=== PATIENT | female | born 1985 | race Caucasian/White ===

== ENCOUNTER 2019-07-18 13:48 | Inpatient (IN) ==
[2019-07-18] MEDS ORDERED: SODIUM CHLORIDE 0.9% 1000ML 1,000 ML IV ONE (14:17)
[2019-07-18] MEDS ORDERED: KETOROLAC TROMETHAMINE 15 MG/ML VIAL IV STA (14:17)
[2019-07-18] MEDS ORDERED: ONDANSETRON INJ 2 MG/ML 2 ML VIAL IV STA (14:17)
[2019-07-18 14:27] LABS: Basophils # (auto) 0.03 K/uL (0-0.2); Basophils % (auto) 0.2 %; Eosinophils # (auto) 0.21 K/uL (0-0.5); Eosinophils % (auto) 1.5 %; Hematocrit (blood only) 40.1 % (37-47); Hemoglobin 14.2 g/dL (12.0-16.0); Immature Granulocytes # (auto) 0.16 K/uL (0.00-0.02); Immature Granulocytes % (auto) 1.2 %; Lymphocytes # (auto) 1.22 K/uL (1.2-3.4); Lymphocytes % (auto) 8.9 %; Mean Corpuscular Hemoglobin 34.9 pg (25-34); Mean Corpuscular Hgb Conc 35.4 g/dL (32-36); Mean Corpuscular Volume 98.5 fL (80-100); Mean Platelet Volume 9.6 fL (7.4-10.4); Monocytes # (auto) 1.19 K/uL (0.11-0.59); Monocytes % (auto) 8.6 %; Neutrophils # (auto) 10.95 K/uL (1.4-6.5); Neutrophils % (auto) 79.6 %; Platelet Count 324 K/uL (130-400); RDW Coefficient of Variation 13.8 % (11.5-14.5); RDW Standard Deviation 49.1 fL (36.4-46.3); Red Blood Count 4.07 M/uL (4.2-5.4); White Blood Count 13.76 K/uL (4.8-10.8)
[2019-07-18 14:43] LABS: Albumin Level 3.4 gm/dl (3.4-5.0); BUN Creatinine Ratio 9.9 (10-20); Bilirubin Direct 0.1 mg/dl (0-0.2); Bilirubin,Total 0.6 mg/dl (0.2-1); Calcium 9.1 mg/dl (8.5-10.1); Creatinine Clr Calc Pharmacy 99.6 ml/min; Est GFR (African American) 121.4; Est GFR (Non-African American) 104.7; Potassium 2.5 mmol/L (3.5-5.1); Total Protein 8.5 gm/dl (6.4-8.2)
[2019-07-18 14:45] LABS: Appearance Urine Cloudy (Clear); Bacteria Urine Automated Negative (Negative); Blood Urine Trace (Negative); Color Urine Dark Yellow; Epithelial Cell Urine Auto >30 /lpf (0-5); Glucose Urine UA Negative (Negative); Leukocyte Esterase Urine 1+ (Negative); Nitrite Urine Positive (Negative); Protein Urine 1+ (Negative); Specific Gravity Urine 1.027 (1.000-1.030); Urobilinogen Urine Positive (Negative)
[2019-07-18 14:51] LABS: Ketones Urine 4+ (Negative)
[2019-07-18 14:58] LABS: Bilirubin Urine Negative (Negative); Ictotest Urine Negative (Negative)
[2019-07-18] MEDS ORDERED: POTASSIUM CHLORIDE / WTR 20 MEQ/100 ML PLCT IV ONE (15:03)
[2019-07-18] MEDS ORDERED: IOVERSOL 100ml IV PRN (15:12)
[2019-07-18 15:22] LABS: Magnesium 2.1 mg/dl (1.8-2.4)
[2019-07-18] MEDS: POTASSIUM CHLORIDE / WTR 10 MEQ/100 ML PLCT IV SCH ×2 (15:31→17:08)
--- NOTE | 2019-07-18 15:31 | CT Scan Report ---
CT OF THE ABDOMEN AND PELVIS WITH CONTRAST CLINICAL HISTORY: Abdominal pain. COMPARISON STUDY: CT of the abdomen and pelvis March 02, 2013. TECHNIQUE: Following IV administration of 95 mL of Optiray-320, axial images of the abdomen and pelvi s were obtained from the lung bases to the proximal femurs. Images were reviewed in the axial, sagitt al, and coronal planes. IV contrast was administered without complication. Automated exposure contro l was utilized for the study. A dose lowering technique was utilized adhering to the principles of A ITZEL. CT DOSE: 445.21 mGycm FINDINGS: Lung bases are unremarkable. No pneumatosis, free air or portal venous gas is present. The liver, spleen, adrenal glands, kidneys and pancreas are unremarkable. There is no biliary or pancreat ic ductal dilatation is no hydronephrosis or hydroureter. The appendix is normal. There is no evidenc e for a bowel obstruction. Colon is mildly fluid-filled. Intrauterine device is noted. This appears t o be slightly low-lying with unusual orientation. Asymmetric left ovarian enlargement is noted. A tub ular structure within the left adnexa favors a dilated fallopian tube with adjacent infiltration. A 2 .4 x 1.6 cm hypodensity within the left adnexa is noted. There may be possible dilatation of the righ t fallopian tube is well. There is no right adnexal infiltration. No suspicious osseous lesions are p resent. Major vasculature is patent. There is mild bladder wall thickening, accentuated by underdiste ntion. IMPRESSION: 1. Dilatation of the left fallopian tube with adjacent infiltration. The findings favor an infectious process such as pelvic inflammatory disease with pyosalpinx and possible small tubo-ovarian abscesse s. Possible mild dilatation of the right fallopian tube without adjacent infiltration. 2. Slightly low-lying intrauterine device with unusual orientation. This may reflect a malpositioned IUD. ACT 112: Negative or not required by law. Electronically signed by: Troy Murphy M.D. 07/18/2019 3:30 PM
[2019-07-18] MEDS ORDERED: cefOXitin 2,000 MG/60 ML BAG IV STA (15:40)
[2019-07-18] MEDS ORDERED: DOXYCYCLINE HYCLATE 100 MG in DEXTROSE 5% 100 ML IV STA (15:40)
[2019-07-18] MEDS ORDERED: SODIUM CHLORIDE 0.9% 1000ML 1,000 ML IV SCH (16:00)
--- NOTE | 2019-07-18 16:12 | Electrocardiogram Report ---
Test Reason : Blood Pressure : / mmHG Vent. Rate : 094 BPM Atrial Rate : 094 BPM P-R Int : 128 ms QRS Dur : 074 ms QT Int : 370 ms P-R-T Axes : 059 061 004 degrees QTc Int : 462 ms Poor data quality, interpretation may be adversely affected Normal sinus rhythm Possible Left atrial enlargement Poor R wave progression, consider anterior OK vs. lead placement vs. LVH Abnormal ECG No previous ECGs available Confirmed by Ahsan Paris ([id number]) on 07/18/2019 4:12:11 PM Referred By: REFERRED SELF Confirmed By:Ahsan Paris
[2019-07-18] MEDS ORDERED: ACETAMINOPHEN 325 MG TAB PO PRN (18:31)
[2019-07-18] MEDS ORDERED: ONDANSETRON INJ 2 MG/ML 2 ML VIAL IV PRN (18:31)
--- NOTE | 2019-07-18 18:46 | Emergency Department Note ---
Entered by Brigette Hopkins acting as a scribe for Storm Goncalves History of Present Illness General Chief complaint: Abdominal Pain Stated complaint: SEVERE ABDOMINAL PAIN Time Seen by Provider: 07/18/19 14:03 Source: patient History of Present Illness Onset (ago): day(s) 4 Location: abdomen (lower, left greater than right) Severity: severe Maximum Pain Intensity: 7 Quality: + other (abdominal pain) Associated symptoms: + other (Positive nausea. 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 She states she went to walk in clinic in [place] and was told she had a UTI. She states she was called today and was told she does not have a UTI and was recommended to go to the ED. She reports her abdominal pain is greater on the left side and radiates to the right side. Pt has nausea and pain with urination but denies any vomiting, blood in her urine, abnormal vaginal discharge, chance of , concern for STD exposure, prior abdominal surgeries. She is a current smoker and smokes half a pack a day. Home Medications Home Medications Medication Instructions Recorded Confirmed Type acetaminophen [Tylenol Extra 1,000 mg PO Q6H PRN 07/18/19 07/18/19 History Strength] buprenorphine HCl 8 mg SUBLINGUAL TID 07/18/19 07/18/19 History cephalexin [Keflex] 500 mg PO Q12 07/18/19 07/18/19 History furosemide [Lasix] 40 mg PO BID 07/18/19 07/18/19 History ibuprofen 400 - 600 mg PO Q6H PRN 07/18/19 07/18/19 History levothyroxine [Synthroid] 200 mcg PO DAILY 07/18/19 07/18/19 History ondansetron 4 - 8 mg TRANSLINGUAL Q8 PRN 07/18/19 07/18/19 History potassium chloride [Klor-Con M10] 10 meq PO BID 07/18/19 07/18/19 History Allergies Allergy/AdvReac Type Severity Reaction Status Date / Time valacyclovir Allergy Severe SHORTNESS Verified 07/18/19 15:13 OF BREATH Past Med/Surg History Medical History Post-dates Surgical History No pertinent past surgical history Family History Other No pertinent family history in first degree relatives Social History Feels Safe at Home: Yes Smoking Status: Current every day smoker Review of Systems See HPI for pertinent positives & negatives. and A total of 10 systems reviewed and were otherwise negative Physical Exam Vital Signs Vital Signs - 24 hr 07/18/19 13:50 07/18/19 14:14 07/18/19 14:20 Temperature 36.8 C Temperature Source Oral Pulse Rate 107 H 105 H 91 H Pulse Rate from SpO2 Sensor Respiratory Rate 20 18 18 Respiratory Effort / Characteristics Non-Labored Respiratory Depth Normal Respiratory Pattern Regular Blood Pressure 135/66 Blood Pressure Mean 89 Pulse Oximetry 100 Oxygen Delivery Method Room Air Room Air Room Air Sepsis Action Taken by Nursing No Action Required 07/18/19 14:30 07/18/19 14:40 07/18/19 14:50 Temperature Temperature Source Pulse Rate 87 88 86 Pulse Rate from SpO2 Sensor Respiratory Rate 21 18 19 Respiratory Effort / Characteristics Respiratory Depth Respiratory Pattern Blood Pressure Blood Pressure Mean Pulse Oximetry Oxygen Delivery Method Room Air Room Air Room Air Sepsis Action Taken by Nursing 07/18/19 15:00 07/18/19 15:18 07/18/19 15:20 Temperature Temperature Source Pulse Rate 89 101 H 87 Pulse Rate from SpO2 Sensor Respiratory Rate 16 17 Respiratory Effort / Characteristics Respiratory Depth Respiratory Pattern Blood Pressure Blood Pressure Mean Pulse Oximetry Oxygen Delivery Method Room Air Room Air Room Air Sepsis Action Taken by Nursing 07/18/19 15:24 07/18/19 15:30 07/18/19 15:31 Temperature Temperature Source Pulse Rate 88 87 85 Pulse Rate from SpO2 Sensor 87 88 85 Respiratory Rate 23 19 20 Respiratory Effort / Characteristics Respiratory Depth Respiratory Pattern Blood Pressure 106/91 127/76 Blood Pressure Mean 98 86 Pulse Oximetry 99 97 97 Oxygen Delivery Method Room Air Room Air Room Air Sepsis Action Taken by Nursing 07/18/19 15:40 07/18/19 15:55 07/18/19 16:00 Temperature Temperature Source Pulse Rate 89 87 Pulse Rate from SpO2 Sensor 89 96 H 88 Respiratory Rate 20 16 Respiratory Effort / Characteristics Respiratory Depth Respiratory Pattern Blood Pressure 123/73 Blood Pressure Mean 83 Pulse Oximetry 98 98 99 Oxygen Delivery Method Room Air Room Air Room Air Sepsis Action Taken by Nursing 07/18/19 16:01 07/18/19 16:10 07/18/19 16:20 Temperature Temperature Source Pulse Rate 83 88 85 Pulse Rate from SpO2 Sensor 86 88 86 Respiratory Rate 18 22 14 Respiratory Effort / Characteristics Respiratory Depth Respiratory Pattern Blood Pressure Blood Pressure Mean Pulse Oximetry 99 99 100 Oxygen Delivery Method Room Air Room Air Room Air Sepsis Action Taken by Nursing 07/18/19 16:30 07/18/19 16:31 07/18/19 16:43 Temperature Temperature Source Pulse Rate 83 88 86 Pulse Rate from SpO2 Sensor 83 87 87 Respiratory Rate 19 18 30 H Respiratory Effort / Characteristics Respiratory Depth Respiratory Pattern Blood Pressure 115/72 Blood Pressure Mean 85 Pulse Oximetry 99 99 98 Oxygen Delivery Method Room Air Room Air Room Air Sepsis Action Taken by Nursing 07/18/19 16:50 07/18/19 17:00 07/18/19 17:01 Temperature Temperature Source Pulse Rate 83 84 87 Pulse Rate from SpO2 Sensor 83 85 88 Respiratory Rate 23 20 19 Respiratory Effort / Characteristics Respiratory Depth Respiratory Pattern Blood Pressure 129/56 L Blood Pressure Mean 98 Pulse Oximetry 99 99 99 Oxygen Delivery Method Room Air Room Air Room Air Sepsis Action Taken by Nursing 07/18/19 17:10 07/18/19 17:20 07/18/19 17:30 Temperature Temperature Source Pulse Rate 80 81 82 Pulse Rate from SpO2 Sensor 81 80 84 Respiratory Rate 18 18 14 Respiratory Effort / Characteristics Respiratory Depth Respiratory Pattern Blood Pressure 115/78 Blood Pressure Mean 87 Pulse Oximetry 99 98 100 Oxygen Delivery Method Room Air Room Air Room Air Sepsis Action Taken by Nursing 07/18/19 17:31 07/18/19 17:40 07/18/19 17:50 Temperature Temperature Source Pulse Rate 86 83 80 Pulse Rate from SpO2 Sensor 87 84 79 Respiratory Rate 14 17 15 Respiratory Effort / Characteristics Respiratory Depth Respiratory Pattern Blood Pressure Blood Pressure Mean Pulse Oximetry 100 99 100 Oxygen Delivery Method Room Air Room Air Room Air Sepsis Action Taken by Nursing 07/18/19 18:00 07/18/19 18:01 07/18/19 18:10 Temperature Temperature Source Pulse Rate 78 77 79 Pulse Rate from SpO2 Sensor 79 77 79 Respiratory Rate 20 16 21 Respiratory Effort / Characteristics Respiratory Depth Respiratory Pattern Blood Pressure 106/68 Blood Pressure Mean 73 Pulse Oximetry 98 99 99 Oxygen Delivery Method Room Air Room Air Room Air Sepsis Action Taken by Nursing GENERAL: She is oriented to person, place, and time. She appears well-developed and well-nourished. She does not appear distressed. HENT: Exam performed. Head: Normocephalic and atraumatic. Right Ear: External ear normal. No mastoid tenderness. Left Ear: External ear normal. No mastoid tenderness. Mouth/Throat: The oropharynx is clear and moist. No trismus in the jaw. No dental abscesses or uvula swelling. No oropharyngeal exudate or tonsillar abscesses. EYES: Conjunctivae and EOM are normal. Pupils are equal, round, and reactive to light. Right eye exhibits no discharge. Left eye exhibits no discharge. No scleral icterus. NECK: Normal range of motion. Neck supple. No JVD present. No spinous process tenderness present. No carotid bruit present. No rigidity. No tracheal deviation and normal range of motion present. No Brudzinski's sign and no Kernig's sign noted. CV: Normal rate, regular rhythm, normal heart sounds and intact distal pulses. There is no peripheral edema. Palpable radial pulses bue. PULM/CHEST: Effort normal and breath sounds normal. No respiratory distress. No stridor. She has no wheezes. She has no rales. Chest Wall: She exhibits no tenderness. ABD: The abdomen is soft. Bowel sounds are normal. She has no distension. No mass is present. Pain on palpation of RLQ, LLQ, and suprapubic area. There is no rebound, no guarding, no Noland's sign and no tenderness at McBurney's point. Rovsig negative MUSC/SKEL: Normal range of motion. There is no peripheral edema, tenderness or deformity. LYMPH: No cervical adenopathy. PELVIC: Performed with nursing hand carver at bedside. Greenish yellow vaginal discharge and left sided adnexal tenderness. No cervical motion tenderness. NEURO: She is alert and oriented to person, place, and time. She has normal strength. No cranial nerve deficit or sensory deficit. Coordination and gait normal. GCS eye subscore is 4. GCS verbal subscore is 5. GCS motor subscore is 6. cerbellar tests wnl. SKIN: Skin is warm and dry. She is not diaphoretic. PSYCH: She has a normal mood and affect. Her behavior is normal. Judgment and thought content normal. Course Course 1414: Past medical records reviewed. The patient was evaluated in room A9. A complete history and physical exam was performed. 1509: I reassessed the patient at this time. She still has pain on palpation. She will have a CT. Her labs will be rechecked as she has a potassium level of 2.5. She has a leukocytosis of 13. Potassium will be replaced in the emergency department. 1554: CT showed possible tubo-ovarian abscess on the left with pyosalpinx and dilatation and inflammation of the left fallopian tube. There is also dilatation and infiltration of the right fallopian tube. Patient is again stating she has not been exposed any STD eyes and is not concerned. I performed a pelvic exam with nursing hand carver at bedside. She had greenish yellow vaginal discharge and left sided adnexal tenderness. No cervical motion tenderness. Cultures for gonorrhea and chlamydia were sent. Patient will be treated with IV doxycycline and cefoxitin. Discussed the patient's case with Dr. Crum, [employer]. He will come evaluate the patient. Administered Medications Sodium Chloride (Nss 1000ml) 1,000 mls @ 125 mls/hr IV .Q8H MIKHAIL Stop: 08/17/19 15:59 Last Admin: 07/18/19 16:05 Dose: 125 mls/hr Documented by: [id number] Ioversol (Optiray 320 100ml) 95 ml IV ONCE PRN PRN Reason: Interaction Checking Stop: 07/22/19 15:11 Last Admin: 07/18/19 15:13 Dose: 95 ml Documented by: [id number] Discontinued Medications Sodium Chloride (Nss 1000ml) 1,000 mls @ 999 mls/hr IV .Q1H1M ONE Stop: 07/18/19 15:17 Last Infusion: 07/18/19 15:25 Dose: 0 mls/hr Documented by: [id number] Admin: 07/18/19 14:24 Dose: 999 mls/hr Documented by: [id number] Potassium Chloride (K Les / Wtr) 20 meq in 100 mls @ 50 mls/hr IV ONE ONE Stop: 07/18/19 17:02 Last Admin: 07/18/19 15:31 Dose: Not Given Documented by: [id number] Potassium Chloride (K Les / Wtr) 10 meq in 100 mls @ 100 mls/hr IV Q1H MIKHAIL Stop: 07/18/19 17:29 Last Infusion: 07/18/19 18:26 Dose: 0 mls/hr Documented by: [id number] Admin: 07/18/19 17:08 Dose: 100 mls/hr Documented by: [id number] Infusion: 07/18/19 16:48 Dose: 0 mls/hr Documented by: [id number] Admin: 07/18/19 15:31 Dose: 100 mls/hr Documented by: [id number] Cefoxitin Sodium (Mefoxin) 2,000 mg in 60 mls @ 100 mls/hr IV NOW STA Stop: 07/18/19 16:15 Last Infusion: 07/18/19 17:37 Dose: 0 mls/hr Documented by: [id number] Admin: 07/18/19 16:17 Dose: 100 mls/hr Documented by: [id number] Doxycycline Hyclate 100 mg/ (Dextrose) 110 mls @ 50 mls/hr IV NOW STA Stop: 07/18/19 17:51 Last Admin: 07/18/19 17:08 Dose: 50 mls/hr Documented by: [id number] Ketorolac Tromethamine (Toradol) 15 mg IV NOW STA Stop: 07/18/19 14:18 Last Admin: 07/18/19 14:24 Dose: 15 mg Documented by: [id number] Ondansetron HCl (Zofran) 4 mg IV NOW STA Stop: 07/18/19 14:18 Last Admin: 07/18/19 14:24 Dose: 4 mg Documented by: [id number] Medical Decision Making Medical Records Attestation: I reviewed the patient's medical records. Home Medications Current Medication List: was personally reviewed by me Laboratory Data Attestation: I reviewed the patient's lab results. Result diagrams: 07/18/19 14:05 07/18/19 14:05 Lab Results 07/18/19 07/18/19 07/18/19 Range/Units 14:05 14:05 14:10 WBC 13.76 H (4.8-10.8) K/uL RBC 4.07 L (4.2-5.4) M/uL Hgb 14.2 (12.0-16.0) g/dL Hct 40.1 (37-47) % MCV 98.5 (80-100) fL MCH 34.9 H (25-34) pg MCHC 35.4 (32-36) g/dL RDW Std Deviation 49.1 H (36.4-46.3) fL RDW Coeff of Praful 13.8 (11.5-14.5) % Plt Count 324 (130-400) K/uL MPV 9.6 (7.4-10.4) fL Immature Gran % (Auto) 1.2 % Neut % (Auto) 79.6 % Lymph % (Auto) 8.9 % Ralls % (Auto) 8.6 % Eos % (Auto) 1.5 % Baso % (Auto) 0.2 % Immature Gran # (Auto) 0.16 H (0.00-0.02) K/uL Neut # (Auto) 10.95 H (1.4-6.5) K/uL Lymph # (Auto) 1.22 (1.2-3.4) K/uL Ralls # (Auto) 1.19 H (0.11-0.59) K/uL Eos # (Auto) 0.21 (0-0.5) K/uL Baso # (Auto) 0.03 (0-0.2) K/uL Sodium 133 L (136-145) mmol/L Potassium 2.5 L* (3.5-5.1) mmol/L Chloride 98 (98-107) mmol/L Carbon Dioxide 28 (21-32) mmol/L Anion Gap 8.0 (3-11) BUN 8 (7-18) mg/dl Creatinine 0.75 (0.6-1.2) mg/dl Est Cr Clr Drug Dosing 99.6 ml/min Est GFR ( Amer) 121.4 Est GFR (Non-Af Amer) 104.7 BUN/Creatinine Ratio 9.9 L (10-20) Glucose 88 (70-99) mg/dl Calcium 9.1 (8.5-10.1) mg/dl Magnesium 2.1 (1.8-2.4) mg/dl Total Bilirubin 0.6 (0.2-1) mg/dl Direct Bilirubin 0.1 (0-0.2) mg/dl AST 19 (15-37) U/L ALT 23 (12-78) U/L Alkaline Phosphatase 131 H (45-117) U/L Total Protein 8.5 H (6.4-8.2) gm/dl Albumin 3.4 (3.4-5.0) gm/dl Lipase 68 L (73-393) U/L Urine Color Urine Appearance (Clear) Urine pH (4.5-7.5) Ur Specific Ren[place]rew (1.000-1.030) Urine Protein (Negative) Urine Glucose (UA) (Negative) Urine Ketones (Negative) Urine Blood (Negative) Urine Nitrite (Negative) Urine Bilirubin (Negative) Urine Urobilinogen (Negative) Ur Leukocyte Esterase (Negative) Urine WBC (Auto) (0-5) /hpf Urine RBC (Auto) (0-4) /hpf U Hyaline Cast (Auto) (0-5) /lpf U Epithel Cells (Auto) (0-5) /lpf Urine Bacteria (Auto) (Negative) POC Ur Test NEG (NEG) 07/18/19 Range/Units 14:10 WBC (4.8-10.8) K/uL RBC (4.2-5.4) M/uL Hgb (12.0-16.0) g/dL Hct (37-47) % MCV (80-100) fL MCH (25-34) pg MCHC (32-36) g/dL RDW Std Deviation (36.4-46.3) fL RDW Coeff of Praful (11.5-14.5) % Plt Count (130-400) K/uL MPV (7.4-10.4) fL Immature Gran % (Auto) % Neut % (Auto) % Lymph % (Auto) % Ralls % (Auto) % Eos % (Auto) % Baso % (Auto) % Immature Gran # (Auto) (0.00-0.02) K/uL Neut # (Auto) (1.4-6.5) K/uL Lymph # (Auto) (1.2-3.4) K/uL Ralls # (Auto) (0.11-0.59) K/uL Eos # (Auto) (0-0.5) K/uL Baso # (Auto) (0-0.2) K/uL Sodium (136-145) mmol/L Potassium (3.5-5.1) mmol/L Chloride (98-107) mmol/L Carbon Dioxide (21-32) mmol/L Anion Gap (3-11) BUN (7-18) mg/dl Creatinine (0.6-1.2) mg/dl Est Cr Clr Drug Dosing ml/min Est GFR ( Amer) Est GFR (Non-Af Amer) BUN/Creatinine Ratio (10-20) Glucose (70-99) mg/dl Calcium (8.5-10.1) mg/dl Magnesium (1.8-2.4) mg/dl Total Bilirubin (0.2-1) mg/dl Direct Bilirubin (0-0.2) mg/dl AST (15-37) U/L ALT (12-78) U/L Alkaline Phosphatase (45-117) U/L Total Protein (6.4-8.2) gm/dl Albumin (3.4-5.0) gm/dl Lipase (73-393) U/L Urine Color Dark Yellow Urine Appearance Cloudy A (Clear) Urine pH 6.0 (4.5-7.5) Ur Specific Ren[place]rew 1.027 (1.000-1.030) Urine Protein 1+ H (Negative) Urine Glucose (UA) Negative (Negative) Urine Ketones 4+ H (Negative) Urine Blood Trace H (Negative) Urine Nitrite Positive A (Negative) Urine Bilirubin Negative (Negative) Urine Urobilinogen Positive H (Negative) Ur Leukocyte Esterase 1+ H (Negative) Urine WBC (Auto) 10-30 H (0-5) /hpf Urine RBC (Auto) 5-10 H (0-4) /hpf U Hyaline Cast (Auto) 10-30 H (0-5) /lpf U Epithel Cells (Auto) >30 H (0-5) /lpf Urine Bacteria (Auto) Negative (Negative) POC Ur Test (NEG) Imaging Data Radiologist's Impression: Radiology results as stated below per my review and the radiologist's interpretation: CT OF THE ABDOMEN AND PELVIS WITH CONTRAST CLINICAL HISTORY: Abdominal pain. COMPARISON STUDY: CT of the abdomen and pelvis March 02, 2013. TECHNIQUE: Following IV administration of 95 mL of Optiray-320, axial images of the abdomen and pelvis were obtained from the lung bases to the proximal femurs. Images were reviewed in the axial, sagittal, and coronal planes. IV contrast was administered without complication. Automated exposure control was utilized for the study. A dose lowering technique was utilized adhering to the principles of ALARA. CT DOSE: 445.21 mGycm FINDINGS: Lung bases are unremarkable. No pneumatosis, free air or portal venous gas is present. The liver, spleen, adrenal glands, kidneys and pancreas are unremarkable. There is no biliary or pancreatic ductal dilatation is no hydronephrosis or hydroureter. The appendix is normal. There is no evidence for a bowel obstruction. Colon is mildly fluid-filled. Intrauterine device is noted. This appears to be slightly low-lying with unusual orientation. Asymmetric left ovarian enlargement is noted. A tubular structure within the left adnexa favors a dilated fallopian tube with adjacent infiltration. A 2.4 x 1.6 cm hypodensity within the left adnexa is noted. There may be possible dilatation of the right fallopian tube is well. There is no right adnexal infiltration. No suspicious osseous lesions are present. Major vasculature is patent. There is mild bladder wall thickening, accentuated by underdistention. IMPRESSION: 1. Dilatation of the left fallopian tube with adjacent infiltration. The findings favor an infectious process such as pelvic inflammatory disease with pyosalpinx and possible small tubo-ovarian abscesses. Possible mild dilatation of the right fallopian tube without adjacent infiltration. 2. Slightly low-lying intrauterine device with unusual orientation. This may reflect a malpositioned IUD. ACT 112: Negative or not required by law. Electronically signed by: Troy Murphy M.D. 07/18/2019 3:30 PM ECG Data Attestation: I personally reviewed and interpreted this ECG as follows: Indication: + abdominal pain Rate (beats per minute): 79 Rhythm: + sinus rhythm ECG ST segments: no ST depression and no ST elevation ECG Findings: + Other (WA, QRS, QTC wnl) Blood Pressure Blood Pressure Findings: Elevated blood pressure Blood Pressure Disposition: further management by hospitalist [facility] Narrative 1414: Past medical records reviewed. The patient was evaluated in room A9. A complete history and physical exam was performed. 1509: I reassessed the patient at this time. She still has pain on palpation. Sh e will have a CT. Her labs will be rechecked as she has a potassium level of 2.5. She has a leukocytosis of 13. Potassium will be replaced in the emergency department. 1554: CT showed possible tubo-ovarian abscess on the left with pyosalpinx and dilatation and inflammation of the left fallopian tube. There is also dilatation and infiltration of the right fallopian tube. Patient is again stating she has not been exposed any STD eyes and is not concerned. I performed a pelvic exam with nursing hand carver at bedside. She had greenish yellow vaginal discharge and left sided adnexal tenderness. No cervical motion tenderness. Cultures for gonorrhea and chlamydia were sent. Patient will be treated with IV doxycycline and cefoxitin. Discussed the patient's case with Dr. Crum, [employer]. He will come evaluate the patient. Impression & Plan Tubal ovarian abscess, Hypokalemia Discharge Plan Visit Data Chief Complaint: Abdominal Pain Stated Complaint: SEVERE ABDOMINAL PAIN ED Provider: Storm Goncalves Discharge Problem: Tubal ovarian abscess, Hypokalemia Patient Disposition: Being Evaluated by Hospitalist Forms Stand Alone Forms: Call Back Authorization, [facility] Prescriptions Prescriptions: No Action furosemide [Lasix] 40 mg tablet 40 mg PO BID RF: 0 acetaminophen [Tylenol Extra Strength] 500 mg Tablet 1,000 mg PO Q6H PRN (Reason: Pain) RF: 0 cephalexin [Keflex] 500 mg capsule 500 mg PO Q12 RF: 0 ibuprofen 200 mg Tablet 400 - 600 mg PO Q6H PRN (Reason: Pain) RF: 0 levothyroxine [Synthroid] 200 mcg tablet 200 mcg PO DAILY RF: 0 ondansetron 4 mg tablet,disintegrating 4 - 8 mg translingual Q8 PRN (Reason: Nausea) RF: 0 buprenorphine HCl 8 mg tablet, sublingual 8 mg SUBLINGUAL TID RF: 0 potassium chloride [Klor-Con M10] 10 mEq tablet,ER particles/crystals 10 meq PO BID RF: 0 Referrals Referrals: Gypsy Lubin PA-C [Primary Care Provider] - The scribe's documentation has been prepared under my direction and personally reviewed by me in its entirety. I confirm that the note above accurately reflects all work, treatment, procedures, and medical decision making performed by me.
[2019-07-18] MEDS ORDERED: POTASSIUM CHLORIDE 10 MEQ TABCR PO STA (18:47)
--- NOTE | 2019-07-18 19:32 | History and Physical Report ---
DATE OF ADMISSION: 07/18/2019 This is an H and P/consult. HISTORY OF PRESENT ILLNESS: The patient is a 34-year-old G4, P4 who presented to the ER with lower abdominal pain x4 days. The pain has increasingly been getting worse. She denied any shortness of breath, no chills, no fever. The patient has had IUD placed for the last 3 years and is in a monogamous relationship. Workup in the ER included a CBC, complete chemistry and abdominal CT; CT showed a dilation of left fallopian tube with adjacent infiltration. The findings are suggestive of pelvic inflammatory disease with a possible tubo-ovarian abscess. There was dilation of the right fallopian tube as well. Pelvic exam by ER physician showed some vaginal discharge. ER physician described discharge as greenish yellow. CONSTRUCTION PRODUCER was consulted. When I arrived at the ER, patient is sitting comfortably in bed. She had no shortness of breath, no chills, no fever. Past medical history, surgical history, and social history have been reviewed. Pelvic exam confirms that the patient has increased vaginal discharge. IUD string is seen at the cervical os. She has moderate cervical tenderness. The patient does not appear septic. Review of labs shows white count of 13.7, platelets of 324, neutrophils of 10. Chemistry significant for potassium of 2.5. She is receiving potassium supplements in the ER. Urine is positive for nitrites and urobilinogen. PAST MEDICAL HISTORY: The patient denies diabetes, hypertension or asthma. PAST SURGICAL HISTORY: None. SOCIAL HISTORY: The patient is in a monogamous relationship. ALLERGIES: No known drug allergies. PHYSICAL EXAMINATION: GENERAL: Well-developed, well-nourished white female in mild discomfort. HEART: S1, S2, regular rhythm and rate. LUNGS: Clear to auscultation bilaterally. ABDOMEN: Slightly tender, but no guarding, no rebound. PELVIC: There is mild yellowish thick discharge coming from the cervix. The cervix does not appear erythematous. There is mild cervical motion tenderness. Both adnexa appeared tender to touch, but there are no palpable masses at least from the exam. Uterus is about 10-12 week size. EXTREMITIES: No cyanosis, clubbing or edema. ASSESSMENT AND PLAN: 1. A 34-year-old with pelvic inflammatory disease, possibly a tubo-ovarian abscess. The patient is afebrile. 2. Hypokalemia. The patient is being admitted and will be started on antibiotic therapy. I have discussed with the patient on IUD. She is very happy with her IUD and is on an IUD for both bleeding and contraception. Decision therefore was made at this moment not to remove the IUD. She will be started on antibiotic therapy.
[2019-07-18] MEDS: ACETAMINOPHEN 500 MG TAB PO PRN (20:55)
[2019-07-18] MEDS: POTASSIUM CHLORIDE 10 MEQ TABCR PO SCH (21:35)
[2019-07-18] MEDS: buprenorphine HCL 8 MG SUBL SL SCH (21:37)
[2019-07-18] MEDS: LACTATED RINGER'S 1,000 ML IV SCH (21:38)
[2019-07-18] MEDS: cefOXitin 2,000 MG/60 ML BAG IV SCH (22:13)
[2019-07-18] MEDS ORDERED: BISMUTH SUBSALICYLATE SUSP PO PRN (22:39)
[2019-07-19] MEDS: ACETAMINOPHEN 500 MG TAB PO PRN ×2 (04:27→20:11)
[2019-07-19] MEDS: cefOXitin 2,000 MG/60 ML BAG IV SCH ×4 (04:28→22:13)
[2019-07-19 06:03] LABS: Basophils # (auto) 0.02 K/uL (0-0.2); Basophils % (auto) 0.2 %; Eosinophils # (auto) 0.17 K/uL (0-0.5); Eosinophils % (auto) 1.6 %; Hematocrit (blood only) 32.4 % (37-47); Hemoglobin 11.3 g/dL (12.0-16.0); Immature Granulocytes # (auto) 0.23 K/uL (0.00-0.02); Immature Granulocytes % (auto) 2.2 %; Lymphocytes # (auto) 1.12 K/uL (1.2-3.4); Lymphocytes % (auto) 10.5 %; Mean Corpuscular Hemoglobin 34.5 pg (25-34); Mean Corpuscular Hgb Conc 34.9 g/dL (32-36); Mean Corpuscular Volume 98.8 fL (80-100); Mean Platelet Volume 9.1 fL (7.4-10.4); Monocytes # (auto) 1.57 K/uL (0.11-0.59); Monocytes % (auto) 14.7 %; Neutrophils # (auto) 7.57 K/uL (1.4-6.5); Neutrophils % (auto) 70.8 %; Platelet Count 257 K/uL (130-400); RDW Coefficient of Variation 13.8 % (11.5-14.5); RDW Standard Deviation 49.9 fL (36.4-46.3); Red Blood Count 3.28 M/uL (4.2-5.4); White Blood Count 10.68 K/uL (4.8-10.8)
[2019-07-19] MEDS: LACTATED RINGER'S 1,000 ML IV SCH ×2 (06:32→18:12)
[2019-07-19] MEDS: DOXYCYCLINE HYCLATE 100 MG in DEXTROSE 5% 100 ML IV SCH ×2 (06:32→18:33)
[2019-07-19] MEDS: LEVOTHYROXINE SODIUM 200 MCG TABLET PO SCH (06:33)
[2019-07-19 06:41] LABS: Albumin Globulin Ratio 0.6 (0.9-2); Albumin Level 2.4 gm/dl (3.4-5.0); BUN Creatinine Ratio 5.9 (10-20); Bilirubin,Total 0.5 mg/dl (0.2-1); Calcium 8.5 mg/dl (8.5-10.1); Creatinine Clr Calc Pharmacy 72.5 ml/min; Est GFR (African American) 82.7; Est GFR (Non-African American) 71.4; Globulin 3.8 gm/dl (2.5-4.0); Potassium 3.4 mmol/L (3.5-5.1); Total Protein 6.2 gm/dl (6.4-8.2)
[2019-07-19] MEDS: buprenorphine HCL 8 MG SUBL SL SCH ×3 (08:48→21:21)
[2019-07-19] MEDS ORDERED: BISMUTH SUBSALICYLATE SUSP PO PRN (08:53)
--- NOTE | 2019-07-19 08:59 | Obstetrical Progress Note ---
Date of Service July 19, 2019 Subjective patient seen and examined no obvious discomfort complains of diarrhea ambulating and tolerating diet Physical Exam Constitutional: WD/WN, vitals as above comfortable abdomen soft and non- tender neg Vannesa's plan for 24 hrs of antibiotics and discharge [employer] Results & Data Vital Signs (Past 12 Hours) Vital Signs Temp Pulse Resp BP Pulse Ox 07/19/19 04:15 37.3 C 97 H 17 114/64 95 07/19/19 00:15 36.7 C 79 16 110/74 96 Laboratory Results Laboratory Results - last 48 hr 07/18/19 07/18/19 07/18/19 14:05 14:05 14:10 WBC 13.76 H RBC 4.07 L Hgb 14.2 Hct 40.1 MCV 98.5 MCH 34.9 H MCHC 35.4 RDW Std Deviation 49.1 H RDW Coeff of Pra[place] 13.8 Plt Count 324 MPV 9.6 Immature Gran % (Auto) 1.2 Neut % (Auto) 79.6 Lymph % (Auto) 8.9 [place] % (Auto) 8.6 Eos % (Auto) 1.5 Baso % (Auto) 0.2 Immature Gran # (Auto) 0.16 H Neut # (Auto) 10.95 H Lymph # (Auto) 1.22 [place] # (Auto) 1.19 H Eos # (Auto) 0.21 Baso # (Auto) 0.03 Sodium 133 L Potassium 2.5 L* Chloride 98 Carbon Dioxide 28 Anion Gap 8.0 BUN 8 Creatinine 0.75 Est Cr Clr Drug Dosing 99.6 Est GFR ( Amer) 121.4 Est GFR (Non-Af Amer) 104.7 BUN/Creatinine Ratio 9.9 L Glucose 88 Calcium 9.1 Magnesium 2.1 Total Bilirubin 0.6 Direct Bilirubin 0.1 AST 19 ALT 23 Alkaline Phosphatase 131 H Total Protein 8.5 H Albumin 3.4 Globulin Albumin/Globulin Ratio Lipase 68 L Specimen Hemolysis Urine Color Urine Appearance Urine pH Ur Specific [place] Urine Protein Urine Glucose (UA) Urine Ketones Urine Blood Urine Nitrite Urine Bilirubin Urine Urobilinogen Ur Leukocyte Esterase Urine WBC (Auto) Urine RBC (Auto) U Hyaline Cast (Auto) U Epithel Cells (Auto) Urine Bacteria (Auto) POC Ur Test NEG 07/18/19 07/19/19 07/19/19 14:10 05:51 05:51 WBC 10.68 RBC 3.28 L Hgb 11.3 L Hct 32.4 L MCV 98.8 MCH 34.5 H MCHC 34.9 RDW Std Deviation 49.9 H RDW Coeff of [place] 13.8 Plt Count 257 MPV 9.1 Immature Gran % (Auto) 2.2 Neut % (Auto) 70.8 Lymph % (Auto) 10.5 Williams % (Auto) 14.7 Eos % (Auto) 1.6 Baso % (Auto) 0.2 Immature Gran # (Auto) 0.23 H Neut # (Auto) 7.57 H Lymph # (Auto) 1.12 L [place] # (Auto) 1.57 H Eos # (Auto) 0.17 Baso # (Auto) 0.02 Sodium 138 Potassium 3.4 L D Chloride 107 Carbon Dioxide 26 Anion Gap 5.0 BUN 6 L Creatinine 1.03 Est Cr Clr Drug Dosing 72.5 Est GFR ( Amer) 82.7 Est GFR (Non-Af Amer) 71.4 BUN/Creatinine Ratio 5.9 L Glucose 96 Calcium 8.5 Magnesium Total Bilirubin 0.5 Direct Bilirubin AST 19 ALT 16 Alkaline Phosphatase 94 Total Protein 6.2 L D Albumin 2.4 L Globulin 3.8 Albumin/Globulin Ratio 0.6 L Lipase Specimen Hemolysis Urine Color Dark Yellow Urine Appearance Cloudy A Urine pH 6.0 Ur Specific [place] 1.027 Urine Protein 1+ H Urine Glucose (UA) Negative Urine Ketones 4+ H Urine Blood Trace H Urine Nitrite Positive A Urine Bilirubin Negative Urine Urobilinogen Positive H Ur Leukocyte Esterase 1+ H Urine WBC (Auto) 10-30 H Urine RBC (Auto) 5-10 H U Hyaline Cast (Auto) 10-30 H U Epithel Cells (Auto) >30 H Urine Bacteria (Auto) Negative POC Ur Test
[2019-07-19] MEDS ORDERED: LEVOTHYROXINE SODIUM 200 MCG TABLET PO SCH (09:00)
[2019-07-19] MEDS: POTASSIUM CHLORIDE 10 MEQ TABCR PO SCH ×2 (09:06→21:22)
[2019-07-19] MEDS: IBUPROFEN 600 MG TAB PO PRN ×3 (09:29→23:44)
--- NOTE | 2019-07-19 14:04 | Electrocardiogram Report ---
Test Reason : Blood Pressure : / mmHG Vent. Rate : 079 BPM Atrial Rate : 079 BPM P-R Int : 138 ms QRS Dur : 082 ms QT Int : 404 ms P-R-T Axes : 051 077 015 degrees QTc Int : 463 ms Normal sinus rhythm Possible Left atrial enlargement Nonspecific ST abnormality Abnormal ECG When compared with ECG of 18-JUL-2019 14:06, No significant change was found Confirmed by Ahsan Paris [id number]) on 07/19/2019 2:04:11 PM Referred By: REFERRED SELF Confirmed By:Ahsan Paris
[2019-07-20] MEDS: cefOXitin 2,000 MG/60 ML BAG IV SCH (03:42)
[2019-07-20] MEDS: LACTATED RINGER'S 1,000 ML IV SCH (03:44)
[2019-07-20] MEDS: DOXYCYCLINE HYCLATE 100 MG in DEXTROSE 5% 100 ML IV SCH (06:09)
[2019-07-20] MEDS: LEVOTHYROXINE SODIUM 200 MCG TABLET PO SCH (06:11)
[2019-07-20 08:08] LABS: Basophils # (auto) 0.05 K/uL (0-0.2); Basophils % (auto) 0.4 %; Eosinophils # (auto) 0.14 K/uL (0-0.5); Eosinophils % (auto) 1.2 %; Hematocrit (blood only) 31.9 % (37-47); Immature Granulocytes # (auto) 0.59 K/uL (0.00-0.02); Immature Granulocytes % (auto) 4.9 %; Lymphocytes % (auto) 13.2 %; Mean Corpuscular Hemoglobin 33.7 pg (25-34); Mean Corpuscular Hgb Conc 34.5 g/dL (32-36); Mean Corpuscular Volume 97.9 fL (80-100); Mean Platelet Volume 9.3 fL (7.4-10.4); Monocytes # (auto) 1.16 K/uL (0.11-0.59); Monocytes % (auto) 9.6 %; Neutrophils # (auto) 8.55 K/uL (1.4-6.5); Neutrophils % (auto) 70.7 %; Platelet Count 334 K/uL (130-400); RDW Coefficient of Variation 14.1 % (11.5-14.5); Red Blood Count 3.26 M/uL (4.2-5.4); White Blood Count 12.09 K/uL (4.8-10.8)
[2019-07-20] MEDS: IBUPROFEN 600 MG TAB PO PRN (08:20)
[2019-07-20] MEDS: POTASSIUM CHLORIDE 10 MEQ TABCR PO SCH (08:20)
[2019-07-20] MEDS: buprenorphine HCL 8 MG SUBL SL SCH (08:21)
[2019-07-20 08:37] LABS: Potassium 3.2 mmol/L (3.5-5.1)
--- NOTE | 2019-07-20 09:56 | Gynecologic Progress Note ---
Date of Service July 20, 2019 Subjective doing well no pain tolerating diet ambulating well Physical Exam Constitutional: WD/WN, vitals as above comfortable abdomen soft non- tender no edema neg Vannesa's for d/c Results & Data Vital Signs (Past 12 Hours) Vital Signs Temp Pulse Resp BP Pulse Ox 07/20/19 09:42 37.1 C 83 16 113/75 99 07/20/19 07:30 37.1 C 83 16 113/75 99 07/20/19 03:40 37.0 C 75 16 102/64 96 07/19/19 23:10 37.5 C 91 H 18 112/72 99 Laboratory Results Laboratory Results - last 72 hr 07/18/19 07/18/19 07/18/19 14:05 14:05 14:10 WBC 13.76 H RBC 4.07 L Hgb 14.2 Hct 40.1 MCV 98.5 MCH 34.9 H MCHC 35.4 RDW Std Deviation 49.1 H RDW Coeff of Praful 13.8 Plt Count 324 MPV 9.6 Immature Gran % (Auto) 1.2 Neut % (Auto) 79.6 Lymph % (Auto) 8.9 [place] % (Auto) 8.6 Eos % (Auto) 1.5 Baso % (Auto) 0.2 Immature Gran # (Auto) 0.16 H Neut # (Auto) 10.95 H Lymph # (Auto) 1.22 [place] # (Auto) 1.19 H Eos # (Auto) 0.21 Baso # (Auto) 0.03 Sodium 133 L Potassium 2.5 L* Chloride 98 Carbon Dioxide 28 Anion Gap 8.0 BUN 8 Creatinine 0.75 Est Cr Clr Drug Dosing 99.6 Est GFR ( Amer) 121.4 Est GFR (Non-Af Amer) 104.7 BUN/Creatinine Ratio 9.9 L Glucose 88 Calcium 9.1 Magnesium 2.1 Total Bilirubin 0.6 Direct Bilirubin 0.1 AST 19 ALT 23 Alkaline Phosphatase 131 H Total Protein 8.5 H Albumin 3.4 Globulin Albumin/Globulin Ratio Lipase 68 L Specimen Hemolysis Urine Color Urine Appearance Urine pH Ur Specific [place] Urine Protein Urine Glucose (UA) Urine Ketones Urine Blood Urine Nitrite Urine Bilirubin Urine Urobilinogen Ur Leukocyte Esterase Urine WBC (Auto) Urine RBC (Auto) U Hyaline Cast (Auto) U Epithel Cells (Auto) Urine Bacteria (Auto) POC Ur Test NEG 07/18/19 07/19/19 07/19/19 14:10 05:51 05:51 WBC 10.68 RBC 3.28 L Hgb 11.3 L Hct 32.4 L MCV 98.8 MCH 34.5 H MCHC 34.9 RDW Std Deviation 49.9 H RDW Coeff of [place] 13.8 Plt Count 257 MPV 9.1 Immature Gran % (Auto) 2.2 Neut % (Auto) 70.8 Lymph % (Auto) 10.5 [place] % (Auto) 14.7 Eos % (Auto) 1.6 Baso % (Auto) 0.2 Immature Gran # (Auto) 0.23 H Neut # (Auto) 7.57 H Lymph # (Auto) 1.12 L [place] # (Auto) 1.57 H Eos # (Auto) 0.17 Baso # (Auto) 0.02 Sodium 138 Potassium 3.4 L D Chloride 107 Carbon Dioxide 26 Anion Gap 5.0 BUN 6 L Creatinine 1.03 Est Cr Clr Drug Dosing 72.5 Est GFR ( Amer) 82.7 Est GFR (Non-Af Amer) 71.4 BUN/Creatinine Ratio 5.9 L Glucose 96 Calcium 8.5 Magnesium Total Bilirubin 0.5 Direct Bilirubin AST 19 ALT 16 Alkaline Phosphatase 94 Total Protein 6.2 L D Albumin 2.4 L Globulin 3.8 Albumin/Globulin Ratio 0.6 L Lipase Specimen Hemolysis Urine Color Dark Yellow Urine Appearance Cloudy A Urine pH 6.0 Ur Specific [place] 1.027 Urine Protein 1+ H Urine Glucose (UA) Negative Urine Ketones 4+ H Urine Blood Trace H Urine Nitrite Positive A Urine Bilirubin Negative Urine Urobilinogen Positive H Ur Leukocyte Esterase 1+ H Urine WBC (Auto) 10-30 H Urine RBC (Auto) 5-10 H U Hyaline Cast (Auto) 10-30 H U Epithel Cells (Auto) >30 H Urine Bacteria (Auto) Negative POC Ur Test 07/20/19 07/20/19 07:03 07:03 WBC 12.09 H RBC 3.26 L Hgb 11.0 L Hct 31.9 L MCV 97.9 MCH 33.7 MCHC 34.5 RDW Std Deviation 51.0 H RDW Coeff of [place] 14.1 Plt Count 334 MPV 9.3 Immature Gran % (Auto) 4.9 Neut % (Auto) 70.7 Lymph % (Auto) 13.2 [place] % (Auto) 9.6 Eos % (Auto) 1.2 Baso % (Auto) 0.4 Immature Gran # (Auto) 0.59 H Neut # (Auto) 8.55 H Lymph # (Auto) 1.60 [place] # (Auto) 1.16 H Eos # (Auto) 0.14 Baso # (Auto) 0.05 Sodium 140 Potassium 3.2 L Chloride 109 H Carbon Dioxide 25 Anion Gap 7.0 BUN Creatinine Est Cr Clr Drug Dosing Est GFR ( Amer) Est GFR (Non-Af Amer) BUN/Creatinine Ratio Glucose Calcium Magnesium Total Bilirubin Direct Bilirubin AST ALT Alkaline Phosphatase Total Protein Albumin Globulin Albumin/Globulin Ratio Lipase Specimen Hemolysis Urine Color Urine Appearance Urine pH Ur Specific [place] Urine Protein Urine Glucose (UA) Urine Ketones Urine Blood Urine Nitrite Urine Bilirubin Urine Urobilinogen Ur Leukocyte Esterase Urine WBC (Auto) Urine RBC (Auto) U Hyaline Cast (Auto) U Epithel Cells (Auto) Urine Bacteria (Auto) POC Ur Test
[2019-07-22 07:02] LABS: Chlamydia Trach RNA NOT DETECTED (NOT DETECTED); GC (Neis gonorrhoeae) RNA NOT DETECTED (NOT DETECTED)
--- NOTE | 2019-07-26 09:20 | Discharge Summary (DS) ---
REASON FOR ADMISSION AND HOSPITAL COURSE: The patient was admitted by Dr. Crum on 07/18/2019. She is a 34-year-old 4, para 4, presented to the ER with lower abdominal pain present for 4 days, increasingly getting worse. The patient has an IUD. There was question of possible pelvic inflammatory disease with possible tubo-ovarian abscess noted on CT scan. The patient was admitted. Her white count was only 13.7. Other labs were pretty much normal. The patient was started on IV antibiotics and subsequently did well. She remained afebrile and was discharged home in stable condition. Home going instructions were given. The patient was told to follow up in 1 week in the office. MEDICATIONS ON DISCHARGE: Included Keflex and ibuprofen for pain, regular diet on discharge.
== END 2019-07-20 10:13 | disposition home or self-care (01) | DRG 757 ==
LOC: ED 13:48 → 4S2 18:31 → 4N 07-19 12:24

== ENCOUNTER 2019-08-17 13:12 | Inpatient (IN) ==
[2019-08-17] MEDS ORDERED: ONDANSETRON INJ 2 MG/ML 2 ML VIAL IV STA (14:27)
[2019-08-17] MEDS ORDERED: MoRPHine SULFATE 10 MG/ML CARP/VIAL IV STA (14:27)
[2019-08-17] MEDS ORDERED: SODIUM CHLORIDE 0.9% 1000ML 1,000 ML IV ONE (14:27)
[2019-08-17] MEDS ORDERED: PIPERACILL/TAZOBAC CONSULT ACTIVE PRN (14:29)
[2019-08-17] MEDS ORDERED: PIPERACILLIN/TAZOBACTAM 4.5 GM/120 ML BAG IV ONE (14:29)
[2019-08-17 14:35] LABS: Basophils # (auto) 0.02 K/uL (0-0.2); Basophils % (auto) 0.1 %; Eosinophils # (auto) 0.08 K/uL (0-0.5); Eosinophils % (auto) 0.4 %; Hematocrit (blood only) 31.2 % (37-47); Hemoglobin 10.4 g/dL (12.0-16.0); Immature Granulocytes # (auto) 0.19 K/uL (0.00-0.02); Immature Granulocytes % (auto) 0.9 %; Lymphocytes # (auto) 1.67 K/uL (1.2-3.4); Lymphocytes % (auto) 8.2 %; Mean Corpuscular Hemoglobin 32.4 pg (25-34); Mean Corpuscular Hgb Conc 33.3 g/dL (32-36); Mean Corpuscular Volume 97.2 fL (80-100); Mean Platelet Volume 8.6 fL (7.4-10.4); Monocytes # (auto) 1.28 K/uL (0.11-0.59); Monocytes % (auto) 6.3 %; Neutrophils # (auto) 17.14 K/uL (1.4-6.5); Neutrophils % (auto) 84.1 %; Platelet Count 624 K/uL (130-400); RDW Coefficient of Variation 14.9 % (11.5-14.5); RDW Standard Deviation 54.1 fL (36.4-46.3); Red Blood Count 3.21 M/uL (4.2-5.4); White Blood Count 20.38 K/uL (4.8-10.8)
[2019-08-17 14:51] LABS: Albumin Level 2.4 gm/dl (3.4-5.0); Calcium 8.7 mg/dl (8.5-10.1); Creatinine Clr Calc Pharmacy 125.6 ml/min; Est GFR (African American) 139.6; Est GFR (Non-African American) 120.4; Potassium 3.6 mmol/L (3.5-5.1)
[2019-08-17 14:54] LABS: Albumin Globulin Ratio 0.5 (0.9-2); Bilirubin,Total 0.2 mg/dl (0.2-1); Total Protein 7.4 gm/dl (6.4-8.2)
[2019-08-17 15:59] LABS: Pregnancy Test, Urine Negative (Negative)
[2019-08-17 16:00] LABS: Appearance Urine Cloudy (Clear); Bacteria Urine Automated Negative (Negative); Bilirubin Urine Negative (Negative); Blood Urine 3+ (Negative); Color Urine Yellow; Glucose Urine UA Negative (Negative); Ketones Urine 1+ (Negative); Leukocyte Esterase Urine 3+ (Negative); Nitrite Urine Negative (Negative); Protein Urine 1+ (Negative); RBC Urine Automated >30 /hpf (0-4); Specific Gravity Urine 1.016 (1.000-1.030); Urobilinogen Urine Negative (Negative); WBC Urine Automated >30 /hpf (0-5); pH Urine 7.5 (4.5-7.5)
[2019-08-17 16:01] LABS: Sulfosalicylic Acid Urine Positive (Negative)
--- NOTE | 2019-08-17 16:58 | Ultrasound Report ---
US pelvic complete, US transvaginal CLINICAL HISTORY: 34 years-old Female presenting with pelvic abscess, G4 PE 4, IUD, left adnexal absc ess. TECHNIQUE: Real-time grayscale and color and spectral Doppler ultrasound imaging of the pelvis was pe rformed first using a transabdominal probe and subsequently transvaginal for better characterization. COMPARISON: CT from 07/18/2019. FINDINGS: TRANSABDOMINAL: Transabdominal imaging was performed for a minimally invasive evaluation and to ensur e visualization of global pelvic findings. Bladder: Bladder debris evident. Wall thickening measuring over 1 cm. Uterus: Poorly delineated. Right adnexa: Right ovary: Not visualized. Left adnexa: Left ovary: Not visualized. Other: No large volume free fluid. ENDOVAGINAL: Endovaginal imaging was subsequently performed, which was necessitated by incomplete vis ualization of the uterus and adnexa, inability ability to perform spectral Doppler interrogation of t he ovaries, and suboptimal sonographic penetration of the deep pelvis. Uterus: Normal myometrial echogenicity and echotexture. Orientation: Anteverted. Size: 8.6 x 4.6 x 4. 7 cm. Endometrial stripe thickness: 2 mm. Endometrium: Normal echogenicity and echotexture apart from the presence of an IUD, which is low normal in expected position. Cervix: Normal. Right adnexa: Right ovary: Contains a dominant follicle. Normal color Doppler flow and arterial and v enous waveforms within the ovarian parenchyma. Right ovary size: 3.3 x 1.8 x 2.5 cm. Left adnexa: Left ovary: Normal. Normal color Doppler flow and arterial and venous waveforms within t he ovarian parenchyma. Left ovary size: 3.3 x 3.6 x 2.1 cm. Heterogeneous soft tissue adjacent to the left ovary. This region measures 7.0 x 5.7 x 7.7 cm. Other: Trace free fluid, likely physiologic. IMPRESSION: 1. Heterogeneous soft tissue in the left adnexa adjacent to the left ovary. This could represent scott pingitis or tubo-ovarian abscess in the appropriate clinical setting. If there is low suspicion for i nfection, this is indeterminate and further evaluation with contrast-enhanced CT to be considered. 2. Ovaries grossly normal. No ovarian torsion. 3. IUD in place. 4. Otherwise normal sonographic appearance of the uterus. 5. Evidence of cystitis, likely infectious. Correlate with urinalysis. ACT 112: Negative or not required by law. Electronically signed by: Conrad Meier M.D. 08/17/2019 4:56 PM
[2019-08-17] MEDS ORDERED: HYDROmorphone INJ 0.5 MG/0.5 ML SYR IV STA (17:24)
[2019-08-17] MEDS ORDERED: ACETAMINOPHEN 500 MG TAB PO STA (17:38)
[2019-08-17] MEDS ORDERED: cefOXitin 2,000 MG/60 ML BAG IV STA (17:41)
[2019-08-17] MEDS ORDERED: ZOLPIDEM TARTRATE 5 MG TAB PO PRN (17:41)
[2019-08-17] MEDS ORDERED: GENTAMICIN CONSULT ACTIVE PRN (18:09)
[2019-08-17] MEDS ORDERED: ACETAMINOPHEN 500 MG TAB PO PRN (18:24)
--- NOTE | 2019-08-17 18:43 | Emergency Department Note ---
Entered by Letha Dixon acting as a scribe for Beto Casarez DO History of Present Illness General Chief complaint: Abdominal Pain Stated complaint: LOWER ABD PAIN Source: patient History of Present Illness Onset (ago): month(s) 1 Location: abdomen Pain Consistency: + constant Maximum Pain Intensity: 6 Current Pain Intensity: 6 Relieved By: + none Exacerbated By: + movement Associated symptoms: + denies other symptoms (denies vaginal bleeding or discharge) and + other (abdominal pain) Treatments prior to arrival: none The patient is a 34 year old female who presents to the Emergency Room with complaints of worsening abdominal pain. The patient was at [facility] yesterday, and had a CT abdomen/pelvis done that showed acute diverticulitis with a pelvic abscess. She was admitted to the floor, and decided to leave [place] because she did not like the way the staff was treating her. She has no history of STDs or vaginal bleeding and discharge. The patients symptoms first started one month ago with persistent lower left abdominal pain. She was seen at [facility] initially, and had a CT scan done. She was given IV fluids and discharged with antibiotics. The medication did not help improve her symptoms. She notes that her pain has been worsening. Home Medications Home Medications Medication Instructions Recorded Confirmed Type buprenorphine HCl 8 mg SUBLINGUAL TID 07/18/19 08/17/19 History furosemide [Lasix] 40 mg PO BID PRN 07/18/19 08/17/19 History levothyroxine [Synthroid] 200 mcg PO DAILY 07/18/19 08/17/19 History potassium chloride [Klor-Con M10] 10 meq PO BID PRN 07/18/19 08/17/19 History Allergies Allergy/AdvReac Type Severity Reaction Status Date / Time valacyclovir Allergy Severe SHORTNESS Verified 08/17/19 13:54 OF BREATH Past Med/Surg History Medical History Hypokalemia (Acute) Post-dates Tubal ovarian abscess (Acute) Surgical History No pertinent past surgical history Family History Other No pertinent family history in first degree relatives Social History Preferred Language: Paraguayan Communication Ability: Effective Protection Consultant Required: No Beliefs That Will Affect Care: None Current Living Situation: Family Feels Safe at Home: Yes Smoking Status: Current every day smoker Tobacco Type: cigarettes ; Second Hand Exposure: Yes ; Hx Alcohol Use: Yes Alcohol type: hard liquor Hx Substance Use: No Review of Systems See HPI for pertinent positives & negatives. and A total of 10 systems reviewed and were otherwise negative Physical Exam Vital Signs Vital Signs - 24 hr 08/17/19 13:18 08/17/19 14:26 08/17/19 14:30 Temperature 37.5 C Temperature Source Oral Pulse Rate 119 H 112 H 107 H Pulse Rate from SpO2 Sensor 108 H 106 H Respiratory Rate 20 20 18 Respiratory Effort / Characteristics Non-Labored Spontaneous Respiratory Depth Normal Blood Pressure 136/76 141/76 H 120/71 Blood Pressure Mean 96 86 98 Blood Pressure Position Sitting Pulse Oximetry 99 96 97 Oxygen Delivery Method Room Air Sepsis Recent Fever Within 48 Hours No Sepsis Action Taken by Nursing No Action Required 08/17/19 15:00 08/17/19 15:18 08/17/19 15:30 Temperature Temperature Source Pulse Rate 104 H 110 H 102 H Pulse Rate from SpO2 Sensor 105 H 107 H 104 H Respiratory Rate 15 20 20 Respiratory Effort / Characteristics Respiratory Depth Blood Pressure 128/72 105/71 123/68 Blood Pressure Mean 89 83 83 Blood Pressure Position Pulse Oximetry 97 97 98 Oxygen Delivery Method Sepsis Recent Fever Within 48 Hours Sepsis Action Taken by Nursing 08/17/19 15:40 08/17/19 16:00 08/17/19 17:00 Temperature Temperature Source Pulse Rate 102 H 105 H 110 H Pulse Rate from SpO2 Sensor 104 H 104 H 111 H Respiratory Rate 19 20 18 Respiratory Effort / Characteristics Respiratory Depth Blood Pressure 123/68 105/72 131/75 Blood Pressure Mean 83 78 79 Blood Pressure Position Pulse Oximetry 98 98 96 Oxygen Delivery Method Sepsis Recent Fever Within 48 Hours Sepsis Action Taken by Nursing 08/17/19 17:30 08/17/19 17:35 08/17/19 18:00 Temperature 39.4 C H Temperature Source Oral Pulse Rate 118 H 106 H Pulse Rate from SpO2 Sensor 119 H 104 H Respiratory Rate 19 27 H Respiratory Effort / Characteristics Respiratory Depth Blood Pressure 120/61 111/63 Blood Pressure Mean 72 79 Blood Pressure Position Pulse Oximetry 95 97 Oxygen Delivery Method Sepsis Recent Fever Within 48 Hours Sepsis Action Taken by Nursing 08/17/19 18:30 Temperature Temperature Source Pulse Rate 96 H Pulse Rate from SpO2 Sensor 96 H Respiratory Rate 22 Respiratory Effort / Characteristics Respiratory Depth Blood Pressure 107/67 Blood Pressure Mean 74 Blood Pressure Position Pulse Oximetry 96 Oxygen Delivery Method Sepsis Recent Fever Within 48 Hours Sepsis Action Taken by Nursing GENERAL: sitting up in bed, disheveled, holding left lower abdomen. alert, well nourished, mild distress, non-toxic EYE EXAM: normal conjunctiva OROPHARYNX: no exudate, no erythema, lips, buccal mucosa, and tongue normal and mucous membranes are moist NECK: supple, no nuchal rigidity, no adenopathy, non-tender LUNGS: Clear to auscultation. Normal chest wall mechanics HEART: no murmurs, S1 normal and S2 normal ABDOMEN: Tenderness to palpation of left lower quadrant. abdomen soft, normo- active bowel sounds, no masses, no rebound or guarding. BACK: Back is symmetrical on inspection and there is no deformity, no midline tenderness, no CVA tenderness. SKIN: no rashes and no bruising UPPER EXTREMITIES: upper extremities are grossly normal. LOWER EXTREMITIES: No pitting edema. NEURO EXAM: Normal sensorium, cranial nerves II-XII grossly intact, normal speech, no gross weakness of arms, no gross weakness of legs. Course Course ED COURSE: Vital signs were reviewed and showed increased heart rate. The patients medical record was reviewed The above diagnostic studies were performed and reviewed. ED treatments and interventions as stated above. 1423: The patient was evaluated in room C06. A complete history and physical examination was performed. 1437: I discussed the case with Dr. Panda, who is going to come down to see the patient. 1722: I talked to Dr. Panda again, who is coming now to further evaluate the patient. Upon reevaluation, the patient is stable. I discussed my findings with the patient and she understands and agrees with the treatment plan. Based on the patients age, coexisting illnesses, exam and lab findings the decision to treat as an inpatient was made. The patient remained stable while under my care. The patient will be evaluated for further management. Administered Medications Discontinued Medications Acetaminophen (Tylenol) 1,000 mg PO NOW STA Stop: 08/17/19 17:39 Last Admin: 08/17/19 17:48 Dose: 1,000 mg Documented by: [id number] Hydromorphone HCl (Dilaudid) 0.5 mg IV NOW STA Stop: 08/17/19 17:25 Last Admin: 08/17/19 17:32 Dose: 0.5 mg Documented by: [id number] Sodium Chloride (Nss 1000ml) 1,000 mls @ 999 mls/hr IV .Q1H1M ONE Stop: 08/17/19 15:27 Last Infusion: 08/17/19 16:29 Dose: 0 mls/hr Documented by: [id number] Admin: 08/17/19 15:09 Dose: 999 mls/hr Documented by: [id number] Piperacillin Sod/Tazobactam Sod (Zosyn) 4.5 gm in 120 mls @ 240 mls/hr IV NOW ONE Stop: 08/17/19 14:58 Last Infusion: 08/17/19 15:45 Dose: 0 mls/hr Documented by: [id number] Admin: 08/17/19 15:09 Dose: 240 mls/hr Documented by: [id number] Morphine Sulfate (Morphine Sulfate) 6 mg IV NOW STA Stop: 08/17/19 14:28 Last Admin: 08/17/19 15:09 Dose: 6 mg Documented by: [id number] Ondansetron HCl (Zofran) 4 mg IV NOW STA Stop: 08/17/19 14:28 Last Admin: 08/17/19 15:09 Dose: 4 mg Documented by: [id number] Critical Care Time Critical Care Time: Yes Total Critical Care Time: 32 I have personally spent 32 minutes of critical care time in the direct management of this patient. This includes bedside care, interpretation of diagnostic studies, and testing, discussion with consultants, patient, and family members, and other required patient management activities. This 32 minutes is in excess of all separately billable procedures. Medical Decision Making Differential Diagnosis Differential diagnosis includes: appendicitis, diverticulitis, PUD, biliary pathology, UTI, pancreatitis, obstruction, mesenteric ischemia, aortic pathology, infections, inflammatory bowel disease, renal colic, as well as others were entertained. Medical Records Attestation: I reviewed the patient's medical records. Home Medications Current Medication List: was personally reviewed by me Laboratory Data Attestation: I reviewed the patient's lab results. Result diagrams: 08/17/19 14:20 08/17/19 14:20 Lab Results 08/17/19 08/17/19 08/17/19 Range/Units 14:20 14:20 14:49 WBC 20.38 H (4.8-10.8) K/uL RBC 3.21 L (4.2-5.4) M/uL Hgb 10.4 L (12.0-16.0) g/dL Hct 31.2 L (37-47) % MCV 97.2 (80-100) fL MCH 32.4 (25-34) pg MCHC 33.3 (32-36) g/dL RDW Std Deviation 54.1 H (36.4-46.3) fL RDW Coeff of Praful 14.9 H (11.5-14.5) % Plt Count 624 H (130-400) K/uL MPV 8.6 (7.4-10.4) fL Immature Gran % (Auto) 0.9 % Neut % (Auto) 84.1 % Lymph % (Auto) 8.2 % [place] % (Auto) 6.3 % Eos % (Auto) 0.4 % Baso % (Auto) 0.1 % Immature Gran # (Auto) 0.19 H (0.00-0.02) K/uL Neut # (Auto) 17.14 H (1.4-6.5) K/uL Lymph # (Auto) 1.67 (1.2-3.4) K/uL [place] # (Auto) 1.28 H (0.11-0.59) K/uL Eos # (Auto) 0.08 (0-0.5) K/uL Baso # (Auto) 0.02 (0-0.2) K/uL Sodium 137 (136-145) mmol/L Potassium 3.6 (3.5-5.1) mmol/L Chloride 106 (98-107) mmol/L Carbon Dioxide 28 (21-32) mmol/L Anion Gap 4.0 (3-11) BUN 5 L (7-18) mg/dl Creatinine 0.59 L (0.6-1.2) mg/dl Est Cr Clr Drug Dosing 125.6 ml/min Est GFR ( Amer) 139.6 Est GFR (Non-Af Amer) 120.4 BUN/Creatinine Ratio 9.0 L (10-20) Glucose 109 H (70-99) mg/dl Lactate 1.4 (0.4-2.0) mmol/L Calcium 8.7 (8.5-10.1) mg/dl Total Bilirubin 0.2 (0.2-1) mg/dl AST 6 L (15-37) U/L ALT 9 L (12-78) U/L Alkaline Phosphatase 120 H (45-117) U/L Total Protein 7.4 (6.4-8.2) gm/dl Albumin 2.4 L (3.4-5.0) gm/dl Globulin 5.0 H (2.5-4.0) gm/dl Albumin/Globulin Ratio 0.5 L (0.9-2) Lipase 42 L (73-393) U/L Urine Color Urine Appearance (Clear) Urine pH (4.5-7.5) Ur Specific [place] (1.000-1.030) Urine Protein (Negative) Urine Glucose (UA) (Negative) Urine Ketones (Negative) Urine Blood (Negative) Urine Nitrite (Negative) Urine Bilirubin (Negative) Urine Urobilinogen (Negative) Ur Leukocyte Esterase (Negative) Urine WBC (Auto) (0-5) /hpf Urine RBC (Auto) (0-4) /hpf U Hyaline Cast (Auto) (0-5) /lpf U Epithel Cells (Auto) (0-5) /lpf Urine Bacteria (Auto) (Negative) Urine Test (Negative) 08/17/19 08/17/19 Range/Units 15:15 15:15 WBC (4.8-10.8) K/uL RBC (4.2-5.4) M/uL Hgb (12.0-16.0) g/dL Hct (37-47) % MCV (80-100) fL MCH (25-34) pg MCHC (32-36) g/dL RDW Std Deviation (36.4-46.3) fL RDW Coeff of Praful (11.5-14.5) % Plt Count (130-400) K/uL MPV (7.4-10.4) fL Immature Gran % (Auto) % Neut % (Auto) % Lymph % (Auto) % [place] % (Auto) % Eos % (Auto) % Baso % (Auto) % Immature Gran # (Auto) (0.00-0.02) K/uL Neut # (Auto) (1.4-6.5) K/uL Lymph # (Auto) (1.2-3.4) K/uL [place] # (Auto) (0.11-0.59) K/uL Eos # (Auto) (0-0.5) K/uL Baso # (Auto) (0-0.2) K/uL Sodium (136-145) mmol/L Potassium (3.5-5.1) mmol/L Chloride (98-107) mmol/L Carbon Dioxide (21-32) mmol/L Anion Gap (3-11) BUN (7-18) mg/dl Creatinine (0.6-1.2) mg/dl Est Cr Clr Drug Dosing ml/min Est GFR ( Amer) Est GFR (Non-Af Amer) BUN/Creatinine Ratio (10-20) Glucose (70-99) mg/dl Lactate (0.4-2.0) mmol/L Calcium (8.5-10.1) mg/dl Total Bilirubin (0.2-1) mg/dl AST (15-37) U/L ALT (12-78) U/L Alkaline Phosphatase (45-117) U/L Total Protein (6.4-8.2) gm/dl Albumin (3.4-5.0) gm/dl Globulin (2.5-4.0) gm/dl Albumin/Globulin Ratio (0.9-2) Lipase (73-393) U/L Urine Color Yellow Urine Appearance Cloudy A (Clear) Urine pH 7.5 (4.5-7.5) Ur Specific [place] 1.016 (1.000-1.030) Urine Protein 1+ H (Negative) Urine Glucose (UA) Negative (Negative) Urine Ketones 1+ H (Negative) Urine Blood 3+ H (Negative) Urine Nitrite Negative (Negative) Urine Bilirubin Negative (Negative) Urine Urobilinogen Negative (Negative) Ur Leukocyte Esterase 3+ H (Negative) Urine WBC (Auto) >30 H (0-5) /hpf Urine RBC (Auto) >30 H (0-4) /hpf U Hyaline Cast (Auto) 1-5 (0-5) /lpf U Epithel Cells (Auto) 5-10 H (0-5) /lpf Urine Bacteria (Auto) Negative (Negative) Urine Test Negative (Negative) Imaging Data Radiologist's Impression: Radiology results as stated below per my review and the radiologist's interpretation: US pelvic complete, US transvaginal CLINICAL HISTORY: 34 years-old Female presenting with pelvic abscess, G4 PE 4, IUD, left adnexal abscess. TECHNIQUE: Real-time grayscale and color and spectral Doppler ultrasound imaging of the pelvis was performed first using a transabdominal probe and subsequently transvaginal for better characterization. COMPARISON: CT from 07/18/2019. FINDINGS: TRANSABDOMINAL: Transabdominal imaging was performed for a minimally invasive evaluation and to ensure visualization of global pelvic findings. Bladder: Bladder debris evident. Wall thickening measuring over 1 cm. Uterus: Poorly delineated. Right adnexa: Right ovary: Not visualized. Left adnexa: Left ovary: Not visualized. Other: No large volume free fluid. ENDOVAGINAL: Endovaginal imaging was subsequently performed, which was necessitated by incomplete visualization of the uterus and adnexa, inability ability to perform spectral Doppler interrogation of the ovaries, and suboptimal sonographic penetration of the deep pelvis. Uterus: Normal myometrial echogenicity and echotexture. Orientation: Anteverted. Size: 8.6 x 4.6 x 4.7 cm. Endometrial stripe thickness: 2 mm. Endometrium: Normal echogenicity and echotexture apart from the presence of an IUD, which is low normal in expected position. Cervix: Normal. Right adnexa: Right ovary: Contains a dominant follicle. Normal color Doppler flow and arterial and venous waveforms within the ovarian parenchyma. Right ovary size: 3.3 x 1.8 x 2.5 cm. Left adnexa: Left ovary: Normal. Normal color Doppler flow and arterial and venous waveforms within the ovarian parenchyma. Left ovary size: 3.3 x 3.6 x 2.1 cm. Heterogeneous soft tissue adjacent to the left ovary. This region measures 7.0 x 5.7 x 7.7 cm. Other: Trace free fluid, likely physiologic. IMPRESSION: 1. Heterogeneous soft tissue in the left adnexa adjacent to the left ovary. This could represent salpingitis or tubo-ovarian abscess in the appropriate clinical setting. If there is low suspicion for infection, this is indeterminate and further evaluation with contrast-enhanced CT to be considered. 2. Ovaries grossly normal. No ovarian torsion. 3. IUD in place. 4. Otherwise normal sonographic appearance of the uterus. 5. Evidence of cystitis, likely infectious. Correlate with urinalysis. ACT 112: Negative or not required by law. Electronically signed by: Conrad Meier M.D. 08/17/2019 4:56 PM Blood Pressure Blood Pressure Findings: Normal blood pressure Blood Pressure Disposition: did not require urgent referral MDM Narrative Patient is a 34-year-old female signed out AMA from [facility] and presented here after she was admitted. Patient was in [facility] found to have a 7 cm left lower quadrant pelvic mass which they concerned that this could be secondary to diverticulitis. Upon review of the chart patient was here about a month ago and admitted for the same mass which was believed to be ovarian in nature. Patient was treated with IV antibiotics and then oral antibiotics. Symptoms worsened after the oral antibiotics ended. Upon presentation she was found to be slightly tachycardic with a leukocytosis of 20,000. No significant anemia. BMP along with LFTs bilirubin was unremarkable. Lipase was normal. UA does suggest a UTI. CT report from [facility] was reviewed. Ultrasound was performed. Patient was updated in regards to her findings. Discussed with the on-call JACK WINDER who had previously admitted her before. Patient was given IV fluids and Zosyn. She was admitted for sepsis secondary to left lower quadrant pelvic abscess which is continuing to grow as it was initially 2.5 nearly a month ago and is now 7 cm. Impression & Plan Sepsis, Abscess of pelvis, Leukocytosis, UTI (urinary tract infection) Discharge Plan Visit Data Chief Complaint: Abdominal Pain Stated Complaint: LOWER ABD PAIN ED Provider: Beto Casarez Discharge Problem: Sepsis, Abscess of pelvis, Leukocytosis, UTI (urinary tract infection) Forms Stand Alone Forms: [facility] [facility] [employer] Prescriptions Prescriptions: No Action furosemide [Lasix] 40 mg tablet 40 mg PO BID PRN (Reason: Fluid Retention) RF: 0 levothyroxine [Synthroid] 200 mcg tablet 200 mcg PO DAILY RF: 0 buprenorphine HCl 8 mg tablet, sublingual 8 mg SUBLINGUAL TID RF: 0 potassium chloride [Klor-Con M10] 10 mEq tablet,ER particles/crystals 10 meq PO BID PRN (Reason: Fluid Retention) RF: 0 Discharge Problem: Sepsis Qualifiers: Sepsis type: sepsis due to unspecified organism Sepsis acute organ dysfunction status: unspecified Qualified Code(s): A41.9 - Sepsis, unspecified organism Leukocytosis Qualifiers: Leukocytosis type: unspecified Qualified Code(s): D72.829 - Elevated white blood cell count, unspecified UTI (urinary tract infection) Qualifiers: Urinary tract infection type: site unspecified Hematuria presence: without hematuria Qualified Code(s): N39.0 - Urinary tract infection, site not specified The scribe's documentation has been prepared under my direction and personally reviewed by me in its entirety. I confirm that the note above accurately reflects all work, treatment, procedures, and medical decision making performed by me.
[2019-08-17] MEDS ORDERED: FUROSEMIDE 40 MG TAB PO PRN (19:28)
[2019-08-17] MEDS ORDERED: POTASSIUM CHLORIDE 10 MEQ TABCR PO PRN (19:28)
[2019-08-17] MEDS: IBUPROFEN 600 MG TAB PO PRN (21:06)
[2019-08-17] MEDS: buprenorphine HCL 8 MG SUBL SL SCH (21:06)
[2019-08-17] MEDS: CLINDAMYCIN 900 MG in DEXTROSE 5% 100 ML IV SCH (21:11)
[2019-08-17] MEDS: GENTAMICIN SULFATE 400 MG in DEXTROSE 5% 100 ML IV SCH (21:11)
[2019-08-17] MEDS: LACTATED RINGER'S 1,000 ML IV SCH (21:14)
[2019-08-17] MEDS: ONDANSETRON INJ 2 MG/ML 2 ML VIAL IV PRN (21:26)
--- NOTE | 2019-08-18 03:44 | History and Physical Report ---
DATE OF ADMISSION: 08/17/2019 HISTORY OF PRESENT ILLNESS: The patient is a 34-year-old female 4, para 4, presenting to the ER today after being discharged or the patient is actually leaving [facility] this morning for admission the night before for a tubo-ovarian abscess. The patient has been getting increasingly worse pain on the left side, seen in the ER at [facility] and unhappy with the care there and then came right to [facility] for care. She was seen in the ER. Ultrasound was obtained revealing a 7 cm tubo-ovarian abscess on the left side. The patient is stable. There is no uterine abnormality. There is no torsion. Both ovaries are normal with good flow. There is an IUD that has been in place and the lining is normal to minimal. The patient is wanting to keep her IUD in place. The CT scan was done in [facility], so it was not repeated and the patient had a CT scan here approximately 1 month ago on prior admission for the same diagnosis. The pelvic was not done because it was already performed by the ER doctor. Cultures were obtained. PAST MEDICAL HISTORY: Significant for 4 vaginal deliveries. Denies hypertension, diabetes, no asthma. PAST SURGICAL HISTORY: None. ALLERGIES: VALACYCLOVIR due to shortness of breath. MEDICATIONS: Buprenorphine 8 mg sublingual, Lasix 40 mg p.o. b.i.d., Synthroid 200 mcg daily and KCl 10 mEq p.o. b.i.d. REVIEW OF SYSTEMS: Negative. FAMILY HISTORY: Noncontributory. SOCIAL HISTORY: Denies smoking, alcohol or drug abuse. PHYSICAL EXAMINATION: GENERAL: The patient is alert and oriented. She is in mild discomfort. Otherwise, she is cooperative and seems to be well nourished. HEART: Regular rate and rhythm. LUNGS: Clear to auscultation. ABDOMEN: Slightly tender on the left side. Right is normal. There is no rebound or guarding. EXTREMITIES: No edema. Negative Homans'. LABORATORY DATA: Labs were obtained and pelvic ultrasound was obtained. ASSESSMENT: A 34-year-old with pelvic inflammatory disease, tubo-ovarian abscess. PLAN: Admit, IV antibiotics. We will continue IV fluids and oral diet. MTDD
[2019-08-18] MEDS: IBUPROFEN 600 MG TAB PO PRN ×3 (04:39→19:39)
[2019-08-18] MEDS: CLINDAMYCIN 900 MG in DEXTROSE 5% 100 ML IV SCH ×3 (04:39→23:11)
[2019-08-18] MEDS: LEVOTHYROXINE SODIUM 200 MCG TABLET PO SCH (06:13)
[2019-08-18 06:35] LABS: Basophils # (auto) 0.02 K/uL (0-0.2); Basophils % (auto) 0.1 %; Eosinophils # (auto) 0.15 K/uL (0-0.5); Eosinophils % (auto) 1.1 %; Hematocrit (blood only) 26.2 % (37-47); Hemoglobin 8.7 g/dL (12.0-16.0); Immature Granulocytes # (auto) 0.14 K/uL (0.00-0.02); Lymphocytes # (auto) 1.72 K/uL (1.2-3.4); Lymphocytes % (auto) 12.7 %; Mean Corpuscular Hemoglobin 31.8 pg (25-34); Mean Corpuscular Hgb Conc 33.2 g/dL (32-36); Mean Corpuscular Volume 95.6 fL (80-100); Mean Platelet Volume 8.7 fL (7.4-10.4); Monocytes # (auto) 1.11 K/uL (0.11-0.59); Monocytes % (auto) 8.2 %; Neutrophils # (auto) 10.39 K/uL (1.4-6.5); Neutrophils % (auto) 76.9 %; Platelet Count 504 K/uL (130-400); RDW Coefficient of Variation 15.3 % (11.5-14.5); RDW Standard Deviation 53.9 fL (36.4-46.3); Red Blood Count 2.74 M/uL (4.2-5.4); White Blood Count 13.53 K/uL (4.8-10.8)
[2019-08-18 07:12] LABS: Alanine Aminotransferase 8 U/L (12-78); Albumin Level 1.9 gm/dl (3.4-5.0); Aspartate Aminotransferase 7 U/L (15-37); BUN Creatinine Ratio 10.9 (10-20); Blood Urea Nitrogen 5 mg/dl (7-18); Calcium 8.3 mg/dl (8.5-10.1); Carbon Dioxide 24 mmol/L (21-32); Chloride 109 mmol/L (98-107); Creatinine Clr Calc Pharmacy 157.7 ml/min; Est GFR (African American) > 150.0; Est GFR (Non-African American) 129.8; Glucose 102 mg/dl (70-99); Potassium 2.9 mmol/L (3.5-5.1); Sodium 138 mmol/L (136-145)
[2019-08-18 07:19] LABS: Albumin Globulin Ratio 0.5 (0.9-2); Alkaline Phosphatase 90 U/L (45-117); Bilirubin,Total 0.2 mg/dl (0.2-1); Globulin 4.2 gm/dl (2.5-4.0); Total Protein 6.1 gm/dl (6.4-8.2)
[2019-08-18] MEDS: LACTATED RINGER'S 1,000 ML IV SCH ×2 (08:07→16:24)
[2019-08-18] MEDS ORDERED: LEVOTHYROXINE SODIUM 200 MCG TABLET PO SCH (09:00)
[2019-08-18] MEDS: buprenorphine HCL 8 MG SUBL SL SCH ×3 (09:59→21:59)
--- NOTE | 2019-08-18 11:40 | Gynecologic Progress Note ---
Date of Service August 18, 2019 Assessment & Plan Admission and Anticipated Discharge Date Admission Date: August 17, 2019 Subjective Hospital day #2 Physical Exam Constitutional: WD/WN, vitals as above comfortable passing gas tolerating diet ambulating Gastrointestinal (Abdomen): Percussion/Palpation: abdomen soft no rebound or guarding Skin: no rashes, warm and dry no edema neg Vannesa's will continue antibiotics Results & Data ([facility]) Vital Signs (Past 12 Hours) Vital Signs Temp Pulse Resp BP Pulse Ox 08/18/19 08:00 36.6 C 75 16 101/64 96 08/18/19 04:35 36.7 C 79 18 94/58 L 08/17/19 23:05 36.8 C 79 18 113/73 Laboratory Results Laboratory Results - last 48 hr 08/17/19 08/17/19 08/17/19 14:20 14:20 14:49 WBC 20.38 H RBC 3.21 L Hgb 10.4 L Hct 31.2 L MCV 97.2 MCH 32.4 MCHC 33.3 RDW Std Deviation 54.1 H RDW Coeff of Praful 14.9 H Plt Count 624 H MPV 8.6 Immature Gran % (Auto) 0.9 Neut % (Auto) 84.1 Lymph % (Auto) 8.2 [place] % (Auto) 6.3 Eos % (Auto) 0.4 Baso % (Auto) 0.1 Immature Gran # (Auto) 0.19 H Neut # (Auto) 17.14 H Lymph # (Auto) 1.67 [place] # (Auto) 1.28 H Eos # (Auto) 0.08 Baso # (Auto) 0.02 Sodium 137 Potassium 3.6 Chloride 106 Carbon Dioxide 28 Anion Gap 4.0 BUN 5 L Creatinine 0.59 L Est Cr Clr Drug Dosing 125.6 Est GFR ( Amer) 139.6 Est GFR (Non-Af Amer) 120.4 BUN/Creatinine Ratio 9.0 L Glucose 109 H Lactate 1.4 Calcium 8.7 Total Bilirubin 0.2 AST 6 L ALT 9 L Alkaline Phosphatase 120 H Total Protein 7.4 Albumin 2.4 L Globulin 5.0 H Albumin/Globulin Ratio 0.5 L Lipase 42 L Urine Color Urine Appearance Urine pH Ur Specific [place] Urine Protein Urine Glucose (UA) Urine Ketones Urine Blood Urine Nitrite Urine Bilirubin Urine Urobilinogen Ur Leukocyte Esterase Urine WBC (Auto) Urine RBC (Auto) U Hyaline Cast (Auto) U Epithel Cells (Auto) Urine Bacteria (Auto) Urine Test Random Gentamicin 08/17/19 08/17/19 08/18/19 15:15 15:15 06:08 WBC RBC Hgb Hct MCV MCH MCHC RDW Std Deviation RDW Coeff of Praful Plt Count MPV Immature Gran % (Auto) Neut % (Auto) Lymph % (Auto) [place] % (Auto) Eos % (Auto) Baso % (Auto) Immature Gran # (Auto) Neut # (Auto) Lymph # (Auto) [place] # (Auto) Eos # (Auto) Baso # (Auto) Sodium 138 Potassium 2.9 L D Chloride 109 H Carbon Dioxide 24 Anion Gap 6.0 BUN 5 L Creatinine 0.47 L Est Cr Clr Drug Dosing 157.7 Est GFR ( Amer) > 150.0 Est GFR (Non-Af Amer) 129.8 BUN/Creatinine Ratio 10.9 Glucose 102 H Lactate Calcium 8.3 L Total Bilirubin 0.2 AST 7 L ALT 8 L Alkaline Phosphatase 90 Total Protein 6.1 L Albumin 1.9 L Globulin 4.2 H Albumin/Globulin Ratio 0.5 L Lipase Urine Color Yellow Urine Appearance Cloudy A Urine pH 7.5 Ur Specific [place] 1.016 Urine Protein 1+ H Urine Glucose (UA) Negative Urine Ketones 1+ H Urine Blood 3+ H Urine Nitrite Negative Urine Bilirubin Negative Urine Urobilinogen Negative Ur Leukocyte Esterase 3+ H Urine WBC (Auto) >30 H Urine RBC (Auto) >30 H U Hyaline Cast (Auto) 1-5 U Epithel Cells (Auto) 5-10 H Urine Bacteria (Auto) Negative Urine Test Negative Random Gentamicin 08/18/19 08/18/19 06:08 06:08 WBC 13.53 H RBC 2.74 L Hgb 8.7 L Hct 26.2 L MCV 95.6 MCH 31.8 MCHC 33.2 RDW Std Deviation 53.9 H RDW Coeff of Praful 15.3 H Plt Count 504 H MPV 8.7 Immature Gran % (Auto) 1.0 Neut % (Auto) 76.9 Lymph % (Auto) 12.7 [place] % (Auto) 8.2 Eos % (Auto) 1.1 Baso % (Auto) 0.1 Immature Gran # (Auto) 0.14 H Neut # (Auto) 10.39 H Lymph # (Auto) 1.72 [place] # (Auto) 1.11 H Eos # (Auto) 0.15 Baso # (Auto) 0.02 Sodium Potassium Chloride Carbon Dioxide Anion Gap BUN Creatinine Est Cr Clr Drug Dosing Est GFR ( Amer) Est GFR (Non-Af Amer) BUN/Creatinine Ratio Glucose Lactate Calcium Total Bilirubin AST ALT Alkaline Phosphatase Total Protein Albumin Globulin Albumin/Globulin Ratio Lipase Urine Color Urine Appearance Urine pH Ur Specific [place] Urine Protein Urine Glucose (UA) Urine Ketones Urine Blood Urine Nitrite Urine Bilirubin Urine Urobilinogen Ur Leukocyte Esterase Urine WBC (Auto) Urine RBC (Auto) U Hyaline Cast (Auto) U Epithel Cells (Auto) Urine Bacteria (Auto) Urine Test Random Gentamicin 2.40
--- NOTE | 2019-08-18 13:52 | Pharmacy Report ---
Pharmacy Abx Initial Consult - Date of Service August 18, 2019 - Pharmacy Dosing Scope Date of Consult: 08/17/19 Consultation requested by: Dr. Panda Pharmacy is consulted to initiate gentamicin IV dosing therapy, order appropriate labs and adjust drug dose/frequency. - Subjective The patient is a 34 year old F admitted on 08/17/19 17:41. - Objective Height: 5 ft 3 in Weight: 68.1 kg Vital Signs (Past 12hrs): Vital Signs Temp Pulse Resp BP Pulse Ox 08/18/19 11:54 37.1 C 84 16 112/71 96 08/18/19 08:00 36.6 C 75 16 101/64 96 08/18/19 04:35 36.7 C 79 18 94/58 L Lab Results (24hrs): Laboratory Tests (24 Hours) 08/18/19 08/18/19 08/18/19 06:08 06:08 06:08 WBC 13.53 H Neut # (Auto) 10.39 H Creatinine 0.47 L Est Cr Clr Drug Dosing 157.7 Random Gentamicin 2.40 08/17/19 08/17/19 14:20 14:20 WBC 20.38 H Neut # (Auto) 17.14 H Creatinine 0.59 L Est Cr Clr Drug Dosing 125.6 Random Gentamicin Micro Results: 08/17/19 14:49 Aerobic Blood Culture - Pending Blood Anaerobic Blood Culture - Pending 08/17/19 14:20 Aerobic Blood Culture - Pending Blood Anaerobic Blood Culture - Pending - Assessment & Plan Assessment 34 year old F ordered empiric gentamicin and clindamycin for treatment of pelvic inflammatory disease/tubo-ovarian abscess. Recently admitted to [facility], but left AMA - presented to [facility] ED on 08/16 with worsening abdominal pain. Ultrasound revealed possible tubo-ovarian abscess. Leukocytosis resolving overnight 20.4 -> 13.5. Renal function stable. Tmax of 39.4 C yesterday - afebrile since 173 on 08/16. Of note: patient completed 10 day course of doxycycline in July 2019. Plan Gentamicin * Patient meets criteria for extended-interval aminoglycoside dosing per the [facility]ila nomogram * Dose: 400 mg (7 mg/kg) IV every 24 hours * Dosage based on adjusted body weight for patients weighing > 120% of ideal body weight. * Random level obtained approximately 9 hours after start of initial dose * Random level returned at 2.4 mcg/mL - will continue current regimen * Will continue to follow and obtain follow-up labs as appropriate Clindamycin * 900 mg IV q8h appropriate at this time Pharmacy will continue to follow and will adjust dose/frequency as necessary. Thank you.
[2019-08-18] MEDS: GENTAMICIN SULFATE 400 MG in DEXTROSE 5% 100 ML IV SCH (23:11)
[2019-08-18] MEDS: ONDANSETRON INJ 2 MG/ML 2 ML VIAL IV PRN (23:16)
[2019-08-19] MEDS: IBUPROFEN 600 MG TAB PO PRN ×3 (01:15→13:58)
[2019-08-19] MEDS: LACTATED RINGER'S 1,000 ML IV SCH (04:52)
[2019-08-19] MEDS: CLINDAMYCIN 900 MG in DEXTROSE 5% 100 ML IV SCH ×2 (04:52→11:29)
[2019-08-19] MEDS: LEVOTHYROXINE SODIUM 200 MCG TABLET PO SCH (06:01)
[2019-08-19 06:42] LABS: Creatinine Clr Calc Pharmacy 125.6 ml/min; Est GFR (African American) 139.6; Est GFR (Non-African American) 120.4
[2019-08-19] MEDS: buprenorphine HCL 8 MG SUBL SL SCH ×2 (08:53→13:56)
[2019-08-19] MEDS ORDERED: IOVERSOL 100ml IV PRN (10:54)
--- NOTE | 2019-08-19 11:09 | CT Scan Report ---
CT pelvis w/IV con only CLINICAL HISTORY: Left-sided tubo-ovarian abscess. COMPARISON STUDY: Ultrasound study dated 08/17/2019, CT scan dated 07/18/2019 FINDINGS: Images to the pelvis were performed in a dynamic helical fashion during intravenous administration of 94 cc of Optiray 320. The appendix is the upper limits of normal in diameter measuring 6 mm. There is an indwelling IUD present. The orientation is somewhat atypical and extension into the myome trium must be considered. There is an enlarging left adnexal fluid collection with rim enhancement measuring 52 mm. This is con sistent with an enlarging abscess. There is infiltration of the adjacent fat. There is mass effect on the bladder. There is trace ascites. There is no pathologic bowel dilatation. No destructive skeletal lesions are visualized. IMPRESSION: 1. Enlarging 52 mm rim-enhancing fluid collection located between the bladder and uterus to the left of midline. The findings are consistent with an enlarging pelvic abscess. There is infiltration of th e surrounding fat. 2. Indwelling IUD. Myometrial extension of the T-shaped portion cannot be excluded. ACT 112: Negative or not required by law. Electronically signed by: Simone Benedict M.D. 08/19/2019 11:08 AM
--- NOTE | 2019-08-19 13:33 | Gynecologic Progress Note ---
Date of Service August 19, 2019 Assessment & Plan Admission and Anticipated Discharge Date Admission Date: August 17, 2019 Subjective pt doing well s/p left TOA repeat Cyst done this AM Abscess is larger that prior visit Afebrile discussed abscess drainage vis Intervention Radiology spoke to Dr Nichols @ Radiology- he dosed not think this can be done her at [facility] Discussed options with pt including [place] consult [place] [facility] [place] we have agrees to the ff 1) IUD is removed without difficulty 2) Antibx at disch 2) Pt wishes to go on Ortho Evra patch for BC 3) IR consult at [facility] 4) Will consider surgery if IR is not successful D/C home with instructions Results & Data ([facility]) Vital Signs (Past 12 Hours) Vital Signs Temp Pulse Resp BP Pulse Ox 08/19/19 08:45 36.9 C 67 16 111/69 93 08/19/19 04:45 36.9 C 79 18 102/62 98
--- NOTE | 2019-08-22 15:57 | Discharge Summary (DS) ---
CHIEF COMPLAINT: Left-sided pelvic pain. HISTORY OF PRESENT ILLNESS: This is a 34-year-old G4, P4 who was seen at [facility] ER on 08/17/2019 left-sided pain. She was found to have 7 cm tubo-ovarian abscess. The patient was unhappy with the care she received at [facility] so she left the hospital and presented to [facility] ER. She was seen in the ER and admitted on HEARING HEALTH TECHNICIAN service. Attending for admission was Dr. Panda. The patient was admitted and started on antibiotics. Of note is the fact that the patient has had an IUD in place for several years. Her CT scan done at [facility] was reviewed. The patient was admitted from 08/17/19 to 08/19/2019 where she received antibiotics. She was discharged home in stable condition on 03/01/2020 and was told to be followed as an outpatient. Prior to discharge arrangement was made for the patient to be seen at where she will be evaluated by interventional radiology with the hope that her cyst can be drained via interventional radiology. This decision was arrived at the consultation with the radiologist here at [facility]. This procedure could not be performed at [facility] successfully so recommendation was to have patient follow up in [place] as an outpatient. Arrangements have already been made through my office [facility]. PAST MEDICAL HISTORY: The patient denies history of diabetes, hypertension or asthma. PAST SURGICAL HISTORY: None. OB-HEARING HEALTH TECHNICIAN HISTORY: The patient had 4 spontaneous vaginal deliveries. ALLERGIES: The patient is a reported to [facility]. MEDICATIONS: The patient was on buprenorphine, Lasix and Synthroid. FAMILY HISTORY: Noncontributory. SOCIAL HISTORY: The patient is and lives with spouse and children. REVIEW OF SYSTEMS: Negative except as dictated in the HPI. PHYSICAL EXAMINATION: VITAL SIGNS: On day of discharge temperature was 36.8, blood pressure was 140/72, pulse was 71, respirations 18. HEART: S1, S2, regular rhythm and rate. LUNGS: Clear to auscultation bilaterally. ABDOMEN: Nontender, nondistended. The patient has some mild discomfort on the left pelvis on palpation. EXTREMITIES: No cyanosis, clubbing or edema. CONDITION ON DISCHARGE: Stable. OPERATION: Tubal tubo-ovarian abscess. The patient was treated with antibiotics. DISCHARGE DIAGNOSIS: Post tubo-ovarian abscess. PLAN ON DISCHARGE: The patient is discharged home in stable condition. She was given instructions regarding diet, activity, and followup appointment.
--- NOTE | 2019-08-23 05:59 | Coding Query ---
To promote full compliance with coding requirements relating to patient care, provider participation is requested in all cases of multi purpose machine operator uncertainty. Please assist us with the question(s) below: Coding Question(s): The diagnosis below was documented in the ER H&P, then subsequently fell off all further documentation. Please indicate if it is still a possible diagnosis or ruled out. Physician's Response(s): SEPSIS ( X ) Diagnosed and POA ( ) Diagnosed and not POA ( ) Ruled out ( ) Other (please specify) MTDD
== END 2019-08-19 14:00 | disposition home or self-care (01) | DRG 872 ==
LOC: ED 13:12 → 4N 17:41

== ENCOUNTER 2021-01-08 11:40 | Inpatient (IN) ==
[2021-01-08 13:39] LABS: Basophils # (auto) 0.03 K/uL (0-0.2); Basophils % (auto) 0.9 %; Eosinophils # (auto) 0.06 K/uL (0-0.5); Eosinophils % (auto) 1.8 %; Hemoglobin 9.4 g/dL (12.0-16.0); Immature Granulocytes # (auto) 0.01 K/uL (0.00-0.02); Immature Granulocytes % (auto) 0.3 %; Lymphocytes # (auto) 0.83 K/uL (1.2-3.4); Lymphocytes % (auto) 25.4 %; Mean Corpuscular Hemoglobin 41.2 pg (25-34); Mean Corpuscular Hgb Conc 34.8 g/dL (32-36); Mean Corpuscular Volume 118.4 fL (80-100); Mean Platelet Volume 10.1 fL (7.4-10.4); Monocytes # (auto) 0.22 K/uL (0.11-0.59); Monocytes % (auto) 6.7 %; Neutrophils # (auto) 2.12 K/uL (1.4-6.5); Neutrophils % (auto) 64.9 %; Platelet Count 140 K/uL (130-400); RDW Coefficient of Variation 16.1 % (11.5-14.5); RDW Standard Deviation 68.8 fL (36.4-46.3); Red Blood Count 2.28 M/uL (4.2-5.4); White Blood Count 3.27 K/uL (4.8-10.8)
[2021-01-08 13:56] LABS: Albumin Level 3.4 gm/dl (3.4-5.0); BUN Creatinine Ratio 11.3 (10-20); Calcium 8.2 mg/dl (8.5-10.1); Creatinine Clr Calc Pharmacy 102.5 ml/min; Est GFR (African American) 134.9 ml/min; Est GFR (Non-African American) 116.4 ml/min; Potassium 2.9 mmol/L (3.5-5.1)
[2021-01-08 13:59] LABS: Albumin Globulin Ratio 1.1 (0.9-2); Bilirubin,Total 3.3 mg/dl (0.2-1); Total Protein 6.4 gm/dl (6.4-8.2)
[2021-01-08 14:00] LABS: Macrocytosis Present
[2021-01-08] MEDS ORDERED: MoRPHine SULFATE 4 MG/ML 1 ML CARP\\VIAL IV STA (14:12)
[2021-01-08] MEDS ORDERED: SODIUM CHLORIDE 0.9% 1000ML 1,000 ML IV STA (14:12)
[2021-01-08] MEDS ORDERED: ONDANSETRON INJ 2 MG/ML 2 ML VIAL IV STA (14:12)
[2021-01-08] MEDS ORDERED: POTASSIUM CHLORIDE / WTR 10 MEQ/100 ML PLCT IV ONE (14:14)
[2021-01-08] MEDS ORDERED: FAMOTIDINE 20MG IV PUSH 20 MG/5 ML SYR IV STA (14:14)
--- NOTE | 2021-01-08 14:18 | Emergency Department Note ---
History of Present Illness General Chief complaint: Abdominal Pain Stated complaint: DEHYDRATION, GALLBLADDER PROBLEMS Time Seen by Provider: 01/08/21 14:03 Source: patient History of Present Illness Provider complaint: Abdominal pain Onset (ago): month(s) Location: abdomen and right Pain Consistency: + constant Maximum Pain Intensity: 7 Quality: + other (Squeezing) Relieved By: + none Exacerbated By: + eating Associated symptoms: + nausea/vomiting and + other (Decreased urination); no chest pain, no cough, no fever/chills or no shortness of breath This is a 35-year-old female who presents with abdominal pain since July of this year. The patient states that she has gallbladder problems. She describes the pain as a squeezing pain in her upper abdomen worse on the right side. She states is worse after eating. She rates it a 7 out of 10 in severity. It is associated with vomiting today. She has also had chronic loose stools but no melena or diarrhea or rectal bleeding. She has seen 3 surgeons for this. Her initial surgeon would not operate on her because she had to have the surgery in the hospital due to her von Willebrand's disease. The second surgeon went to [place] and now she is seeing Dr. Chase. He is awaiting clearance by hematology before doing surgery. She states that she had a HIDA scan which showed slow emptying of the gallbladder. She has not had an EGD recently. She denies any fever, chest pain, shortness of breath or urinary symptoms other than decreased urinary output secondary to dehydration. She has had some vomiting today. She states the pain she is having today is the same pain she has been having since July. She states at times it acts up. Home Medications Medication Instructions Recorded Confirmed Type furosemide 40 mg tablet (Lasix) 40 mg PO BID PRN 07/18/19 01/08/21 History levothyroxine 200 mcg tablet 200 mcg PO QAM 07/18/19 01/08/21 History (Synthroid) potassium chloride 10 mEq 10 meq PO BID PRN 07/18/19 01/08/21 History tablet,extended release(part/cryst) (Klor-Con M) ondansetron 8 mg disintegrating 8 mg PO Q6 PRN 09/27/19 01/08/21 History tablet albuterol sulfate 90 mcg/actuation 1 inh INHALATION QID PRN 12/28/20 01/08/21 History aerosol inhaler acetaminophen 500 mg tablet 1,000 mg PO Q6H PRN 01/08/21 01/08/21 History (Tylenol Extra Strength) dicyclomine 10 mg capsule 10 mg PO QID PRN 01/08/21 01/08/21 History ibuprofen 200 mg tablet 400 mg PO Q6H PRN 01/08/21 01/08/21 History Allergies Allergy/AdvReac Type Severity Reaction Status Date / Time valacyclovir Allergy Severe Dyspnea Verified 01/08/21 16:04 Past Med/Surg History Medical History History of pancreatitis Hypothyroidism IBS (irritable bowel syndrome) Migraines Seasonal asthma Von Willebrand disease "Mild" Class 1 per [facility] records, under surveillance [facility] hematology, surgeon aware Surgical History History of colonoscopy History of esophagogastroduodenoscopy (EGD) History of loop electrical excision procedure (LEEP) History of wisdom tooth extraction Family History Mother Von Willebrand disease Other No family history of adverse response to anesthesia Social History Smoking Status: Current every day smoker Tobacco Type: Cigarettes Cigarettes Per Day: 10; Second Hand Exposure: No; Hx Alcohol Use: Yes Alcohol type: hard liquor Hx Substance Use: No Preferred Language: Kazakh Communication Ability: Effective Account Development Associate Required: No Beliefs That Will Affect Care: None Current Living Situation: Spouse and Family Feels Safe at Home: Yes Assistive Devices: None Review of Systems See HPI for pertinent positives & negatives. and A total of 10 systems reviewed and were otherwise negative Physical Exam Vital Signs Vital Signs - 24 hr 01/08/21 11:47 01/08/21 14:29 01/08/21 14:30 Temperature 36.6 C Temperature Source Temporal Artery Scan Pulse Rate 85 74 71 Pulse Rate [Apical] 73 Pulse Rate from SpO2 Sensor 71 Respiratory Rate 18 20 16 Respiratory Effort / Characteristics Non-Labored Spontaneous Non-Labored Spontaneous Respiratory Depth Normal Normal Respiratory Pattern Regular Regular Blood Pressure 135/86 136/82 Blood Pressure [Left Arm] 130/71 Blood Pressure Mean 102 100 Blood Pressure Mean [Left Arm] 90 Blood Pressure Position Sitting Pulse Oximetry 99 100 100 Oxygen Delivery Method Room Air Room Air Sepsis Recent Fever Within 48 Hours No Sepsis New/Unexplained Change in Mental Status N/A Sepsis Action Taken by Nursing No Action Required 01/08/21 15:00 01/08/21 15:30 01/08/21 16:19 Temperature Temperature Source Pulse Rate 70 77 Pulse Rate [Apical] 88 Pulse Rate from SpO2 Sensor 70 78 Respiratory Rate 16 14 20 Respiratory Effort / Characteristics Respiratory Depth Respiratory Pattern Blood Pressure 149/81 H 147/90 H Blood Pressure [Left Arm] 153/90 H Blood Pressure Mean 103 109 Blood Pressure Mean [Left Arm] 111 Blood Pressure Position Pulse Oximetry 100 100 98 Oxygen Delivery Method Room Air Sepsis Recent Fever Within 48 Hours Sepsis New/Unexplained Change in Mental Status Sepsis Action Taken by Nursing 01/08/21 17:40 01/08/21 18:00 01/08/21 19:00 Temperature Temperature Source Pulse Rate 102 H 79 78 Pulse Rate [Apical] Pulse Rate from SpO2 Sensor Respiratory Rate 19 12 Respiratory Effort / Characteristics Respiratory Depth Respiratory Pattern Blood Pressure 134/78 155/101 H Blood Pressure [Left Arm] Blood Pressure Mean 96 119 Blood Pressure Mean [Left Arm] Blood Pressure Position Pulse Oximetry 100 Oxygen Delivery Method Sepsis Recent Fever Within 48 Hours Sepsis New/Unexplained Change in Mental Status Sepsis Action Taken by Nursing 01/08/21 20:00 Temperature Temperature Source Pulse Rate 71 Pulse Rate [Apical] Pulse Rate from SpO2 Sensor 72 Respiratory Rate 22 Respiratory Effort / Characteristics Respiratory Depth Respiratory Pattern Blood Pressure 150/49 H Blood Pressure [Left Arm] Blood Pressure Mean 82 Blood Pressure Mean [Left Arm] Blood Pressure Position Pulse Oximetry 99 Oxygen Delivery Method Sepsis Recent Fever Within 48 Hours Sepsis New/Unexplained Change in Mental Status Sepsis Action Taken by Nursing Constitutional: Vital signs reviewed. Eyes: Pupils are equal round reactive to light. Conjunctiva are noninjected. ENT: Pharynx is clear without erythema or exudate. Mucous membranes are dry. Neck supple without meningeal signs. Respiratory: Clear to auscultation bilaterally. Breath sounds are equal bilaterally. Cardiovascular: Regular rate and rhythm. No rubs or gallops. GI: Soft, nondistended with right upper quadrant tenderness. No guarding. Bowel sounds are present. Musculoskeletal: No peripheral edema. No lower extremity tenderness. Integumentary: No cyanosis. or jaundice. Neurological: The patient is awake and alert. No focal deficits. Psychiatric: Normal affect. Not anxious appearing. Course Administered Medications Discontinued Medications Sodium Chloride (Nss 1000ml) 1,000 mls @ 999 mls/hr IV .Q1H1M STA Stop: 01/08/21 15:12 Last Infusion: 01/08/21 15:30 Dose: 0 mls/hr Documented by: [id number] Admin: 01/08/21 14:23 Dose: 999 mls/hr Documented by: [id number] Potassium Chloride (K Les / Wtr) 10 meq in 100 mls @ 100 mls/hr IV ONE ONE Stop: 01/08/21 15:13 Last Infusion: 01/08/21 15:30 Dose: 0 mls/hr Documented by: [id number] Admin: 01/08/21 14:26 Dose: 100 mls/hr Documented by: [id number] Famotidine (Pepcid 20mg Iv Push) 20 mg in 5 mls @ 2.5 mls/min IV NOW STA Stop: 01/08/21 14:15 Last Admin: 01/08/21 14:26 Dose: 2.5 mls/min Documented by: [id number] Pantoprazole Sodium 40 mg/ (Syringe) 10 mls @ 5 mls/min IV NOW ONE Stop: 01/08/21 17:29 Last Admin: 01/08/21 19:18 Dose: 5 mls/min Documented by: [id number] Promethazine HCl (Phenergan) 12.5 mg in 50.5 mls @ 202 mls/hr IV NOW STA Stop: 01/08/21 19:12 Last Infusion: 01/08/21 19:55 Dose: 0 mls/hr Documented by: [id number] Admin: 01/08/21 19:18 Dose: 202 mls/hr Documented by: [id number] Multivitamins 10 ml/ Thiamine HCl 100 mg/ Folic Acid 1 mg/Sodium Chloride 1, 011.2 mls @ 1,011.2 mls/hr IV .Q1H STA Stop: 01/08/21 20:08 Last Admin: 01/08/21 19:58 Dose: 1,011.2 mls/hr Documented by: [id number] Morphine Sulfate (Morphine Sulfate 4 Mg/Ml 1 Ml Carp\\Vial) 4 mg IV NOW STA Stop: 01/08/21 14:13 Last Admin: 01/08/21 14:25 Dose: 4 mg Documented by: [id number] Ondansetron HCl (Ondansetron Inj 2 Mg/Ml 2 Ml Vial) 4 mg IV NOW STA Stop: 01/08/21 14:13 Last Admin: 01/08/21 14:22 Dose: 4 mg Documented by: [id number] Medical Decision Making Differential Diagnosis Cholelithiasis, cholecystitis, pancreatitis, biliary obstruction, peptic ulcer disease Medical Records Attestation: I reviewed the patient's medical records. I did perform a limited focused review of portions of the patient's old chart on the electronic medical record. The patient was seen here in September for abdominal pain. She was had a unremarkable work-up in the emergency department and was discharged for outpatient care. She was seen here in July of this year. She had a CT of the abdomen pelvis which showed mild pancreatitis. She had a HIDA scan in October which showed delayed emptying. Home Medications Current Medication List: was personally reviewed by me Laboratory Data Attestation: I reviewed the patient's lab results. Result diagrams: 01/08/21 13:20 01/08/21 13:20 Lab Results 01/08/21 01/08/21 01/08/21 Range/Units 13:20 13:20 13:20 WBC 3.27 L (4.8-10.8) K/uL RBC 2.28 L (4.2-5.4) M/uL Hgb 9.4 L (12.0-16.0) g/dL Hct 27.0 L (37-47) % MCV 118.4 H (80-100) fL MCH 41.2 H (25-34) pg MCHC 34.8 (32-36) g/dL RDW Std Deviation 68.8 H (36.4-46.3) fL RDW Coeff of Praful 16.1 H (11.5-14.5) % Plt Count 140 (130-400) K/uL MPV 10.1 (7.4-10.4) fL Immature Gran % (Auto) 0.3 % Neut % (Auto) 64.9 % Lymph % (Auto) 25.4 % [place] % (Auto) 6.7 % Eos % (Auto) 1.8 % Baso % (Auto) 0.9 % Neut # (Auto) 2.12 (1.4-6.5) K/uL Lymph # (Auto) 0.83 L (1.2-3.4) K/uL [place] # (Auto) 0.22 (0.11-0.59) K/uL Eos # (Auto) 0.06 (0-0.5) K/uL Baso # (Auto) 0.03 (0-0.2) K/uL Immature Gran # (Auto) 0.01 (0.00-0.02) K/uL Macrocytosis Present Sodium 138 (136-145) mmol/L Potassium 2.9 L (3.5-5.1) mmol/L Chloride 101 (98-107) mmol/L Carbon Dioxide 28 (21-32) mmol/L Anion Gap 9.0 (3-11) BUN 7 (7-18) mg/dl Creatinine 0.64 (0.6-1.2) mg/dl Est Cr Clr Drug Dosing 102.5 ml/min Est GFR ( Amer) 134.9 ml/min Est GFR (Non-Af Amer) 116.4 ml/min BUN/Creatinine Ratio 11.3 (10-20) Glucose 82 (70-99) mg/dl Calcium 8.2 L (8.5-10.1) mg/dl Total Bilirubin 3.3 H (0.2-1) mg/dl AST 158 H (15-37) U/L ALT 63 (12-78) U/L Alkaline Phosphatase 116 (45-117) U/L Troponin I < 0.015 (0-0.045) ng/ml Total Protein 6.4 (6.4-8.2) gm/dl Albumin 3.4 (3.4-5.0) gm/dl Globulin 3.0 (2.5-4.0) gm/dl Albumin/Globulin Ratio 1.1 (0.9-2) Lipase 370 (73-393) U/L Urine Color Urine Appearance (Clear) Urine pH (4.5-7.5) Ur Specific [place] (1.000-1.030) Urine Protein (Negative) Urine Glucose (UA) (Negative) Urine Ketones (Negative) Urine Blood (Negative) Urine Nitrite (Negative) Urine Bilirubin (Negative) Urine Urobilinogen (Negative) Ur Leukocyte Esterase (Negative) Urine RBC (0-4) /hpf Urine WBC (0-5) /hpf Ur Epithelial Cells (0-5) /lpf Urine Bacteria (Negative) POC Ur Test (NEG) Salicylates (2.8-20) mg/dl Acetaminophen (10-30) ug/ml COVID-19 Eval Order SARS-CoV-2 (PCR) (Negative) 01/08/21 01/08/21 01/08/21 Range/Units 14:23 14:23 17:41 WBC (4.8-10.8) K/uL RBC (4.2-5.4) M/uL Hgb (12.0-16.0) g/dL Hct (37-47) % MCV (80-100) fL MCH (25-34) pg MCHC (32-36) g/dL RDW Std Deviation (36.4-46.3) fL RDW Coeff of Praful (11.5-14.5) % Plt Count (130-400) K/uL MPV (7.4-10.4) fL Immature Gran % (Auto) % Neut % (Auto) % Lymph % (Auto) % [place] % (Auto) % Eos % (Auto) % Baso % (Auto) % Neut # (Auto) (1.4-6.5) K/uL Lymph # (Auto) (1.2-3.4) K/uL [place] # (Auto) (0.11-0.59) K/uL Eos # (Auto) (0-0.5) K/uL Baso # (Auto) (0-0.2) K/uL Immature Gran # (Auto) (0.00-0.02) K/uL Macrocytosis Sodium (136-145) mmol/L Potassium (3.5-5.1) mmol/L Chloride (98-107) mmol/L Carbon Dioxide (21-32) mmol/L Anion Gap (3-11) BUN (7-18) mg/dl Creatinine (0.6-1.2) mg/dl Est Cr Clr Drug Dosing ml/min Est GFR ( Amer) ml/min Est GFR (Non-Af Amer) ml/min BUN/Creatinine Ratio (10-20) Glucose (70-99) mg/dl Calcium (8.5-10.1) mg/dl Total Bilirubin (0.2-1) mg/dl AST (15-37) U/L ALT (12-78) U/L Alkaline Phosphatase (45-117) U/L Troponin I (0-0.045) ng/ml Total Protein (6.4-8.2) gm/dl Albumin (3.4-5.0) gm/dl Globulin (2.5-4.0) gm/dl Albumin/Globulin Ratio (0.9-2) Lipase (73-393) U/L Urine Color [place] Urine Appearance Slightly Cloudy (Clear) Urine pH (4.5-7.5) Ur Specific [place] 1.028 (1.000-1.030) Urine Protein (Negative) Urine Glucose (UA) (Negative) Urine Ketones (Negative) Urine Blood (Negative) Urine Nitrite (Negative) Urine Bilirubin (Negative) Urine Urobilinogen (Negative) Ur Leukocyte Esterase (Negative) Urine RBC 5-10 H (0-4) /hpf Urine WBC 10-30 H (0-5) /hpf Ur Epithelial Cells 20-30 H (0-5) /lpf Urine Bacteria 1+ H (Negative) POC Ur Test NEG (NEG) Salicylates (2.8-20) mg/dl Acetaminophen (10-30) ug/ml COVID-19 Eval Order Covid19 at [facility] SARS-CoV-2 (PCR) (Negative) 01/08/21 01/08/21 Range/Units 17:41 18:22 WBC (4.8-10.8) K/uL RBC (4.2-5.4) M/uL Hgb (12.0-16.0) g/dL Hct (37-47) % MCV (80-100) fL MCH (25-34) pg MCHC (32-36) g/dL RDW Std Deviation (36.4-46.3) fL RDW Coeff of Praful (11.5-14.5) % Plt Count (130-400) K/uL MPV (7.4-10.4) fL Immature Gran % (Auto) % Neut % (Auto) % Lymph % (Auto) % [place] % (Auto) % Eos % (Auto) % Baso % (Auto) % Neut # (Auto) (1.4-6.5) K/uL Lymph # (Auto) (1.2-3.4) K/uL [place] # (Auto) (0.11-0.59) K/uL Eos # (Auto) (0-0.5) K/uL Baso # (Auto) (0-0.2) K/uL Immature Gran # (Auto) (0.00-0.02) K/uL Macrocytosis Sodium (136-145) mmol/L Potassium (3.5-5.1) mmol/L Chloride (98-107) mmol/L Carbon Dioxide (21-32) mmol/L Anion Gap (3-11) BUN (7-18) mg/dl Creatinine (0.6-1.2) mg/dl Est Cr Clr Drug Dosing ml/min Est GFR ( Amer) ml/min Est GFR (Non-Af Amer) ml/min BUN/Creatinine Ratio (10-20) Glucose (70-99) mg/dl Calcium (8.5-10.1) mg/dl Total Bilirubin (0.2-1) mg/dl AST (15-37) U/L ALT (12-78) U/L Alkaline Phosphatase (45-117) U/L Troponin I (0-0.045) ng/ml Total Protein (6.4-8.2) gm/dl Albumin (3.4-5.0) gm/dl Globulin (2.5-4.0) gm/dl Albumin/Globulin Ratio (0.9-2) Lipase (73-393) U/L Urine Color Urine Appearance (Clear) Urine pH (4.5-7.5) Ur Specific [place] (1.000-1.030) Urine Protein (Negative) Urine Glucose (UA) (Negative) Urine Ketones (Negative) Urine Blood (Negative) Urine Nitrite (Negative) Urine Bilirubin (Negative) Urine Urobilinogen (Negative) Ur Leukocyte Esterase (Negative) Urine RBC (0-4) /hpf Urine WBC (0-5) /hpf Ur Epithelial Cells (0-5) /lpf Urine Bacteria (Negative) POC Ur Test (NEG) Salicylates (2.8-20) mg/dl Acetaminophen (10-30) ug/ml COVID-19 Eval Order SARS-CoV-2 (PCR) NEGATIVE (Negative) ECG Data Attestation: I personally reviewed and interpreted this ECG as follows: Indication: + abdominal pain Rate (beats per minute): 70 Rhythm: + normal sinus ECG Intervals/blocks: + Short FL and + Prolonged QT ECG ST segments: no ST elevation ECG Findings: + Other (No delta waves); no PVCs Comparison ECG Date: from (July 24, 2020) Change: the following changes noted (QT is prolonged today.) MDM Narrative I did evaluate the patient as noted above. The patient is presenting with abdominal pain since July. She did vomit last night and states that she has been losing weight. She is scheduled to have her gallbladder removed due to a positive HIDA scan. IV access was established. I did treat her with IV morphine and Zofran. I did place an order for continuous cardiac monitoring. The monitor showed normal sinus rhythm at a rate of 77 bpm. I did order and personally review the patient's 12-lead EKG as described above. She has no acute ischemic changes on twelve-lead EKG. I did order a urine analysis. This is difficult to interpret due to color. She did have some WBCs and RBCs with +1 bacteria but she also has epithelial cells. She denied having urinary symptoms. I did order and review the patient's blood work as noted in the electronic medical record. Her white blood cell count is 3.27. Hemoglobin is 9.4 platelets are 140. Electrolytes demonstrate hypokalemia with a potassium of 2.9. I did treat her with IV KCl. AST slightly elevated of 158 and bilirubin is 3.3. Lipase is 370. I did obtain previous blood work from the [facility] system. Her last hematocrit was 34.6 on November 04. Today it is 27 which is a significant drop. I did perform a rectal examination which showed guaiac negative dark brown stool. I was concerned about the potential for a upper GI bleed despite the negative guaiac test. She states that she has been using Excedrin and ibuprofen almost on a daily basis since July to help with her abdominal pain. She states that many years ago she had an EGD which showed ulc ers in her stomach. I did recommend hospitalization but the patient did not wish to miss her son's birthday tomorrow and decided she would leave AGAINST MEDICAL ADVICE. I therefore treated her with Protonix 40 mg p.o. After talking to her further she did change her mind and will stay in the hospital for further care and evaluation. She was therefore given IV Protonix. I did order a Covid test which was negative. I did order levels for salicylate or Tylenol but they stated the blood was icteric. The patient states that she has not been taking Tylenol or ibuprofen over the recommended dose. She states that she has been taking about 3 tablets a day and alternating them. I did discuss case with the hospitalist and case fitter. Impression & Plan Upper gastrointestinal bleed, Hyperbilirubinemia, Anemia, Acute hypokalemia, Elevated AST (SGOT), Leukopenia Discharge Plan Visit Data Chief Complaint: Abdominal Pain Stated Complaint: DEHYDRATION, GALLBLADDER PROBLEMS ED Provider: Mack Wen Discharge Problem: Upper gastrointestinal bleed, Hyperbilirubinemia, Anemia, Acute hypokalemia, Elevated AST (SGOT), Leukopenia Patient Disposition: Being Evaluated by Hospitalist Forms Stand Alone Forms: My [facility] Prescriptions Prescriptions: No Action furosemide [Lasix] 40 mg tablet 40 mg PO BID PRN (Reason: Fluid Retention) RF: 0 levothyroxine [Synthroid] 200 mcg tablet 200 mcg PO QAM RF: 0 potassium chloride [Klor-Con M10] 10 mEq tablet,ER particles/crystals 10 meq PO BID PRN (Reason: Fluid Retention) RF: 0 ondansetron 8 mg Tablet,Disintegrating 8 mg PO Q6 PRN (Reason: Nausea) RF: 0 albuterol sulfate 90 mcg/actuation Hfa Aerosol Inhaler 1 inh INHALATION QID PRN (Reason: sob) RF: 0 dicyclomine 10 mg capsule 10 mg PO QID PRN (Reason: abd pain) RF: 0 acetaminophen [Tylenol Extra Strength] 500 mg Tablet 1,000 mg PO Q6H PRN (Reason: Pain) RF: 0 ibuprofen 200 mg Tablet 400 mg PO Q6H PRN (Reason: Pain) RF: 0 Referrals Referrals: Gypsy Lubin PA-C [Primary Care Provider] -
[2021-01-08 14:44] LABS: Appearance Urine Slightly Cloudy (Clear); Color Urine Amber; Specific Gravity Urine 1.028 (1.000-1.030)
[2021-01-08 14:46] LABS: Epithelial Cell Urine 20-30 /lpf (0-5)
[2021-01-08 14:47] LABS: Bacteria Urine 1+ (Negative)
--- NOTE | 2021-01-08 15:50 | Electrocardiogram Report ---
Test Reason : Blood Pressure : / mmHG Vent. Rate : 070 BPM Atrial Rate : 070 BPM P-R Int : 110 ms QRS Dur : 078 ms QT Int : 466 ms P-R-T Axes : -02 065 005 degrees QTc Int : 503 ms Sinus rhythm with short DE Nonspecific T wave abnormality Anterior leads Abnormal ECG When compared with ECG of 24-JUL-2020 11:01, T wave inversion more evident in Anterior leads Confirmed by Tapan Hull ([id number]) on 01/08/2021 3:49:21 PM Referred By: Confirmed By:Tapan Hull
[2021-01-08] MEDS ORDERED: PANTOprazole 40 MG in SYRINGE 0 ML IV ONE (17:28)
--- NOTE | 2021-01-08 18:27 | History & Physical Report ---
Date of Service January 08, 2021 Assessment & Plan (1) Abdominal pain: Plan: Acute on chronic abdominal pain ongoing since July 2020, with recent worsening in the right upper and left upper quadrant. Patient denies any changes in stools but does report some occasional vomiting and intolerance of p.o. Potassium likely low as a result of this. She has been using NSAIDs mostly to control her pain, which is worse with food. She reports a history of ulcers in the past. Her hemoglobin has notably dropped 3 g since September (12.8/36 in September 30 to 9.4/27 today). She reports being recently evaluated by general surgeon, Dr. Chase, who was going to take out her gallbladder. However, the surgery was delayed because of abnormal platelet function studies. Since then her pain has gotten worse, she has developed an increased bilirubin to 3.3 and has an elevated AST to 153 up from her last check in September 1957. ALT is 63, alk phos 116. Notably she was admitted in July 2020 with a pancreatitis and in August 2020 with a tubo-ovarian abscess, both conditions treated medically. She also recently underwent a colonoscopy at the [facility] gastroenterology office on 11/18/2020 for removal of a hyperplastic polyp. Her last imaging study was a HIDA scan on 10/15/2020 which revealed delayed gallbladder filling and no evidence of cystic or common bile duct obstruction. Etiologies of pain include bu tnot limited to PUD, gastritis from alcohol and/or recent heavy NSAID use, biliary colic. Lipase slightly elevated but may be from vomiting; exam inconsistent with a pancreatitis. As she has had multiple CT scans for this issue, now with elevated LFTs, will start with an US of the RUQ. She does use alcohol which may be contributing, Trend CMP in am. Consult surgery. Gastroenterology consult in light of hyperbilirubinemia and elevated transaminase level and anemia. Hold all NSAIDs, add PPI BID. Pain meds and antiemetics as needed. (2) Elevated transaminase level: Plan: As above in setting of hepatic steatosis. Trend in am. (3) Hyperbilirubinemia: Plan: Uncertain etiology, consider biliary obstruction, developing hepatitis, trend in am. Appreciate internal audit consultant thoughts. (4) Hypokalemia: Plan: replace with IV, patient cannot tolerate PO at this time. Repeat in am with Mg level. Encourage PO intake when able. (5) Von Willebrand disease: Plan: Followed by [facility] oncology/hematology with recent platelet function assays to determine her ability to undergo surgery. She has not undergone surgery in her life, however, did tolerate a colonoscopy with biopsy recently without issue. She denies any active bleeding but does bruise frequently. If it is determined she will need a surgical procedure, will need to get hematology thoughts on the safety of this and then ensure a reversal agent is present in case of perioperative bleeding. (6) Smoker: Plan: Nicoderm patch, smoking cessation encouraged. (7) Anemia: Plan: Possibly secondary to chronic blood loss anemia in setting of NSAIDs use, with abdominal pain and nausea question the possibility of ulcers or gastritis, especially with ongoing alcohol abuse. Iron studies, B12, folate in am. Trend CBC in am. No need for transfusion at this time. (8) Alcohol abuse: Plan: No evidence of withdrawal, At this point however, she is very anxious with some elevated blood pressure In the ER to 160/90.. Will trend this and keep her on telemetry overnight. Ativan as needed. (9) DVT prophylaxis: Plan: SCD/ambulation in light of possible upcoming procedure and concern for bleeding secondary to von Willebrand's disease. Full code Dispo-med telemetry Crystal Woodard DO [facility] Hospitalist History of Present Illness Chief Complaint: abdominal discomfort Primary Care Provider: Gypsy Lubin PA-C 35-year-old female presents with worsening of right upper quadrant and left upper quadrant abdominal pain since July of this year, worse in the last few days. She has been told she has gallbladder problems and was recently set up to have a cholecystectomy. However, this was delayed secondary to abnormal platelet function assays ordered by hematology who follows her for von Wilder lebrand's disease. She reports the pain is worse after eating and is occasionally associated with vomiting. It is a squeezing quality and is severe. She denies any changes in her stools. She is not eating much secondary to nausea. She reports significant intake of NSAIDs to deal with the pain including Excedrin, aspirin and ibuprofen. She drinks 3 mixed drinks a day and smokes half a pack of cigarettes a day. She was admitted to the hospital for pancreatitis and a tubo-ovarian abscess this year. She has never undergone surgery and denies history of bleeding but has significant bruising daily. Allergies Allergy/AdvReac Type Severity Reaction Status Date / Time valacyclovir Allergy Severe Dyspnea Verified 01/08/21 16:04 Home Medications Medication Instructions Recorded Confirmed Type furosemide 40 mg tablet (Lasix) 40 mg PO BID PRN 07/18/19 01/08/21 History levothyroxine 200 mcg tablet 200 mcg PO QAM 07/18/19 01/08/21 History (Synthroid) potassium chloride 10 mEq 10 meq PO BID PRN 07/18/19 01/08/21 History tablet,extended release(part/cryst) (Klor-Con M) ondansetron 8 mg disintegrating 8 mg PO Q6 PRN 09/27/19 01/08/21 History tablet albuterol sulfate 90 mcg/actuation 1 inh INHALATION QID PRN 12/28/20 01/08/21 History aerosol inhaler acetaminophen 500 mg tablet 1,000 mg PO Q6H PRN 01/08/21 01/08/21 History (Tylenol Extra Strength) dicyclomine 10 mg capsule 10 mg PO QID PRN 01/08/21 01/08/21 History ibuprofen 200 mg tablet 400 mg PO Q6H PRN 01/08/21 01/08/21 History Past Med/Surg History Medical History Alcohol abuse History of pancreatitis Hypothyroidism IBS (irritable bowel syndrome) Migraines Seasonal asthma Tobacco use Von Willebrand disease "Mild" Class 1 per [facility] records, under surveillance [facility] hematology, surgeon aware Surgical History History of colonoscopy History of esophagogastroduodenoscopy (EGD) History of loop electrical excision procedure (LEEP) History of wisdom tooth extraction Family History Mother Von Willebrand disease Other No family history of adverse response to anesthesia Social History Smoking Status: Current every day smoker Tobacco Type: Cigarettes Cigarettes Per Day: 10; Second Hand Exposure: No; Hx Alcohol Use: Yes Alcohol type: hard liquor Hx Substance Use: No Preferred Language: Thai Communication Ability: Effective Elementary Tutor Required: No Beliefs That Will Affect Care: None Current Living Situation: Spouse and Family Feels Safe at Home: Yes Assistive Devices: None Review of Systems Review of Systems: All systems were reviewed and negative except as indicated in HPI above. Physical Exam Physical Exam: CONSTITUTIONAL: WNWD, vitals as above, generally well- appearing EYES: PERRL, normal conjunctivae ENT: external ear and nose normal, MMM, OP clear RESPIRATORY: clear to auscultation bilaterally, no crackles, rales or wheezes, normal respiratory effort CARDIOVASCULAR: regular rate and rhythm, S1 and 2 heard without murmurs, gallops or rubs, no JVD, no peripheral edema CHEST: inspection of chest was normal GASTROINTESTINAL: soft, mildly TTP in RUQ and LUQ, no guarding, no CVA tenderness MUSCULOSKELETAL: strength 5/5 throughout, head is normocephalic and atraumatic SKIN: warm and dry NEUROLOGIC: CN 2-12 grossly intact, normal cognition, normal speech, no tremor, no gross focal deficits. PSYCHIATRIC: alert cooperative and oriented to person, place and time. Results & Data Results & Data ([facility]) Vital Signs (Past 12 Hours) Vital Signs Temp Pulse Pulse Resp BP BP Pulse Ox 01/08/21 18:00 79 19 134/78 01/08/21 17:40 102 H 01/08/21 16:19 88 20 153/90 H 98 01/08/21 15:30 77 14 147/90 H 100 01/08/21 15:00 70 16 149/81 H 100 01/08/21 14:30 71 16 136/82 100 01/08/21 14:29 74 73 20 130/71 100 01/08/21 11:47 36.6 C 85 18 135/86 99 Laboratory Results Short CBC 01/08/21 Range/Units 13:20 WBC 3.27 L (4.8-10.8) K/uL Hgb 9.4 L (12.0-16.0) g/dL Hct 27.0 L (37-47) % Plt Count 140 (130-400) K/uL BMP 01/08/21 13:20 Sodium 138 Potassium 2.9 L Chloride 101 Carbon Dioxide 28 BUN 7 Creatinine 0.64 Glucose 82 Calcium 8.2 L Cardiac Enzymes 01/08/21 Range/Units 13:20 Troponin I < 0.015 (0-0.045) ng/ml Liver Function 01/08/21 Range/Units 13:20 Total Bilirubin 3.3 H (0.2-1) mg/dl AST 158 H (15-37) U/L ALT 63 (12-78) U/L Alkaline Phosphatase 116 (45-117) U/L Albumin 3.4 (3.4-5.0) gm/dl Urine 01/08/21 Range/Units 14:23 Urine Color Meghan Urine Appearance Slightly Cloudy (Clear) Urine pH (4.5-7.5) Ur Specific Chandler 1.028 (1.000-1.030) Urine Protein (Negative) Urine Glucose (UA) (Negative) Diagnostic Findings US liver HISTORY: 35 years-old Female elevated transaminase acutely elevated LFTs COMPARISON: CT 07/24/2020 TECHNIQUE: Multiple real-time sonographic images of the abdominal right upper quadrant were obtained assessing grayscale appearance and color flow FINDINGS: Increased echogenicity of the hepatic parenchyma without hepatic mass. No marginal nodularity of the liver. The pancreas is suboptimally visualized. The gallbladder is unremarkable without cholelithiasis, wall thickening or pericholecystic fluid. Sonographic Noland sign was reported as negative. The common bile duct is mildly dilated measuring up to 8 mm. Imaged right kidney is unremarkable without hydronephrosis. IMPRESSION: 1. No cholelithiasis or sonographic evidence of acute cholecystitis. 2. Slight dilation of the common bile duct. No intrahepatic biliary ductal dilation. 3. Hepatic steatosis. Code Status & VTE Plan VTE Prophylaxis Plan VTE Prophylaxis will be ordered: Yes
[2021-01-08] MEDS ORDERED: PROMETHAZINE HCL 12.5 MG in SODIUM CHLORIDE 0.9% 50 ML IV STA (18:56)
[2021-01-08] MEDS ORDERED: PROMETHAZINE 12.5 MG/50.5 ML BAG IV STA (18:58)
[2021-01-08] MEDS ORDERED: MULTI-VITAMIN INFUSION 10 ML, THIAMINE HCL 100 MG, FOLIC ACID 1 MG in SODIUM CHLORIDE 0... IV STA (19:09)
--- NOTE | 2021-01-08 21:14 | Ultrasound Report ---
US liver HISTORY: 35 years-old Female elevated transaminase acutely elevated LFTs COMPARISON: CT 07/24/2020 TECHNIQUE: Multiple real-time sonographic images of the abdominal right upper quadrant were obtained assessing grayscale appearance and color flow FINDINGS: Increased echogenicity of the hepatic parenchyma without hepatic mass. No marginal nodularity of the liver. The pancreas is suboptimally visualized. The gallbladder is unremarkable without cholelithiasi s, wall thickening or pericholecystic fluid. Sonographic Noland sign was reported as negative. The co mmon bile duct is mildly dilated measuring up to 8 mm. Imaged right kidney is unremarkable without hydronephrosis. IMPRESSION: 1. No cholelithiasis or sonographic evidence of acute cholecystitis. 2. Slight dilation of the common bile duct. No intrahepatic biliary ductal dilation. 3. Hepatic steatosis. ACT 112: Negative or not required by law. The above report was generated using voice recognition software. It may contain grammatical, syntax o r spelling errors. Electronically signed by: Zurdo Lugo M.D. 01/08/2021 9:12 PM
[2021-01-08] MEDS ORDERED: LORazepam 1 MG/2 ML VIAL IV PRN (22:15)
[2021-01-08] MEDS ORDERED: ACETAMINOPHEN 1000 MG/100 ML IV IV SCH (22:15)
[2021-01-08] MEDS: THIAMINE HCL 100 MG TAB PO SCH (23:13)
[2021-01-08] MEDS: NICOTINE 21 MG/24 HR TDSY TD SCH (23:14)
[2021-01-08] MEDS: FOLIC ACID 1 MG TAB PO SCH (23:14)
[2021-01-09] MEDS ORDERED: LEVOTHYROXINE SODIUM 200 MCG TABLET PO SCH (06:30)
[2021-01-09 07:32] LABS: Hematocrit (blood only) 22.1 % (37-47); Hemoglobin 7.9 g/dL (12.0-16.0); Mean Corpuscular Hemoglobin 42.5 pg (25-34); Mean Corpuscular Hgb Conc 35.7 g/dL (32-36); Mean Corpuscular Volume 118.8 fL (80-100); Mean Platelet Volume 9.9 fL (7.4-10.4); Platelet Count 105 K/uL (130-400); RDW Coefficient of Variation 15.9 % (11.5-14.5); RDW Standard Deviation 67.5 fL (36.4-46.3); Red Blood Count 1.86 M/uL (4.2-5.4); White Blood Count 3.36 K/uL (4.8-10.8)
[2021-01-09 08:06] LABS: Albumin Level 2.7 gm/dl (3.4-5.0); BUN Creatinine Ratio 17.5 (10-20); Calcium 7.3 mg/dl (8.5-10.1); Creatinine Clr Calc Pharmacy 131.1 ml/min; Est GFR (African American) 146.4 ml/min; Est GFR (Non-African American) 126.3 ml/min; Magnesium 1.3 mg/dl (1.8-2.4)
[2021-01-09 08:16] LABS: Albumin Globulin Ratio 1.1 (0.9-2); Bilirubin,Total 2.3 mg/dl (0.2-1); Ferritin 300.8 ng/ml (8-388); Globulin 2.4 gm/dl (2.5-4.0); Thyroid Stimulating Hormone 0.036 uIu/ml (0.300-4.500); Total Protein 5.1 gm/dl (6.4-8.2)
[2021-01-09 08:30] LABS: T4 Free Thyroxine 1.17 ng/dl (0.8-1.6)
[2021-01-09] MEDS: DICYCLOMINE HCL 10 MG CAP PO PRN (08:39)
[2021-01-09] MEDS: PANTOprazole 40 MG TAB PO SCH ×2 (08:39→20:17)
[2021-01-09] MEDS: FOLIC ACID 1 MG TAB PO SCH (08:39)
[2021-01-09] MEDS: THIAMINE HCL 100 MG TAB PO SCH (08:39)
[2021-01-09 08:42] LABS: Folate (Folic Acid) 19.7 ng/ml (>5.38)
[2021-01-09] MEDS: ONDANSETRON INJ 2 MG/ML 2 ML VIAL IV PRN ×2 (09:04→15:18)
[2021-01-09] MEDS: POTASSIUM CHLORIDE IV SCH ×2 (09:18→10:07)
[2021-01-09] MEDS: D5W AND NSS IV SCH ×2 (09:18→10:07)
[2021-01-09] MEDS: ACETAMINOPHEN 1,000 MG/100 ML VIAL IV SCH ×2 (09:18)
[2021-01-09] MEDS: NICOTINE 21 MG/24 HR TDSY TD SCH (09:19)
[2021-01-09] MEDS ORDERED: [UNRECOGNIZED DRUG - OTHER] IV SCH (10:30)
[2021-01-09] MEDS ORDERED: CALCIUM GLUCONATE IV SCH (10:30)
[2021-01-09] MEDS ORDERED: MAGNESIUM SULFATE IV SCH (10:30)
[2021-01-09] MEDS: POTASSIUM CHLORIDE CRTAB 20 MEQ TABCR PO SCH ×2 (10:40→15:12)
[2021-01-09] MEDS: oxyCODONE HCL IR 5 MG TAB (IMMEDIATE RELEASE) PO PRN (11:38)
--- NOTE | 2021-01-09 14:20 | Surgery Consultation ---
Date of Consultation January 09, 2021 Assessment & Plan (1) Von Willebrand disease: needs evaluation prior to surgical intervention (2) Upper gastrointestinal bleed: GI consult (3) Biliary colic: if medically stable lap gaetano could be done this hospitalization for acute on chronic pain LFTs likely from previous sludge Present on Admission?: Yes History of Present Illness Attending Physician: Crystal Woodard, DO History of Present Illness This is a 35YO with acute on chronic abdominal pain ongoing since July 2020, with recent worsening in the right upper and left upper quadrant. She has associated nausea occasional vomiting. She reports a history of ulcers in the past. Her hemoglobin has notably dropped 3 g since September (12.8/36 in September 30 to 9.4/27 today). She reports being recently evaluated by general surgeon, Dr. Chase, who was going to take out her gallbladder. However, the surgery was delayed because of abnormal platelet function studies. Since then her pain has gotten worse, she has developed an increased bilirubin to 3.3 and has an elevated AST to 153 up from her last check in September 1957. ALT is 63, alk phos 116. Notably she was admitted in July 2020 with a pancreatitis and in August 2020 with a tubo-ovarian abscess, both conditions treated medically. She also recently underwent a colonoscopy at the [facility] gastroenterology office on 11/18/2020 for removal of a hyperplastic polyp. Her last imaging study was a HIDA scan on 10/15/2020 which revealed delayed gallbladder filling and no evidence of cystic or common bile duct obstruction. Allergies Allergy/AdvReac Type Severity Reaction Status Date / Time valacyclovir Allergy Severe Dyspnea Verified 01/08/21 16:04 Home Medications Medication Instructions Recorded Confirmed Type furosemide 40 mg tablet (Lasix) 40 mg PO BID PRN 07/18/19 01/08/21 History levothyroxine 200 mcg tablet 200 mcg PO QAM 07/18/19 01/08/21 History (Synthroid) potassium chloride 10 mEq 10 meq PO BID PRN 07/18/19 01/08/21 History tablet,extended release(part/cryst) (Klor-Con M) ondansetron 8 mg disintegrating 8 mg PO Q6 PRN 09/27/19 01/08/21 History tablet albuterol sulfate 90 mcg/actuation 1 inh INHALATION QID PRN 12/28/20 01/08/21 History aerosol inhaler acetaminophen 500 mg tablet 1,000 mg PO Q6H PRN 01/08/21 01/08/21 History (Tylenol Extra Strength) dicyclomine 10 mg capsule 10 mg PO QID PRN 01/08/21 01/08/21 History ibuprofen 200 mg tablet 400 mg PO Q6H PRN 01/08/21 01/08/21 History Patient History Medical History (Updated 01/09/21 @ 14:22 by Nitish Gay MD) Alcohol abuse History of pancreatitis Hypothyroidism IBS (irritable bowel syndrome) Migraines Seasonal asthma Tobacco use Von Willebrand disease "Mild" Class 1 per [facility] records, under surveillance [facility] hematology, surgeon aware Surgical History History of colonoscopy History of esophagogastroduodenoscopy (EGD) History of loop electrical excision procedure (LEEP) History of wisdom tooth extraction Family History Mother Von Willebrand disease Other No family history of adverse response to anesthesia Social History Smoking Status: Current every day smoker Tobacco Type: Cigarettes Cigarettes Per Day: 10; Second Hand Exposure: No; Do You Dip or Chew Tobacco: No; Tobacco Cessation Education Requested by Patient: No Hx Alcohol Use: No Hx Substance Use: No Preferred Language: Iraqi Communication Ability: Effective Breeder Hen Service Technician Required: No Beliefs That Will Affect Care: None Current Living Situation: Spouse and Family Other Information That Helps Us Care for You: No Feels Safe at Home: No Is there a partner from a previous relationship who is making you feel unsafe now?: No Any Concerns about Your Family Situation: No Would You Like to Speak to Someone About Your Situation: Yes Safety Concerns: Feels Safe At This Time Assistive Devices: None Review of Systems Constitutional: no fever, no chills and no anorexia Respiratory: no cough and no dyspnea Cardiovascular: no chest pain Gastrointestinal: + abdominal pain, + nausea and + vomiting; no dysphagia Genitourinary: no dysuria Musculoskeletal: no back pain and no neck pain Integumentary: no yellowing of the skin Neurologic: no localized weakness and no generalized weakness Psychiatric: no behavioral changes and no depression Allergy / Immunological: + GI upset with certain foods Physical Exam Constitutional: WD/WN, vitals as above Eyes: PERRL, conjunctivae normal, anicteric sclerae Neck: trachea midline, no thyromegaly Respiratory: normal respiratory effort, lungs clear to auscultation Cardiovascular: RRR, no murmur, no edema Gastrointestinal (Abdomen): Inspection/Auscultation: abdomen normal to inspection and normal bowel sounds Percussion/Palpation: + abdomen tender and abdomen soft; no guarding and abdomen not rigid Musculoskeletal: Head/Neck/Chest: normocephalic and head atraumatic Skin: no rashes, warm and dry Psychiatric: Orientation: alert and oriented x 3 Results & Data ([facility]) Vital Signs (Past 12 Hours) Vital Signs Temp Pulse Pulse Resp BP Pulse Ox 01/09/21 11:18 36.8 C 65 15 122/75 96 01/09/21 09:51 71 01/09/21 07:35 37.1 C 71 16 125/79 97 01/09/21 03:53 37.2 C 78 16 129/70 96 Diagnostic Findings US liver HISTORY: 35 years-old Female elevated transaminase acutely elevated LFTs COMPARISON: CT 07/24/2020 TECHNIQUE: Multiple real-time sonographic images of the abdominal right upper quadrant were obtained assessing grayscale appearance and color flow FINDINGS: Increased echogenicity of the hepatic parenchyma without hepatic mass. No marginal nodularity of the liver. The pancreas is suboptimally visualized. The gallbladder is unremarkable without cholelithiasis, wall thickening or pericholecystic fluid. Sonographic Noland sign was reported as negative. The common bile duct is mildly dilated measuring up to 8 mm. Imaged right kidney is unremarkable without hydronephrosis. IMPRESSION: 1. No cholelithiasis or sonographic evidence of acute cholecystitis. 2. Slight dilation of the common bile duct. No intrahepatic biliary ductal dilation. 3. Hepatic steatosis.
[2021-01-09] MEDS ORDERED: POTASSIUM CHLORIDE PWD 20 MEQ PACK PO ONE (15:45)
[2021-01-09] MEDS: ACETAMINOPHEN 500 MG TAB PO SCH ×2 (17:01→23:13)
[2021-01-09] MEDS ORDERED: POTASSIUM CHLORIDE 40 MEQ in LACTATED RINGER'S 1,000 ML IV ONE (22:45)
--- NOTE | 2021-01-09 23:28 | Hospitalist Progress Note ---
Date of Service January 09, 2021 Assessment & Plan (1) Biliary colic: Plan: RUQ pain improved. Per gen surg, gallbladder should be removed but safely when optimized from a hematology standpoint. Still needs hematology clearance for surgery. Recently completed platelet function tests. (2) Elevated transaminase level: Plan: Etiologies include but not limited to biliary malfunction, alcohol use,and hepatic steatosis. Transaminases are decreasing. (3) Hyperbilirubinemia: Plan: Uncertain etiology, consider biliary obstruction, developing hepatitis, trend in am. (4) Hypokalemia: Plan: replace and repeat in am. (5) Von Willebrand disease: Plan: Followed by [facility] oncology/hematology with recent platelet function assays to determine her ability to undergo surgery. She has not undergone surgery in her life, however, did tolerate a colonoscopy with biopsy recently without issue. She denies any active bleeding but does bruise frequently. If it is determined she will need a surgical procedure, will need to get hematology thoughts on the safety of this and then ensure a reversal agent is present in case of perioperative bleeding. (6) Pancytopenia: Plan: All cell lines down today, possibly related to a dilutional component. REpeat in am. Discuss with hematology. (7) Hepatic steatosis: Plan: outpatient screening periodically. Discussed findings with patient. (8) Alcohol abuse: Plan: No evidence of withdrawal (9) Smoker: Plan: Nicoderm patch, smoking cessation encouraged. (10) DVT prophylaxis: Plan: SCD/ambulation in light of possible upcoming procedure and concern for bleeding secondary to von Willebrand's disease. Full code Dispo-med telemetry [facility] Plan: SCDs-relative contraindication in worsened anemia and thrombocytopenia. Full Dispo-remain in hospital until she undergoes her surgery early next week. DO Gary Klein Wiliam Admission and Anticipated Discharge Date Admission Date: January 09, 2021 Subjective 35 yo F presents with acute on chronic right upper quadrant abdominal pain seen by surgeon who agrees to cholecystectomy worsened cell lines, possibly secondary to dilution from IVF no evidence of active bleeding in setting of vWD Abdominal pain improved per patient who is eating and ambulating at baseline. afebrile, denies SOB or CP. LFTs and bilirubin have improved. Review of Systems Review of Systems: All systems were reviewed and negative except as indicated in HPI above. Physical Exam Physical Exam: CONSTITUTIONAL: WNWD, vitals as above, generally well- appearing EYES: normal conjunctivae, nonicteric sclerae ENT: external ear and nose normal, MMM, OP clear RESPIRATORY: clear to auscultation bilaterally, no crackles, rales or wheezes, normal respiratory effort CARDIOVASCULAR: regular rate and rhythm, S1 and 2 heard without murmurs, gallops or rubs, no JVD, no peripheral edema CHEST: inspection of chest was normal GASTROINTESTINAL: soft, mildly TTP in RUQ and LUQ, no guarding, no CVA tenderness MUSCULOSKELETAL: strength 5/5 throughout, head is normocephalic and atraumatic SKIN: warm and dry NEUROLOGIC: CN 2-12 grossly intact, normal cognition, normal speech, no tremor, no gross focal deficits. PSYCHIATRIC: alert cooperative and oriented to person, place and time. Results & Data Results & Data ([facility]) Vital Signs (Past 12 Hours) Vital Signs Temp Pulse Pulse Resp BP Pulse Ox 01/09/21 15:30 76 01/09/21 15:08 36.6 C 78 18 118/77 98 Laboratory Results Short CBC 01/09/21 Range/Units 07:16 WBC 3.36 L (4.8-10.8) K/uL Hgb 7.9 L (12.0-16.0) g/dL Hct 22.1 L (37-47) % Plt Count 105 L (130-400) K/uL BMP 01/09/21 07:16 Sodium 140 Potassium 3.0 L Chloride 107 Carbon Dioxide 24 BUN 9 Creatinine 0.50 L Glucose 60 L Calcium 7.3 L Liver Function 01/09/21 Range/Units 07:16 Total Bilirubin 2.3 H (0.2-1) mg/dl AST 109 H (15-37) U/L ALT 47 (12-78) U/L Alkaline Phosphatase 82 (45-117) U/L Albumin 2.7 L (3.4-5.0) gm/dl Medications Administered Current Inpatient Medications Acetaminophen (Acetaminophen 500 Mg Tab) 1,000 mg PO Q8H MIKHAIL Stop: 02/08/21 16:59 Last Admin: 01/09/21 23:13 Dose: 1,000 mg Documented by: Dicyclomine HCl (Dicyclomine Hcl 10 Mg Cap) 10 mg PO QID PRN PRN Reason: abd pain Stop: 02/07/21 22:44 Last Admin: 01/09/21 08:39 Dose: 10 mg Documented by: Folic Acid (Folic Acid 1 Mg Tab) 1 mg PO QAM [facility] Stop: 02/07/21 22:14 Last Admin: 01/09/21 08:39 Dose: 1 mg Documented by: Lorazepam (Ativan) 1 mg in 2 mls @ 2 mls/min IV ONE PRN; Protocol PRN Reason: EtoH Withdrawal AWSS 6-10 Stop: 02/07/21 22:14 Potassium Chloride 40 meq/ (Lactated Ringer's) 1,020 mls @ 80 mls/hr IV .[id number] ONE Stop: 01/10/21 11:29 Levothyroxine Sodium (Levothyroxine Sodium 200 Mcg Tablet) 200 mcg PO MoTuWeThFr@0630 [facility] Stop: 02/10/21 06:29 Levothyroxine Sodium (Levothyroxine Sodium 100 Mcg Tablet) 100 mcg PO SuSa@0630 [facility] Stop: 02/09/21 06:29 Miscellaneous (Remove Nicoderm Patch) 1 ea N/A DAILY@[id number] [facility] Stop: 02/08/21 08:58 Last Admin: 01/09/21 09:19 Dose: 1 ea Documented by: Nicotine (Nicotine 21 Mg/24 Hr Tdsy) 21 mg [facility] [place] Stop: 02/07/21 22:14 Last Admin: 01/09/21 09:19 Dose: Not Given Documented by: Ondansetron HCl (Ondansetron Inj 2 Mg/Ml 2 Ml Vial) 4 mg IV Q6H PRN PRN Reason: Nausea Stop: 02/07/21 22:14 Last Admin: 01/09/21 15:18 Dose: 4 mg Documented by: Oxycodone HCl (Oxycodone Hcl Ir 5 Mg Tab (Immediate Release)) 5 mg PO Q6H PRN PRN Reason: Pain Stop: 01/22/21 22:14 Last Admin: 01/09/21 11:38 Dose: 5 mg Documented by: Pantoprazole Sodium (Pantoprazole 40 Mg Tab) 40 mg PO BID [facility] Stop: 02/08/21 08:59 Last Admin: 01/09/21 20:17 Dose: 40 mg Documented by: Thiamine HCl (Thiamine Hcl 100 Mg Tab) 100 mg PO QAM [facility] Stop: 02/07/21 22:14 Last Admin: 01/09/21 08:39 Dose: 100 mg Documented by:
[2021-01-10] MEDS: ONDANSETRON INJ 2 MG/ML 2 ML VIAL IV PRN (04:07)
[2021-01-10] MEDS ORDERED: FLUTICASONE PROPIONATE NA SPR 16 GM BTL PRN (04:18)
[2021-01-10] MEDS ORDERED: LEVOTHYROXINE SODIUM 100 MCG TABLET PO SCH (06:30)
[2021-01-10] MEDS: oxyCODONE HCL IR 5 MG TAB (IMMEDIATE RELEASE) PO PRN (07:23)
[2021-01-10] MEDS: THIAMINE HCL 100 MG TAB PO SCH (08:30)
[2021-01-10] MEDS: FOLIC ACID 1 MG TAB PO SCH (08:30)
[2021-01-10] MEDS: DICYCLOMINE HCL 10 MG CAP PO PRN (08:30)
[2021-01-10] MEDS: NICOTINE 21 MG/24 HR TDSY TD SCH (08:30)
[2021-01-10] MEDS: PANTOprazole 40 MG TAB PO SCH ×2 (08:30→20:30)
[2021-01-10] MEDS: ACETAMINOPHEN 500 MG TAB PO SCH ×2 (08:30→16:20)
[2021-01-10 10:05] LABS: Basophils # (auto) 0.03 K/uL (0-0.2); Basophils % (auto) 0.7 %; Eosinophils % (auto) 2.4 %; Hematocrit (blood only) 22.5 % (37-47); Hemoglobin 7.9 g/dL (12.0-16.0); Immature Granulocytes # (auto) 0.05 K/uL (0.00-0.02); Immature Granulocytes % (auto) 1.2 %; Lymphocytes # (auto) 0.96 K/uL (1.2-3.4); Mean Corpuscular Hemoglobin 42.5 pg (25-34); Mean Corpuscular Hgb Conc 35.1 g/dL (32-36); Monocytes # (auto) 0.27 K/uL (0.11-0.59); Monocytes % (auto) 6.5 %; Neutrophils # (auto) 2.76 K/uL (1.4-6.5); Neutrophils % (auto) 66.2 %; Nucleated RBC # (auto) 0.03 K/uL (0-0); Nucleated RBC % (auto) 0.8 %; Platelet Count 132 K/uL (130-400); RDW Coefficient of Variation 15.5 % (11.5-14.5); RDW Standard Deviation 65.9 fL (36.4-46.3); Red Blood Count 1.86 M/uL (4.2-5.4); White Blood Count 4.17 K/uL (4.8-10.8)
--- NOTE | 2021-01-10 10:22 | Gastrointestinal Consultation ---
Date of Consultation January 10, 2021 Assessment & Plan (1) Biliary colic: (2) Anemia: (3) Hyperbilirubinemia: (4) Elevated AST (SGOT): 1. Right upper quadrant abdominal pain: Given her elevated LFTs as well as her gallbladder pathology, would suggest MRCP to rule out bile duct pathology. Imaging and history would suggest that a cholecystectomy is indicated. Timing to be determined per surgery 2. Anemia: She has pancytopenia, with a known platelet dysfunction. Hemoglobin has oscillated up and down in reviewing her outpatient chart for some time now. There is no evidence of any ongoing GI bleed. Would provide her with twice daily oral PPI. That is both for therapeutic modality as well as GI prophylaxis. Pending the evaluation of the MRCP, she may need endoscopic ultrasound/ERCP. If that is to be undertaken an EGD can be performed during that setting otherwise may require EGD prior to discharge. Has had recent colonoscopy a few weeks back without etiology of anemia. She has profound macrocytosis, my feeling is that this is a production and marrow issue and/or autoimmune/destructive issue that would be contributory possibly. History of Present Illness Reason for Consultation: Abdominal pain, elevated LFTs, anemia Attending Physician: Crystal Woodard, History of Present Illness This is a 35-year-old female who presented with worsening of right upper quadrant and left upper quadrant abdominal pain that is been acute on chronic since since July ye. She has evaluated for gallbladder etiology and was recently set up to have a cholecystectomy is recently had a HIDA scan that revealed delayed ejection fraction. However, this was delayed secondary to abnormal platelet function assays ordered by hematology who follows her for von Willebrand's disease. She reports the pain is worse after eating and is occasionally associated with vomiting. It is a squeezing quality and is severe. She denies any changes in her stools. She is not eating much secondary to nausea. She has been taking NSAIDs for the pain. She drinks 3 mixed drinks a day and smokes half a pack of cigarettes a day. She was admitted to the hospital for pancreatitis and a tubo-ovarian abscess this year. She has never undergone surgery and denies history of bleeding but has significant bruising daily. Right upper quadrant ultrasound showed a mildly prominent bile duct. She denies any signs of gi bleeding, is having yellow liquid stools. No hematamesis and no melena. Allergies Allergy/AdvReac Type Severity Reaction Status Date / Time valacyclovir Allergy Severe Dyspnea Verified 01/08/21 16:04 Home Medications Medication Instructions Recorded Confirmed Type furosemide 40 mg tablet (Lasix) 40 mg PO BID PRN 07/18/19 01/08/21 History levothyroxine 200 mcg tablet 200 mcg PO QAM 07/18/19 01/08/21 History (Synthroid) potassium chloride 10 mEq 10 meq PO BID PRN 07/18/19 01/08/21 History tablet,extended release(part/cryst) (Klor-Con M) ondansetron 8 mg disintegrating 8 mg PO Q6 PRN 09/27/19 01/08/21 History tablet albuterol sulfate 90 mcg/actuation 1 inh INHALATION QID PRN 12/28/20 01/08/21 History aerosol inhaler acetaminophen 500 mg tablet 1,000 mg PO Q6H PRN 01/08/21 01/08/21 History (Tylenol Extra Strength) dicyclomine 10 mg capsule 10 mg PO QID PRN 01/08/21 01/08/21 History ibuprofen 200 mg tablet 400 mg PO Q6H PRN 01/08/21 01/08/21 History Patient History Medical History Alcohol abuse History of pancreatitis Hypothyroidism IBS (irritable bowel syndrome) Migraines Seasonal asthma Tobacco use Von Willebrand disease "Mild" Class 1 per [facility] records, under surveillance [facility] hematology, surgeon aware Surgical History History of colonoscopy History of esophagogastroduodenoscopy (EGD) History of loop electrical excision procedure (LEEP) History of wisdom tooth extraction Family History Mother Von Willebrand disease Other No family history of adverse response to anesthesia Social History Smoking Status: Current every day smoker Tobacco Type: Cigarettes Cigarettes Per Day: 10; Second Hand Exposure: No; Do You Dip or Chew Tobacco: No; Tobacco Cessation Education Requested by Patient: No Hx Alcohol Use: No Hx Substance Use: No Preferred Language: Bermudian Communication Ability: Effective Pastry Finisher Required: No Beliefs That Will Affect Care: None Current Living Situation: Spouse and Family Other Information That Helps Us Care for You: No Feels Safe at Home: No Is there a partner from a previous relationship who is making you feel unsafe now?: No Any Concerns about Your Family Situation: No Would You Like to Speak to Someone About Your Situation: Yes Safety Concerns: Feels Safe At This Time Assistive Devices: None Review of Systems Review of Systems: 10 system review negative excpept for stated as above Physical Exam Physical Exam: CONSTITUTIONAL: WNWD, vitals as above, generally well- appearing EYES: normal conjunctivae, nonicteric sclerae ENT: external ear and nose normal, MMM, OP clear RESPIRATORY: clear to auscultation bilaterally, no crackles, rales or wheezes, normal respiratory effort CARDIOVASCULAR: regular rate and rhythm, S1 and 2 heard without murmurs, gallops or rubs, no JVD, no peripheral edema CHEST: inspection of chest was normal GASTROINTESTINAL: soft, mildly TTP in RUQ and LUQ, no guarding, no CVA tenderness MUSCULOSKELETAL: strength 5/5 throughout, head is normocephalic and atraumatic SKIN: warm and dry NEUROLOGIC: CN 2-12 grossly intact, normal cognition, normal speech, no tremor, no gross focal deficits. PSYCHIATRIC: alert cooperative and oriented to person, place and time. Results & Data ([facility]) Vital Signs (Past 12 Hours) Vital Signs Temp Pulse Resp BP Pulse Ox 01/10/21 07:57 36.7 C 61 18 152/88 H 99 01/10/21 04:00 36.8 C 61 18 135/80 98 01/09/21 23:07 37.0 C 74 18 148/88 H 95 (1) Anemia Anemia type: unspecified type Qualified Code(s): D64.9 - Anemia, unspecified
[2021-01-10 10:32] LABS: Macrocytosis Present; Ovalocytes 1+; Polychromasia 1+; Tear Drop Cells 1+
[2021-01-10 10:42] LABS: Albumin Globulin Ratio 1.1 (0.9-2); Albumin Level 2.8 gm/dl (3.4-5.0); BUN Creatinine Ratio 12.8 (10-20); Bilirubin,Total 1.6 mg/dl (0.2-1); Calcium 7.9 mg/dl (8.5-10.1); Creatinine Clr Calc Pharmacy 136.6 ml/min; Est GFR (African American) 148.3 ml/min; Globulin 2.6 gm/dl (2.5-4.0); Magnesium 1.9 mg/dl (1.8-2.4); Total Protein 5.4 gm/dl (6.4-8.2)
[2021-01-10 11:32] LABS: Reticulocyte % 1.5 % (0.5-2.0); Reticulocytes # 0.03 10^6/uL (0.02-0.10)
[2021-01-10 12:59] LABS: Fibrinogen 186 mg/dl (184-400); INR 1.1 (0.9-1.1); Partial Thromboplastin Ratio 0.8; Partial Thromboplastin Time 21.8 Seconds (21.0-31.0); Prothrombin Time 11.1 Seconds (9.0-12.0)
[2021-01-10 13:18] LABS: D Dimer 1100 ug/L FEU (0-500)
--- NOTE | 2021-01-10 13:23 | Surgery Progress Note ---
Date of Service January 10, 2021 Assessment & Plan (1) Biliary colic: Plan: MRCP possible EGD and lap gaetano this hospitalization Admission and Anticipated Discharge Date Admission Date: January 09, 2021 Subjective pain about the same agree with MRCP Review of Systems Constitutional: no fever and no chills Respiratory: no dyspnea Cardiovascular: no chest pain Gastrointestinal: + abdominal pain and + nausea; no vomiting Genitourinary: no dysuria Physical Exam Constitutional: well developed and well nourished; no acute distress Eyes: + anicteric sclerae ENMT: external ear and nose normal, oropharynx normal Neck: trachea midline Respiratory: normal respiratory effort, lungs clear to auscultation Cardiovascular: RRR, no murmur, no edema Gastrointestinal (Abdomen): Inspection/Auscultation: abdomen normal to inspection and normal bowel sounds; abdomen not distended Percussion/Palpation: + abdomen tender and abdomen soft; no guarding and abdomen not rigid Skin: no rashes, warm and dry Psychiatric: Orientation: alert and oriented x 3 Results & Data ([facility]) Vital Signs (Past 12 Hours) Vital Signs Temp Pulse Resp BP Pulse Ox 01/10/21 07:57 36.7 C 61 18 152/88 H 99 01/10/21 04:00 36.8 C 61 18 135/80 98
--- NOTE | 2021-01-10 16:28 | Magnetic Resonance Report ---
MR MRCP HISTORY: 35 years-old Female ruq pain, elevated bilirubin and AST, US abn acute right upper quadrant abdominal pain with nausea and vomiting and elevated LFTs COMPARISON: CT abdomen pelvis 07/24/2020, right upper quadrant ultrasound 01/08/2021 TECHNIQUE: MRCP without the use of IV contrast was obtained according to institutional protocol. FINDINGS: Motion degraded exam. Trace left greater than right pleural effusions. Spleen, adrenal glands and kid neys are unremarkable. Hepatic steatosis. 3 mm T2 hyperintensity structure of the posterior right hep atic lobe suggestive of a cyst. Unremarkable aorta and IVC. Mildly contracted gallbladder. No choleli thiasis identified. No gallbladder wall thickening. No intrahepatic or extrahepatic biliary ductal pr ominence. Normal common bile duct, 5 mm. No biliary filling defects identified to suggest choledochol ithiasis. No pancreatic ductal dilation or pancreatic divisum. Mild interstitial and peripancreatic edema. Mild free fluid of the gosia hepatis and right pericolic gutter. Mild generalized body wall edema. IMPRESSION: 1. Motion degraded exam. 2. No cholelithiasis, biliary ductal dilation or evidence of choledocholithiasis. 3. Findings suggestive of interstitial edematous pancreatitis. No pancreatic ductal dilation. 4. Trace ascites and pleural effusions. ACT 112: Negative or not required by law. The above report was generated using voice recognition software. It may contain grammatical, syntax o r spelling errors. Electronically signed by: Zurdo Lugo M.D. 01/10/2021 4:27 PM
[2021-01-10] MEDS: cefTRIAXone SODIUM 1,000 MG in DEXTROSE 5% 50 ML IV SCH (18:37)
[2021-01-10] MEDS ORDERED: OPTIRAY 320 125ml IV ONE (19:57)
[2021-01-10] MEDS: SODIUM CHLORIDE 0.9% 1000ML 1,000 ML IV SCH (20:29)
--- NOTE | 2021-01-10 21:34 | Hospitalist Progress Note ---
Date of Service January 10, 2021 Assessment & Plan (1) Biliary colic: Plan: No evidence of cholelithiasis or choledocholithiasis on liver ultrasound or MRCP. However, clinical picture is consistent with mild pancreatitis secondary to recent gallstone passage. LFTs are downtrending. Of note she is away from alcohol and does heavily drink with 3 mixed drinks daily per her report. Macrocytic anemia noted with normal B12 and folate levels. Plan for gallbladder removal, but would strongly recommend hematology clearance prior to this. Additionally she will need preoperative DDAVP which will help to release von Willebrand factor from her platelets. This should be given intravenously preoperatively. (2) Pancreatitis: Plan: Supportive care, will give additional IV fluids overnight with reports of dehydration intermittently. Lipase in a.m. Pain control as needed. (3) Elevated transaminase level: Plan: Likely secondary to recent gallstone pancreatitis/alcohol use, downtrending. (4) Hyperbilirubinemia: Plan: Likely related to transient biliary obstruction from stone, currently not present and bilirubin is downtrending. (5) Hypokalemia: Plan: Replete as needed. (6) Von Willebrand disease: Plan: Will need DDAVP preoperatively and platelets need to be on hand in case of intraoperative bleeding. Would check with blood bank preoperatively and get these ordered if not in stock. (7) Pancytopenia: Plan: All cell lines continue to remain low. Clinical picture consistent with clinical picture significant white blood cell count 3.3 on admission 4.2 today, hemoglobin 9.4 on admission 7.9 today, hematocrit 27 on admission 22.5 today. MCV is 121. Platelets went from 105 yesterday to 132 today. Senior Sales Manager concern for developing DIC with worsened anemia. Notably she is afebrile and has a normal creatinine and normal mental status. She does not have clear evidence of hemolysis with a normal reticulocyte count but she does have elevated fibrin degradation products, elevated D-dimer at 1100, LDH of 558, and a relatively low fibrinogen of 186 with a reference range of 184-400. Hematology request that we trend labs in a.m. and contact them with updates. Her jewelry sorter is Dr. Francisco from [facility], , also available on [employer] text. (8) Hepatic steatosis: Plan: outpatient screening periodically. Discussed findings with patient. (9) Alcohol abuse: Plan: No evidence of withdrawal, cessation encouraged. (10) Smoker: Plan: Nicoderm patch, smoking cessation encouraged. (11) Elevated d-dimer: Plan: CT chest and LE us dopplers to complete the workup. Ongoing chest congestions and productive phlegm symptoms. (12) DVT prophylaxis: Plan: SCD/ambulation in light of possible upcoming procedure and concern for bleeding secondary to von Willebrand's disease. Full code Dispo-med telemetry DO [facility] Plan: SCDs-relative contraindication in worsened anemia and thrombocytopenia. Full Dispo-remain in hospital until she undergoes surgery. Hold surgery pending hematology clearance DO [facility] Admission and Anticipated Discharge Date Admission Date: January 09, 2021 Subjective 35-year-old female admitted with acute on chronic abdominal pain in the upper abdominal region. She reports the pain is about the same but may be slightly better across the right upper quadrant and left upper quadrant She reports feeling dehydrated on occasion but is tolerating p.o. including solid food. All cell lines down and discussed this with Dr. Francisco, her jewelry sorter by phone. He is concern for possible DIC with subsequent labs ordered Urine culture positive for E. coli-started on Rocephin intravenous to hasten bioavailability She is afebrile, denies shortness of breath or chest pain. Some nausea reported after productive sputum which is actually been going on for a couple of months. She does feel chest congestion on occasion. MRCP was negative for choledocholithiasis and there was no biliary duct obstruction, however, mild pancreatitis was noted. Review of Systems Review of Systems: All systems were reviewed and negative except as indicated in HPI above. Physical Exam Physical Exam: CONSTITUTIONAL: WNWD, vitals as above, generally well- appearing, emotional EYES: normal conjunctivae, nonicteric sclerae ENT: external ear and nose normal, MMM, OP clear RESPIRATORY: clear to auscultation bilaterally, no crackles, rales or wheezes, normal respiratory effort CARDIOVASCULAR: regular rate and rhythm, S1 and 2 heard without murmurs, gal lops or rubs, no JVD, no peripheral edema CHEST: inspection of chest was normal GASTROINTESTINAL: soft, mildly TTP in RUQ and LUQ, no guarding, no CVA tenderness MUSCULOSKELETAL: strength 5/5 throughout, head is normocephalic and atraumatic SKIN: warm and dry NEUROLOGIC: CN 2-12 grossly intact, normal cognition, normal speech, no tremor, no gross focal deficits. PSYCHIATRIC: alert cooperative and oriented to person, place and time. Results & Data Results & [facility] ([facility]) Vital Signs (Past 12 Hours) Vital Signs Temp Pulse Resp BP Pulse Ox 01/10/21 15:06 36.9 C 59 L 20 142/85 H 99 Laboratory Results Short CBC 01/10/21 Range/Units 09:35 WBC 4.17 L (4.8-10.8) K/uL Hgb 7.9 L (12.0-16.0) g/dL Hct 22.5 L (37-47) % Plt Count 132 (130-400) K/uL BMP 01/10/21 09:35 Sodium 138 Potassium 4.0 D Chloride 108 H Carbon Dioxide 24 BUN 6 L Creatinine 0.48 L Glucose 91 Calcium 7.9 L Liver Function 01/10/21 Range/Units 09:35 Total Bilirubin 1.6 H (0.2-1) mg/dl AST 84 H (15-37) U/L ALT 45 (12-78) U/L Alkaline Phosphatase 84 (45-117) U/L Albumin 2.8 L (3.4-5.0) gm/dl Diagnostic Findings MR MRCP HISTORY: 35 years-old Female ruq pain, elevated bilirubin and AST, US abn acute right upper quadrant abdominal pain with nausea and vomiting and elevated LFTs COMPARISON: CT abdomen pelvis 07/24/2020, right upper quadrant ultrasound 01/08/2021 TECHNIQUE: MRCP without the use of IV contrast was obtained according to institutional protocol. FINDINGS: Motion degraded exam. Trace left greater than right pleural effusions. Spleen, adrenal glands and kidneys are unremarkable. Hepatic steatosis. 3 mm T2 hyperintensity structure of the posterior right hepatic lobe suggestive of a cyst. Unremarkable aorta and IVC. Mildly contracted gallbladder. No cholelithiasis identified. No gallbladder wall thickening. No intrahepatic or extrahepatic biliary ductal prominence. Normal common bile duct, 5 mm. No biliary filling defects identified to suggest choledocholithiasis. No pancreatic ductal dilation or pancreatic divisum. Mild interstitial and peripancreatic edema. Mild free fluid of the gosia hepatis and right pericolic gutter. Mild generalized body wall edema. IMPRESSION: 1. Motion degraded exam. 2. No cholelithiasis, biliary ductal dilation or evidence of choledocholithiasis. 3. Findings suggestive of interstitial edematous pancreatitis. No pancreatic ductal dilation. 4. Trace ascites and pleural effusions. Medications Administered Current Inpatient Medications Acetaminophen (Acetaminophen 500 Mg Tab) 1,000 mg PO Q8H [facility] Stop: 02/08/21 16:59 Last Admin: 01/10/21 16:20 Dose: 1,000 mg Documented by: Dicyclomine HCl (Dicyclomine Hcl 10 Mg Cap) 10 mg PO QID PRN PRN Reason: abd pain Stop: 02/07/21 22:44 Last Admin: 01/10/21 08:30 Dose: 10 mg Documented by: Fluticasone Propionate (Fluticasone Propionate Na Spr 16 Gm Btl) 2 sprays NA DAILY PRN PRN Reason: allergic nasal congestion Stop: 02/09/21 08:59 Folic Acid (Folic Acid 1 Mg Tab) 1 mg PO QAM [facility] Stop: 02/07/21 22:14 Last Admin: 01/10/21 08:30 Dose: 1 mg Documented by: Ceftriaxone Sodium 1,000 mg/ (Dextrose) 50 mls @ 100 mls/hr IV Q24H [facility]; Protocol Stop: 01/15/21 18:14 Last Admin: 01/10/21 18:37 Dose: 100 mls/hr Documented by: Sodium Chloride (Nss 1000ml) 1,000 mls @ 125 mls/hr IV .Q8H [facility] Stop: 01/11/21 10:44 Last Admin: 01/10/21 20:29 Dose: 125 mls/hr Documented by: Levothyroxine Sodium (Levothyroxine Sodium 200 Mcg Tablet) 200 mcg PO MoTuWeThFr@0630 [facility] Stop: 02/10/21 06:29 Levothyroxine Sodium (Levothyroxine Sodium 100 Mcg Tablet) 100 mcg PO SuSa@0630 [facility] Stop: 02/09/21 06:29 Last Admin: 01/10/21 06:00 Dose: 100 mcg Documented by: Miscellaneous (Remove Nicoderm Patch) 1 ea N/A DAILY@0859 [facility] Stop: 02/08/21 08:58 Last Admin: 01/10/21 08:31 Dose: 1 ea Documented by: Nicotine (Nicotine 21 Mg/24 Hr Tdsy) 21 mg TD QAM [facility] Stop: 02/07/21 22:14 Last Admin: 01/10/21 08:30 Dose: 21 mg Documented by: Ondansetron HCl (Ondansetron Inj 2 Mg/Ml 2 Ml Vial) 4 mg IV Q6H PRN PRN Reason: Nausea Stop: 02/07/21 22:14 Last Admin: 01/10/21 04:07 Dose: 4 mg Documented by: Oxycodone HCl (Oxycodone Hcl Ir 5 Mg Tab (Immediate Release)) 5 mg PO Q6H PRN PRN Reason: Pain Stop: 01/22/21 22:14 Last Admin: 01/10/21 07:23 Dose: 5 mg Documented by: Pantoprazole Sodium (Pantoprazole 40 Mg Tab) 40 mg PO BID [facility] Stop: 02/08/21 08:59 Last Admin: 01/10/21 20:30 Dose: 40 mg Documented by: Thiamine HCl (Th[facility]amine Hcl 100 Mg Tab) [facility] Stop: 02/07/21 22:14 Last Admin: 01/10/21 08:30 Dose: 100 mg Documented by:
[2021-01-11] MEDS: ACETAMINOPHEN 500 MG TAB PO SCH ×3 (00:13→18:13)
[2021-01-11] MEDS: SODIUM CHLORIDE 0.9% 1000ML 1,000 ML IV SCH ×2 (03:07→19:20)
[2021-01-11] MEDS: LEVOTHYROXINE SODIUM 200 MCG TABLET PO SCH (06:37)
[2021-01-11 07:07] LABS: Basophils # (auto) 0.02 K/uL (0-0.2); Basophils % (auto) 0.5 %; Eosinophils # (auto) 0.12 K/uL (0-0.5); Eosinophils % (auto) 2.8 %; Hematocrit (blood only) 23.7 % (37-47); Hemoglobin 8.3 g/dL (12.0-16.0); Immature Granulocytes # (auto) 0.09 K/uL (0.00-0.02); Immature Granulocytes % (auto) 2.1 %; Lymphocytes # (auto) 1.45 K/uL (1.2-3.4); Lymphocytes % (auto) 34.3 %; Mean Corpuscular Hemoglobin 42.1 pg (25-34); Mean Corpuscular Volume 120.3 fL (80-100); Mean Platelet Volume 9.3 fL (7.4-10.4); Monocytes # (auto) 0.28 K/uL (0.11-0.59); Monocytes % (auto) 6.6 %; Neutrophils # (auto) 2.27 K/uL (1.4-6.5); Neutrophils % (auto) 53.7 %; Nucleated RBC # (auto) 0.04 K/uL (0-0); Platelet Count 131 K/uL (130-400); RDW Coefficient of Variation 16.3 % (11.5-14.5); RDW Standard Deviation 69.2 fL (36.4-46.3); Red Blood Count 1.97 M/uL (4.2-5.4); Reticulocyte % 3.5 % (0.5-2.0); Reticulocytes # 0.07 10^6/uL (0.02-0.10); White Blood Count 4.23 K/uL (4.8-10.8)
[2021-01-11 07:33] LABS: Macrocytosis Present; Ovalocytes 1+; Polychromasia 1+; Tear Drop Cells 1+
--- NOTE | 2021-01-11 07:34 | Ultrasound Report ---
BILATERAL LOWER EXTREMITY VENOUS DOPPLER CLINICAL HISTORY: elevated D-dimer COMPARISON STUDY: No previous studies for comparison. TECHNIQUE: Sonography of the deep venous system of the bilateral lower extremities was performed. Co mpression and augmentation were evaluated. FINDINGS: The bilateral common femoral, superficial femoral and popliteal veins were compressible. A ugmentation was normal. Flow was shown within the deep calf vessels. IMPRESSION: No evidence of deep venous thrombus within the bilateral lower extremities. ACT 112: Negative or not required by law. Electronically signed by: Troy Murphy M.D. 01/11/2021 7:32 AM
[2021-01-11 07:43] LABS: Fibrinogen 201 mg/dl (184-400)
[2021-01-11 07:51] LABS: Alanine Aminotransferase 41 U/L (12-78); Albumin Level 2.6 gm/dl (3.4-5.0); Aspartate Aminotransferase 77 U/L (15-37); BUN Creatinine Ratio 8.6 (10-20); Bilirubin Direct 0.5 mg/dl (0-0.2); Blood Urea Nitrogen 4 mg/dl (7-18); Calcium 7.5 mg/dl (8.5-10.1); Carbon Dioxide 22 mmol/L (21-32); Chloride 109 mmol/L (98-107); Creatinine Clr Calc Pharmacy 152.5 ml/min; Est GFR (African American) > 150.0 ml/min; Est GFR (Non-African American) 132.7 ml/min; Glucose 59 mg/dl (70-99); Potassium 3.6 mmol/L (3.5-5.1); Sodium 140 mmol/L (136-145)
[2021-01-11 08:05] LABS: Alkaline Phosphatase 76 U/L (45-117); Bilirubin,Total 0.9 mg/dl (0.2-1); Lipase 1727 U/L (73-393)
--- NOTE | 2021-01-11 08:40 | Gastroenterology Progress Note ---
Date of Service January 11, 2021 Assessment & Plan (1) Pancreatitis: Plan: 35 year old female admiteted w/ RUQ abdominal pain, elevated LFTs, gallbladder pathology and pancreatitis. MRCP negative w/o indication for ERCP LR 150-200 mL/hr She is already tolerating regular diet OOB walking as tolerated Antiemetics PRN PO analgesia PRN CCY per general surgery team Regarding her history of anemia, she is pancytopenic w/o evidence of GI bleeding. Can continue PO PPI and plan for OP EGD. Will sign off. Recall as needed. Thank you for allowing us to participate in the care of this patient. Please call with any acute changes, questions or concerns. Please see addendum below with additional recommendation from my supervising physician. Admission and Anticipated Discharge Date Admission Date: January 09, 2021 Supervising Physician Co-Signing Physician Notes I have seen and examined the patient with HERBERT Hillman whose note reflects our findings and plan. Tolerating diet. No abd pain. MRCP was negative. Abd exam is benigh. Subjective Pt was seen and evaluated, chart reviewed. Notes intermittent abd pain. No nausea, vomiting. Ate breakfast/lunch/dinner yesterday, regular diet. Has a regular tray this morning but is not too hungry. Passing gas, moving bowels. Denies black or bloody stools. Review of Systems Review of Systems: All systems reviewed & are unremarkable except as noted in HPI & below Physical Exam Constitutional: WD/WN, vitals as above Respiratory: normal respiratory effort, lungs clear to auscultation Cardiovascular: RRR, no murmur, no edema Gastrointestinal (Abdomen): normal bowel sounds, soft, nontender, no hepatosplenomegaly Skin: no rashes, warm and dry Results & Data ([facility]) Vital Signs (Past 12 Hours) Vital Signs Temp Pulse Resp BP Pulse Ox 01/11/21 07:24 36.6 C 69 18 139/81 97 Laboratory Results 01/11/21 01/11/21 01/11/21 Range/Units 06:52 06:52 06:52 WBC (4.8-10.8) K/uL RBC (4.2-5.4) M/uL Hgb (12.0-16.0) g/dL Hct (37-47) % MCV (80-100) fL MCH (25-34) pg MCHC (32-36) g/dL RDW Std Deviation (36.4-46.3) fL RDW Coeff of Praful (11.5-14.5) % Plt Count (130-400) K/uL MPV (7.4-10.4) fL Immature Gran % (Auto) % Neut % (Auto) % Lymph % (Auto) % [place] % (Auto) % Eos % (Auto) % Baso % (Auto) % Reticulocyte % (Auto) (0.5-2.0) % Neut # (Auto) (1.4-6.5) K/uL Lymph # (Auto) (1.2-3.4) K/uL [place] # (Auto) (0.11-0.59) K/uL Eos # (Auto) (0-0.5) K/uL Baso # (Auto) (0-0.2) K/uL Reticulocyte # (0.02-0.10) 10^6/uL Immature Gran # (Auto) (0.00-0.02) K/uL Absolute Nucleated RBC (0-0) K/uL Nucleated RBC % (auto) % Polychromasia Macrocytosis Tear Drop Cells Ovalocytes Peripher Smr Path Cons Haptoglobin PT (9.0-12.0) Seconds INR (0.9-1.1) APTT (21.0-31.0) Seconds PTT Ratio Fibrinogen 201 (184-400) mg/dl Fibrin Degrad Products (<10) mcg/ml D-Dimer (0-500) ug/L FEU Sodium 140 (136-145) mmol/L Potassium 3.6 (3.5-5.1) mmol/L Chloride 109 H (98-107) mmol/L Carbon Dioxide 22 (21-32) mmol/L Anion Gap 9.0 (3-11) BUN 4 L (7-18) mg/dl Creatinine 0.43 L (0.6-1.2) mg/dl Est Cr Clr Drug Dosing 152.5 ml/min Est GFR ( Amer) > 150.0 ml/min Est GFR (Non-Af Amer) 132.7 ml/min BUN/Creatinine Ratio 8.6 L (10-20) Glucose 59 L (70-99) mg/dl Calcium 7.5 L (8.5-10.1) mg/dl Magnesium (1.8-2.4) mg/dl Total Bilirubin 0.9 D (0.2-1) mg/dl Direct Bilirubin 0.5 H (0-0.2) mg/dl AST 77 H (15-37) U/L ALT 41 (12-78) U/L Alkaline Phosphatase 76 (45-117) U/L Lactate Dehydrogenase 551 H (84-246) U/L Total Protein 5.0 L (6.4-8.2) gm/dl Albumin 2.6 L (3.4-5.0) gm/dl Globulin (2.5-4.0) gm/dl Albumin/Globulin Ratio (0.9-2) Lipase 1727 H (73-393) U/L 01/11/21 01/10/21 01/10/21 Range/Units 06:52 12:20 12:20 WBC 4.23 L (4.8-10.8) K/uL RBC 1.97 L (4.2-5.4) M/uL Hgb 8.3 L (12.0-16.0) g/dL Hct 23.7 L (37-47) % MCV 120.3 H (80-100) fL MCH 42.1 H (25-34) pg MCHC 35.0 (32-36) g/dL RDW Std Deviation 69.2 H (36.4-46.3) fL RDW Coeff of Praful 16.3 H (11.5-14.5) % Plt Count 131 (130-400) K/uL MPV 9.3 (7.4-10.4) fL Immature Gran % (Auto) 2.1 % Neut % (Auto) 53.7 % Lymph % (Auto) 34.3 % [place] % (Auto) 6.6 % Eos % (Auto) 2.8 % Baso % (Auto) 0.5 % Reticulocyte % (Auto) 3.5 H (0.5-2.0) % Neut # (Auto) 2.27 (1.4-6.5) K/uL Lymph # (Auto) 1.45 (1.2-3.4) K/uL [place] # (Auto) 0.28 (0.11-0.59) K/uL Eos # (Auto) 0.12 (0-0.5) K/uL Baso # (Auto) 0.02 (0-0.2) K/uL Reticulocyte # 0.07 (0.02-0.10) 10^6/uL Immature Gran # (Auto) 0.09 H (0.00-0.02) K/uL Absolute Nucleated RBC 0.04 H (0-0) K/uL Nucleated RBC % (auto) 1.0 % Polychromasia 1+ Macrocytosis Present Tear Drop Cells 1+ Ovalocytes 1+ Peripher Smr Path Cons Haptoglobin PT 11.1 (9.0-12.0) Seconds INR 1.1 (0.9-1.1) APTT 21.8 (21.0-31.0) Seconds PTT Ratio 0.8 Fibrinogen 186 (184-400) mg/dl Fibrin Degrad Products 10-40 H (<10) mcg/ml D-Dimer 1100 H* (0-500) ug/L FEU Sodium (136-145) mmol/L Potassium (3.5-5.1) mmol/L Chloride (98-107) mmol/L Carbon Dioxide (21-32) mmol/L Anion Gap (3-11) BUN (7-18) mg/dl Creatinine (0.6-1.2) mg/dl Est Cr Clr Drug Dosing ml/min Est GFR ( Amer) ml/min Est GFR (Non-Af Amer) ml/min BUN/Creatinine Ratio (10-20) Glucose (70-99) mg/dl Calcium (8.5-10.1) mg/dl Magnesium (1.8-2.4) mg/dl Total Bilirubin (0.2-1) mg/dl Direct Bilirubin (0-0.2) mg/dl AST (15-37) U/L ALT (12-78) U/L Alkaline Phosphatase (45-117) U/L Lactate Dehydrogenase (84-246) U/L Total Protein (6.4-8.2) gm/dl Albumin (3.4-5.0) gm/dl Globulin (2.5-4.0) gm/dl Albumin/Globulin Ratio (0.9-2) Lipase (73-393) U/L 01/10/21 01/10/21 01/10/21 Range/Units 09:40 09:35 09:35 WBC (4.8-10.8) K/uL RBC (4.2-5.4) M/uL Hgb (12.0-16.0) g/dL Hct (37-47) % MCV (80-100) fL MCH (25-34) pg MCHC (32-36) g/dL RDW Std Deviation (36.4-46.3) fL RDW Coeff of Praful (11.5-14.5) % Plt Count (130-400) K/uL MPV (7.4-10.4) fL Immature Gran % (Auto) % Neut % (Auto) % Lymph % (Auto) % [place] % (Auto) % Eos % (Auto) % Baso % (Auto) % Reticulocyte % (Auto) (0.5-2.0) % Neut # (Auto) (1.4-6.5) K/uL Lymph # (Auto) (1.2-3.4) K/uL [place] # (Auto) (0.11-0.59) K/uL Eos # (Auto) (0-0.5) K/uL Baso # (Auto) (0-0.2) K/uL Reticulocyte # (0.02-0.10) 10^6/uL Immature Gran # (Auto) (0.00-0.02) K/uL Absolute Nucleated RBC (0-0) K/uL Nucleated RBC % (auto) % Polychromasia Macrocytosis Tear Drop Cells Ovalocytes Peripher Smr Path Cons Haptoglobin Pending PT (9.0-12.0) Seconds INR (0.9-1.1) APTT (21.0-31.0) Seconds PTT Ratio Fibrinogen (184-400) mg/dl Fibrin Degrad Products (<10) mcg/ml D-Dimer (0-500) ug/L FEU Sodium 138 (136-145) mmol/L Potassium 4.0 D (3.5-5.1) mmol/L Chloride 108 H (98-107) mmol/L Carbon Dioxide 24 (21-32) mmol/L Anion Gap 6.0 (3-11) BUN 6 L (7-18) mg/dl Creatinine 0.48 L (0.6-1.2) mg/dl Est Cr Clr Drug Dosing 136.6 ml/min Est GFR ( Amer) 148.3 ml/min Est GFR (Non-Af Amer) 128.0 ml/min BUN/Creatinine Ratio 12.8 (10-20) Glucose 91 (70-99) mg/dl Calcium 7.9 L (8.5-10.1) mg/dl Magnesium 1.9 (1.8-2.4) mg/dl Total Bilirubin 1.6 H (0.2-1) mg/dl Direct Bilirubin (0-0.2) mg/dl AST 84 H (15-37) U/L ALT 45 (12-78) U/L Alkaline Phosphatase 84 (45-117) U/L Lactate Dehydrogenase 558 H (84-246) U/L Total Protein 5.4 L (6.4-8.2) gm/dl Albumin 2.8 L (3.4-5.0) gm/dl Globulin 2.6 (2.5-4.0) gm/dl Albumin/Globulin Ratio 1.1 (0.9-2) Lipase (73-393) U/L 01/10/21 Range/Units 09:35 WBC 4.17 L (4.8-10.8) K/uL RBC 1.86 L (4.2-5.4) M/uL Hgb 7.9 L (12.0-16.0) g/dL Hct 22.5 L (37-47) % MCV 121.0 H (80-100) fL MCH 42.5 H (25-34) pg MCHC 35.1 (32-36) g/dL RDW Std Deviation 65.9 H (36.4-46.3) fL RDW Coeff of Praful 15.5 H (11.5-14.5) % Plt Count 132 (130-400) K/uL MPV 10.0 (7.4-10.4) fL Immature Gran % (Auto) 1.2 % Neut % (Auto) 66.2 % Lymph % (Auto) 23.0 % [place] % (Auto) 6.5 % Eos % (Auto) 2.4 % Baso % (Auto) 0.7 % Reticulocyte % (Auto) 1.5 (0.5-2.0) % Neut # (Auto) 2.76 (1.4-6.5) K/uL Lymph # (Auto) 0.96 L (1.2-3.4) K/uL [place] # (Auto) 0.27 (0.11-0.59) K/uL Eos # (Auto) 0.10 (0-0.5) K/uL Baso # (Auto) 0.03 (0-0.2) K/uL Reticulocyte # 0.03 (0.02-0.10) 10^6/uL Immature Gran # (Auto) 0.05 H (0.00-0.02) K/uL Absolute Nucleated RBC 0.03 H (0-0) K/uL Nucleated RBC % (auto) 0.8 % Polychromasia 1+ Macrocytosis Present Tear Drop Cells 1+ Ovalocytes 1+ Peripher Smr Path Cons Pending Haptoglobin PT (9.0-12.0) Seconds INR (0.9-1.1) APTT (21.0-31.0) Seconds PTT Ratio Fibrinogen (184-400) mg/dl Fibrin Degrad Products (<10) mcg/ml D-Dimer (0-500) ug/L FEU Sodium (136-145) mmol/L Potassium (3.5-5.1) mmol/L Chloride (98-107) mmol/L Carbon Dioxide (21-32) mmol/L Anion Gap (3-11) BUN (7-18) mg/dl Creatinine (0.6-1.2) mg/dl Est Cr Clr Drug Dosing ml/min Est GFR ( Amer) ml/min Est GFR (Non-Af Amer) ml/min BUN/Creatinine Ratio (10-20) Glucose (70-99) mg/dl Calcium (8.5-10.1) mg/dl Magnesium (1.8-2.4) mg/dl Total Bilirubin (0.2-1) mg/dl Direct Bilirubin (0-0.2) mg/dl AST (15-37) U/L ALT (12-78) U/L Alkaline Phosphatase (45-117) U/L Lactate Dehydrogenase (84-246) U/L Total Protein (6.4-8.2) gm/dl Albumin (3.4-5.0) gm/dl Globulin (2.5-4.0) gm/dl Albumin/Globulin Ratio (0.9-2) Lipase (73-393) U/L
[2021-01-11] MEDS: THIAMINE HCL 100 MG TAB PO SCH (09:07)
[2021-01-11] MEDS: FOLIC ACID 1 MG TAB PO SCH (09:07)
[2021-01-11] MEDS: PANTOprazole 40 MG TAB PO SCH ×2 (09:07→19:23)
[2021-01-11] MEDS ORDERED: OPTIRAY 320 125ml IV ONE (10:54)
[2021-01-11] MEDS: NICOTINE 21 MG/24 HR TDSY TD SCH (11:03)
--- NOTE | 2021-01-11 11:40 | CT Scan Report ---
CT ANGIOGRAM OF THE CHEST CLINICAL HISTORY: PE COMPARISON STUDY: No previous studies for comparison. TECHNIQUE: Following the IV administration of 120 mL of Optiray, CT angiogram of the thorax was perfo rmed from the thoracic inlet to the lung bases utilizing the pulmonary embolus protocol. Images are r eviewed in the axial, sagittal, and coronal planes. IV contrast was administered without complication . MIP imaging was performed. A dose lowering technique was utilized adhering to the principles of [place] HOWARD. CT DOSE: 291.31 mGycm FINDINGS: There is adequate opacification within main pulmonary artery. No acute pulmonary embolus is seen. Main pulmonary artery is nondilated. No evidence of right heart s train. Heart is normal in size without evidence of pericardial effusion or coronary calcifications. No pathologically enlarged axillary mediastinal or hilar lymph nodes were visualized. There was no evidence of thoracic aortic dilatation. Tracheobronchial tree is patent. Minimal bilateral pleural effusion is seen associated with compressi ve atelectasis at dependent portions of bilateral lower lobes. No large infiltrates or consolidative lesions are seen. Minimal septal thickening is seen at dependent portions of bilateral lower lobes. Small calcified granuloma is seen within right lower lobe. Limited evaluation of upper abdominal viscera shows significant hepatic steatosis and no evidence of acute abnormalities. Osseous structures: Few Schmorl nodes are seen. IMPRESSION: 1. No acute pulmonary embolus. No secondary signs of the pulmonary embolus. 2. Minimal bilateral pleural effusion and atelectasis at dependent portions of bilateral lower lobes . 3. Extensive hepatic steatosis. 4. The rest of findings as above. ACT 112: Negative or not required by law. The above report was generated using voice recognition software. It may contain grammatical, syntax o r spelling errors. Electronically signed by: Sarah Whaley DO 01/11/2021 11:39 AM
--- NOTE | 2021-01-11 11:45 | Surgery Progress Note ---
Date of Service January 11, 2021 Assessment & Plan (1) Biliary colic: Plan: Chronic in nature Outpatient work-up showed delayed gallbladder function Now with elevated t. bili of 3.3 and AST on admission. ?? gallbladder sludge vs tiny stones causing biliary obstruction MRCP showing acute pancreatitis, lipase 1726 Plan: Given elevation of t. bili and LFTS, concern for sludge vs small stones causing biliary obstruction. MRCP negative however will discuss with GI about possible ERCP. If GI does not plan to do ERCP may need to consider intraoperative cholangiogram. Repeat am labs cbc, bmp, liver profile, lipase Will wait for GI recommendations, hematology and medical clearance for surgery, and improvement of pancreatitis prior to laparoscopic cholecystectomy continue medical management for now low fat diet in interim (2) Pancreatitis: (3) Von Willebrand disease: Plan: Dr. Chase has seen patient and agrees with above. Admission and Anticipated Discharge Date Admission Date: January 09, 2021 Subjective feeling better but still having some central upper abdominal pain tolerated diet this morning without increasing pain or nausea or vomiting Physical Exam Constitutional: WD/WN, vitals as above Respiratory: normal respiratory effort; no respiratory distress and no labored breathing Gastrointestinal (Abdomen): Inspection/Auscultation: abdomen normal to inspection; abdomen not distended Percussion/Palpation: + abdomen tender (upper abdomen) and abdomen soft; no guarding and abdomen not rigid Skin: no rashes, warm and dry Psychiatric: Orientation: alert and oriented x 3 Results & Data ([facility]) Vital Signs (Past 12 Hours) Vital Signs Temp Pulse Resp BP Pulse Ox 01/11/21 07:24 36.6 C 69 18 139/81 97 Laboratory Results 01/11/21 01/11/21 01/11/21 Range/Units 06:52 06:52 06:52 WBC (4.8-10.8) K/uL RBC (4.2-5.4) M/uL Hgb (12.0-16.0) g/dL Hct (37-47) % MCV (80-100) fL MCH (25-34) pg MCHC (32-36) g/dL RDW Std Deviation (36.4-46.3) fL RDW Coeff of Praful (11.5-14.5) % Plt Count (130-400) K/uL MPV (7.4-10.4) fL Immature Gran % (Auto) % Neut % (Auto) % Lymph % (Auto) % [place] % (Auto) % Eos % (Auto) % Baso % (Auto) % Reticulocyte % (Auto) (0.5-2.0) % Neut # (Auto) (1.4-6.5) K/uL Lymph # (Auto) (1.2-3.4) K/uL [place] # (Auto) (0.11-0.59) K/uL Eos # (Auto) (0-0.5) K/uL Baso # (Auto) (0-0.2) K/uL Reticulocyte # (0.02-0.10) 10^6/uL Immature Gran # (Auto) (0.00-0.02) K/uL Absolute Nucleated RBC (0-0) K/uL Nucleated RBC % (auto) % Polychromasia Macrocytosis Tear Drop Cells Ovalocytes PT (9.0-12.0) Seconds INR (0.9-1.1) APTT (21.0-31.0) Seconds PTT Ratio Fibrinogen 201 (184-400) mg/dl Fibrin Degrad Products (<10) mcg/ml D-Dimer (0-500) ug/L FEU Sodium 140 (136-145) mmol/L Potassium 3.6 (3.5-5.1) mmol/L Chloride 109 H (98-107) mmol/L Carbon Dioxide 22 (21-32) mmol/L Anion Gap 9.0 (3-11) BUN 4 L (7-18) mg/dl Creatinine 0.43 L (0.6-1.2) mg/dl Est Cr Clr Drug Dosing 152.5 ml/min Est GFR ( Amer) > 150.0 ml/min Est GFR (Non-Af Amer) 132.7 ml/min BUN/Creatinine Ratio 8.6 L (10-20) Glucose 59 L (70-99) mg/dl Calcium 7.5 L (8.5-10.1) mg/dl Total Bilirubin 0.9 D (0.2-1) mg/dl Direct Bilirubin 0.5 H (0-0.2) mg/dl AST 77 H (15-37) U/L ALT 41 (12-78) U/L Alkaline Phosphatase 76 (45-117) U/L Lactate Dehydrogenase 551 H (84-246) U/L Total Protein 5.0 L (6.4-8.2) gm/dl Albumin 2.6 L (3.4-5.0) gm/dl Lipase 1727 H (73-393) U/L 01/11/21 01/10/21 01/10/21 Range/Units 06:52 12:20 12:20 WBC 4.23 L (4.8-10.8) K/uL RBC 1.97 L (4.2-5.4) M/uL Hgb 8.3 L (12.0-16.0) g/dL Hct 23.7 L (37-47) % MCV 120.3 H (80-100) fL MCH 42.1 H (25-34) pg MCHC 35.0 (32-36) g/dL RDW Std Deviation 69.2 H (36.4-46.3) fL RDW Coeff of Praful 16.3 H (11.5-14.5) % Plt Count 131 (130-400) K/uL MPV 9.3 (7.4-10.4) fL Immature Gran % (Auto) 2.1 % Neut % (Auto) 53.7 % Lymph % (Auto) 34.3 % [place] % (Auto) 6.6 % Eos % (Auto) 2.8 % Baso % (Auto) 0.5 % Reticulocyte % (Auto) 3.5 H (0.5-2.0) % Neut # (Auto) 2.27 (1.4-6.5) K/uL Lymph # (Auto) 1.45 (1.2-3.4) K/uL [place] # (Auto) 0.28 (0.11-0.59) K/uL Eos # (Auto) 0.12 (0-0.5) K/uL Baso # (Auto) 0.02 (0-0.2) K/uL Reticulocyte # 0.07 (0.02-0.10) 10^6/uL Immature Gran # (Auto) 0.09 H (0.00-0.02) K/uL Absolute Nucleated RBC 0.04 H (0-0) K/uL Nucleated RBC % (auto) 1.0 % Polychromasia 1+ Macrocytosis Present Tear Drop Cells 1+ Ovalocytes 1+ PT 11.1 (9.0-12.0) Seconds INR 1.1 (0.9-1.1) APTT 21.8 (21.0-31.0) Seconds PTT Ratio 0.8 Fibrinogen 186 (184-400) mg/dl Fibrin Degrad Products 10-40 H (<10) mcg/ml D-Dimer 1100 H* (0-500) ug/L FEU Sodium (136-145) mmol/L Potassium (3.5-5.1) mmol/L Chloride (98-107) mmol/L Carbon Dioxide (21-32) mmol/L Anion Gap (3-11) BUN (7-18) mg/dl Creatinine (0.6-1.2) mg/dl Est Cr Clr Drug Dosing ml/min Est GFR ( Amer) ml/min Est GFR (Non-Af Amer) ml/min BUN/Creatinine Ratio (10-20) Glucose (70-99) mg/dl Calcium (8.5-10.1) mg/dl Total Bilirubin (0.2-1) mg/dl Direct Bilirubin (0-0.2) mg/dl AST (15-37) U/L ALT (12-78) U/L Alkaline Phosphatase (45-117) U/L Lactate Dehydrogenase (84-246) U/L Total Protein (6.4-8.2) gm/dl Albumin (3.4-5.0) gm/dl Lipase (73-393) U/L 01/10/21 Range/Units 09:35 WBC (4.8-10.8) K/uL RBC (4.2-5.4) M/uL Hgb (12.0-16.0) g/dL Hct (37-47) % MCV (80-100) fL MCH (25-34) pg MCHC (32-36) g/dL RDW Std Deviation (36.4-46.3) fL RDW Coeff of Praful (11.5-14.5) % Plt Count (130-400) K/uL MPV (7.4-10.4) fL Immature Gran % (Auto) % Neut % (Auto) % Lymph % (Auto) % [place] % (Auto) % Eos % (Auto) % Baso % (Auto) % Reticulocyte % (Auto) (0.5-2.0) % Neut # (Auto) (1.4-6.5) K/uL Lymph # (Auto) (1.2-3.4) K/uL [place] # (Auto) (0.11-0.59) K/uL Eos # (Auto) (0-0.5) K/uL Baso # (Auto) (0-0.2) K/uL Reticulocyte # (0.02-0.10) 10^6/uL Immature Gran # (Auto) (0.00-0.02) K/uL Absolute Nucleated RBC (0-0) K/uL Nucleated RBC % (auto) % Polychromasia Macrocytosis Tear Drop Cells Ovalocytes PT (9.0-12.0) Seconds INR (0.9-1.1) APTT (21.0-31.0) Seconds PTT Ratio Fibrinogen (184-400) mg/dl Fibrin Degrad Products (<10) mcg/ml D-Dimer (0-500) ug/L FEU Sodium (136-145) mmol/L Potassium (3.5-5.1) mmol/L Chloride (98-107) mmol/L Carbon Dioxide (21-32) mmol/L Anion Gap (3-11) BUN (7-18) mg/dl Creatinine (0.6-1.2) mg/dl Est Cr Clr Drug Dosing ml/min Est GFR ( Amer) ml/min Est GFR (Non-Af Amer) ml/min BUN/Creatinine Ratio (10-20) Glucose (70-99) mg/dl Calcium (8.5-10.1) mg/dl Total Bilirubin (0.2-1) mg/dl Direct Bilirubin (0-0.2) mg/dl AST (15-37) U/L ALT (12-78) U/L Alkaline Phosphatase (45-117) U/L Lactate Dehydrogenase 558 H (84-246) U/L Total Protein (6.4-8.2) gm/dl Albumin (3.4-5.0) gm/dl Lipase (73-393) U/L Diagnostic Findings MR MRCP HISTORY: 35 years-old Female ruq pain, elevated bilirubin and AST, US abn acute right upper quadrant abdominal pain with nausea and vomiting and elevated LFTs COMPARISON: CT abdomen pelvis 07/24/2020, right upper quadrant ultrasound 01/08/2021 TECHNIQUE: MRCP without the use of IV contrast was obtained according to institutional protocol. FINDINGS: Motion degraded exam. Trace left greater than right pleural effusions. Spleen, adrenal glands and kidneys are unremarkable. Hepatic steatosis. 3 mm T2 hyperintensity structure of the posterior right hepatic lobe suggestive of a cyst. Unremarkable aorta and IVC. Mildly contracted gallbladder. No cholelithiasis identified. No gallbladder wall thickening. No intrahepatic or extrahepatic biliary ductal prominence. Normal common bile duct, 5 mm. No biliary filling defects identified to suggest choledocholithiasis. No pancreatic ductal dilation or pancreatic divisum. Mild interstitial and peripancreatic edema. Mild free fluid of the gosia hepatis and right pericolic gutter. Mild generalized body wall edema. IMPRESSION: 1. Motion degraded exam. 2. No cholelithiasis, biliary ductal dilation or evidence of choledocholithiasis. 3. Findings suggestive of interstitial edematous pancreatitis. No pancreatic ductal dilation. 4. Trace ascites and pleural effusions.
--- NOTE | 2021-01-11 16:30 | Hospitalist Progress Note ---
Date of Service January 11, 2021 Assessment & Plan (1) Biliary colic: Plan: No evidence of cholelithiasis or choledocholithiasis on liver ultrasound or MRCP. However, clinical picture is consistent with mild pancreatitis secondary to recent gallstone passage. LFTs are improving. Patient shown to have microcytic anemia with normal B12 and folate levels. Spoke with hematology Dr. Ontiveros. Plan is to continue the current management for now. Monitor daily CBC peripheral smear is pending. She will need preoperative DDAVP which will help to release von Willebrand factor from her platelets. This should be given intravenously preoperatively. Gastroenterology and general surgery is on board. (2) Pancreatitis: Plan: Continue maintenance IV fluids, have been tolerating diet. Pain management. (3) Elevated transaminase level: Plan: Likely secondary to recent gallstone pancreatitis/alcohol use, downtrending. (4) Hyperbilirubinemia: Plan: LFTs are improving. (5) Hypokalemia: Plan: Resolved (6) Von Willebrand disease: Plan: Will need DDAVP preoperatively and platelets need to be on hand in case of intraoperative bleeding. Would check with blood bank preoperatively and get these ordered if not in stock. (7) Pancytopenia: Plan: All cell lines continue to remain low. Clinical picture consistent with clinical picture significant white blood cell count 3.3 on admission 4.2 today, hemoglobin 9.4 on admission 7.9 today, hematocrit 27 on admission 22.5 today. MCV is 121. Elevated fibrin degradation products, elevated D-dimer at 1100, LDH of 558, and a relatively low fibrinogen of 186 with a reference range of 184-400. CT chest lower extremity duplex is negative. Peripheral smear is pending. All 3 cell lineages are improved today with good reticulocyte response. Continue monitor daily CBC. (8) Hepatic steatosis: Plan: outpatient screening periodically. Discussed findings with patient. (9) Alcohol abuse: Plan: No evidence of withdrawal, cessation encouraged. (10) Smoker: Plan: Nicoderm patch, smoking cessation encouraged. (11) Elevated d-dimer: Plan: CT chest and LE us dopplers are negative. Ongoing chest congestions and productive phlegm symptoms. (12) DVT prophylaxis: Plan: SCD/ambulation in light of possible upcoming procedure and concern for bleeding secondary to von Willebrand's disease. Full code Dispo-med telemetry Plan: as above Admission and Anticipated Discharge Date Admission Date: January 09, 2021 Subjective Doing okay this morning. Reports abdominal pain is improved. Rates the pain at 3 out of 10. No Nausea or vomiting. Have been tolerating diet. Other review of system is negative. Review of Systems Review of Systems: All systems reviewed & are unremarkable except as noted in HPI & below Physical Exam Physical Exam: General: A&Ox3 HENT: NCAT, MMM, EOMI Eyes: PERRLA Neck: Supple, normal range of motion CVS: normal rate and rhythm Resp: b/l good breath sounds Abdomen: Soft, mild tenderness appreciated Extremities: No c/c/e Neuro: face symmetric, no focal deficit Skin: no rashes/lesions/errythema MSK: no joint swelling/erythema Results & Data Results & Data ([facility]) Vital Signs (Past 12 Hours) Vital Signs Temp Pulse Resp BP Pulse Ox 01/11/21 07:24 36.6 C 69 18 139/81 97
[2021-01-11] MEDS: cefTRIAXone SODIUM 1,000 MG in DEXTROSE 5% 50 ML IV SCH (18:29)
[2021-01-12] MEDS: ACETAMINOPHEN 500 MG TAB PO SCH ×3 (00:54→18:28)
[2021-01-12] MEDS: LEVOTHYROXINE SODIUM 200 MCG TABLET PO SCH (05:55)
[2021-01-12] MEDS: SODIUM CHLORIDE 0.9% 1000ML 1,000 ML IV SCH (08:20)
[2021-01-12 08:31] LABS: Basophils # (auto) 0.02 K/uL (0-0.2); Basophils % (auto) 0.6 %; Eosinophils # (auto) 0.12 K/uL (0-0.5); Eosinophils % (auto) 3.8 %; Hematocrit (blood only) 21.5 % (37-47); Hemoglobin 7.4 g/dL (12.0-16.0); Immature Granulocytes # (auto) 0.08 K/uL (0.00-0.02); Immature Granulocytes % (auto) 2.5 %; Lymphocytes # (auto) 1.05 K/uL (1.2-3.4); Lymphocytes % (auto) 33.4 %; Mean Corpuscular Hemoglobin 41.1 pg (25-34); Mean Corpuscular Hgb Conc 34.4 g/dL (32-36); Mean Corpuscular Volume 119.4 fL (80-100); Mean Platelet Volume 9.4 fL (7.4-10.4); Monocytes # (auto) 0.34 K/uL (0.11-0.59); Monocytes % (auto) 10.8 %; Neutrophils # (auto) 1.53 K/uL (1.4-6.5); Neutrophils % (auto) 48.9 %; Nucleated RBC # (auto) 0.03 K/uL (0-0); Nucleated RBC % (auto) 0.9 %; Platelet Count 155 K/uL (130-400); RDW Standard Deviation 68.3 fL (36.4-46.3); White Blood Count 3.14 K/uL (4.8-10.8)
[2021-01-12 08:52] LABS: Macrocytosis Present; Polychromasia 1+
[2021-01-12] MEDS: PANTOprazole 40 MG TAB PO SCH ×2 (08:55→22:05)
[2021-01-12] MEDS: NICOTINE 21 MG/24 HR TDSY TD SCH (08:55)
[2021-01-12] MEDS: THIAMINE HCL 100 MG TAB PO SCH (08:55)
[2021-01-12] MEDS: FOLIC ACID 1 MG TAB PO SCH (08:55)
[2021-01-12 08:59] LABS: Alanine Aminotransferase 35 U/L (12-78); Albumin Level 2.6 gm/dl (3.4-5.0); Aspartate Aminotransferase 50 U/L (15-37); BUN Creatinine Ratio 5.6 (10-20); Bilirubin Direct 0.4 mg/dl (0-0.2); Blood Urea Nitrogen 3 mg/dl (7-18); Calcium 7.9 mg/dl (8.5-10.1); Carbon Dioxide 21 mmol/L (21-32); Chloride 109 mmol/L (98-107); Creatinine Clr Calc Pharmacy 145.7 ml/min; Est GFR (African American) > 150.0 ml/min; Est GFR (Non-African American) 130.7 ml/min; Glucose 66 mg/dl (70-99); Potassium 3.2 mmol/L (3.5-5.1); Sodium 140 mmol/L (136-145)
[2021-01-12 09:02] LABS: Alkaline Phosphatase 74 U/L (45-117); Bilirubin,Total 0.8 mg/dl (0.2-1); Lipase 1724 U/L (73-393)
--- NOTE | 2021-01-12 09:40 | Surgery Progress Note ---
Date of Service January 12, 2021 Assessment & Plan (1) Biliary colic: Plan: Chronic in nature Outpatient work-up showed delayed gallbladder function Now with elevated t. bili of 3.3 and AST on admission. ?? gallbladder sludge vs tiny stones causing biliary obstruction MRCP showing acute pancreatitis, lipase 1727 01/12/21: T. bili and lfts improved lipase still elevated at 1724 no abdominal pain, n/v Plan: Discussed with GI yesterday about possibility of retained small stones vs sludge and possible ERCP. Dr. Villagomez with GI not recommending ERCP at this time and to repeat lfts. t. bili and LFTS improved today. Lipase still elevated at 1724 but patient clinically improved and tolerating diet. Given patients low wbc and hemoglobin would not recommend cholecystectomy at this time. There is no evidence of acute cholecystitis and with the active pancreatitis would prefer to wait until this resolves and she has hematology work-up and clearance for surgery. She should adhere to low fat diet on discharge follow-up in surgical office with Dr. chase once follows with hematology and further work-up. Our services signing off, please call with questions or concerns. (2) Pancreatitis: Plan: lipase still elevated, essentially no change from yesterday but clinically improved no abdominal pain, n/v and tolerating diet plan as above (3) Von Willebrand disease: Plan: follows with Dr. tan at [facility], needs follow-up as outpatient per [facility] records patient will need DDAVP IV preoperatively (4) Pancytopenia: Plan: Needs further work-up by hematology and clearance prior to cholecystectomy plan as above Dr. Chase has seen patient and agrees with above. Admission and Anticipated Discharge Date Admission Date: January 09, 2021 Subjective patient feeling well not having any abdominal pain as of now tolerating diet no n/v per nurse after leaving the patients room , said that patient wanted to leave AMA today. Physical Exam Constitutional: WD/WN, vitals as above no acute distress and not ill appearing Respiratory: normal respiratory effort; no respiratory distress and no labored breathing Skin: no rashes, warm and dry Psychiatric: Orientation: alert and oriented x 3 Results & Data ([facility]) Vital Signs (Past 12 Hours) Vital Signs Temp Pulse Resp BP Pulse Ox 01/12/21 07:00 36.8 C 77 20 129/80 96 01/11/21 22:10 36.8 C 74 16 153/88 H 99 Laboratory Results 01/12/21 01/12/21 Range/Units 07:57 07:57 WBC 3.14 L (4.8-10.8) K/uL RBC 1.80 L (4.2-5.4) M/uL Hgb 7.4 L (12.0-16.0) g/dL Hct 21.5 L (37-47) % MCV 119.4 H (80-100) fL MCH 41.1 H (25-34) pg MCHC 34.4 (32-36) g/dL RDW Std Deviation 68.3 H (36.4-46.3) fL RDW Coeff of Praful 16.0 H (11.5-14.5) % Plt Count 155 (130-400) K/uL MPV 9.4 (7.4-10.4) fL Immature Gran % (Auto) 2.5 % Neut % (Auto) 48.9 % Lymph % (Auto) 33.4 % [place] % (Auto) 10.8 % Eos % (Auto) 3.8 % Baso % (Auto) 0.6 % Neut # (Auto) 1.53 (1.4-6.5) K/uL Lymph # (Auto) 1.05 L (1.2-3.4) K/uL [place] # (Auto) 0.34 (0.11-0.59) K/uL Eos # (Auto) 0.12 (0-0.5) K/uL Baso # (Auto) 0.02 (0-0.2) K/uL Immature Gran # (Auto) 0.08 H (0.00-0.02) K/uL Absolute Nucleated RBC 0.03 H (0-0) K/uL Nucleated RBC % (auto) 0.9 % Polychromasia 1+ Macrocytosis Present Sodium 140 (136-145) mmol/L Potassium 3.2 L (3.5-5.1) mmol/L Chloride 109 H (98-107) mmol/L Carbon Dioxide 21 (21-32) mmol/L Anion Gap 10.0 (3-11) BUN 3 L (7-18) mg/dl Creatinine 0.45 L (0.6-1.2) mg/dl Est Cr Clr Drug Dosing 145.7 ml/min Est GFR ( Amer) > 150.0 ml/min Est GFR (Non-Af Amer) 130.7 ml/min BUN/Creatinine Ratio 5.6 L (10-20) Glucose 66 L (70-99) mg/dl Calcium 7.9 L (8.5-10.1) mg/dl Total Bilirubin 0.8 (0.2-1) mg/dl Direct Bilirubin 0.4 H (0-0.2) mg/dl AST 50 H (15-37) U/L ALT 35 (12-78) U/L Alkaline Phosphatase 74 (45-117) U/L Total Protein 5.0 L (6.4-8.2) gm/dl Albumin 2.6 L (3.4-5.0) gm/dl Lipase 1724 H (73-393) U/L
[2021-01-12] MEDS ORDERED: POTASSIUM CHLORIDE CRTAB 20 MEQ TABCR PO STA (09:46)
--- NOTE | 2021-01-12 14:55 | Hospitalist Progress Note ---
Date of Service January 12, 2021 Assessment & Plan (1) Biliary colic: Plan: No evidence of cholelithiasis or choledocholithiasis on liver ultrasound or MRCP. However, clinical picture is consistent with mild pancreatitis secondary to recent gallstone passage. LFTs are improving. Patient shown to have macrocytic anemia with normal B12 and folate levels. Spoke with hematology Dr. Francisco again today. Given the fact she has significant decline in hemoglobin, plan is to continue daily monitoring for now. Daily CBC peripheral smear is pending. Transfuse for hemoglobin less than 7. She will need preoperative DDAVP which will help to release von Willebrand factor from her platelets. This should be given intravenously preoperatively. Gastroenterology and general surgery is on board. However, given her laboratory findings, no urgent indication for intervention at this time. We will touch base with GI, given her low hemoglobin if patient can have EGD as an inpatient. Continue Protonix 40 mg twice daily. Initially patient wanted to leave AMA. However, after discussing regaring her ongoing hematological concerns, she decided to stay. (2) Pancreatitis: Plan: Abdominal pain is improved. Currently patient is tolerating diet. Discontinue IV fluids today. (3) Elevated transaminase level: Plan: Likely secondary to recent gallstone pancreatitis/alcohol use, downtrending. (4) Hyperbilirubinemia: Plan: LFTs are improving. (5) UTI (urinary tract infection): Plan: Urine cultures growing E. coli. Will continue ceftriaxone. (6) Hypokalemia: Plan: Repleted (7) Von Willebrand disease: Plan: Will need DDAVP preoperatively and platelets need to be on hand in case of intraoperative bleeding. Would check with blood bank preoperatively and get these ordered if not in stock. (8) Pancytopenia: Plan: All cell lines continue to remain low. Clinical picture consistent with clinical picture significant white blood cell count 3.3 on admission 4.2 today, hemoglobin 9.4 on admission to 7.4 today, hematocrit 27 on admission to 21.5 today. MCV is 121. Elevated fibrin degradation products, elevated D-dimer at 1100, LDH of 558, and a relatively low fibrinogen of 186 with a reference range of 184-400. CT chest and lower extremity duplex is negative. Peripheral smear is pending. Continue monitor daily CBC. (9) Hepatic steatosis: Plan: outpatient screening periodically. Discussed findings with patient. (10) Alcohol abuse: Plan: No evidence of withdrawal, cessation encouraged. (11) Smoker: Plan: Nicoderm patch, smoking cessation encouraged. (12) Elevated d-dimer: Plan: CT chest and LE us dopplers are negative. Ongoing chest congestions and productive phlegm symptoms. (13) DVT prophylaxis: Plan: SCD/ambulation in light of possible upcoming procedure and concern for bleeding secondary to von Willebrand's disease. Full code Dispo-med telemetry Plan: as above Admission and Anticipated Discharge Date Admission Date: January 09, 2021 Subjective Patient is doing okay this morning. She has been tolerating diet. Abdominal pain is improved but however it is still present. Patient reports that 3 out of 10 pain. Denies any nausea or vomiting. Rest of the review of systems negative. Review of Systems Review of Systems: All systems reviewed & are unremarkable except as noted in HPI & below Physical Exam Physical Exam: General: A&Ox3 HENT: NCAT, MMM, EOMI Eyes: PERRLA Neck: Supple, normal range of motion CVS: normal rate and rhythm Resp: b/l good breath sounds Abdomen: Soft, mild tenderness appreciated Extremities: No c/c/e Neuro: face symmetric, no focal deficit Skin: no rashes/lesions/errythema MSK: no joint swelling/erythema Results & Data Results & Data ([facility]) Vital Signs (Past 12 Hours) Vital Signs Temp Pulse Resp BP Pulse Ox 01/12/21 07:00 36.8 C 77 20 129/80 96
[2021-01-12] MEDS: cefTRIAXone SODIUM 1,000 MG in DEXTROSE 5% 50 ML IV SCH (19:00)
[2021-01-13] MEDS: ACETAMINOPHEN 500 MG TAB PO SCH ×3 (02:11→16:44)
[2021-01-13] MEDS: LEVOTHYROXINE SODIUM 200 MCG TABLET PO SCH (06:04)
[2021-01-13 08:49] LABS: Hematocrit (blood only) 22.3 % (37-47); Hemoglobin 7.6 g/dL (12.0-16.0); Mean Corpuscular Hemoglobin 40.2 pg (25-34); Mean Platelet Volume 9.1 fL (7.4-10.4); Platelet Count 166 K/uL (130-400); RDW Coefficient of Variation 15.9 % (11.5-14.5); Red Blood Count 1.89 M/uL (4.2-5.4); White Blood Count 3.39 K/uL (4.8-10.8)
--- NOTE | 2021-01-13 08:53 | Communication Note ---
Date of Service: January 13, 2021 GI asked to re-evaluate Moriha for potential EGD to completed evaluation of anemia. She has a macrocytic anemia and denies any s/s of GI blood loss. Risk s/benefits of EGD discussed with the patient and she is requesting EGD. We will arrange EGD tomorrow. Please keep NPO after midnight.
[2021-01-13 08:56] LABS: Mean Corpuscular Hgb Conc 34.1 g/dL (32-36)
[2021-01-13 09:21] LABS: Blood Urea Nitrogen 2 mg/dl (7-18); Calcium 8.2 mg/dl (8.5-10.1); Carbon Dioxide 24 mmol/L (21-32); Chloride 109 mmol/L (98-107); Creatinine Clr Calc Pharmacy 142.5 ml/min; Est GFR (African American) > 150.0 ml/min; Est GFR (Non-African American) 129.8 ml/min; Glucose 80 mg/dl (70-99); Potassium 3.5 mmol/L (3.5-5.1); Sodium 140 mmol/L (136-145)
[2021-01-13] MEDS: NICOTINE 21 MG/24 HR TDSY TD SCH ×2 (09:42→16:44)
[2021-01-13] MEDS: FOLIC ACID 1 MG TAB PO SCH (09:42)
[2021-01-13] MEDS: PANTOprazole 40 MG TAB PO SCH ×2 (09:42→21:43)
[2021-01-13] MEDS: THIAMINE HCL 100 MG TAB PO SCH (09:42)
--- NOTE | 2021-01-13 13:06 | Hospitalist Progress Note ---
Date of Service January 13, 2021 Assessment & Plan (1) Biliary colic: Plan: No evidence of cholelithiasis or choledocholithiasis on liver ultrasound or MRCP. However, clinical picture is consistent with mild pancreatitis secondary to recent gallstone passage. LFTs improved Patient shown to have macrocytic anemia with normal B12 and folate levels. Dr Gilbert spoke with hematology Dr. Francisco. Given the fact she has significant decline in hemoglobin, plan is to continue daily monitoring for now. Daily CBC , peripheral smear and Transfuse for hemoglobin less than 7. She will need preoperative DDAVP which will help to release von Willebrand factor from her platelets. This should be given intravenously preoperatively. Peripheral smear result reviewed. No schistocytes noted General surgery do not plan to do cholecystectomy at this time until hematological problem is addressed and hematology plans for surgery likely outpatient. Patient's hemoglobin has dropped from 9.4 on admission to 7.6 today. Gastroenterology evaluated and plan to do EGD tomorrow. Keep n.p.o. past midnight Continue Protonix 40 mg twice daily. (2) Pancreatitis: Plan: Abdominal pain is improving Currently patient is tolerating low fat diet. NPO pMN for EGD in AM (3) Hyperbilirubinemia: (4) Elevated transaminase level: Plan: Likely secondary to recent gallstone pancreatitis/alcohol use Improving as noted above (5) UTI (urinary tract infection): Plan: Urine cultures growing E. coli. Continue ceftriaxone. (6) Hypokalemia: Plan: K is 3.5 today Monitor (7) Von Willebrand disease: Plan: Will need DDAVP preoperatively and platelets need to be on hand in case of intraoperative bleeding. Will need to check with blood bank preoperatively and get these ordered if not in stock. (8) Pancytopenia: Plan: All cell lines continue to remain low. Clinical picture consistent with clinical picture significant white blood cell count 3.3 on admission 4.2 today, hemoglobin 9.4 on admission to 7.4 today, hematocrit 27 on admission to 21.5 today. MCV is 121. Elevated fibrin degradation products, elevated D-dimer at 1100, LDH of 558, and a relatively low fibrinogen of 186 with a reference range of 184-400. CT chest and lower extremity duplex is negative. Peripheral smear reviewed. Broad differentials. Need hematology follow up on discharge Continue monitor daily CBC. (9) Hepatic steatosis: Plan: Outpatient screening periodically. (10) Alcohol abuse: Plan: No evidence of withdrawal, cessation encouraged. (11) Smoker: Plan: Nicoderm patch, smoking cessation encouraged. (12) Elevated d-dimer: Plan: CT chest and LE us dopplers are negative. (13) DVT prophylaxis: Plan: SCD/ambulation in light of possible upcoming procedure and concern for bleeding secondary to von Willebrand's disease. Full code Dispo-med telemetry Plan: as above Admission and Anticipated Discharge Date Admission Date: January 09, 2021 Subjective 35-year-old woman who presents with abdominal pain. Found to have low hemoglobin, pancreatitis and elevated LFT. Patient seen and examined this morning. Reports mild upper abdominal pain, 2/10, dull, not referred. Reported nausea earlier but none at this time. No vomiting No diarrhea, melena or hematochezia Review of Systems Constitutional: no fever, no chills and no body aches Eyes: no problem reported Ear, Nose, Mouth, Throat: no problem reported Respiratory: no cough and no dyspnea Cardiovascular: no chest pain, no dyspnea and no palpitations Gastrointestinal: + abdominal pain and + nausea; no vomiting, no coffee ground emesis, no hematemesis and no diarrhea/loose stools Genitourinary: no dysuria, no urinary frequency, no urinary urgency and no urinary incontinence Musculoskeletal: no problem reported Neurologic: no gait abnormality, no unsteadiness, no localized weakness and no generalized weakness Psychiatric: no depression and no anxiety Physical Exam Constitutional: + well hydrated; no acute distress Eyes: PERRL, conjunctivae normal, anicteric sclerae ENMT: external ear and nose normal, oropharynx normal Respiratory: normal respiratory effort, lungs clear to auscultation Cardiovascular: RRR, no murmur, no edema Gastrointestinal (Abdomen): Inspection/Auscultation: abdomen normal to inspection and normal bowel sounds; abdomen not distended Percussion/Palpation: + abdomen tender (Mild upper abd tenderness); no guarding and abdomen not rigid Musculoskeletal: no cyanosis or clubbing, extremities motor strength 5/5 Neurologic: PERRL, EOMI, accommodation nl, no face palsy, no dysarthria Psychiatric: A+Ox3, euthymic affect Genitourinary: no CVA tenderness Results & Data Results & Data ([facility]) Vital Signs (Past 12 Hours) Vital Signs Temp Pulse Resp BP Pulse Ox 08/04/21 07:08 36.7 C 65 16 142/88 H 97 Laboratory Results Abnormal lab results 01/13/21 01/13/21 Range/Units 08:34 08:34 WBC 3.39 L (4.8-10.8) K/uL RBC 1.89 L (4.2-5.4) M/uL Hgb 7.6 L (12.0-16.0) g/dL Hct 22.3 L (37-47) % MCV 118.0 H (80-100) fL MCH 40.2 H (25-34) pg RDW Std Deviation 68.0 H (36.4-46.3) fL RDW Coeff of Praful 15.9 H (11.5-14.5) % Chloride 109 H (98-107) mmol/L BUN 2 L (7-18) mg/dl Creatinine 0.46 L (0.6-1.2) mg/dl BUN/Creatinine Ratio 5.0 L (10-20) Calcium 8.2 L (8.5-10.1) mg/dl
[2021-01-13] MEDS: cefTRIAXone SODIUM 1,000 MG in DEXTROSE 5% 50 ML IV SCH (18:22)
[2021-01-14] MEDS: ACETAMINOPHEN 500 MG TAB PO SCH ×2 (00:45→10:28)
[2021-01-14] MEDS: LEVOTHYROXINE SODIUM 200 MCG TABLET PO SCH ×2 (06:03→11:26)
[2021-01-14 07:35] LABS: Hematocrit (blood only) 22.8 % (37-47); Hemoglobin 7.7 g/dL (12.0-16.0); Mean Corpuscular Hemoglobin 39.3 pg (25-34); Mean Corpuscular Hgb Conc 33.8 g/dL (32-36); Mean Corpuscular Volume 116.3 fL (80-100); Mean Platelet Volume 9.5 fL (7.4-10.4); Platelet Count 210 K/uL (130-400); RDW Coefficient of Variation 16.1 % (11.5-14.5); RDW Standard Deviation 66.9 fL (36.4-46.3); Red Blood Count 1.96 M/uL (4.2-5.4); White Blood Count 2.94 K/uL (4.8-10.8)
[2021-01-14 08:02] LABS: BUN Creatinine Ratio 6.1 (10-20); Blood Urea Nitrogen 2 mg/dl (7-18); Calcium 8.1 mg/dl (8.5-10.1); Carbon Dioxide 25 mmol/L (21-32); Chloride 109 mmol/L (98-107); Creatinine Clr Calc Pharmacy 163.9 ml/min; Est GFR (African American) > 150.0 ml/min; Est GFR (Non-African American) 135.9 ml/min; Glucose 94 mg/dl (70-99); Sodium 141 mmol/L (136-145)
--- NOTE | 2021-01-14 08:42 | History & Physical Report ---
Date of Service January 14, 2021 Assessment & Plan (1) Pancreatitis: (2) Pancytopenia: (3) Anemia: Plan: EGD today Admission and Anticipated Discharge Date Admission Date: January 09, 2021 History of Present Illness Chief Complaint: anemia Primary Care Provider: Gypsy Lubin PA-C anemia Allergies Allergy/AdvReac Type Severity Reaction Status Date / Time valacyclovir Allergy Severe Dyspnea Verified 01/08/21 16:04 Home Medications Medication Instructions Recorded Confirmed Type furosemide 40 mg tablet (Lasix) 40 mg PO BID PRN 07/18/19 01/08/21 History levothyroxine 200 mcg tablet 200 mcg PO QAM 07/18/19 01/08/21 History (Synthroid) potassium chloride 10 mEq 10 meq PO BID PRN 07/18/19 01/08/21 History tablet,extended release(part/cryst) (Klor-Con M) ondansetron 8 mg disintegrating 8 mg PO Q6 PRN 09/27/19 01/08/21 History tablet albuterol sulfate 90 mcg/actuation 1 inh INHALATION QID PRN 12/28/20 01/08/21 History aerosol inhaler acetaminophen 500 mg tablet 1,000 mg PO Q6H PRN 01/08/21 01/08/21 History (Tylenol Extra Strength) dicyclomine 10 mg capsule 10 mg PO QID PRN 01/08/21 01/08/21 History ibuprofen 200 mg tablet 400 mg PO Q6H PRN 01/08/21 01/08/21 History Past Med/Surg History Medical History (Updated 01/14/21 @ 08:29 by Gaurav Bernstein MD) Abscess of pelvis Alcohol abuse Elevated AST (SGOT) Elevated d-dimer Hepatic steatosis History of pancreatitis Hypothyroidism IBS (irritable bowel syndrome) Migraines Pancreatitis Pancytopenia Seasonal asthma Sepsis Tobacco use Upper gastrointestinal bleed Von Willebrand disease "Mild" Class 1 per [facility], under surveillance [facility] hematology, surgeon aware Surgical History History of colonoscopy History of esophagogastroduodenoscopy (EGD) History of loop electrical excision procedure (LEEP) History of wisdom tooth extraction Family History Mother Von Willebrand disease Other No family history of adverse response to anesthesia Social History Smoking Status: Current every day smoker Tobacco Type: Cigarettes Cigarettes Per Day: 10; Second Hand Exposure: No; Do You Dip or Chew Tobacco: No; Tobacco Cessation Education Requested by Patient: No Hx Alcohol Use: No Hx Substance Use: No Preferred Language: Paraguayan Communication Ability: Effective Parachute Panel Joiner Required: No Beliefs That Will Affect Care: None Current Living Situation: Spouse and Family Other Information That Helps Us Care for You: No Feels Safe at Home: No Is there a partner from a previous relationship who is making you feel unsafe now?: No Any Concerns about Your Family Situation: No Wo uld You Like to Speak to Someone About Your Situation: Yes Safety Concerns: Feels Safe At This Time Assistive Devices: None Review of Systems All systems reviewed & are unremarkable except as noted in HPI & below Physical Exam Constitutional: WD/WN, vitals as above Respiratory: normal respiratory effort, lungs clear to auscultation Cardiovascular: RRR, no murmur, no edema Gastrointestinal (Abdomen): normal bowel sounds, soft, nontender, no hepatosplenomegaly Results & Data ([facility]) Vital Signs (Past 12 Hours) Vital Signs Temp Pulse Resp BP Pulse Ox 01/14/21 08:20 36.8 C 88 18 143/93 H 96 01/13/21 23:39 36.4 C L 84 16 148/89 H 100 Code Status & VTE Plan VTE Prophylaxis Plan VTE Prophylaxis will be ordered: Yes (1) Anemia Anemia type: unspecified type Qualified Code(s): D64.9 - Anemia, unspecified
[2021-01-14] MEDS ORDERED: PROPOFOL IV EMULSION 10 MG/ML 20 ML VIAL IV ONE (09:11)
[2021-01-14] MEDS ORDERED: LIDOCAINE 2% 2 ML VIAL/AMP(20MG/ML) INFIL ONE (09:11)
--- NOTE | 2021-01-14 09:12 | GI REPORT ---
Patient Name: Moriah Ryan Procedure Date: 01/14/2021 8:54 AM Date of : 1985 Admit Type: Inpatient Age: 35 Gender: Female Attending MD: Kellie Lambert DO Procedure: Upper GI endoscopy Providers: Kellie Lambert DO Referring MD: Nancy Pearson Md Indications: Generalized abdominal pain; macrocytic anemia; pancytopenia Medicines: Propofol per Anesthesia Complications: No immediate complications. Estimated blood loss: Minimal. Estimated Blood Loss: Estimated blood loss was minimal. Procedure: Pre-Anesthesia Assessment: - Prior to the procedure, a History and Physical was performed, and patient medications, allergies and sensitivities were reviewed. The patient's tolerance of previous anesthesia was reviewed. - The risks and benefits of the procedure and the sedation options and risks were discussed with the patient. All questions were answered and informed consent was obtained. - Patient identification and proposed procedure were verified prior to the procedure by the physician and the nurse. The procedure was verified in the pre-procedure area in the procedure room. - Mental Status Examination: alert and oriented. Airway Examination: normal oropharyngeal airway and neck mobility. Respiratory Examination: clear to auscultation. CV Examination: normal. Abdominal Examination: bowel sounds present, abdomen soft and non-tender, no masses or organomegaly noted. - ASA Grade Assessment: II - A patient with mild systemic disease. After obtaining informed consent, the endoscope was passed under direct vision. Throughout the procedure, the patient's blood pressure, pulse, and oxygen saturations were monitored continuously. The Endoscope was introduced through the mouth, and advanced to the second part of duodenum. The upper GI endoscopy was accomplished without difficulty. The patient tolerated the procedure well. Findings: The Z-line was irregular and was found 38 cm from the incisors. Biopsies were taken with a cold forceps for histology. Verification of patient identification for the specimen was done by the physician and nurse using the patient's name and date. Estimated blood loss was minimal. Many non-bleeding superficial gastric ulcers with no stigmata of bleeding were found in the gastric antrum. Biopsies were taken with a cold forceps for Helicobacter pylori testing. Verification of patient identification for the specimen was done by the physician and nurse using the patient's name and date. Estimated blood loss was minimal. The examined duodenum was normal. Impression: - Z-line irregular, 38 cm from the incisors. Biopsied. - Non-bleeding gastric ulcers with NO stigmata of bleeding. Biopsied. - Normal examined duodenum. Recommendation: - Await pathology results. - Follow an antireflux regimen. - Use a proton pump inhibitor PO BID. - Return patient to [facility] for ongoing care. Kellie Lambert D.O. Kellie Lambert, 01/14/2021 9:11:10 AM This report has been signed electronically. Note Initiated On: 01/14/2021 8:54 AM Number of Addenda: 0 I attest to the content of the Intraoperative Record and orders documented therein, exceptions below {[id number]}
--- NOTE | 2021-01-14 09:29 | Anesthesiology Progress Note ---
Date of Service January 14, 2021 Anesthesia Post Procedure Vital Signs Vital Signs: Temp Pulse Pulse Resp BP Pulse Ox 01/14/21 09:24 57 L 18 157/83 H 98 01/14/21 09:09 61 18 147/76 H 100 01/14/21 08:20 36.8 C 88 18 143/93 H 96 01/14/21 07:30 36.6 C 67 20 152/91 H 95 01/13/21 23:39 36.4 C L 84 16 148/89 H 100 01/13/21 17:26 36.6 C 61 16 154/84 H 98 Pain Intensity Bilateral Abdomen: Pain Intensity: 0 Transfer of Care Handoff Completed per policy Notes Mental Status: alert / awake / arousable and participated in evaluation Patient Amnestic to Procedure: Yes Nausea / Vomiting: adequately controlled Pain: adequately controlled Airway Patency, RR, SpO2: stable & adequate BP & HR: stable & adequate Hydration State: stable & adequate Anesthetic Complications: no major complications apparent and Pt Satisfied with anesthetic care
[2021-01-14] MEDS: FOLIC ACID 1 MG TAB PO SCH (10:28)
[2021-01-14] MEDS: PANTOprazole 40 MG TAB PO SCH (10:28)
[2021-01-14] MEDS: THIAMINE HCL 100 MG TAB PO SCH (10:28)
--- NOTE | 2021-01-14 10:46 | Discharge Summary ---
Date of Service January 14, 2021 Admission HPI Per Admitting Provider 35-year-old female presents with worsening of right upper quadrant and left upper quadrant abdominal pain since July of this year, worse in the last few days. She has been told she has gallbladder problems and was recently set up to have a cholecystectomy. However, this was delayed secondary to abnormal platelet function assays ordered by hematology who follows her for von Willebrand's disease. She reports the pain is worse after eating and is occasionally associated with vomiting. It is a squeezing quality and is severe. She denies any changes in her stools. She is not eating much secondary to nausea. She reports significant intake of NSAIDs to deal with the pain including Excedrin, aspirin and ibuprofen. She drinks 3 mixed drinks a day and smokes half a pack of cigarettes a day. She was admitted to the hospital for pancreatitis and a tubo-ovarian abscess this year. She has never undergone surgery and denies history of bleeding but has significant bruising daily. Admission Exam Per Admitting Provider CONSTITUTIONAL: WNWD, vitals as above, generally well-appearing EYES: PERRL, normal conjunctivae ENT: external ear and nose normal, MMM, OP clear RESPIRATORY: clear to auscultation bilaterally, no crackles, rales or wheezes, normal respiratory effort CARDIOVASCULAR: regular rate and rhythm, S1 and 2 heard without murmurs, gallops or rubs, no JVD, no peripheral edema CHEST: inspection of chest was normal GASTROINTESTINAL: soft, mildly TTP in RUQ and LUQ, no guarding, no CVA tenderness MUSCULOSKELETAL: strength 5/5 throughout, head is normocephalic and atraumatic SKIN: warm and dry NEUROLOGIC: CN 2-12 grossly intact, normal cognition, normal speech, no tremor, no gross focal deficits. PSYCHIATRIC: alert cooperative and oriented to person, place and time. Principal Diagnosis Pancreatitis Biliary colic Hyperbilirubinemia Urinary tract infection Pancytopenia Gastric ulcers Discharge Exam Constitutional + well hydrated; no acute distress Eyes PERRL, conjunctivae normal, anicteric sclerae ENMT external ear and nose normal, oropharynx normal Respiratory normal respiratory effort, lungs clear to auscultation Cardiovascular RRR, no murmur, no edema Gastrointestinal (Abdomen) Inspection/Auscultation: abdomen normal to inspection and normal bowel sounds; abdomen not distended Musculoskeletal no cyanosis or clubbing, extremities motor strength 5/5 Neurologic PERRL, EOMI, accommodation nl, no face palsy, no dysarthria Psychiatric A+Ox3, euthymic affect Genitourinary no CVA tenderness Discharge Data Allergies Allergy/AdvReac Type Severity Reaction Status Date / Time valacyclovir Allergy Severe Dyspnea Verified 01/08/21 16:04 Consultations 01/08/21 17:28 ED Decision to Admit Stat 01/08/21 22:15 Consult General Surgery Routine 01/09/21 13:51 Consult Gastroenterology Routine Procedures Performed Operation Date: 01/14/21 17:15 Actual Procedures p EGD Biopsy Cytology - Kellie Lambert, Ordered Studies 01/08/21 19:24 US liver Urgent Increased echogenicity of the hepatic parenchyma without hepatic mass. No marginal nodularity of the liver. The pancreas is suboptimally visualized. The gallbladder is unremarkable without cholelithiasis, wall thickening or pericholecystic fluid. Sonographic Noland sign was reported as negative. The com mon bile duct is mildly dilated measuring up to 8 mm. Imaged right kidney is unremarkable without hydronephrosis. IMPRESSION: 1. No cholelithiasis or sonographic evidence of acute cholecystitis. 2. Slight dilation of the common bile duct. No intrahepatic biliary ductal dilation. 3. Hepatic steatosis. 01/10/21 11:43 MR MRCP Routine Motion degraded exam. Trace left greater than right pleural effusions. Spleen, adrenal glands and kidneys are unremarkable. Hepatic steatosis. 3 mm T2 hyperintensity structure of the posterior right hepatic lobe suggestive of a cyst. Unremarkable aorta and IVC. Mildly contracted gallbladder. No cholelithiasis identified. No gallbladder wall thickening. No intrahepatic or extrahepatic biliary ductal prominence. Normal common bile duct, 5 mm. No biliary filling defects identified to suggest choledocholithiasis. No pancreatic ductal dilation or pancreatic divisum. Mild interstitial and peripancreatic edema. Mild free fluid of the gosia hepatis and right pericolic gutter. Mild generalized body wall edema. IMPRESSION: 1. Motion degraded exam. 2. No cholelithiasis, biliary ductal dilation or evidence of choledocholithiasis. 3. Findings suggestive of interstitial edematous pancreatitis. No pancreatic ductal dilation. 4. Trace ascites and pleural effusion 01/10/21 18:03 CT angio chest PE protocol Urgent FINDINGS: There is adequate opacification within main pulmonary artery. No acute pulmonary embolus is seen. Main pulmonary artery is nondilated. No evidence of right heart strain. Heart is normal in size without evidence of pericardial effusion or coronary calcifications. No pathologically enlarged axillary mediastinal or hilar lymph nodes were visualized. There was no evidence of thoracic aortic dilatation. Tracheobronchial tree is patent. Minimal bilateral pleural effusion is seen associated with compressive atelectasis at dependent portions of bilateral lower lobes. No large infiltrates or consolidative lesions are seen. Minimal septal thickening is seen at dependent portions of bilateral lower lobes. Small calcified granuloma is seen within right lower lobe. Limited evaluation of upper abdominal viscera shows significant hepatic steatosis and no evidence of acute abnormalities. Osseous structures: Few Schmorl nodes are seen. IMPRESSION: 1. No acute pulmonary embolus. No secondary signs of the pulmonary embolus. 2. Minimal bilateral pleural effusion and atelectasis at dependent portions of bilateral lower lobes. 3. Extensive hepatic steatosis. 4. The rest of findings as above. US venous doppler LE BI Routine The bilateral common femoral, superficial femoral and popliteal veins were compressible. Augmentation was normal. Flow was shown within the deep calf vessels. IMPRESSION: No evidence of deep venous thrombus within the bilateral lower extremities. Procedure: Upper GI endoscopy Providers: Kellie Lambert DO Referring MD: Nancy Pearson Md Indications: Generalized abdominal pain; macrocytic anemia; pancytopenia Medicines: Propofol per Anesthesia Complications: No immediate complications. Estimated blood loss: Minimal. Estimated Blood Loss: Estimated blood loss was minimal. Procedure: Pre-Anesthesia Assessment: - Prior to the procedure, a History and Physical was performed, and patient medications, allergies and sensitivities were reviewed. The patient's tolerance of previous anesthesia was reviewed. - The risks and benefits of the procedure and the sedation options and risks were discussed with the patient. All questions were answered and informed consent was obtained. - Patient identification and proposed procedure were verified prior to the procedure by the physician and the nurse. The procedure was verified in the pre-procedure area in the procedure room. - Mental Status Examination: alert and oriented. Airway Examination: normal oropharyngeal airway and neck mobility. Respiratory Examination: clear to auscultation. CV Examination: normal. Abdominal Examination: bowel sounds present, abdomen soft and non-tender, no masses or organomegaly noted. - ASA Grade Assessment: II - A patient with mild systemic disease. After obtaining informed consent, the endoscope was passed under direct vision. Throughout the procedure, the patient's blood pressure, pulse, and oxygen saturations were monitored continuously. The Endoscope was introduced through the mouth, and advanced to the second part of duodenum. The upper GI endoscopy was accomplished without difficulty. The patient tolerated the procedure well. Findings: The Z-line was irregular and was found 38 cm from the incisors. Biopsies were taken with a cold forceps for histology. Verification of patient identification for the specimen was done by the physician and nurse using the patient's name and date. Estimated blood loss was minimal. Many non-bleeding superficial gastric ulcers with no stigmata of bleeding were found in the gastric antrum. Biopsies were taken with a cold forceps for Helicobacter pylori testing. Verification of patient identification for the specimen was done by the physician and nurse using the patient's name and date. Estimated blood loss was minimal. The examined duodenum was normal. Impression: - Z-line irregular, 38 cm from the incisors. Biopsied. - Non-bleeding gastric ulcers with NO stigmata of bleeding. Biopsied. - Normal examined duodenum. Recommendation: - Await pathology results. - Follow an antireflux regimen. - Use a proton pump inhibitor PO BID. Hospital Course (1) Biliary colic: No evidence of cholelithiasis or choledocholithiasis on liver ultrasound or MRCP. However, clinical picture is consistent with mild pancreatitis secondary to recent gallstone passage. LFTs improved Patient shown to have macrocytic anemia with normal B12 and folate levels. Dr Gilbert spoke with hematology Dr. Francisco. Given the fact she has significant decline in hemoglobin, plan is to continue daily monitoring for now. Daily CBC , peripheral smear and Transfuse for hemoglobin less than 7. She will need preoperative DDAVP which will help to release von Willebrand factor from her platelets. This should be given intravenously preoperatively. Peripheral smear result reviewed. No schistocytes noted General surgery do not plan to do cholecystectomy at this time until after hematology follow up/evaluation Discussed with Dr Francisco today Patient needs to follow up with hematology outpatient, after which she will follow up with surgery for planned surgery. Patient's hemoglobin has dropped from 9.4 on admission to 7s Has been stable in the 7s in the past 3 days EGD today revealed multiple nonbleeding gastric ulcers. Patient discharged on pantoprazole 40 mg twice daily Patient counseled on need to quit alcohol use as this may be contributing to the pancytopenia Advised to stop ibuprofen (2) Pancreatitis: Abdominal pain is resolved Currently patient is tolerating low fat diet. (3) Hyperbilirubinemia: (4) Elevated transaminase level: Likely secondary to recent gallstone pancreatitis/alcohol use Improving as noted above (5) UTI (urinary tract infection): Urine cultures growing E. coli. Completed treatment with ceftriaxone while inpatient (6) Hypokalemia: Monitor (7) Von Willebrand disease: Will need DDAVP preoperatively and platelets need to be on hand in case of intraoperative bleeding. Will need to check with blood bank preoperatively and get these ordered if not in stock. (8) Pancytopenia: All cell lines continue to remain low. Clinical picture consistent with clinical picture significant white blood cell count 3.3 on admission 4.2 today, hemoglobin 9.4 on admission to 7.4 today, hematocrit 27 on admission to 21.5 today. MCV is 121. Elevated fibrin degradation products, elevated D-dimer at 1100, LDH of 558, and a relatively low fibrinogen of 186 with a reference range of 184-400. CT chest and lower extremity duplex is negative. Peripheral smear reviewed. Broad differentials. Need hematology follow up on discharge Continue monitor daily CBC. Advised to quit alcohol intake (9) Hepatic steatosis: Outpatient screening periodically. (10) Alcohol abuse: No evidence of withdrawal, cessation encouraged. (11) Smoker: Nicoderm patch, smoking cessation encouraged. (12) Elevated d-dimer: CT chest and LE us dopplers are negative. as above Total Time Total Time Spent Total Time Spent (In Minutes): 50 Total Time Includes: Examination of the Patient, Discharge Planning, Medication Reconciliation and Communication With Other Providers Discharge Plan Discharge Items Patient Disposition: Home - Self-Care Reason For Visit: ABDOMINAL PAIN Discharge Diagnosis: Pancreatitis Biliary colic Hyperbilirubinemia Urinary tract infection Pancytopenia Gastric ulcers Activity: Resume your previous activity Non-emergency contact: Primary Care Provider and Surgeon Call non-emergency contact if: you have any medication questions and your symptoms worsen Follow-up/Referrals: Tatiana Chase MD [Physician] - (Please call for follow-up for surgery as discussed) Gypsy Lubin PA-C [Primary Care Provider] - Diet: Low Fat Addtl Attending Provider Instructions: Mrs. Reyes You came to the hospital complaining of abdominal pain. You were evaluated and found to have pancreatitis, elevated liver enzymes. You were extensively evaluated by the church history teacher and the surgeon. You also had worsening of your anemia. You had upper endoscopy and found to have nonbleeding stomach ulcers. You are being discharged on pantoprazole twice a day. 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 Please also follow up with the Surgeon for gall bladder surgery as we discussed. Please stop taking alcohol as we discussed. It was a pleasure taking care of you. Pending Studies at Discharge: Yes Stand-Alone Forms: My [facility], Smoking Cessation Medications and DC Order Prescriptions: New thiamine HCl (vitamin B1) [Vitamin B-1] 100 mg Tablet 100 mg PO QAM Qty: 30 RF: 0 pantoprazole 40 mg Tablet,Delayed Release (Dr/Ec) 40 mg PO BID Qty: 60 RF: 0 folic acid 1 mg Tablet 1 mg PO QAM Qty: 30 RF: 0 Continued furosemide [Lasix] 40 mg tablet 40 mg PO BID PRN (Reason: Fluid Retention) RF: 0 levothyroxine [Synthroid] 200 mcg tablet 200 mcg PO QAM RF: 0 potassium chloride [Klor-Con M10] 10 mEq tablet,ER particles/crystals 10 meq PO BID PRN (Reason: Fluid Retention) RF: 0 ondansetron 8 mg Tablet,Disintegrating 8 mg PO Q6 PRN (Reason: Nausea) RF: 0 albuterol sulfate 90 mcg/actuation Hfa Aerosol Inhaler 1 inh INHALATION QID PRN (Reason: sob) RF: 0 dicyclomine 10 mg capsule 10 mg PO QID PRN (Reason: abd pain) RF: 0 acetaminophen [Tylenol Extra Strength] 500 mg Tablet 1,000 mg PO Q6H PRN (Reason: Pain) RF: 0 Discontinued ibuprofen 200 mg Tablet 400 mg PO Q6H PRN (Reason: Pain) RF: 0 Discharge Orders: Discharge Order (Routine); Ordered 01/14/21 Ordered By: Nancy Saxena/Other Patient Handouts: Upper GI Endoscopy with Biopsy Admission Data Admit Date/Time: 01/09/21 23:06 Attending Provider: Nancy Pearson I. Admit Provider: Crystal Woodard Primary Care Provider: Gypsy Lubin Other Providers: Crystal Woodard ; Nitish Gayft,Hugh M. ; Amy Gilbert. Other Interventions: Discharge Summary Assessment (RN) Last Done: 01/14/21 11:12
== END 2021-01-14 12:30 | disposition home or self-care (01) | DRG 438 ==
LOC: ED 11:40 → 2W 11:40 → SUATTDRO 01-09 23:06 → 3N 01-10 23:49

== ENCOUNTER 2021-02-07 13:02 | Inpatient (IN) ==
--- NOTE | 2021-02-07 13:31 | Emergency Department Note ---
Impression & Plan Abdominal pain, Acute pancreatitis, Transaminitis, Elevated bilirubin ED Provider Note NAME: HREIBERTO BENAVIDEZ AGE: 35 SEX: F : 1985 ARRIVES VIA: Walk-In INFORMANT: Patient ED PROVIDER(S): Beto Casarez DO CHIEF COMPLAINT: Right upper quadrant abdominal pain HPI: Patient is a 35-year-old female who presents the ER for right upper quadrant abdominal pain. Started yesterday. Describes it as sharp stabbing pain which is 8 out of 10. She admits to nausea but no vomiting. No dysuria, urgency, or frequency. Last bowel movement was within the past 24 hours. She does have a history of von Willebrand's disease and is not an alcoholic. Does have a history of pancreatitis as well. She initially notes that she stopped drinking alcohol but does note that she drank 2 days ago. ROS: See above HPI for pertinent positives & negatives. A total of 10 systems reviewed and were otherwise negative. PAST MEDICAL HISTORY:See Below PAST SURGICAL HISTORY:See Below FAMILY HISTORY:See Below SOCIAL HISTORY:See Below HOME MEDICATIONS:See Below ALLERGIES:See Below VITALS:See Below PHYSICAL EXAMINATION: GENERAL: Sitting up in bed, alert, chronically ill-appearing, disheveled EYE EXAM: normal conjunctiva. PERRL and EOM's grossly intact. OROPHARYNX: no exudate, no erythema, lips, buccal mucosa, and tongue normal and mucous membranes are moist NECK: supple, no nuchal rigidity, no adenopathy, non-tender LUNGS: Clear to auscultation. Normal chest wall mechanics HEART: no murmurs, S1 normal and S2 normal ABDOMEN: abdomen soft, TTP in RUQ, normo-active bowel sounds, no masses, no rebound or guarding. UPPER EXTREMITIES: upper extremities are grossly normal. LOWER EXTREMITIES: No pitting edema. NEURO EXAM: Normal sensorium, cranial nerves II-XII grossly intact, normal speech, no gross weakness of arms, no gross weakness of legs. MEDICAL DECISION MAKING: Patient is a 35-year-old female who presents ER for right upper quadran t/epigastric abdominal pain which started yesterday. She did drink 2 nights ago. IV was established blood work was obtained. Labs show no significant leukocytosis or anemia. BMP with mild hypokalemia 3.4. Bilirubin was elevated at 1.7 and AST was elevated at 105. ALT was normal. Alk phos was normal. Lipase was significant elevated at 1200. Ultrasound shows an unchanged gallbladder and CBD at 7 which is unchanged again. Patient was given IV fluids IV morphine and Zofran. She did feel better. She was discussed with the hospitalist admitted for further work-up of her pancreatitis and questionable gallstone pancreatitis with the elevation in bilirubin but no stone visualized on ultrasound. Triage Nursing notes reviewed. Limited review of prior medical records performed Vital Signs: reviewed and remarkable for no significant abnormalities Differential diagnosis: Differential diagnoses includes but is not limited to gastritis, peptic ulcer disease, GERD, gallbladder disease, pancreatitis, small bowel obstruction, acute coronary syndrome, pericarditis, ischemic bowel, irritable bowel disease, irritable bowel syndrome, appendicitis, diverticulitis, malignancy, hernia, urinary tract infection, torsion, /ectopic (if female), perforation, trauma, infectious. ER treatment provided: See below Diagnostics interpreted by me: ECG: none Cardiac Monitoring: An order was placed for continuous cardiac monitoring. The monitor shows a rate of 62 with sinus rhythm. Laboratory studies: As stated above and show below. Imaging studies: As discussed above Consultation(s): Discussed with [facility] Hospitalist for further evaluation Procedures: none Critical Care: None Past Med/Surg History Medical History Abscess of pelvis Alcohol abuse Elevated AST (SGOT) Elevated d-dimer Hepatic steatosis History of pancreatitis Hypothyroidism IBS (irritable bowel syndrome) Migraines Pancreatitis Pancytopenia Seasonal asthma Sepsis Tobacco use Upper gastrointestinal bleed Von Willebrand disease "Mild" Class 1 per [facility], under surveillance [facility], surgeon aware Surgical History History of colonoscopy History of esophagogastroduodenoscopy (EGD) History of loop electrical excision procedure (LEEP) History of wisdom tooth extraction Family History Mother Von Willebrand disease Other No family history of adverse response to anesthesia Social History Smoking Status: Current every day smoker Tobacco Type: Cigarettes Cigarettes Per Day: 10; Second Hand Exposure: No; Hx Alcohol Use: No Hx Substance Use: No Preferred Language: American Communication Ability: Effective Brick Pitcher Required: No Beliefs That Will Affect Care: None Current Living Situation: Spouse and Family Feels Safe at Home: Yes Assistive Devices: None Allergies Allergies Allergy/AdvReac Type Severity Reaction Status Date / Time valacyclovir Allergy Severe Dyspnea Verified 02/07/21 14:17 Home Meds Home Medications Medication Instructions Recorded Confirmed furosemide 40 mg tablet (Lasix) 40 mg PO BID PRN 07/18/19 02/07/21 levothyroxine 200 mcg tablet 200 mcg PO QAM 07/18/19 02/07/21 (Synthroid) potassium chloride 10 mEq 10 meq PO BID PRN 07/18/19 02/07/21 tablet,extended release(part/cryst) (Klor-Con M) ondansetron 8 mg disintegrating 8 mg PO Q6 PRN 09/27/19 02/07/21 tablet albuterol sulfate 90 mcg/actuation 1 inh INHALATION QID PRN 12/28/20 02/07/21 aerosol inhaler acetaminophen 500 mg tablet 1,000 mg PO Q6H PRN 01/08/21 02/07/21 (Tylenol Extra Strength) dicyclomine 10 mg capsule 10 mg PO QID PRN 01/08/21 02/07/21 Previous Rx's Medication Instructions Recorded folic acid 1 mg tablet 1 mg PO QAM #30 tab 01/14/21 pantoprazole 40 mg tablet,delayed 40 mg PO BID #60 tab 01/14/21 release thiamine HCl (vitamin B1) 100 mg 100 mg PO QAM #30 tab 01/14/21 tablet (Vitamin B-1) Results & Data (ED) Vital Signs Vital Signs - 24 hr 02/07/21 13:15 02/07/21 13:43 02/07/21 13:45 Temperature 36.5 C Temperature Source Oral Pulse Rate 73 70 Pulse Rate [Apical] 70 Pulse Rate from SpO2 Sensor Respiratory Rate 18 20 20 Respiratory Effort / Characteristics Non-Labored Spontaneous Respiratory Depth Normal Respiratory Pattern Regular Blood Pressure 144/80 H Blood Pressure [Left Arm] 146/67 H Blood Pressure Mean 101 Blood Pressure Mean [Left Arm] 93 Pulse Oximetry 96 99 99 Oxygen Delivery Method Room Air Room Air Room Air Sepsis Recent Fever Within 48 Hours No Sepsis New/Unexplained Change in Mental Status No Sepsis Action Taken by Nursing No Action Required 02/07/21 15:20 02/07/21 15:30 02/07/21 16:00 Temperature Temperature Source Pulse Rate 81 68 70 Pulse Rate [Apical] Pulse Rate from SpO2 Sensor 79 70 70 Respiratory Rate 18 18 19 Respiratory Effort / Characteristics Respiratory Depth Respiratory Pattern Blood Pressure 143/83 H 153/90 H 157/89 H Blood Pressure [Left Arm] Blood Pressure Mean 103 111 111 Blood Pressure Mean [Left Arm] Pulse Oximetry 99 100 97 Oxygen Delivery Method Sepsis Recent Fever Within 48 Hours Sepsis New/Unexplained Change in Mental Status Sepsis Action Taken by Nursing 02/07/21 16:31 02/07/21 17:01 Temperature Temperature Source Pulse Rate 63 67 Pulse Rate [Apical] Pulse Rate from SpO2 Sensor 67 64 Respiratory Rate 14 21 Respiratory Effort / Characteristics Respiratory Depth Respiratory Pattern Blood Pressure 155/80 H Blood Pressure [Left Arm] Blood Pressure Mean 105 Blood Pressure Mean [Left Arm] Pulse Oximetry 97 99 Oxygen Delivery Method Sepsis Recent Fever Within 48 Hours Sepsis New/Unexplained Change in Mental Status Sepsis Action Taken by Nursing Laboratory Data Result diagrams: 02/07/21 13:35 02/07/21 13:35 Lab Results 02/07/21 02/07/21 02/07/21 Range/Units 13:35 13:35 15:27 WBC 5.17 (4.8-10.8) K/uL RBC 3.49 L (4.2-5.4) M/uL Hgb 12.6 (12.0-16.0) g/dL Hct 37.7 (37-47) % MCV 108.0 H (80-100) fL MCH 36.1 H (25-34) pg MCHC 33.4 (32-36) g/dL RDW Std Deviation 72.1 H (36.4-46.3) fL RDW Coeff of Praful 18.2 H (11.5-14.5) % Plt Count 146 (130-400) K/uL MPV 9.9 (7.4-10.4) fL Immature Gran % (Auto) 0.2 % Neut % (Auto) 77.3 % Lymph % (Auto) 12.0 % [place] % (Auto) 8.9 % Eos % (Auto) 1.2 % Baso % (Auto) 0.4 % Neut # (Auto) 4.00 (1.4-6.5) K/uL Lymph # (Auto) 0.62 L (1.2-3.4) K/uL [place] # (Auto) 0.46 (0.11-0.59) K/uL Eos # (Auto) 0.06 (0-0.5) K/uL Baso # (Auto) 0.02 (0-0.2) K/uL Immature Gran # (Auto) 0.01 (0.00-0.02) K/uL Sodium 140 (136-145) mmol/L Potassium 3.4 L (3.5-5.1) mmol/L Chloride 105 (98-107) mmol/L Carbon Dioxide 26 (21-32) mmol/L Anion Gap 9.0 (3-11) BUN 6 L (7-18) mg/dl Creatinine 0.58 L (0.6-1.2) mg/dl Est Cr Clr Drug Dosing 113.1 ml/min Est GFR ( Amer) 139.4 ml/min Est GFR (Non-Af Amer) 120.3 ml/min BUN/Creatinine Ratio 10.4 (10-20) Glucose 109 H (70-99) mg/dl Calcium 8.2 L (8.5-10.1) mg/dl Total Bilirubin 1.7 H (0.2-1) mg/dl Direct Bilirubin 0.8 H (0-0.2) mg/dl AST 105 H (15-37) U/L ALT 42 (12-78) U/L Alkaline Phosphatase 110 (45-117) U/L Total Protein 6.2 L (6.4-8.2) gm/dl Albumin 3.1 L (3.4-5.0) gm/dl Globulin 3.1 (2.5-4.0) gm/dl Albumin/Globulin Ratio 1.0 (0.9-2) Lipase 1138 H (73-393) U/L COVID-19 Eval Order Covid19 at [facility] SARS-CoV-2 (PCR) (Negative) 02/07/21 Range/Units 15:27 WBC (4.8-10.8) K/uL RBC (4.2-5.4) M/uL Hgb (12.0-16.0) g/dL Hct (37-47) % MCV (80-100) fL MCH (25-34) pg MCHC (32-36) g/dL RDW Std Deviation (36.4-46.3) fL RDW Coeff of Praful (11.5-14.5) % Plt Count (130-400) K/uL MPV (7.4-10.4) fL Immature Gran % (Auto) % Neut % (Auto) % Lymph % (Auto) % [place] % (Auto) % Eos % (Auto) % Baso % (Auto) % Neut # (Auto) (1.4-6.5) K/uL Lymph # (Auto) (1.2-3.4) K/uL [place] # (Auto) (0.11-0.59) K/uL Eos # (Auto) (0-0.5) K/uL Baso # (Auto) (0-0.2) K/uL Immature Gran # (Auto) (0.00-0.02) K/uL Sodium (136-145) mmol/L Potassium (3.5-5.1) mmol/L Chloride (98-107) mmol/L Carbon Dioxide (21-32) mmol/L Anion Gap (3-11) BUN (7-18) mg/dl Creatinine (0.6-1.2) mg/dl Est Cr Clr Drug Dosing ml/min Est GFR ( Amer) ml/min Est GFR (Non-Af Amer) ml/min BUN/Creatinine Ratio (10-20) Glucose (70-99) mg/dl Calcium (8.5-10.1) mg/dl Total Bilirubin (0.2-1) mg/dl Direct Bilirubin (0-0.2) mg/dl AST (15-37) U/L ALT (12-78) U/L Alkaline Phosphatase (45-117) U/L Total Protein (6.4-8.2) gm/dl Albumin (3.4-5.0) gm/dl Globulin (2.5-4.0) gm/dl Albumin/Globulin Ratio (0.9-2) Lipase (73-393) U/L COVID-19 Eval Order SARS-CoV-2 (PCR) NEGATIVE (Negative) Administered Medications Lactated Ringer's (Lr) 1,000 mls @ 200 mls/hr IV .Q5H MIKHAIL Stop: 02/07/21 20:59 Last Admin: 08/29/21 16:24 Dose: 200 mls/hr Documented by: [id number] Discontinued Medications Hydromorphone HCl (Hydromorphone Inj 0.5 Mg/0.5 Ml Syr) 0.5 mg IV NOW STA Stop: 02/07/21 15:54 Last Admin: 02/07/21 16:24 Dose: 0.5 mg Documented by: [id number] Sodium Chloride (Nss 1000ml) 2,000 mls @ 999 mls/hr IV .Q2H1M ONE Stop: 02/07/21 15:52 Last Infusion: 02/07/21 16:20 Dose: 0 mls/hr Documented by: [id number] Admin: 02/07/21 13:57 Dose: 999 mls/hr Documented by: [id number] Piperacillin Sod/Tazobactam Sod (Zosyn) 4.5 gm in 120 mls @ 240 mls/hr IV NOW ONE Stop: 02/07/21 15:43 Last Infusion: 02/07/21 16:20 Dose: 0 mls/hr Documented by: [id number] Admin: 02/07/21 15:20 Dose: 240 mls/hr Documented by: [id number] Potassium Chloride (K Les / Wtr) 10 meq in 100 mls @ 100 mls/hr IV ONE ONE Stop: 02/07/21 16:39 Last Admin: 02/07/21 16:24 Dose: 100 mls/hr Documented by: [id number] Morphine Sulfate (Morphine Sulfate 4 Mg/Ml 1 Ml Carp\\Vial) 4 mg IV NOW STA Stop: 02/07/21 13:53 Last Admin: 02/07/21 13:57 Dose: 4 mg Documented by: [id number] Morphine Sulfate (Morphine Sulfate 10 Mg/Ml Carp/Vial) 6 mg IV NOW STA Stop: 02/07/21 15:13 Last Admin: 02/07/21 15:20 Dose: 6 mg Documented by: [id number] Ondansetron HCl (Ondansetron Inj 2 Mg/Ml 2 Ml Vial) 4 mg IV NOW STA Stop: 02/07/21 13:53 Last Admin: 02/07/21 13:57 Dose: 4 mg Documented by: [id number] Ondansetron HCl (Ondansetron Inj 2 Mg/Ml 2 Ml Vial) 4 mg IV NOW STA Stop: 02/07/21 15:13 Last Admin: 02/07/21 15:20 Dose: 4 mg Documented by: [id number] Imaging Data Radiologist's Impression: Gallbladder Ultrasound 02/07/21 13:48 ABDOMINAL ULTRASOUND, RIGHT UPPER QUADRANT HISTORY: Right upper quadrant abdominal pain.. COMPARISON: Abdominal ultrasound 01/08/2021. FINDINGS: Pancreas: The pancreas demonstrates a normal echotexture. Liver: The liver is echogenic consistent with fatty change. Gallbladder: No gallbladder wall thickening. No gallstones. CBD: 7 mm. This is similar to the prior study. Right kidney: No hydronephrosis. IMPRESSION: 1. Hepatic steatosis. 2. Normal gallbladder. No gallstones. 3. Borderline dilated common bile duct is 7 mm. This is similar to the prior studies. ACT 112: Negative or not required by law. Electronically signed by: Ed Lott M.D. 02/07/2021 3:08 PM Discharge Plan Visit Data Chief Complaint: Abdominal Pain Stated Complaint: GALLBLADDER ATTACK ED Provider: Beto Casarez Discharge Problem: Abdominal pain, Acute pancreatitis, Transaminitis, Elevated bilirubin Forms Stand Alone Forms: [facility] Prescriptions Prescriptions: No Action furosemide [Lasix] 40 mg tablet 40 mg PO BID PRN (Reason: Fluid Retention) RF: 0 levothyroxine [Synthroid] 200 mcg tablet 200 mcg PO QAM RF: 0 potassium chloride [Klor-Con M10] 10 mEq tablet,ER particles/crystals 10 meq PO BID PRN (Reason: Fluid Retention) RF: 0 ondansetron 8 mg Tablet,Disintegrating 8 mg PO Q6 PRN (Reason: Nausea) RF: 0 albuterol sulfate 90 mcg/actuation Hfa Aerosol Inhaler 1 inh INHALATION QID PRN (Reason: sob) RF: 0 dicyclomine 10 mg capsule 10 mg PO QID PRN (Reason: abd pain) RF: 0 acetaminophen [Tylenol Extra Strength] 500 mg Tablet 1,000 mg PO Q6H PRN (Reason: Pain) RF: 0 thiamine HCl (vitamin B1) [Vitamin B-1] 100 mg Tablet 100 mg PO QAM Qty: 30 RF: 0 pantoprazole 40 mg Tablet,Delayed Release (Dr/Ec) 40 mg PO BID Qty: 60 RF: 0 folic acid 1 mg Tablet 1 mg PO QAM Qty: 30 RF: 0 Referrals Referrals: Gypsy Lubin PA-C [Primary Care Provider] - Discharge Problem: Abdominal pain Qualifiers: Abdominal location: unspecified location Qualified Code(s): R10.9 - Unspecified abdominal pain Acute pancreatitis Qualifiers: Pancreatitis type: unspecified pancreatitis type Acute pancreatitis complication: unspecified Qualified Code(s): K85.90 - Acute pancreatitis without necrosis or infection, unspecified
[2021-02-07 13:44] LABS: Basophils # (auto) 0.02 K/uL (0-0.2); Basophils % (auto) 0.4 %; Eosinophils # (auto) 0.06 K/uL (0-0.5); Eosinophils % (auto) 1.2 %; Hematocrit (blood only) 37.7 % (37-47); Hemoglobin 12.6 g/dL (12.0-16.0); Immature Granulocytes # (auto) 0.01 K/uL (0.00-0.02); Immature Granulocytes % (auto) 0.2 %; Lymphocytes # (auto) 0.62 K/uL (1.2-3.4); Mean Corpuscular Hemoglobin 36.1 pg (25-34); Mean Corpuscular Hgb Conc 33.4 g/dL (32-36); Mean Platelet Volume 9.9 fL (7.4-10.4); Monocytes # (auto) 0.46 K/uL (0.11-0.59); Monocytes % (auto) 8.9 %; Neutrophils % (auto) 77.3 %; Platelet Count 146 K/uL (130-400); RDW Coefficient of Variation 18.2 % (11.5-14.5); RDW Standard Deviation 72.1 fL (36.4-46.3); Red Blood Count 3.49 M/uL (4.2-5.4); White Blood Count 5.17 K/uL (4.8-10.8)
[2021-02-07] MEDS ORDERED: ONDANSETRON INJ 2 MG/ML 2 ML VIAL IV STA ×2 (13:52→15:12)
[2021-02-07] MEDS ORDERED: MoRPHine SULFATE 4 MG/ML 1 ML CARP\\VIAL IV STA (13:52)
[2021-02-07] MEDS ORDERED: SODIUM CHLORIDE 0.9% 1000ML 2,000 ML IV ONE (13:52)
[2021-02-07 14:01] LABS: Albumin Level 3.1 gm/dl (3.4-5.0); BUN Creatinine Ratio 10.4 (10-20); Calcium 8.2 mg/dl (8.5-10.1); Creatinine Clr Calc Pharmacy 113.1 ml/min; Est GFR (African American) 139.4 ml/min; Est GFR (Non-African American) 120.3 ml/min; Potassium 3.4 mmol/L (3.5-5.1)
[2021-02-07 14:04] LABS: Bilirubin,Total 1.7 mg/dl (0.2-1); Globulin 3.1 gm/dl (2.5-4.0); Total Protein 6.2 gm/dl (6.4-8.2)
--- NOTE | 2021-02-07 15:10 | Ultrasound Report ---
ABDOMINAL ULTRASOUND, RIGHT UPPER QUADRANT HISTORY: Right upper quadrant abdominal pain.. COMPARISON: Abdominal ultrasound 01/08/2021. FINDINGS: Pancreas: The pancreas demonstrates a normal echotexture. Liver: The liver is echogenic consistent with fatty change. Gallbladder: No gallbladder wall thickening. No gallstones. CBD: 7 mm. This is similar to the prior study. Right kidney: No hydronephrosis. IMPRESSION: 1. Hepatic steatosis. 2. Normal gallbladder. No gallstones. 3. Borderline dilated common bile duct is 7 mm. This is similar to the prior studies. ACT 112: Negative or not required by law. Electronically signed by: Ed Lott M.D. 02/07/2021 3:08 PM
[2021-02-07] MEDS ORDERED: MoRPHine SULFATE 10 MG/ML CARP/VIAL IV STA (15:12)
[2021-02-07] MEDS ORDERED: PIPERACILL/TAZOBAC CONSULT ACTIVE PRN (15:14)
[2021-02-07] MEDS ORDERED: PIPERACILLIN/TAZOBACTAM 4.5 GM/120 ML BAG IV ONE (15:14)
[2021-02-07] MEDS ORDERED: POTASSIUM CHLORIDE / WTR 10 MEQ/100 ML PLCT IV ONE (15:40)
--- NOTE | 2021-02-07 15:40 | History & Physical Report ---
Date of Service February 07, 2021 Assessment & Plan (1) Abdominal pain: (2) Pancreatitis: (3) Elevated transaminase level: (4) Hyperbilirubinemia: (5) Von Willebrand disease: (6) Hepatic steatosis: (7) Pancytopenia: (8) Hypokalemia: Plan: This is a 35-year-old female who has significant past medical history of hypothyroidism, migraine, tobacco abuse, alcohol use, history of bipolar disorder, hepatic steatosis, von Willebrand's disease who presents ED secondary to abdominal pain x1 day. Recent hospitalization 12/12-01/14 secondary to abdominal pain. Diagnosed with acute pancreatitis. Underwent MRCP which was negative for choledocholithiasis and revealed pancreatitis. Also underwent upper GI positive for nonbleeding gastric ulcers and Z-line irregularity. Pathology consistent with GERD, negative for Sylvester's, dysplasia or Mitch factor pylori. Imaging consistent with hepatic steatosis. She was seen and evaluated by GI and general surgery. ERCP and elective cholecystectomy was declined secondary to relative pancytopenia, pending further hematology evaluation. She has not yet seen hematology as outpatient. Today lipase 1138, AST 105, total bilirubin 1.7 Gallbladder ultrasound revealed hepatic steatosis, normal gallbladder and normal stones. Bile duct 7 mm similar to prior study. No signs or symptoms of sepsis. She denies NSAID use, has been using Tylenol, had 1-1/2 shots of vodka 2 days ago, but otherwise has remained abstinent of alcohol (unsure if accurate) Abdominal pain Acute pancreatitis, likely secondary to alcohol versus gallbladder etiology Transaminitis and hyperbilirubinemia Admit to [facility] N.p.o. IV LR at 200 cc/h IV Dilaudid 0.5 mg every 6 as needed, IV Tylenol 650 p.o. every 8 as needed moderate pain Antiemetics as needed Encouraged abstinence of alcohol Consult gastroenterology Patient declining any surgical intervention during hospitalization secondary to vacation planned in 2 days, also has not met with hematology Hepatic Steatosis confirmed on US recommend ETOH cessation Hypokalemia k 3.4 give 10meq KCL k rider x 1 follow Von Willebrand disease Pancytopenia macrocytosis CBC generally improved, hemoglobin 12.6, WBC 5.17, platelet 146 Likely hemoconcentrated in setting of poor p.o. intake Monitor daily with IV fluid use pt had anemia w/u last admission which showed normal ferritin, vit b12, folic acid, decreased tibc When patient does undergo elective cholecystectomy she will require DDAVP prior to surgery Tobacco abuse Nicotine patch ordered Smoking cessation counseling Alcohol use Unsure amount of actual alcohol use, patient states 1.5 shot of alcohol 2 days ago otherwise abstinent since most recent admission AWSS protocol with prn ativan continue b12 and folic acid supplementation DVT prophylaxis: SCD/teds in setting of von Willebrand disease Full code PCP: Shameka Patient was seen and examined in collaboration with Dr. Dinh, please see addendum History of Present Illness Chief Complaint: Abdominal pain x1 day. Primary Care Provider: Gypsy Lubin PA-C This is a 35-year-old female who has significant past medical history of hypothyroidism, migraine, tobacco abuse, alcohol use, history of bipolar disorder, hepatic steatosis, von Willebrand's disease who presents ED secondary to abdominal pain x1 day. She states symptoms started last evening, described as sharp, constant, made worse with movement, nothing makes it better, located in epigastrium, right upper quadrant and left upper quadrant and is associated with nausea. She denies any fevers, but admits to chills and sweats secondary to pain. She also associates dizziness with pain. She denies any syncope or presyncope symptoms, chest pain, shortness of breath, cough, URI symptoms, hemoptysis, abdominal pain, melena, hematochezia, dysuria, increased urgency or frequency with urination or hematuria. She states her stools are on the looser side and actually have been improved since her most recent hospitalization. Of significance she was hospitalized at the end of December 2020 secondary to similar symptoms with right upper quadrant pain and diagnosed with acute pancreatitis. There was concern about possibility of choledocholithiasis and MRCP was performed. Interstitial pancreatitis was a diagnosis. She did have transaminitis with elevated AST and total bilirubin at a max of 3. She also underwent upper GI which revealed an irregular Z-line, nonbleeding gastric ulcers and was prescribed PPI twice daily which she has been compliant with. She also had UTI treated with IV antibiotics E. coli as well as pancytopenia. She did not require transfusion but case was discussed with hematology Dr. Francisco. Due to pancytopenia elective cholecystectomy was postponed until evaluation by hematology. She has not yet followed up with hematology as outpatient. In ED so far she has received IV Zofran as well as 10 mg of total morphine. She continues to complain of pain 02/19. Her is at bedside who speaks for her mostly. In regards to alcohol use she last used 2 days ago and used 1-1/2 shots of vodka with Sprite. Prior to that her last alcohol use was before hospitalization. She denies any prior history of withdrawal. She continues to smoke half a pack of cigarettes a day. She does not work. She does admit to approximately 25 pound weight loss in the past 6 months. She reports symptoms of biliary colic for the past 6 months. Allergies Allergy/AdvReac Type Severity Reaction Status Date / Time valacyclovir Allergy Severe Dyspnea Verified 02/07/21 14:17 Home Medications Medication Instructions Recorded Confirmed Type furosemide 40 mg tablet (Lasix) 40 mg PO BID PRN 07/18/19 02/07/21 History levothyroxine 200 mcg tablet 200 mcg PO QAM 07/18/19 02/07/21 History (Synthroid) potassium chloride 10 mEq 10 meq PO BID PRN 07/18/19 02/07/21 History tablet,extended release(part/cryst) (Klor-Con M) ondansetron 8 mg disintegrating 8 mg PO Q6 PRN 09/27/19 02/07/21 History tablet albuterol sulfate 90 mcg/actuation 1 inh INHALATION QID PRN 12/28/20 02/07/21 History aerosol inhaler acetaminophen 500 mg tablet 1,000 mg PO Q6H PRN 01/08/21 02/07/21 History (Tylenol Extra Strength) dicyclomine 10 mg capsule 10 mg PO QID PRN 01/08/21 02/07/21 History folic acid 1 mg tablet 1 mg PO QAM #30 tab 01/14/21 02/07/21 Rx pantoprazole 40 mg tablet,delayed 40 mg PO BID #60 tab 01/14/21 02/07/21 Rx release thiamine HCl (vitamin B1) 100 mg 100 mg PO QAM #30 tab 01/14/21 02/07/21 Rx tablet (Vitamin B-1) Past Med/Surg History Medical History Abscess of pelvis Alcohol abuse Elevated AST (SGOT) Elevated d-dimer Hepatic steatosis History of pancreatitis Hypothyroidism IBS (irritable bowel syndrome) Migraines Pancreatitis Pancytopenia Seasonal asthma Sepsis Tobacco use Upper gastrointestinal bleed Von Willebrand disease "Mild" Class 1 per [facility] records, under surveillance [facility] hematology, surgeon aware Surgical History History of colonoscopy History of esophagogastroduodenoscopy (EGD) History of loop electrical excision procedure (LEEP) History of wisdom tooth extraction Family History Mother Von Willebrand disease Other No family history of adverse response to anesthesia Social History Smoking Status: Current every day smoker Tobacco Type: Cigarettes Cigarettes Per Day: 10; Second Hand Exposure: No; Hx Alcohol Use: No Hx Substance Use: No Preferred Language: Azeri Communication Ability: Effective Patrol Lady Required: No Beliefs That Will Affect Care: None Current Living Situation: Spouse and Family Feels Safe at Home: Yes Assistive Devices: None Review of Systems Review of Systems: All systems reviewed & are unremarkable except as noted in HPI & below Physical Exam Physical Exam: Constitutional: WD/WN, acutely ill, female, vitals as above, NAD, sitting up in bed, answers questions appropriately, frequent movement in bed Head: Normocephalic, Atraumatic Eyes: PERRL, conjunctivae normal, anicteric sclerae ENMT: external ear and nose normal, oropharynx normal Neck: trachea midline, no thyromegaly normal visual inspection Respiratory: normal respiratory effort, lungs clear to auscultation, no wheeze, rales, rhonchi. Normal insp/exp effort, no accessory muscle use Cardiovascular: RRR, no murmur, no edema Vessels: no JVD or carotid bruit Chest: normal inspection of chest Abdomen: normal bowel sounds, soft, tender to light palpation throughout, no rebound, no guarding, no rigidity Musculoskeletal: no cyanosis or clubbing, extremities motor strength 5/5 Skin: no rashes, warm and dry normal turgor Neurologic: PERRL, EOMI, accommodation nl, no face palsy, no dysarthria CN's II-XI intact bilaterally and moves all extremities Psychiatric: A+Ox3, euthymic affect Lymphatic: no cervical or axillary lymphadenopathy : deferred Results & Data Results & Data ([facility]) Vital Signs (Past 12 Hours) Vital Signs Temp Pulse Pulse Resp BP BP Pulse Ox 02/07/21 15:30 68 18 153/90 H 100 02/07/21 15:20 81 18 143/83 H 99 02/07/21 13:45 70 20 146/67 H 99 02/07/21 13:43 70 20 99 02/07/21 13:15 36.5 C 73 18 144/80 H 96 Diagnostic Findings Gallbladder Ultrasound 02/07/21 13:48 ABDOMINAL ULTRASOUND, RIGHT UPPER QUADRANT HISTORY: Right upper quadrant abdominal pain.. COMPARISON: Abdominal ultrasound 01/08/2021. FINDINGS: Pancreas: The pancreas demonstrates a normal echotexture. Liver: The liver is echogenic consistent with fatty change. Gallbladder: No gallbladder wall thickening. No gallstones. CBD: 7 mm. This is similar to the prior study. Right kidney: No hydronephrosis. IMPRESSION: 1. Hepatic steatosis. 2. Normal gallbladder. No gallstones. 3. Borderline dilated common bile duct is 7 mm. This is similar to the prior studies. ACT 112: Negative or not required by law. Electronically signed by: Ed Lott M.D. 02/07/2021 3:08 PM Medications Administered Medication List Sodium Chloride (Nss 1000ml) 2,000 mls @ 999 mls/hr IV .Q2H1M ONE Stop: 02/07/21 15:52 Last Admin: 02/07/21 13:57 Dose: 999 mls/hr Documented by: [id number] Piperacillin Sod/Tazobactam Sod (Zosyn) 4.5 gm in 120 mls @ 240 mls/hr IV NOW ONE Stop: 02/07/21 15:43 Last Admin: 02/07/21 15:20 Dose: 240 mls/hr Documented by: [id number] Discontinued Medications Morphine Sulfate (Morphine Sulfate 4 Mg/Ml 1 Ml Carp\\Vial) 4 mg IV NOW STA Stop: 02/07/21 13:53 Last Admin: 02/07/21 13:57 Dose: 4 mg Documented by: [id number] Morphine Sulfate (Morphine Sulfate 10 Mg/Ml Carp/Vial) 6 mg IV NOW STA Stop: 02/07/21 15:13 Last Admin: 02/07/21 15:20 Dose: 6 mg Documented by: [id number] Ondansetron HCl (Ondansetron Inj 2 Mg/Ml 2 Ml Vial) 4 mg IV NOW STA Stop: 02/07/21 13:53 Last Admin: 02/07/21 13:57 Dose: 4 mg Documented by: [id number] Ondansetron HCl (Ondansetron Inj 2 Mg/Ml 2 Ml Vial) 4 mg IV NOW STA Stop: 02/07/21 15:13 Last Admin: 02/07/21 15:20 Dose: 4 mg Documented by: [id number] COVID-19 Results Results COVID-19 Adm Lab Results: RBC 3.49 M/uL (4.2-5.4) L 02/07/21 WBC 5.17 K/uL (4.8-10.8) 02/07/21 Hgb 12.6 g/dL (12.0-16.0) 02/07/21 Hct 37.7 % (37-47) 02/07/21 Plt Count 146 K/uL (130-400) 02/07/21 Neutrophils (%) (Auto) 77.3 % 02/07/21 Lymphocytes (%) (Auto) 12.0 % 02/07/21 Monocytes # (Auto) 0.46 K/uL (0.11-0.59) 02/07/21 Eosinophils # (Auto) 0.06 K/uL (0-0.5) 02/07/21 Immature Granulocyte % (Auto) 0.2 % 02/07/21 Neutrophils # (Auto) 4.00 K/uL (1.4-6.5) 02/07/21 Lymphocytes # (Auto) 0.62 K/uL (1.2-3.4) L 02/07/21 Monocytes # (Auto) 0.46 K/uL (0.11-0.59) 02/07/21 Eosinophils # (Auto) 0.06 K/uL (0-0.5) 02/07/21 Basophils # (Auto) 0.02 K/uL (0-0.2) 02/07/21 Immature Granulocyte # (Auto) 0.01 K/uL (0.00-0.02) 02/07/21 Na 140 mmol/L (136-145) 02/07/21 K 3.4 mmol/L (3.5-5.1) L 02/07/21 Cl 105 mmol/L (98-107) 02/07/21 CO2 26 mmol/L (21-32) 02/07/21 Anion Gap 9.0 (3-11) 02/07/21 BUN 6 mg/dl (7-18) L 02/07/21 Creatinine 0.58 mg/dl (0.6-1.2) L 02/07/21 BUN/Creatinine Ratio 10.4 (10-20) 02/07/21 Glucose Level 109 mg/dl (70-99) H 02/07/21 Ca 8.2 mg/dl (8.5-10.1) L 02/07/21 Total Bilirubin 1.7 mg/dl (0.2-1) H 02/07/21 AST/SGOT 105 U/L (15-37) H 02/07/21 ALT/SGPT 42 U/L (12-78) 02/07/21 Alkaline Phosphatase 110 U/L (45-117) 02/07/21 Total Protein 6.2 gm/dl (6.4-8.2) L 02/07/21 Albumin 3.1 gm/dl (3.4-5.0) L 02/07/21 Globulin 3.1 gm/dl (2.5-4.0) 02/07/21 Albumin/Globulin Ratio 1.0 (0.9-2) 02/07/21 COVID-19 PCR Pending 02/07/21 Code Status & VTE Plan Code Status Full code VTE Prophylaxis Plan VTE Prophylaxis will be ordered: Yes
[2021-02-07] MEDS ORDERED: HYDROmorphone INJ 0.5 MG/0.5 ML SYR IV STA (15:53)
[2021-02-07] MEDS ORDERED: LACTATED RINGER'S 1,000 ML IV SCH (16:00)
[2021-02-07 16:15] LABS: Bilirubin Direct 0.8 mg/dl (0-0.2)
[2021-02-07 17:40] LABS: Appearance Urine Clear (Clear); Bilirubin Urine Negative (Negative); Blood Urine Negative (Negative); Color Urine Yellow; Glucose Urine UA Negative (Negative); Ketones Urine 1+ (Negative); Leukocyte Esterase Urine Negative (Negative); Nitrite Urine Negative (Negative); Protein Urine Negative (Negative); Urobilinogen Urine Negative (Negative); pH Urine 5.5 (4.5-7.5)
[2021-02-07] MEDS ORDERED: ALBUTEROL HFA 8 GM INHALER INH PRN (18:18)
[2021-02-07] MEDS ORDERED: ACETAMINOPHEN 65 ML IV PRN (18:18)
[2021-02-07] MEDS: LACTATED RINGER'S 1,000 ML IV SCH (18:18)
[2021-02-07] MEDS ORDERED: LORazepam 1 MG/2 ML VIAL IV PRN (18:18)
[2021-02-07] MEDS ORDERED: oxyCODONE HCL IR 5 MG TAB (IMMEDIATE RELEASE) PO PRN (19:28)
[2021-02-07] MEDS ORDERED: KETOROLAC TROMETHAMINE 15 MG/ML VIAL IV ONE (19:28)
[2021-02-07] MEDS: PANTOprazole 40 MG TAB PO SCH (19:41)
[2021-02-07] MEDS: NICOTINE 21 MG/24 HR TDSY TD SCH (19:42)
[2021-02-07] MEDS: DICYCLOMINE HCL 10 MG CAP PO PRN (19:45)
[2021-02-07] MEDS ORDERED: PROMETHAZINE HCL 12.5 MG in SODIUM CHLORIDE 0.9% 50 ML IV PRN (19:51)
[2021-02-07] MEDS: HYDROmorphone INJ 0.5 MG/0.5 ML SYR IV PRN (22:37)
[2021-02-08] MEDS ORDERED: LORazepam 3 MG/6 ML VIAL IV PRN (00:24)
[2021-02-08] MEDS ORDERED: GABAPENTIN 600 MG TAB PO ONE (00:24)
[2021-02-08] MEDS ORDERED: LORazepam 2 MG/4 ML VIAL IV PRN (00:24)
[2021-02-08] MEDS ORDERED: ATIVAN IV ALCOHOL WITHDRAWL IV PRN (00:24)
[2021-02-08] MEDS ORDERED: GABAPENTIN 1200MG ALCOHOL WITHDRAWAL LOAD PO STA (00:24)
[2021-02-08] MEDS ORDERED: LORazepam 1 MG/2 ML VIAL IV PRN (00:24)
[2021-02-08] MEDS ORDERED: KETOROLAC TROMETHAMINE 15 MG/ML VIAL IV ONE (00:27)
[2021-02-08] MEDS: LACTATED RINGER'S 1,000 ML IV SCH ×5 (00:53→19:48)
[2021-02-08] MEDS ORDERED: OPTIRAY 320 100ml IV ONE (01:18)
[2021-02-08] MEDS: LEVOTHYROXINE SODIUM 200 MCG TABLET PO SCH (05:16)
[2021-02-08] MEDS: GABAPENTIN 600 MG TAB PO SCH ×3 (05:16→19:49)
[2021-02-08] MEDS: HYDROmorphone INJ 0.5 MG/0.5 ML SYR IV PRN (06:16)
[2021-02-08] MEDS: DICYCLOMINE HCL 10 MG CAP PO PRN (06:16)
[2021-02-08 06:47] LABS: Basophils # (auto) 0.01 K/uL (0-0.2); Basophils % (auto) 0.1 %; Eosinophils % (auto) 1.4 %; Hematocrit (blood only) 36.3 % (37-47); Hemoglobin 11.9 g/dL (12.0-16.0); Immature Granulocytes # (auto) 0.01 K/uL (0.00-0.02); Immature Granulocytes % (auto) 0.1 %; Lymphocytes # (auto) 1.09 K/uL (1.2-3.4); Lymphocytes % (auto) 15.5 %; Mean Corpuscular Hemoglobin 35.6 pg (25-34); Mean Corpuscular Hgb Conc 32.8 g/dL (32-36); Mean Corpuscular Volume 108.7 fL (80-100); Mean Platelet Volume 10.8 fL (7.4-10.4); Monocytes # (auto) 0.46 K/uL (0.11-0.59); Monocytes % (auto) 6.6 %; Neutrophils # (auto) 5.34 K/uL (1.4-6.5); Neutrophils % (auto) 76.3 %; Platelet Count 148 K/uL (130-400); Red Blood Count 3.34 M/uL (4.2-5.4); White Blood Count 7.01 K/uL (4.8-10.8)
[2021-02-08 07:14] LABS: Albumin Level 2.6 gm/dl (3.4-5.0); BUN Creatinine Ratio 9.3 (10-20); Calcium 7.9 mg/dl (8.5-10.1); Creatinine Clr Calc Pharmacy 119.2 ml/min; Est GFR (African American) 141.8 ml/min; Est GFR (Non-African American) 122.4 ml/min; Magnesium 1.4 mg/dl (1.8-2.4); Potassium 3.6 mmol/L (3.5-5.1)
[2021-02-08 07:26] LABS: Albumin Globulin Ratio 0.9 (0.9-2); Bilirubin,Total 2.2 mg/dl (0.2-1); Globulin 2.9 gm/dl (2.5-4.0); Total Protein 5.5 gm/dl (6.4-8.2)
[2021-02-08] MEDS: THIAMINE HCL 100 MG TAB PO SCH (09:37)
[2021-02-08] MEDS: FOLIC ACID 1 MG TAB PO SCH (09:37)
[2021-02-08] MEDS: PANTOprazole 40 MG TAB PO SCH ×2 (09:37→20:28)
[2021-02-08] MEDS: NICOTINE 21 MG/24 HR TDSY TD SCH (09:37)
[2021-02-08] MEDS: oxyCODONE HCL IR 5 MG TAB (IMMEDIATE RELEASE) PO PRN ×2 (09:42→19:50)
--- NOTE | 2021-02-08 10:06 | CT Scan Report ---
CT abd pelvis IV con only CLINICAL HISTORY: abd pain COMPARISON STUDY: July 24, 2020 TECHNIQUE: A dose lowering technique was utilized adhering to the principles of ALARA. CT DOSE: 269.84 mGy.cm FINDINGS: Lower chest: Minimal atelectasis at dependent portions of bilateral lower lobes.. Liver: Liver is normal in size. Diffuse decrease in attenuation of liver parenchyma is seen without f ocal lesions or intrahepatic biliary dilatation. Gallbladder: Is fluid-filled without evidence of intraluminal calculi. There is mild diffuse enhancem ent of the gallbladder wall is seen without definite wall thickening. Mild fat stranding is seen with in gallbladder fossa which is similar to diffuse mesenteric edema which is seen throughout the abdome n. Spleen: Normal in size and attenuation. Pancreas: Unremarkable. Adrenal glands: Unremarkable. Kidneys: There is symmetric renal cortical enhancement. The kidneys are normal in size without hydron ephrosis. Pelvic viscera: Urinary bladder is fluid-filled. Uterus is normal in size. Cystic appearance of bilat eral adnexa is seen. IUD in place. Bowel: Loops of small bowel are nondilated. Focal segment of the small bowel within left hemiabdomen is fluid-filled and measuring 2.6 cm in diameter, could be related to peristalsis. Loops of distal sm all bowel are collapsed. Appendix shows normal morphology and gas filled. Mild concentric fat promine nce of partially collapsed large bowel is seen within its proximal descending and transverse aspect w hich might represent sequela from prior inflammatory process. Peritoneum: There is no free intra-abdominal gas is seen. Edema and mild ascites are new since prior study. Vasculature: The abdominal aorta is normal in course and caliber. Adenopathy: None. Skeletal structures: No destructive osseous lesions are seen. Mild diffuse mild diffuse subcutaneous soft tissue edema is seen. IMPRESSION: 1. Interval development of diffuse mesenteric edema, mild ascites and mild soft tissue edema might r epresent edematous state. Short-term follow-up might be considered. 2. Hepatic steatosis. 3. Focal prominence of fluid-filled loops of small bowel without dilatation. Collapsed distal small bowel and portions of colon as above. Normal appendix. 4. The rest of findings as above. ACT 112: Negative or not required by law. The above report was generated using voice recognition software. It may contain grammatical, syntax o r spelling errors. Electronically signed by: Sarah Whaley DO 02/08/2021 10:05 AM
--- NOTE | 2021-02-08 11:58 | Gastrointestinal Consultation ---
Date of Consultation February 08, 2021 Assessment & Plan (1) Acute pancreatitis: (2) Elevated LFTs: Pt is a 35 y/o female admitted with recurrent pancreatitis (suspect ETOH related) and elevated LFTs ? ETOH hepatitis. CT abd/pelvis & gallbladder us w/o signs of gallstones. CBD 7mm but MRCP earlier this month w/o signs of choledocholithiasis Maddrey Discriminant Function score (pending updated PT/INR) - Protonix 40mg BID given hx of gastric ulcer - Check PT/INR (to calculate Maddrey Discriminant Function score) - Check lipid profile - LR IVF support - Symptomatic management with antiemetics and analgesics prn. Judicious use of narcotics given risk of ileus development - Watch for DTs - Strict ETOH cessation - Avoid NSAIDs and tobacco products recommended as well Supervising Physician Co-Signing Physician Notes I have seen and examined the patient and discussed the managemen with HERBERT Fu. Recent admission for abd pain dc'd on 01/14/21 diagnosed with pancreatitis. Admitted now with abd pain, lipase elevation, ast is 227/alt 57/tb 2.2. jamari shows cbd of 7 mm, ct a/p fluid filled gb normal cbd. Suspect she has alcoholic pancreatitis- further plan of care as above. History of Present Illness Reason for Consultation: Pancreatitis Requesting Physician: Dr. Trell Dinh Attending Physician: Dr. Jailene Rodrigues History of Present Illness Pt is a 35 y/o female who presented yesterday w c/o abdominal pain, noted to have recurrence of pancreatitis w elevated LFTs and lipase. She was admitted few weeks ago with pancreatitis. Did have low EF on HIDA and considered cholecy stectomy but surgery deferred due to pancytopenia until further eval by Hematology who also follows her for von Willebrand disease. MRCP obtained at that time w/o signs of choledocholithiasis thus ERCP deferred. She did have EGD eval which showed gastric ulcers. She continues to smoke 1/2 PPD and drinks 2 shots and mixed drink daily up till last Monday. She denies any n/v, changes in her bowel habits. Denies pancreatic ca or autoimmune pancreatitis in the family. CT abd/pelvis w IV contrast: 1. Interval development of diffuse mesenteric edema, mild ascites and mild soft tissue edema might represent edematous state. Short-term follow-up might be considered. 2. Hepatic steatosis. 3. Focal prominence of fluid-filled loops of small bowel without dilatation. Collapsed distal small bowel and portions of colon as above. Normal appendix. 4. The rest of findings as above Gallbladder us: 1. Hepatic steatosis. 2. Normal gallbladder. No gallstones. 3. Borderline dilated common bile duct is 7 mm. This is similar to the prior studies. Allergies Allergy/AdvReac Type Severity Reaction Status Date / Time valacyclovir Allergy Severe Dyspnea Verified 02/07/21 14:17 Home Medications Medication Instructions Recorded Confirmed Type furosemide 40 mg tablet (Lasix) 40 mg PO BID PRN 07/18/19 02/07/21 History levothyroxine 200 mcg tablet 200 mcg PO QAM 07/18/19 02/07/21 History (Synthroid) potassium chloride 10 mEq 10 meq PO BID PRN 07/18/19 02/07/21 History tablet,extended release(part/cryst) (Klor-Con M) ondansetron 8 mg disintegrating 8 mg PO Q6 PRN 09/27/19 02/07/21 History tablet albuterol sulfate 90 mcg/actuation 1 inh INHALATION QID PRN 12/28/20 02/07/21 History aerosol inhaler acetaminophen 500 mg tablet 1,000 mg PO Q6H PRN 01/08/21 02/07/21 History (Tylenol Extra Strength) dicyclomine 10 mg capsule 10 mg PO QID PRN 01/08/21 02/07/21 History folic acid 1 mg tablet 1 mg PO QAM #30 tab 01/14/21 02/07/21 Rx pantoprazole 40 mg tablet,delayed 40 mg PO BID #60 tab 01/14/21 02/07/21 Rx release thiamine HCl (vitamin B1) 100 mg 100 mg PO QAM #30 tab 01/14/21 02/07/21 Rx tablet (Vitamin B-1) Patient History Medical History Abscess of pelvis Alcohol abuse Elevated AST (SGOT) Elevated d-dimer Hepatic steatosis History of pancreatitis Hypothyroidism IBS (irritable bowel syndrome) Migraines Pancreatitis Pancytopenia Seasonal asthma Sepsis Tobacco use Upper gastrointestinal bleed Von Willebrand disease "Mild" Class 1 per [facility] records, under surveillance [facility] hematology, surgeon aware Surgical History History of colonoscopy History of esophagogastroduodenoscopy (EGD) History of loop electrical excision procedure (LEEP) History of wisdom tooth extraction Family History Mother Von Willebrand disease Other No family history of adverse response to anesthesia Social History Smoking Status: Current every day smoker Tobacco Type: Cigarettes Cigarettes Per Day: 10; Second Hand Exposure: No; Do You Dip or Chew Tobacco: No; Tobacco Cessation Education Requested by Patient: No Hx Alcohol Use: Yes Alcohol type: beer and hard liquor Hx Substance Use: No Preferred Language: Syriac Communication Ability: Effective Professor 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: No Beliefs That Will Affect Care: None marital status: Current Living Situation: Spouse and Family Other Information That Helps Us Care for You: No Feels Safe at Home: Yes Safety Concerns: Feels Safe At This Time Assistive Devices: None Review of Systems Review of Systems: All systems reviewed & are unremarkable except as noted in HPI & below Physical Exam Constitutional: WD/WN, vitals as above well groomed, cooperative and comfortable Eyes: PERRL, conjunctivae normal, anicteric sclerae ENMT: external ear and nose normal, oropharynx normal Respiratory: normal respiratory effort, lungs clear to auscultation Cardiovascular: RRR, no murmur, no edema Gastrointestinal (Abdomen): Mild distension, + BS, diffusely tender on palpation Skin: no rashes, warm and dry no jaundice Neurologic: tremors noted Psychiatric: A+Ox3, euthymic affect Lymphatic: no lymphedema Results & Data ([facility]) Vital Signs (Past 12 Hours) Vital Signs Temp Pulse Resp BP Pulse Ox 02/08/21 07:18 37 C 99 H 16 155/95 H 98 02/08/21 05:16 36.4 C L 78 16 152/84 H 100 02/08/21 02:54 36.4 C L 72 14 142/82 H 98 02/08/21 00:35 36.5 C 72 14 148/82 H 99 (1) Acute pancreatitis Acute pancreatitis complication: unspecified Pancreatitis type: unspecified pancreatitis type Qualified Code(s): K85.90 - Acute pancreatitis without necrosis or infection, unspecified
[2021-02-08 12:39] LABS: INR 1.5 (0.9-1.1); Prothrombin Time 14.4 Seconds (9.0-12.0)
--- NOTE | 2021-02-08 16:57 | Hospitalist Progress Note ---
Date of Service February 08, 2021 Assessment & Plan (1) Abdominal pain: (2) Pancreatitis: (3) Elevated transaminase level: (4) Hyperbilirubinemia: (5) Von Willebrand disease: (6) Hepatic steatosis: (7) Pancytopenia: (8) Hypokalemia: Plan: This is a 35-year-old female who has significant past medical history of hypothyroidism, migraine, tobacco abuse, alcohol use, history of bipolar disorder, hepatic steatosis, von Willebrand's disease who presents ED secondary to abdominal pain Recent hospitalization 12/12-01/14 secondary to abdominal pain. Diagnosed with acute pancreatitis. Underwent MRCP which was negative for choledocholithiasis and revealed pancreatitis. Also underwent upper GI positive for nonbleeding gastric ulcers and Z-line irregularity. Pathology consistent with GERD, negative for Sylvester's, dysplasia or Mitch factor pylori. Imaging consistent with hepatic steatosis. She was seen and evaluated by GI and general surgery. ERCP and elective cholecystectomy was declined secondary to relative pancytopenia, pending further hematology evaluation. She has not yet seen hematology as outpatient. Abdominal pain Acute pancreatitis, likely secondary to alcohol versus gallbladder etiology Transaminitis and hyperbilirubinemia Mostly related to alcohol abuse CT abd/pelvis showed interval development of diffuse mesenteric edema, mild ascites and mild soft tissue edema might represent edematous state. Gallbladder u/s showed hepatic steatosis. Normal gallbladder. No gallstones. Borderline dilated common bile duct is 7 mm Continue IVF, antiemetic and pain control gastro on board recommended conservative management Starting on clear liquid diet Continue monitor closely Hepatic Steatosis Counseling on ETOH cessation Hypokalemia k 3.4 on admission, replaced K 3.6 today Continue monitor BMP Von Willebrand disease Pancytopenia macrocytosis pt had anemia w/u last admission which showed normal ferritin, vit b12, folic acid, decreased tibc When patient does undergo elective cholecystectomy she will require DDAVP prior to surgery stable Tobacco abuse Nicotine patch ordered Smoking cessation counseling Alcohol use Pt denies any history of DT or alcohol withdrawal Continue ativan and gabapentin alcohol withdrawal protocol Continue monitor closely for sign of withdrawal' Counseling on alcohol cessation DVT prophylaxis: SCD/teds in setting of von Willebrand disease Full code PCP: Shameka Admission and Anticipated Discharge Date Admission Date: February 08, 2021 Subjective Patient was seen and examined for follow-up of abdominal pain Lying in bed with no acute distress Patient said the abdominal pain slightly improved today Denies any chest pain, palpitation, dizziness, shortness of breath, N/V Physical Exam Physical Exam: General- No acute distress Head- atraumatic Eyes- PERRL, EOMI, ENT- oropharynx clear Neck- supple, no JVD Lungs- clear to auscultation Heart- regular rhythm; no murmur Abdomen- normal bowel sounds, +tender Extremities- no calf tenderness Neuro- alert, oriented x 3; PERRL, EOMI; no facial palsy; no dysarthria Skin- warm & dry Results & Data Results & Data ([facility]) Vital Signs (Past 12 Hours) Vital Signs Temp Pulse Resp BP Pulse Ox 02/08/21 14:41 37 C 83 16 155/101 H 99 02/08/21 07:18 37 C 99 H 16 155/95 H 98 02/08/21 05:16 36.4 C L 78 16 152/84 H 100
[2021-02-09] MEDS: LACTATED RINGER'S 1,000 ML IV SCH ×5 (00:18→22:06)
[2021-02-09] MEDS: MELATONIN 3 MG TAB PO PRN ×2 (01:30→22:10)
[2021-02-09] MEDS: GABAPENTIN 600 MG TAB PO SCH ×2 (05:27→11:31)
[2021-02-09] MEDS: LEVOTHYROXINE SODIUM 200 MCG TABLET PO SCH (05:27)
[2021-02-09 06:19] LABS: Hematocrit (blood only) 33.9 % (37-47); Hemoglobin 11.2 g/dL (12.0-16.0); Mean Corpuscular Hemoglobin 35.9 pg (25-34); Mean Corpuscular Volume 108.7 fL (80-100); Mean Platelet Volume 10.7 fL (7.4-10.4); Platelet Count 105 K/uL (130-400); RDW Standard Deviation 70.7 fL (36.4-46.3); Red Blood Count 3.12 M/uL (4.2-5.4); White Blood Count 4.85 K/uL (4.8-10.8)
[2021-02-09 06:47] LABS: Alanine Aminotransferase 575 U/L (12-78); Albumin Level 2.5 gm/dl (3.4-5.0); BUN Creatinine Ratio 6.6 (10-20); Blood Urea Nitrogen 3 mg/dl (7-18); Calcium 7.8 mg/dl (8.5-10.1); Carbon Dioxide 28 mmol/L (21-32); Chloride 108 mmol/L (98-107); Creatinine Clr Calc Pharmacy 142.5 ml/min; Est GFR (African American) > 150.0 ml/min; Est GFR (Non-African American) 129.8 ml/min; Glucose 75 mg/dl (70-99); Potassium 3.1 mmol/L (3.5-5.1); Sodium 142 mmol/L (136-145)
[2021-02-09 07:08] LABS: Albumin Globulin Ratio 0.9 (0.9-2); Alkaline Phosphatase 91 U/L (45-117); Aspartate Aminotransferase 3531 U/L (15-37); Bilirubin,Total 1.5 mg/dl (0.2-1); Chol HDL Ratio 4; Cholesterol 99 mg/dl (0-200); Globulin 2.7 gm/dl (2.5-4.0); HDL Cholesterol 28 mg/dl; LDL Cholesterol Calculated 50 mg/dl; Lipase 1529 U/L (73-393); Total Protein 5.2 gm/dl (6.4-8.2); Triglycerides 105 mg/dl (0-150); VLDL Cholesterol 21 mg/dl
[2021-02-09] MEDS ORDERED: POTASSIUM CHLORIDE CRTAB 20 MEQ TABCR PO STA (08:38)
[2021-02-09] MEDS: PANTOprazole 40 MG TAB PO SCH ×2 (08:59→22:07)
[2021-02-09] MEDS: FOLIC ACID 1 MG TAB PO SCH (08:59)
[2021-02-09] MEDS: THIAMINE HCL 100 MG TAB PO SCH (09:00)
[2021-02-09] MEDS: NICOTINE 21 MG/24 HR TDSY TD SCH (09:00)
[2021-02-09] MEDS: DICYCLOMINE HCL 10 MG CAP PO PRN (09:01)
--- NOTE | 2021-02-09 09:02 | Gastroenterology Progress Note ---
Date of Service February 09, 2021 Assessment & Plan (1) Acute pancreatitis: (2) Elevated LFTs: Plan: 35 year old female admitted with recurrent pancreatitis (suspect ETOH related) and elevated LFTs ? ETOH hepatitis. CT abd/pelvis & gallbladder us w/o signs of gallstones. CBD 7mm but MRCP earlier this month w/o signs of choledocholithiasis Prakash Discriminant Function score yesterday around 13 - LR IVF support - Can continue symptomatic management with antiemetics and analgesics prn - Watch for DTs - Strict ETOH cessation - Avoid NSAIDs and tobacco products recommended as well - PO PPI 40 mg BID - No indication for treatment for ETOH hep given low DF score - Repeat LFTs tomorrow as AST was increased today Recall GI PRN. Thank you for allowing us to participate in the care of this patient. Please call with any acute changes, questions or concerns. Please see addendum below with additional recommendation from my supervising physician. Admission and Anticipated Discharge Date Admission Date: February 08, 2021 Supervising Physician Co-Signing Physician Notes Improving pain PE essentially unchanged MDF is low Agree with further plan of care as per Chelsea's plan of care. Subjective Pt sleeping upon entering room Awoke to name Awake, alert and oriented x 3 Notes her pain is actually improving denies nausea/vomiting Dietary tray at bedside which she is attempting to eat after our discussion AST increase overnight, remaining of LFTs stable No hypotensive events noted overnight Review of Systems Review of Systems: All systems reviewed & are unremarkable except as noted in HPI & below Physical Exam Constitutional: WD/WN, vitals as above Neck: normal visual inspection and trachea midline; no tracheal deviation Respiratory: normal respiratory effort, lungs clear to auscultation Cardiovascular: Rate/Rhythm: regular rate and regular rhythm Gastrointestinal (Abdomen): normal bowel sounds, soft, nontender, no hepatosplenomegaly Skin: no rashes, warm and dry Results & Data ([facility]) Vital Signs (Past 12 Hours) Vital Signs Temp Pulse Resp BP BP Pulse Ox Pulse Ox 02/09/21 07:35 37.4 C 76 16 160/97 H 95 02/09/21 05:30 36.5 C 101 H 14 132/87 100 02/09/21 03:30 36.5 C 95 H 16 148/92 H 100 02/08/21 22:14 37.4 C 97 H 16 144/90 H 97 08/30/21 21:00 97 Laboratory Results 02/09/21 02/09/21 02/08/21 Range/Units 05:56 05:56 12:13 WBC 4.85 (4.8-10.8) K/uL RBC 3.12 L (4.2-5.4) M/uL Hgb 11.2 L (12.0-16.0) g/dL Hct 33.9 L (37-47) % MCV 108.7 H (80-100) fL MCH 35.9 H (25-34) pg MCHC 33.0 (32-36) g/dL RDW Std Deviation 70.7 H (36.4-46.3) fL RDW Coeff of Praful 18.0 H (11.5-14.5) % Plt Count 105 L (130-400) K/uL MPV 10.7 H (7.4-10.4) fL PT 14.4 H (9.0-12.0) Seconds INR 1.5 H (0.9-1.1) Sodium 142 (136-145) mmol/L Potassium 3.1 L (3.5-5.1) mmol/L Chloride 108 H (98-107) mmol/L Carbon Dioxide 28 (21-32) mmol/L Anion Gap 6.0 (3-11) BUN 3 L (7-18) mg/dl Creatinine 0.46 L (0.6-1.2) mg/dl Est Cr Clr Drug Dosing 142.5 ml/min Est GFR ( Amer) > 150.0 ml/min Est GFR (Non-Af Amer) 129.8 ml/min BUN/Creatinine Ratio 6.6 L (10-20) Glucose 75 (70-99) mg/dl Calcium 7.8 L (8.5-10.1) mg/dl Total Bilirubin 1.5 H (0.2-1) mg/dl AST 3531 H (15-37) U/L ALT 575 H (12-78) U/L Alkaline Phosphatase 91 (45-117) U/L Total Protein 5.2 L (6.4-8.2) gm/dl Albumin 2.5 L (3.4-5.0) gm/dl Globulin 2.7 (2.5-4.0) gm/dl Albumin/Globulin Ratio 0.9 (0.9-2) Triglycerides 105 (0-150) mg/dl Cholesterol 99 (0-200) mg/dl LDL Cholesterol, Calc 50 mg/dl VLDL Cholesterol, Calc 21 mg/dl HDL Cholesterol 28 mg/dl Cholesterol/HDL Ratio 4 Lipase 1529 H (73-393) U/L (1) Acute pancreatitis Acute pancreatitis complication: unspecified Pancreatitis type: unspecified pancreatitis type Qualified Code(s): K85.90 - Acute pancreatitis without necrosis or infection, unspecified
[2021-02-09] MEDS: oxyCODONE HCL IR 5 MG TAB (IMMEDIATE RELEASE) PO PRN ×2 (15:15→22:09)
[2021-02-09 15:29] LABS: Appearance Urine Clear (Clear); Bilirubin Urine Negative (Negative); Blood Urine Negative (Negative); Color Urine Yellow; Glucose Urine UA Negative (Negative); Ketones Urine Negative (Negative); Leukocyte Esterase Urine Negative (Negative); Nitrite Urine Negative (Negative); Protein Urine Negative (Negative); Specific Gravity Urine 1.005 (1.000-1.030); Urobilinogen Urine Negative (Negative); pH Urine 8.5 (4.5-7.5)
--- NOTE | 2021-02-09 23:55 | Hospitalist Progress Note ---
Date of Service February 09, 2021 Assessment & Plan (1) Abdominal pain: (2) Pancreatitis: (3) Elevated transaminase level: (4) Hyperbilirubinemia: (5) Von Willebrand disease: (6) Hepatic steatosis: (7) Pancytopenia: (8) Hypokalemia: Plan: This is a 35-year-old female who has significant past medical history of hypothyroidism, migraine, tobacco abuse, alcohol use, history of bipolar disorder, hepatic steatosis, von Willebrand's disease who presents ED secondary to abdominal pain Recent hospitalization 12/12-01/14 secondary to abdominal pain. Diagnosed with acute pancreatitis. Underwent MRCP which was negative for choledocholithiasis and revealed pancreatitis. Also underwent upper GI positive for nonbleeding gastric ulcers and Z-line irregularity. Pathology consistent with GERD, negative for Sylvester's, dysplasia or Mitch factor pylori. Imaging consistent with hepatic steatosis. She was seen and evaluated by GI and general surgery. ERCP and elective cholecystectomy was declined secondary to relative pancytopenia, pending further hematology evaluation. She has not yet seen hematology as outpatient. Abdominal pain Acute pancreatitis, likely secondary to alcohol versus gallbladder etiology Transaminitis and hyperbilirubinemia Mostly related to alcohol abuse CT abd/pelvis showed interval development of diffuse mesenteric edema, mild ascites and mild soft tissue edema might represent edematous state. Gallbladder u/s showed hepatic steatosis. Normal gallbladder. No gallstones. Borderline dilated common bile duct is 7 mm Worsening liver enzyme with AST 3531 and ALT 575 Continue IVF, antiemetic and pain control gastro on board recommended conservative management Continue clear liquid diet Continue monitor liver enzymes Avoid hepatotoxic agent We will check viral hepatitis panel Continue monitor closely Hepatic Steatosis Counseling on ETOH cessation Hypokalemia k 3.4 on admission Potassium 3.1 today, replaced Continue monitor BMP Von Willebrand disease Pancytopenia macrocytosis pt had anemia w/u last admission which showed normal ferritin, vit b12, folic acid, decreased tibc When patient does undergo elective cholecystectomy she will require DDAVP prior to surgery stable Tobacco abuse Nicotine patch ordered Smoking cessation counseling Alcohol use Pt denies any history of DT or alcohol withdrawal Continue ativan and gabapentin alcohol withdrawal protocol Continue monitor closely for sign of withdrawal' Counseling on alcohol cessation DVT prophylaxis: SCD/teds in setting of von Willebrand disease Full code PCP: Shameka Admission and Anticipated Discharge Date Admission Date: February 08, 2021 Subjective Patient was seen and examined for follow-up of acute pancreatitis Lying in bed with no acute distress Patient said her abdominal pain much better Her Liver enzymes increase significantly Denies any chest pain, palpitation, dizziness, shortness of breath. Physical Exam Physical Exam: General- No acute distress Head- atraumatic Eyes- PERRL, EOMI, ENT- oropharynx clear Neck- supple, no JVD Lungs- clear to auscultation Heart- regular rhythm; no murmur Abdomen- normal bowel sounds, +tender Extremities- no calf tenderness Neuro- alert, oriented x 3; PERRL, EOMI; no facial palsy; no dysarthria Skin- warm & dry Results & Data Results & Data ([facility]) Vital Signs (Past 12 Hours) Vital Signs Temp Pulse Resp BP Pulse Ox 02/09/21 22:51 37.4 C 96 H 18 159/99 H 97 02/09/21 14:50 37.4 C 88 16 134/89 96
[2021-02-10] MEDS: HYDROmorphone INJ 0.5 MG/0.5 ML SYR IV PRN ×2 (00:37→23:33)
[2021-02-10] MEDS: GABAPENTIN 600 MG TAB PO SCH ×2 (00:37→13:03)
[2021-02-10] MEDS: LACTATED RINGER'S 1,000 ML IV SCH ×3 (05:33→19:09)
[2021-02-10] MEDS: LEVOTHYROXINE SODIUM 200 MCG TABLET PO SCH (05:34)
[2021-02-10] MEDS: oxyCODONE HCL IR 5 MG TAB (IMMEDIATE RELEASE) PO PRN ×2 (05:37→21:51)
[2021-02-10 06:17] LABS: Alanine Aminotransferase 339 U/L (12-78); Albumin Level 2.4 gm/dl (3.4-5.0); Aspartate Aminotransferase 759 U/L (15-37); BUN Creatinine Ratio 3.9 (10-20); Blood Urea Nitrogen 1 mg/dl (7-18); Carbon Dioxide 26 mmol/L (21-32); Chloride 107 mmol/L (98-107); Creatinine Clr Calc Pharmacy 187.4 ml/min; Est GFR (African American) > 150.0 ml/min; Glucose 76 mg/dl (70-99); Lipase 856 U/L (73-393); Potassium 3.2 mmol/L (3.5-5.1); Sodium 139 mmol/L (136-145)
[2021-02-10 06:19] LABS: Albumin Globulin Ratio 0.8 (0.9-2); Alkaline Phosphatase 89 U/L (45-117); Bilirubin,Total 1.8 mg/dl (0.2-1); Globulin 2.9 gm/dl (2.5-4.0); Total Protein 5.3 gm/dl (6.4-8.2)
[2021-02-10] MEDS: DICYCLOMINE HCL 10 MG CAP PO PRN ×2 (07:36→17:29)
[2021-02-10] MEDS: FOLIC ACID 1 MG TAB PO SCH (07:36)
[2021-02-10] MEDS: THIAMINE HCL 100 MG TAB PO SCH (07:36)
[2021-02-10] MEDS: PANTOprazole 40 MG TAB PO SCH ×2 (07:36→21:50)
[2021-02-10] MEDS: NICOTINE 21 MG/24 HR TDSY TD SCH (07:37)
[2021-02-10] MEDS: POTASSIUM CHLORIDE / WTR 10 MEQ/100 ML PLCT IV SCH ×4 (09:02→12:07)
[2021-02-10 10:51] LABS: Hepatitis B Surf Ag Rflx Conf Neg (Neg)
[2021-02-10 11:20] LABS: Hepatitis C IgG 13Yrs+Old_Rflx Neg (Neg)
[2021-02-10] MEDS: MAGNESIUM SULFATE / D5W 1 GM/100 ML BAG IV SCH ×2 (13:04→15:13)
--- NOTE | 2021-02-10 13:30 | Hospitalist Progress Note ---
Date of Service February 10, 2021 Assessment & Plan (1) Abdominal pain: (2) Pancreatitis: (3) Elevated transaminase level: (4) Hyperbilirubinemia: (5) Von Willebrand disease: (6) Hepatic steatosis: (7) Pancytopenia: (8) Hypokalemia: Plan: 35-year-old female who has significant past medical history of hypothyroidism, migraine, tobacco abuse, alcohol use, history of bipolar disorder, hepatic steatosis, von Willebrand's disease who presents ED secondary to abdominal pain Recent hospitalization 12/12-01/14 secondary to abdominal pain. Diagnosed with acute pancreatitis. Underwent MRCP which was negative for choledocholithiasis and revealed pancreatitis. Also underwent upper GI positive for nonbleeding gastric ulcers and Z-line irregularity. Pathology consistent with GERD, negative for Sylvester's, dysplasia or Mitch factor pylori. Imaging consistent wi th hepatic steatosis. She was seen and evaluated by GI and general surgery. ERCP and elective cholecystectomy was declined secondary to relative pancytopenia, pending further hematology evaluation. She has not yet seen hematology as outpatient. Abdominal pain Acute pancreatitis, likely secondary to alcohol Transaminitis and hyperbilirubinemia Mostly related to alcohol abuse. Had some vodka the day before onselt of symptoms CT abd/pelvis showed interval development of diffuse mesenteric edema, mild ascites and mild soft tissue edema might represent edematous state. Gallbladder u/s showed hepatic steatosis. Normal gallbladder. No gallstones. Borderline dilated common bile duct is 7 mm AST improved to 759 from 3531 yesterday. ALT improved to 339 from 575 yesterday. ALP normal Continue IVF, antiemetic and pain control GI recommendations noted Continue clear liquid diet. May advance diet as tolerated Continue monitor liver enzymes Avoid hepatotoxic agent Follow up outstanding hepatitis viral panel Continue monitor closely Hepatic Steatosis Counseled on alcohol cessation again Hypokalemia k 3.4 on admission Potassium 3.2 today. Repleted Continue monitor BMP Von Willebrand disease Pancytopenia macrocytosis Had anemia w/u last admission which showed normal ferritin, vit b12, folic acid, decreased tibc When patient does undergo elective cholecystectomy she will require DDAVP prior to surgery Tobacco abuse Smoking cessation counseling Alcohol use Pt denies any history of DT or alcohol withdrawal Continue ativan and gabapentin alcohol withdrawal protocol Continue monitor closely for sign of withdrawal' Counseling on alcohol cessation DVT prophylaxis: SCD/teds in setting of von Willebrand disease Full code PCP: Shameka Admission and Anticipated Discharge Date Admission Date: February 08, 2021 Subjective 35-year-old woman with history of hypothyroidism, migraine, alcohol use, bipolar disorder, hepatic steatosis, von Willebrand's disease who presents to the ER complaining of shannan pain for 1 day. Being managed for acute pancreatitis Patient seen and examined this morning. Reports significant improvement in abdominal pain, now 3/10, involving lower abdomen, not referred. No nausea, vomiting No diarrhea. Review of Systems Constitutional: no fever and no chills Eyes: no problem reported Ear, Nose, Mouth, Throat: no problem reported Respiratory: no cough and no dyspnea Cardiovascular: no chest pain, no dyspnea and no dyspnea on exertion Gastrointestinal: + abdominal pain; no nausea and no vomiting Genitourinary: no dysuria, no urinary frequency and no urinary urgency Musculoskeletal: no problem reported Neurologic: no dizziness, no headache(s) and no confusion Psychiatric: no depression and no anxiety Physical Exam Constitutional: + well hydrated; no acute distress Eyes: PERRL, conjunctivae normal, anicteric sclerae ENMT: external ear and nose normal, oropharynx normal Respiratory: normal respiratory effort, lungs clear to auscultation Cardiovascular: RRR, no murmur, no edema Gastrointestinal (Abdomen): Inspection/Auscultation: abdomen normal to inspection and normal bowel sounds; abdomen not distended Percussion/Palpation: + abdomen tender (RLQ and suprapubic) and abdomen soft Musculoskeletal: no cyanosis or clubbing, extremities motor strength 5/5 Neurologic: PERRL, EOMI, accommodation nl, no face palsy, no dysarthria Psychiatric: A+Ox3, euthymic affect Results & Data Results & Data ([facility]) Vital Signs (Past 12 Hours) Vital Signs Temp Pulse Resp BP Pulse Ox 02/10/21 07:39 37 C 85 16 138/88 95 Laboratory Results Abnormal lab results 02/10/21 02/10/21 Range/Units 05:12 05:12 Potassium 3.2 L (3.5-5.1) mmol/L BUN 1 L (7-18) mg/dl Creatinine 0.35 L (0.6-1.2) mg/dl BUN/Creatinine Ratio 3.9 L (10-20) Calcium 8.0 L (8.5-10.1) mg/dl Magnesium 1.5 L (1.8-2.4) mg/dl Total Bilirubin 1.8 H (0.2-1) mg/dl AST 759 H (15-37) U/L ALT 339 H (12-78) U/L Total Protein 5.3 L (6.4-8.2) gm/dl Albumin 2.4 L (3.4-5.0) gm/dl Albumin/Globulin Ratio 0.8 L (0.9-2) Lipase 856 H (73-393) U/L
[2021-02-10 19:19] LABS: Appearance Urine Clear (Clear); Bilirubin Urine Negative (Negative); Blood Urine Negative (Negative); Color Urine Yellow; Glucose Urine UA Negative (Negative); Ketones Urine Negative (Negative); Leukocyte Esterase Urine Negative (Negative); Nitrite Urine Negative (Negative); Protein Urine Negative (Negative); Specific Gravity Urine 1.008 (1.000-1.030); Urobilinogen Urine Negative (Negative); pH Urine 8.5 (4.5-7.5)
[2021-02-10] MEDS: MELATONIN 3 MG TAB PO PRN (21:52)
[2021-02-11] MEDS: oxyCODONE HCL IR 5 MG TAB (IMMEDIATE RELEASE) PO PRN (02:40)
[2021-02-11 02:51] LABS: Hepatitis A Antibody IgM NON-REACTIVE (NON-REACTIVE); Hepatitis B Core Antibody IgM NON-REACTIVE (NON-REACTIVE)
[2021-02-11] MEDS: LACTATED RINGER'S 1,000 ML IV SCH ×2 (03:20→10:37)
[2021-02-11] MEDS: LEVOTHYROXINE SODIUM 200 MCG TABLET PO SCH (06:06)
[2021-02-11 06:15] LABS: Hematocrit (blood only) 33.7 % (37-47); Hemoglobin 11.1 g/dL (12.0-16.0); Mean Corpuscular Hemoglobin 34.7 pg (25-34); Mean Corpuscular Hgb Conc 32.9 g/dL (32-36); Mean Corpuscular Volume 105.3 fL (80-100); Mean Platelet Volume 11.3 fL (7.4-10.4); Platelet Count 167 K/uL (130-400); RDW Coefficient of Variation 17.7 % (11.5-14.5); RDW Standard Deviation 67.6 fL (36.4-46.3); White Blood Count 5.61 K/uL (4.8-10.8)
[2021-02-11 06:39] LABS: Alanine Aminotransferase 238 U/L (12-78); Albumin Level 2.7 gm/dl (3.4-5.0); Aspartate Aminotransferase 219 U/L (15-37); Blood Urea Nitrogen < 1 mg/dl (7-18); Calcium 8.1 mg/dl (8.5-10.1); Carbon Dioxide 26 mmol/L (21-32); Chloride 109 mmol/L (98-107); Est GFR (African American) > 150.0 ml/min; Est GFR (Non-African American) 131.7 ml/min; Glucose 83 mg/dl (70-99); Magnesium 1.9 mg/dl (1.8-2.4); Potassium 3.7 mmol/L (3.5-5.1); Sodium 138 mmol/L (136-145)
[2021-02-11 06:43] LABS: Albumin Globulin Ratio 0.8 (0.9-2); Alkaline Phosphatase 86 U/L (45-117); Bilirubin,Total 1.5 mg/dl (0.2-1); Globulin 3.2 gm/dl (2.5-4.0); Phosphorus 2.9 mg/dl (2.5-4.9); Total Protein 5.9 gm/dl (6.4-8.2)
[2021-02-11] MEDS: PANTOprazole 40 MG TAB PO SCH (08:05)
[2021-02-11] MEDS: THIAMINE HCL 100 MG TAB PO SCH (08:05)
[2021-02-11] MEDS: FOLIC ACID 1 MG TAB PO SCH (08:05)
[2021-02-11] MEDS: NICOTINE 21 MG/24 HR TDSY TD SCH (08:06)
[2021-02-11] MEDS ORDERED: GABAPENTIN 600 MG TAB PO SCH (12:30)
--- NOTE | 2021-02-11 13:02 | Discharge Summary ---
Date of Service February 11, 2021 Admission HPI Per Admitting Provider This is a 35-year-old female who has significant past medical history of hypothyroidism, migraine, tobacco abuse, alcohol use, history of bipolar disorder, hepatic steatosis, von Willebrand's disease who presents ED secondary to abdominal pain x1 day. She states symptoms started last evening, described as sharp, constant, made worse with movement, nothing makes it better, located in epigastrium, right upper quadrant and left upper quadrant and is associated with nausea. She denies any fevers, but admits to chills and sweats secondary to pain. She also associates dizziness with pain. She denies any syncope or presyncope symptoms, chest pain, shortness of breath, cough, URI symptoms, hemoptysis, abdominal pain, melena, hematochezia, dysuria, increased urgency or frequency with urination or hematuria. She states her stools are on the looser side and actually have been improved since her most recent hospitalization. Of significance she was hospitalized at the end of December 2020 secondary to similar symptoms with right upper quadrant pain and diagnosed with acute pancreatitis. There was concern about possibility of choledocholithiasis and MRCP was performed. Interstitial pancreatitis was a diagnosis. She did have transaminitis with elevated AST and total bilirubin at a max of 3. She also underwent upper GI which revealed an irregular Z-line, nonbleeding gastric ulcers and was prescribed PPI twice daily which she has been compliant with. She also had UTI treated with IV antibiotics E. coli as well as pancytopenia. She did not require transfusion but case was discussed with hematology Dr. Francisco. Due to pancytopenia elective cholecystectomy was postponed until evaluation by hematology. She has not yet followed up with hematology as outpatient. In ED so far she has received IV Zofran as well as 10 mg of total morphine. She continues to complain of pain 9/10. Her is at bedside who speaks for her mostly. In regards to alcohol use she last used 2 days ago and used 1-1/2 shots of vodka with Sprite. Prior to that her last alcohol use was before hospitalization. She denies any prior history of withdrawal. She continues to smoke half a pack of cigarettes a day. She does not work. She does admit to approximately 25 pound weight loss in the past 6 months. She reports symptoms of biliary colic for the past 6 months. Admission Exam Per Admitting Provider Constitutional: WD/WN, acutely ill, female, vitals as above, NAD, sitting up in bed, answers questions appropriately, frequent movement in bed Head: Normocephalic, Atraumatic Eyes: PERRL, conjunctivae normal, anicteric sclerae ENMT: external ear and nose normal, oropharynx normal Neck: trachea midline, no thyromegaly normal visual inspection Respiratory: normal respiratory effort, lungs clear to auscultation, no wheeze, rales, rhonchi. Normal insp/exp effort, no accessory muscle use Cardiovascular: RRR, no murmur, no edema Vessels: no JVD or carotid bruit Chest: normal inspection of chest Abdomen: normal bowel sounds, soft, tender to light palpation throughout, no rebound, no guarding, no rigidity Musculoskeletal: no cyanosis or clubbing, extremities motor strength 5/5 Skin: no rashes, warm and dry normal turgor Neurologic: PERRL, EOMI, accommodation nl, no face palsy, no dysarthria CN's II-XI intact bilaterally and moves all extremities Psychiatric: A+Ox3, euthymic affect Lymphatic: no cervical or axillary lymphadenopathy : deferred Principal Diagnosis Acute pancreatitis Elevated liver enzymes Alcohol use Discharge Exam Constitutional + well hydrated; no acute distress Eyes PERRL, conjunctivae normal, anicteric sclerae ENMT external ear and nose normal, oropharynx normal Respiratory normal respiratory effort, lungs clear to auscultation Cardiovascular RRR, no murmur, no edema Gastrointestinal (Abdomen) normal bowel sounds, soft, nontender, no hepatosplenomegaly Musculoskeletal no cyanosis or clubbing, extremities motor strength 5/5 Neurologic PERRL, EOMI, accommodation nl, no face palsy, no dysarthria Psychiatric A+Ox3, euthymic affect Discharge Data Allergies Allergy/AdvReac Type Severity Reaction Status Date / Time valacyclovir Allergy Severe Dyspnea Verified 02/07/21 14:17 Consultations 02/07/21 15:12 ED Decision to Admit Stat 02/07/21 15:37 Consult Gastroenterology Routine Ordered Studies 02/07/21 13:48 US gallbladder Stat 02/08/21 00:26 CT abd pelvis IV con only Urgent Hospital Course (1) Abdominal pain: (2) Pancreatitis: (3) Elevated transaminase level: (4) Hyperbilirubinemia: (5) Von Willebrand disease: (6) Hepatic steatosis: (7) Pancytopenia: (8) Hypokalemia: 35-year-old female who has significant past medical history of hypothyroidism, migraine, tobacco abuse, alcohol use, history of bipolar disorder, hepatic steatosis, von Willebrand's disease who presents ED secondary to abdominal pain Recent hospitalization 12/12-01/14 secondary to abdominal pain. Diagnosed with acute pancreatitis. Underwent MRCP which was negative for choledocholithiasis and revealed pancreatitis. Also underwent upper GI positive for nonbleeding gastric ulcers and Z-line irregularity. Pathology consistent with GERD, negative for Sylvester's, dysplasia or Mitch factor pylori. Imaging consistent with hepatic steatosis. She was seen and evaluated by GI and general surgery. ERCP and elective cholecystectomy was declined secondary to relative pancytopenia, pending further hematology evaluation. She has not yet seen hematology as outpatient. Abdominal pain Acute pancreatitis, likely secondary to alcohol Transaminitis and hyperbilirubinemia Mostly related to alcohol abuse. Had some vodka the day before onset of symptoms CT abd/pelvis showed interval development of diffuse mesenteric edema, mild ascites and mild soft tissue edema might represent edematous state. Gallbladder u/s showed hepatic steatosis. Normal gallbladder. No gallstones. Borderline dilated common bile duct is 7 mm AST improving (105-->227-->3531-->759-->219) ALT improving (42-->57-->575-->339-->238) ALP normal Was managed with IV, antiemetics and pain medication Symptoms resolved Patient counselled extensively on need for alcohol and smoking cessation Hepatic Steatosis Counseled on alcohol cessation Hypokalemia k 3.4 on admission Repleted Von Willebrand disease Pancytopenia macrocytosis Had anemia w/u last admission which showed normal ferritin, vit b12, folic acid, decreased tibc When patient does undergo elective cholecystectomy she will require DDAVP prior to surgery Tobacco abuse Smoking cessation counseling Patient advised to follow up with surgery as previously planned from previous admission for cholecystectomy. Surgery will like hematology to see patient before then. Patient advised to follow up with Hematology Has appointment with Dr Francisco on 03/08/21 Total Time Total Time Spent Total Time Spent (In Minutes): 45 Total Time Includes: Examination of the Patient, Discharge Planning and Medication Reconciliation Discharge Plan Discharge Items Patient Disposition: Home - Self-Care Reason For Visit: ABDOMINAL PAIN Discharge Diagnosis: Acute pancreatitis Elevated liver enzymes Alcohol use Activity: Resume your previous activity Non-emergency contact: Primary Care Provider and Surgeon Call non-emergency contact if: you have any medication questions and your symptoms worsen Follow-up/Referrals: Gypsy Lubin PA-C [Primary Care Provider] - (Date & Time 02/17/2021 3:00 PM Provider Finn Myles MD [facility] ) Diet: Low Fat Addtl Attending Provider Instructions: Mrs Reyes You came to the hospital for abdominal pain. You were evaluated and noted to have pancreatitis and elevated liver enzymes. Please stop taking alcohol as we discussed as you are damaging your liver and pancreas. Please ensure you follow up with Hematology and surgeon as previously planned. Please quit smoking as we discussed. Pending Studies at Discharge: No Stand-Alone Forms: My [facility] [employer], Smoking Cessation Medications and DC Order Prescriptions: Continued furosemide [Lasix] 40 mg tablet 40 mg PO BID PRN (Reason: Fluid Retention) RF: 0 levothyroxine [Synthroid] 200 mcg tablet 200 mcg PO QAM RF: 0 potassium chloride [Klor-Con M10] 10 mEq tablet,ER particles/crystals 10 meq PO BID PRN (Reason: Fluid Retention) RF: 0 ondansetron 8 mg Tablet,Disintegrating 8 mg PO Q6 PRN (Reason: Nausea) RF: 0 albuterol sulfate 90 mcg/actuation Hfa Aerosol Inhaler 1 inh INHALATION QID PRN (Reason: sob) RF: 0 dicyclomine 10 mg capsule 10 mg PO QID PRN (Reason: abd pain) RF: 0 acetaminophen [Tylenol Extra Strength] 500 mg Tablet 1,000 mg PO Q6H PRN (Reason: Pain) RF: 0 thiamine HCl (vitamin B1) [Vitamin B-1] 100 mg Tablet 100 mg PO QAM Qty: 30 RF: 0 pantoprazole 40 mg Tablet,Delayed Release (Dr/Ec) 40 mg PO BID Qty: 60 RF: 0 folic acid 1 mg Tablet 1 mg PO QAM Qty: 30 RF: 0 Discharge Orders: Discharge Order (Routine); Ordered 02/11/21 Ordered By: Nancy Pearson Admission Data Admit Date/Time: 02/08/21 15:20 Attending Provider: Nancy Pearsonit Provider: Trell Dinh Primary Care Provider: Gypsy Lubin Other Providers: Crystal Woodard ; Kashmir Mcghee ; Trell Dinh Other Interventions: Discharge Summary Assessment (RN) Last Done: 02/11/21 13:31
== END 2021-02-11 14:01 | disposition home or self-care (01) | DRG 439 ==
LOC: 3E 13:02 → ED 13:02 → 3E 17:54 → SUATTDRO 02-08 15:20

== ENCOUNTER 2021-03-26 05:28 | Inpatient (IN) ==
[2021-03-26] MEDS ORDERED: diphenhydrAMINE 50 MG/ML VIAL IV STA (05:55)
[2021-03-26] MEDS ORDERED: PROCHLORPERAZINE 1 ML IV ONE (05:55)
[2021-03-26] MEDS ORDERED: KETOROLAC TROMETHAMINE 15 MG/ML VIAL IV STA (05:57)
[2021-03-26] MEDS ORDERED: GI COCKTAIL ED USE PO ONE (05:57)
[2021-03-26] MEDS ORDERED: FAMOTIDINE 20MG IV PUSH 20 MG/5 ML SYR IV STA (05:57)
[2021-03-26] MEDS ORDERED: SODIUM CHLORIDE 0.9% 1000ML 1,000 ML IV SCH (06:00)
[2021-03-26 06:19] LABS: Basophils # (auto) 0.01 K/uL (0-0.2); Basophils % (auto) 0.2 %; Eosinophils # (auto) 0.04 K/uL (0-0.5); Eosinophils % (auto) 0.8 %; Hematocrit (blood only) 36.5 % (37-47); Hemoglobin 12.8 g/dL (12.0-16.0); Immature Granulocytes # (auto) 0.01 K/uL (0.00-0.02); Immature Granulocytes % (auto) 0.2 %; Lymphocytes # (auto) 0.67 K/uL (1.2-3.4); Lymphocytes % (auto) 12.7 %; Mean Corpuscular Hemoglobin 33.3 pg (25-34); Mean Corpuscular Hgb Conc 35.1 g/dL (32-36); Mean Corpuscular Volume 95.1 fL (80-100); Mean Platelet Volume 10.4 fL (7.4-10.4); Monocytes # (auto) 0.35 K/uL (0.11-0.59); Monocytes % (auto) 6.6 %; Neutrophils % (auto) 79.5 %; Platelet Count 135 K/uL (130-400); RDW Coefficient of Variation 17.9 % (11.5-14.5); Red Blood Count 3.84 M/uL (4.2-5.4); White Blood Count 5.28 K/uL (4.8-10.8)
[2021-03-26 06:45] LABS: Albumin Level 3.2 gm/dl (3.4-5.0); BUN Creatinine Ratio 8.8 (10-20); Calcium 8.6 mg/dl (8.5-10.1); Creatinine Clr Calc Pharmacy 105.8 ml/min; Est GFR (African American) 136.4 ml/min; Est GFR (Non-African American) 117.6 ml/min; Magnesium 1.4 mg/dl (1.8-2.4); Potassium 2.9 mmol/L (3.5-5.1)
[2021-03-26 06:50] LABS: Albumin Globulin Ratio 0.9 (0.9-2); Bilirubin,Total 0.8 mg/dl (0.2-1); Globulin 3.4 gm/dl (2.5-4.0); Total Protein 6.6 gm/dl (6.4-8.2)
[2021-03-26] MEDS ORDERED: MAGNESIUM SULFATE / D5W 1 GM/100 ML BAG IV STA (07:01)
[2021-03-26] MEDS ORDERED: POTASSIUM CHLORIDE / WTR 10 MEQ/100 ML PLCT IV ONE (07:02)
--- NOTE | 2021-03-26 08:40 | CT Scan Report ---
ABDOMEN AND PELVIS CT WITHOUT CONTRAST CT DOSE: 267.70 mGy.cm HISTORY: upper abdominal pain, elevated lipase, n/v TECHNIQUE: Multiaxial CT images of the abdomen and pelvis were performed without contrast. A dose lo wering technique was utilized adhering to the principles of ALARA. COMPARISON STUDY: Abdomen ultrasound 03/15/2021. Abdomen and pelvis CT 02/08/2021. FINDINGS: The lung bases are clear. No pneumoperitoneum. No pneumatosis. No fractures within the visu alized osseous structures. Severe hepatic steatosis is again noted. The spleen, gallbladder, adrenal glands, and kidneys are unremarkable. No hydronephrosis. No retroperitoneal lymphadenopathy. Peripanc reatic edema/inflammatory change consistent with acute pancreatitis. No loculated peripancreatic flui d collections identified. An intrauterine device appears in good position. Trace pelvic free fluid. T he bladder is unremarkable. No bowel wall thickening or obstruction. Normal appendix. IMPRESSION: 1. Peripancreatic edema/inflammatory change consistent with acute pancreatitis. 2. Severe hepatic steatosis. 3. Trace pelvic fluid. 4. Additional findings as described above. ACT 112: Negative or not required by law. Electronically signed by: Ed Lott M.D. 03/26/2021 8:39 AM
--- NOTE | 2021-03-26 09:27 | Emergency Department Note ---
History of Present Illness General Chief complaint: Vomiting Stated complaint: vomiting/hot/cold/tremmers/abd pain Time Seen by Provider: 03/26/21 05:41 History of Present Illness Maximum Pain Intensity: 10 This is a 35-year-old female presenting to the emergency department for evaluation of nausea, vomiting, and upper abdominal pain worsening over the past 1 day. The patient has had some shakiness as well as hot and cold flashes. She has not had distinct fever or chills. The patient states that the emesis is primarily water and yellow. She has not been able to take anything for pain due to her symptoms. She does have a fairly involved past medical history including alcohol abuse, upper GI bleed, tubo-ovarian abscess, pancreatitis, and upper GI bleed. She is on Suboxone. The patient is not vaccinated against COVID-19, and does not believe that she has ever had the virus. Her discomfort is rated a 10/10, dull, nonradiating. Home Medications Medication Instructions Recorded Confirmed Type levothyroxine 200 mcg tablet 200 mcg PO DAILYBB 07/18/19 03/26/21 History (Synthroid) ondansetron 8 mg disintegrating 8 mg PO Q6 PRN 09/27/19 03/26/21 History tablet albuterol sulfate 90 mcg/actuation 1 inh INHALATION DIRECTED PRN 12/28/20 03/26/21 History aerosol inhaler (Ventolin HFA) acetaminophen 500 mg tablet 1,000 mg PO Q6H PRN 01/08/21 03/26/21 History (Tylenol Extra Strength) dicyclomine 10 mg capsule 10 mg PO QID PRN 01/08/21 03/26/21 History folic acid 1 mg tablet 1 mg PO QAM #30 tab 01/14/21 03/26/21 Rx pantoprazole 40 mg tablet,delayed 40 mg PO BID 03/26/21 03/26/21 History release (Protonix) Allergies Allergy/AdvReac Type Severity Reaction Status Date / Time valacyclovir Allergy Severe Dyspnea Verified 03/26/21 08:28 Past Med/Surg History Medical History Abscess of pelvis Alcohol abuse Elevated AST (SGOT) Elevated d-dimer Hepatic steatosis History of pancreatitis Hypothyroidism IBS (irritable bowel syndrome) Migraines Pancreatitis Pancytopenia Seasonal asthma Sepsis Tobacco use Upper gastrointestinal bleed Von Willebrand disease "Mild" Class 1 per [facility] records, under surveillance [facility] hematology, surgeon aware Surgical History History of colonoscopy History of esophagogastroduodenoscopy (EGD) History of loop electrical excision procedure (LEEP) History of wisdom tooth extraction Family History Mother Von Willebrand disease Other No family history of adverse response to anesthesia Social History Smoking Status: Never smoker Tobacco Type: Cigarettes Cigarettes Per Day: 10; Second Hand Exposure: No; Hx Alcohol Use: Yes Alcohol type: beer and hard liquor Hx Substance Use: No Preferred Language: Yi Communication Ability: Effective Geological Drafter Required: No Beliefs That Will Affect Care: None marital status: Current Living Situation: Spouse and Family Feels Safe at Home: Yes Review of Systems A total of 10 systems reviewed and were otherwise negative Physical Exam Vital Signs Vital Signs - 24 hr 03/26/21 05:32 03/26/21 07:29 Temperature 36.6 C Temperature Source Temporal Artery Scan Pulse Rate 111 H Pulse Rate [Apical] 88 Respiratory Rate 16 18 Blood Pressure 138/84 Blood Pressure [Left Arm] 119/80 Blood Pressure Mean 102 Blood Pressure Mean [Left Arm] 93 Blood Pressure Position Sitting Pulse Oximetry 96 97 Oxygen Delivery Method Room Air Room Air Sepsis Recent Fever Within 48 Hours No Sepsis New/Unexplained Change in Mental Status N/A Sepsis Action Taken by Nursing No Action Required VITALS: Vitals are noted on the nurse's note and reviewed by myself. Vital signs stable. GENERAL: Well-developed, well-nourished, white female, who is moderately uncomfortable appearing on exam. She is overall pleasant and cooperative. HEAD: Normocephalic atraumatic. MOUTH: Mucous membranes moist. Tonsils are not enlarged. Pharynx without erythema, blood, or exudate. Uvula midline. Airway patent. NECK: Supple without nuchal rigidity. No lymphadenopathy. No thyromegaly. Cervical spine is nontender. HEART: Regular rate and rhythm without murmurs gallops or rubs. LUNGS: Clear to auscultation bilaterally without wheezes, rales or rhonchi. No retractions or accessory muscle use. ABDOMEN: Positive normal bowel sounds x 4. Soft with epigastric and right upper quadrant tenderness. No rebound or guarding. No lower abdominal tenderness. MUSCULOSKELETAL: No muscle atrophy, erythema, or edema noted. Full range of motion in all extremities. Course Administered Medications Discontinued Medications Al Hydrox/Mg Hydrox/Simethicone (Gi Cocktail Ed Use) 1 dose PO ONE ONE Stop: 03/26/21 05:58 Last Admin: 03/26/21 06:17 Dose: 1 dose Documented by: [id number] Diphenhydramine HCl (Diphenhydramine 50 Mg/Ml Vial) 50 mg IV NOW STA Stop: 03/26/21 05:56 Last Admin: 03/26/21 06:17 Dose: 50 mg Documented by: [id number] Sodium Chloride (Nss 1000ml) 1,000 mls @ 999 mls/hr IV .Q1H1M MIKHAIL Stop: 03/26/21 07:00 Last Infusion: 03/26/21 07:21 Dose: 0 mls/hr Documented by: [id number] Admin: 03/26/21 06:19 Dose: 999 mls/hr Documented by: [id number] Prochlorperazine (Compazine) 1 mls @ 1 mls/min IV ONE ONE Stop: 03/26/21 05:56 Last Admin: 03/26/21 06:17 Dose: 1 mls/min Documented by: [id number] Famotidine (Pepcid 20mg Iv Push) 20 mg in 5 mls @ 2.5 mls/min IV NOW STA Stop: 03/26/21 05:58 Last Admin: 03/26/21 06:17 Dose: 2.5 mls/min Documented by: [id number] Magnesium Sulfate/Dextrose (Magnesium Sulfate / D5w) 1 gm in 100 mls @ 100 mls/hr IV NOW STA Stop: 03/26/21 08:00 Last Infusion: 03/26/21 08:25 Dose: 0 mls/hr Documented by: [id number] Admin: 03/26/21 07:24 Dose: 100 mls/hr Documented by: [id number] Potassium Chloride (K Les / Wtr) 10 meq in 100 mls @ 100 mls/hr IV ONE ONE Stop: 03/26/21 08:01 Last Infusion: 03/26/21 08:25 Dose: 0 mls/hr Documented by: [id number] Admin: 03/26/21 07:24 Dose: 100 mls/hr Documented by: [id number] Ketorolac Tromethamine (Ketorolac Tromethamine 15 Mg/Ml Vial) 15 mg IV NOW STA Stop: 03/26/21 05:58 Last Admin: 03/26/21 06:17 Dose: 15 mg Documented by: [id number] Medical Decision Making Differential Diagnosis Differential diagnosis: Etiologies such as biliary colic, cholecystitis, hepatitis, pancreatitis, cardiac disease, pancreatitis, gastritis, peptic ulcer disease, appendicitis, cystitis, diverticulitis, mesenteric ischemia, inflammatory bowel disease, ileus, bowel obstruction, testicular/adnexal torsion, aortic pathology, shingles, as well as others were considered Laboratory Data Result diagrams: 03/26/21 06:05 03/26/21 06:05 Lab Results 03/26/21 03/26/21 03/26/21 Range/Units 06:05 06:05 06:05 WBC 5.28 (4.8-10.8) K/uL RBC 3.84 L (4.2-5.4) M/uL Hgb 12.8 (12.0-16.0) g/dL Hct 36.5 L (37-47) % MCV 95.1 (80-100) fL MCH 33.3 (25-34) pg MCHC 35.1 (32-36) g/dL RDW Std Deviation 62.0 H (36.4-46.3) fL RDW Coeff of Praful 17.9 H (11.5-14.5) % Plt Count 135 (130-400) K/uL MPV 10.4 (7.4-10.4) fL Immature Gran % (Auto) 0.2 % Neut % (Auto) 79.5 % Lymph % (Auto) 12.7 % Person % (Auto) 6.6 % Eos % (Auto) 0.8 % Baso % (Auto) 0.2 % Neut # (Auto) 4.20 (1.4-6.5) K/uL Lymph # (Auto) 0.67 L (1.2-3.4) K/uL Person # (Auto) 0.35 (0.11-0.59) K/uL Eos # (Auto) 0.04 (0-0.5) K/uL Baso # (Auto) 0.01 (0-0.2) K/uL Immature Gran # (Auto) 0.01 (0.00-0.02) K/uL Sodium 140 (136-145) mmol/L Potassium 2.9 L (3.5-5.1) mmol/L Chloride 108 H (98-107) mmol/L Carbon Dioxide 24 (21-32) mmol/L Anion Gap 8.0 (3-11) BUN 6 L (7-18) mg/dl Creatinine 0.62 (0.6-1.2) mg/dl Est Cr Clr Drug Dosing 105.8 ml/min Est GFR ( Amer) 136.4 ml/min Est GFR (Non-Af Amer) 117.6 ml/min BUN/Creatinine Ratio 8.8 L (10-20) Glucose 104 H (70-99) mg/dl Lactate (0.4-2.0) mmol/L Calcium 8.6 (8.5-10.1) mg/dl Magnesium 1.4 L (1.8-2.4) mg/dl Total Bilirubin 0.8 (0.2-1) mg/dl AST 76 H (15-37) U/L ALT 26 (12-78) U/L Alkaline Phosphatase 100 (45-117) U/L Total Protein 6.6 (6.4-8.2) gm/dl Albumin 3.2 L (3.4-5.0) gm/dl Globulin 3.4 (2.5-4.0) gm/dl Albumin/Globulin Ratio 0.9 (0.9-2) Amylase 138 H (25-115) U/L Lipase 1480 H (73-393) U/L Ethyl Alcohol mg/dL < 3.0 (0-3) mg/dl COVID-19 Eval Order SARS-CoV-2 (PCR) (Negative) 03/26/21 03/26/21 03/26/21 Range/Units 06:06 07:37 07:37 WBC (4.8-10.8) K/uL RBC (4.2-5.4) M/uL Hgb (12.0-16.0) g/dL Hct (37-47) % MCV (80-100) fL MCH (25-34) pg MCHC (32-36) g/dL RDW Std Deviation (36.4-46.3) fL RDW Coeff of Praful (11.5-14.5) % Plt Count (130-400) K/uL MPV (7.4-10.4) fL Immature Gran % (Auto) % Neut % (Auto) % Lymph % (Auto) % Person % (Auto) % Eos % (Auto) % Baso % (Auto) % Neut # (Auto) (1.4-6.5) K/uL Lymph # (Auto) (1.2-3.4) K/uL Person # (Auto) (0.11-0.59) K/uL Eos # (Auto) (0-0.5) K/uL Baso # (Auto) (0-0.2) K/uL Immature Gran # (Auto) (0.00-0.02) K/uL Sodium (136-145) mmol/L Potassium (3.5-5.1) mmol/L Chloride (98-107) mmol/L Carbon Dioxide (21-32) mmol/L Anion Gap (3-11) BUN (7-18) mg/dl Creatinine (0.6-1.2) mg/dl Est Cr Clr Drug Dosing ml/min Est GFR ( Amer) ml/min Est GFR (Non-Af Amer) ml/min BUN/Creatinine Ratio (10-20) Glucose (70-99) mg/dl Lactate 1.5 (0.4-2.0) mmol/L Calcium (8.5-10.1) mg/dl Magnesium (1.8-2.4) mg/dl Total Bilirubin (0.2-1) mg/dl AST (15-37) U/L ALT (12-78) U/L Alkaline Phosphatase (45-117) U/L Total Protein (6.4-8.2) gm/dl Albumin (3.4-5.0) gm/dl Globulin (2.5-4.0) gm/dl Albumin/Globulin Ratio (0.9-2) Amylase (25-115) U/L Lipase (73-393) U/L Ethyl Alcohol mg/dL (0-3) mg/dl COVID-19 Eval Order Covid19 at [facility] SARS-CoV-2 (PCR) NEGATIVE (Negative) Imaging Data Radiologist's Impression: Abdomen/Pelvis CT 03/26/21 07:[address] WITHOUT CONTRAST CT DOSE: 267.70 mGy.cm HISTORY: upper abdominal pain, elevated lipase, n/v TECHNIQUE: Multiaxial CT images of the abdomen and pelvis were performed without contrast. A dose lowering technique was utilized adhering to the principles of ALARA. COMPARISON STUDY: Abdomen ultrasound 03/15/2021. Abdomen and pelvis CT 02/08/2021. FINDINGS: The lung bases are clear. No pneumoperitoneum. No pneumatosis. No fractures within the visualized osseous structures. Severe hepatic steatosis is again noted. The spleen, gallbladder, adrenal glands, and kidneys are unremarkable. No hydronephrosis. No retroperitoneal lymphadenopathy. Peripancreatic edema/inflammatory change consistent with acute pancreatitis. No loculated peripancreatic fluid collections identified. An intrauterine device appears in good position. Trace pelvic free fluid. The bladder is unremarkable. No bowel wall thickening or obstruction. Normal appendix. IMPRESSION: 1. Peripancreatic edema/inflammatory change consistent with acute pancreatitis. 2. Severe hepatic steatosis. 3. Trace pelvic fluid. 4. Additional findings as described above. ACT 112: Negative or not required by law. Electronically signed by: Ed Lott M.D. 03/26/2021 8:39 AM MDM Narrative Physical exam and history were performed. Nursing notes, EMR, and Medication List were personally reviewed. Patient appears to have nausea, vomiting, and upper abdominal pain bringing her to the emergency department. IV access was established and labs were obtained. The patient was hydrated with normal saline. She was given IV Toradol, IV Benadryl, IV Compazine, IV Pepcid, and a GI cocktail. The patient's blood work is as above and was reviewed. She does not have a significantly elevated white blood cell count or gross anemia. Amylase is slightly elevated at 138, and lipase is distinctly elevated at 1480, which certainly would correlate with her symptoms. Transaminases are not significantly elevated. Magnesium is low at 1.4. Potassium is low at 2.9. Each of these was repleted through her IV because of her emesis symptoms. CT scan of the abdomen was performed and reviewed by myself and radiology and does confirm her pancreatitis. Overall the patient does not appear well for discharge home. She does have pancreatitis as well as electrolyte imbalance from her nausea and vomiting. The case was discussed with the on-call hospitalist team who agreed to evaluate the patient here in the ER. Please see their dictations for further patient course, plan, disposition. The chart was completed utilizing Rep Speech Voice Recognition Software. Grammatical errors, random word insertions, pronoun errors, and incomplete sentences are an occasional consequence of this system due to software limitations, ambient noise, and hardware issues. Any formal questions or concerns about the content, text, or information contained within the body of this dictation should be directly addressed to the provider for clarification. . Impression & Plan Acute pancreatitis, Acute upper abdominal pain, Nausea and vomiting, Hypokalemia, Hypomagnesemia Discharge Plan Visit Data Chief Complaint: Vomiting Stated Complaint: vomiting/hot/cold/tremmers/abd pain ED Provider: Connie Fuentes ED Midlevel Provider: Jv Persaud Discharge Problem: Acute pancreatitis, Acute upper abdominal pain, Nausea and vomiting, Hypokalemia, Hypomagnesemia Patient Disposition: Admitted As Inpatient Forms Stand Alone Forms: [facility], Virtual Emergency Department, Important Visit Information Prescriptions Prescriptions: No Action levothyroxine [Synthroid] 200 mcg tablet 200 mcg PO DAILYBB RF: 0 ondansetron 8 mg Tablet,Disintegrating 8 mg PO Q6 PRN (Reason: Nausea) RF: 0 albuterol sulfate [Ventolin HFA] 90 mcg/actuation Hfa Aerosol Inhaler 1 inh INHALATION DIRECTED PRN (Reason: Shortness Of Breath) RF: 0 dicyclomine 10 mg capsule 10 mg PO QID PRN (Reason: abd pain) RF: 0 acetaminophen [Tylenol Extra Strength] 500 mg Tablet 1,000 mg PO Q6H PRN (Reason: Pain) RF: 0 folic acid 1 mg Tablet 1 mg PO QAM Qty: 30 RF: 0 pantoprazole [Protonix] 40 mg tablet,delayed release (DR/EC) 40 mg PO BID RF: 0 Referrals Referrals: Gypsy Lubin PA-C [Primary Care Provider] -
[2021-03-26] MEDS ORDERED: POTASSIUM CHLORIDE CRTAB 20 MEQ TABCR PO STA (09:53)
[2021-03-26] MEDS ORDERED: POTASSIUM CHLORIDE / WTR 10 MEQ/100 ML PLCT IV STA (09:53)
[2021-03-26] MEDS ORDERED: MAGNESIUM SULFATE / D5W 1 GM/100 ML BAG IV ONE (09:53)
[2021-03-26] MEDS: traMADol HCL 50 MG TABLET PO PRN ×2 (10:54→19:24)
--- NOTE | 2021-03-26 11:09 | Gastrointestinal Consultation ---
Date of Consultation March 26, 2021 Assessment & Plan (1) Acute pancreatitis: 35 year old female w/ history of hypothyroidism, migraine, tobacco abuse, alcohol use, history of bipolar disorder, hepatic steatosis, von Willebrand's disease admitted, pancreatitis w/ upper abd pain, nausea/vomiting admitted w/ pancreatitis denies ETOH use x [address] w/ pancreatitis Consider repeat ABD US to rule out stones/sludge Consider ETOH level and Utox LR 200 mL/hr Antiemetics PRN Analgesia PRN Continue Pantoprazole 40 mg twice daily Recall GI over the weekend PRN, [facility] covering over the weekend. Supervising Physician Co-Signing Physician Notes I performed a history and physical examination of the patient today, including specifically on physical exam - soft abdomen. I have discussed the patient's management with the advanced practitioner. Please refer to the nurse practitioner's note for the documented findings and plan of care. Mild acute pancreatitis. Recommend: IV Hydration and pain control. EUS as OP. Diet as tolerated. Recall GI if needed, History of Present Illness Reason for Consultation: abd pain Requesting Physician: Jahaira Attending Physician: Mehul Campo MD History of Present Illness 35 year old female with history of hypothyroidism, migraine, tobacco abuse, alcohol use, history of bipolar disorder, hepatic steatosis, von Willebrand's disease admitted, pancreatitis w/ upper abd pain, nausea/vomiting admitted w/ pancreatitis. Pt was seen and evaluated, chart reviewed. Notes onset of pain yesterday. Worse than previous episodes of pain. Epigastric in location w/ radiation to her back. Associated w/ nausea/vomiting. No black or bloody emesis. No change in bowel habits. Was started on liquid Carafate recently Denies ETOH x 1 month Persistently elevated AST on labs CTAP 2020: Peripancreatic edema/inflammatory change consistent with acute pancreatitis. 2. Severe hepatic steatosis. 3. Trace pelvic fluid. Allergies Allergy/AdvReac Type Severity Reaction Status Date / Time valacyclovir Allergy Severe Dyspnea Verified 03/26/21 08:28 Home Medications Medication Instructions Recorded Confirmed Type levothyroxine 200 mcg tablet 200 mcg PO DAILYBB 07/18/19 03/26/21 History (Synthroid) ondansetron 8 mg disintegrating 8 mg PO Q8H PRN 09/27/19 03/26/21 History tablet albuterol sulfate 90 mcg/actuation 1 inh INHALATION DIRECTED PRN 12/28/20 03/26/21 History aerosol inhaler (Ventolin HFA) acetaminophen 500 mg tablet 1,000 mg PO Q6H PRN 01/08/21 03/26/21 History (Tylenol Extra Strength) dicyclomine 10 mg capsule 10 mg PO QID PRN 01/08/21 03/26/21 History folic acid 1 mg tablet 1 mg PO QAM #30 tab 01/14/21 03/26/21 Rx pantoprazole 40 mg tablet,delayed 40 mg PO BID 03/26/21 03/26/21 History release (Protonix) sucralfate 100 mg/mL oral 10 ml PO QID 03/26/21 03/26/21 History suspension thiamine HCl (vitamin B1) 100 mg 100 mg PO DAILY 03/26/21 03/26/21 History tablet Patient History Medical History (Updated 03/26/21 @ 12:25 by Mikala Grubbs PA-C) Alcohol abuse Elevated AST (SGOT) Hepatic steatosis History of pancreatitis Hypothyroidism IBS (irritable bowel syndrome) Migraines Pancreatitis Peptic ulcer Seasonal asthma Tobacco use Upper gastrointestinal bleed Von Willebrand disease "Mild" Class 1 per [facility] records, under surveillance [facility] hematology, surgeon aware Surgical History History of colonoscopy History of esophagogastroduodenoscopy (EGD) History of loop electrical excision procedure (LEEP) History of wisdom tooth extraction Family History Mother Von Willebrand disease Other No family history of adverse response to anesthesia Social History (Updated 03/26/21 @ 12:25 by Mikala Grubbs PA-C) Smoking Status: Current every day smoker Tobacco Type: Cigarettes Cigarettes Per Day: 10; Second Hand Exposure: No; Do You Dip or Chew Tobacco: No; Tobacco Cessation Education Requested by Patient: No Hx Alcohol Use: No Hx Substance Use: No Preferred Language: Maori Communication Ability: Effective Instrument Mechanic Required: No Beliefs That Will Affect Care: None marital status: Current Living Situation: Spouse and Family Other Information That Helps Us Care for You: No Feels Safe at Home: Yes Safety Concerns: Feels Safe At This Time Assistive Devices: None Review of Systems Review of Systems: All systems reviewed & are unremarkable except as noted in HPI & below Physical Exam Constitutional: WD/WN, vitals as above Neck: trachea midline, no thyromegaly Respiratory: normal respiratory effort, lungs clear to auscultation Cardiovascular: Rate/Rhythm: regular rate and regular rhythm Gastrointestinal (Abdomen): normal bowel sounds, soft, nontender, no hepatosplenomegaly Skin: no rashes, warm and dry Results & Data ([facility]) Vital Signs (Past 12 Hours) Vital Signs Temp Pulse Pulse Resp BP BP Pulse Ox 03/26/21 11:00 77 18 134/67 97 03/26/21 09:00 75 18 149/79 H 97 03/26/21 07:29 88 18 119/80 97 03/26/21 05:32 36.6 C 111 H 16 138/84 96 Laboratory Results 03/26/21 03/26/21 03/26/21 Range/Units 07:37 07:37 06:06 WBC (4.8-10.8) K/uL RBC (4.2-5.4) M/uL Hgb (12.0-16.0) g/dL Hct (37-47) % MCV (80-100) fL MCH (25-34) pg MCHC (32-36) g/dL RDW Std Deviation (36.4-46.3) fL RDW Coeff of Praful (11.5-14.5) % Plt Count (130-400) K/uL MPV (7.4-10.4) fL Immature Gran % (Auto) % Neut % (Auto) % Lymph % (Auto) % [place] % (Auto) % Eos % (Auto) % Baso % (Auto) % Neut # (Auto) (1.4-6.5) K/uL Lymph # (Auto) (1.2-3.4) K/uL [place] # (Auto) (0.11-0.59) K/uL Eos # (Auto) (0-0.5) K/uL Baso # (Auto) (0-0.2) K/uL Immature Gran # (Auto) (0.00-0.02) K/uL Sodium (136-145) mmol/L Potassium (3.5-5.1) mmol/L Chloride (98-107) mmol/L Carbon Dioxide (21-32) mmol/L Anion Gap (3-11) BUN (7-18) mg/dl Creatinine (0.6-1.2) mg/dl Est Cr Clr Drug Dosing ml/min Est GFR ( Amer) ml/min Est GFR (Non-Af Amer) ml/min BUN/Creatinine Ratio (10-20) Glucose (70-99) mg/dl Lactate 1.5 (0.4-2.0) mmol/L Calcium (8.5-10.1) mg/dl Magnesium (1.8-2.4) mg/dl Total Bilirubin (0.2-1) mg/dl AST (15-37) U/L ALT (12-78) U/L Alkaline Phosphatase (45-117) U/L Total Protein (6.4-8.2) gm/dl Albumin (3.4-5.0) gm/dl Globulin (2.5-4.0) gm/dl Albumin/Globulin Ratio (0.9-2) Amylase (25-115) U/L Lipase (73-393) U/L Ethyl Alcohol mg/dL (0-3) mg/dl COVID-19 Eval Order Covid19 at [facility] SARS-CoV-2 (PCR) NEGATIVE (Negative) 03/26/21 03/26/21 03/26/21 Range/Units 06:05 06:05 06:05 WBC 5.28 (4.8-10.8) K/uL RBC 3.84 L (4.2-5.4) M/uL Hgb 12.8 (12.0-16.0) g/dL Hct 36.5 L (37-47) % MCV 95.1 (80-100) fL MCH 33.3 (25-34) pg MCHC 35.1 (32-36) g/dL RDW Std Deviation 62.0 H (36.4-46.3) fL RDW Coeff of Praful 17.9 H (11.5-14.5) % Plt Count 135 (130-400) K/uL MPV 10.4 (7.4-10.4) fL Immature Gran % (Auto) 0.2 % Neut % (Auto) 79.5 % Lymph % (Auto) 12.7 % [place] % (Auto) 6.6 % Eos % (Auto) 0.8 % Baso % (Auto) 0.2 % Neut # (Auto) 4.20 (1.4-6.5) K/uL Lymph # (Auto) 0.67 L (1.2-3.4) K/uL [place] # (Auto) 0.35 (0.11-0.59) K/uL Eos # (Auto) 0.04 (0-0.5) K/uL Baso # (Auto) 0.01 (0-0.2) K/uL Immature Gran # (Auto) 0.01 (0.00-0.02) K/uL Sodium 140 (136-145) mmol/L Potassium 2.9 L (3.5-5.1) mmol/L Chloride 108 H (98-107) mmol/L Carbon Dioxide 24 (21-32) mmol/L Anion Gap 8.0 (3-11) BUN 6 L (7-18) mg/dl Creatinine 0.62 (0.6-1.2) mg/dl Est Cr Clr Drug Dosing 105.8 ml/min Est GFR ( Amer) 136.4 ml/min Est GFR (Non-Af Amer) 117.6 ml/min BUN/Creatinine Ratio 8.8 L (10-20) Glucose 104 H (70-99) mg/dl Lactate (0.4-2.0) mmol/L Calcium 8.6 (8.5-10.1) mg/dl Magnesium 1.4 L (1.8-2.4) mg/dl Total Bilirubin 0.8 (0.2-1) mg/dl AST 76 H (15-37) U/L ALT 26 (12-78) U/L Alkaline Phosphatase 100 (45-117) U/L Total Protein 6.6 (6.4-8.2) gm/dl Albumin 3.2 L (3.4-5.0) gm/dl Globulin 3.4 (2.5-4.0) gm/dl Albumin/Globulin Ratio 0.9 (0.9-2) Amylase 138 H (25-115) U/L Lipase 1480 H (73-393) U/L Ethyl Alcohol mg/dL < 3.0 (0-3) mg/dl COVID-19 Eval Order SARS-CoV-2 (PCR) (Negative)
[2021-03-26] MEDS: POTASSIUM CHLORIDE / WTR 10 MEQ/100 ML PLCT IV SCH ×3 (11:15→15:40)
--- NOTE | 2021-03-26 11:38 | History & Physical Report ---
Date of Service March 26, 2021 Assessment & Plan (1) Acute pancreatitis: (2) Hypothyroidism: (3) Von Willebrand disease: Plan: Recurrent pancreatitis of unclear etiology at present - pt reports no EtOH x 1 month. - Consult GI for additional recommendations on work-up - Pain control - IV fluids - LR at 200 ml/hr - Replete potassium and magnesium - recheck labs this PM - Continue BID PPI - Home meds as appropriate Pt seen and reviewed with attending physician, Dr. Campo. Plan of care discussed and as outlined above. Code Status: Full code DVT Prophylaxis: SCDs. Paul Grubbs PA-C Admission and Anticipated Discharge Date Admission Date: March 26, 2021 History of Present Illness Chief Complaint: Abdominal Pain and Vomiting Primary Care Provider: Gypsy Lubin PA-C This is a 35 y/o female with a PMH of hypothyroidism, migraine, tobacco abuse, alcohol use, history of bipolar disorder, hepatic steatosis, von Willebrand's disease who presents ED secondary acute worsening on ongoing abdominal pain with associated chills, sweats, nausea and vomiting. Admitted 01/08-01/14 secondary to abdominal pain. Diagnosed with acute pancreatitis. Underwent MRCP which was negative for choledocholithiasis and revealed pancreatitis. EGD showed nonbleeding gastric ulcers and Z-line irregularity. Pathology consistent with GERD, negative for Sylvester's, dysplasia or H. pylori. Imaging consistent with hepatic steatosis. Seen and evaluated by GI and general surgery. ERCP and elective cholecystectomy was declined secondary to relative pancytopenia, pending further hematology evaluation. She has not yet seen hematology as outpatient. This is scheduled for later this month. Readmitted 02/08-02/11 due to recurrent abdominal thought secondary to recurrent acute pancreatitis, likely caused by EtOH. Managed with IV pain meds, fluids, and anti-emetics with improvement. Since discharge, she reports ongoing intermittent abdominal pain, mostly in the epigastric and LUQ area. Overall, it has been tolerable. However, last night at 2 am, she was awoken from sleep with severe epigastric and LUQ pain that radiated through to her back along with chills and sweats. She did not check her temperature so she is unsure if she had a fever. She describes the abdominal pain as squeezing and stabbing but the pain in her back is a burning sensation. She has constant nausea but this morning developed vomiting of yellow liquid with black flecks. No hematemesis. Last emesis was just before arrival in the ED. Decreased appetite with a reported 28 lb wt loss over the past 6 months. Allergies Allergy/AdvReac Type Severity Reaction Status Date / Time valacyclovir Allergy Severe Dyspnea Verified 03/26/21 08:28 Home Medications Medication Instructions Recorded Confirmed Type levothyroxine 200 mcg tablet 200 mcg PO DAILYBB 07/18/19 03/26/21 History (Synthroid) ondansetron 8 mg disintegrating 8 mg PO Q8H PRN 09/27/19 03/26/21 History tablet albuterol sulfate 90 mcg/actuation 1 inh INHALATION DIRECTED PRN 12/28/20 03/26/21 History aerosol inhaler (Ventolin HFA) acetaminophen 500 mg tablet 1,000 mg PO Q6H PRN 01/08/21 03/26/21 History (Tylenol Extra Strength) dicyclomine 10 mg capsule 10 mg PO QID PRN 01/08/21 03/26/21 History folic acid 1 mg tablet 1 mg PO QAM #30 tab 01/14/21 03/26/21 Rx pantoprazole 40 mg tablet,delayed 40 mg PO BID 03/26/21 03/26/21 History release (Protonix) sucralfate 100 mg/mL oral 10 ml PO QID 03/26/21 03/26/21 History suspension thiamine HCl (vitamin B1) 100 mg 100 mg PO DAILY 03/26/21 03/26/21 History tablet Past Med/Surg History Medical History (Updated 03/26/21 @ 12:25 by Mikala Grubbs PA-C) Alcohol abuse Elevated AST (SGOT) Hepatic steatosis History of pancreatitis Hypothyroidism IBS (irritable bowel syndrome) Migraines Pancreatitis Peptic ulcer Seasonal asthma Tobacco use Upper gastrointestinal bleed Von Willebrand disease "Mild" Class [address] [facility] records, under surveillance [facility] hematology, surgeon aware Surgical History History of colonoscopy History of esophagogastroduodenoscopy (EGD) History of loop electrical excision procedure (LEEP) History of wisdom tooth extraction Family History Mother Von Willebrand disease Other No family history of adverse response to anesthesia Social History (Updated 03/26/21 @ 12:25 by Mikala Grubbs PA-C) Smoking Status: Current every day smoker Tobacco Type: Cigarettes Cigarettes Per Day: 10; Second Hand Exposure: No; Do You Dip or Chew Tobacco: No; Tobacco Cessation Education Requested by Patient: No Hx Alcohol Use: No Hx Substance Use: No Preferred Language: Kyrgyz Communication Ability: Effective 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: No Beliefs That Will Affect Care: None marital status: Current Living Situation: Spouse and Family Other Information That Helps Us Care for You: No Feels Safe at Home: Yes Safety Concerns: Feels Safe At This Time Assistive Devices: None Review of Systems Review of Systems: All systems reviewed & are unremarkable except as noted in HPI & below Constitutional: + chills, + sweats, + fatigue, + anorexia and + weight loss; no fever Eyes: no diplopia and no worsening vision Ear, Nose, Mouth, Throat: no nasal congestion, no nasal discharge, no sore throat and no dysphagia Respiratory: no cough, no dyspnea, no hemoptysis and no wheezing Cardiovascular: + lightheadedness (yesterday x few hrs); no chest pain, no palpitations, no syncope and no edema Gastrointestinal: as per Subjective / HPI Genitourinary: no dysuria, no difficulty urinating, no urinary urgency and no hematuria Musculoskeletal: no neck pain, no joint pain and no muscle weakness Integumentary: no rash and no yellowing of the skin Neurologic: + headache(s) (at times); no gait abnormality, no paresthesia, no tremor(s), no seizure-like activity and no syncope Physical Exam Constitutional: well developed and well nourished; no acute distress Eyes: + anicteric sclerae Neck: trachea midline Respiratory: no respiratory distress and does not use accessory muscles Auscultation: lungs clear to auscultation bilaterally; no rales, no rhonchi and no wheezes Cardiovascular: Rate/Rhythm: regular rate and regular rhythm Heart Sounds: no murmur Gastrointestinal (Abdomen): Inspection/Auscultation: normal bowel sounds; abdomen not distended Percussion/Palpation: + abdomen tender (epigastric and LUQ without guarding/rebound), abdomen soft and + tympanic to percussion Musculoskeletal: Head/Neck/Chest: normocephalic, head atraumatic and neck supple Extremities: no cyanosis Skin: no rashes, warm and dry Neurologic: moves all extremities; no focal motor deficits Psychiatric: A+Ox3, euthymic affect Results & Data Results & Data ([facility]) Vital Signs (Past 12 Hours) Vital Signs Temp Pulse Pulse Resp BP BP Pulse Ox 03/26/21 11:00 77 18 134/67 97 03/26/21 09:00 75 18 149/79 H 97 03/26/21 07:29 88 18 119/80 97 03/26/21 05:32 36.6 C 111 H 16 138/84 96 Laboratory Results Laboratory Results - last 24 hr 03/26/21 03/26/21 03/26/21 06:05 06:05 06:05 WBC 5.28 RBC 3.84 L Hgb 12.8 Hct 36.5 L MCV 95.1 MCH 33.3 MCHC 35.1 RDW Std Deviation 62.0 H RDW Coeff of Praful 17.9 H Plt Count 135 MPV 10.4 Immature Gran % (Auto) 0.2 Neut % (Auto) 79.5 Lymph % (Auto) 12.7 Butler % (Auto) 6.6 Eos % (Auto) 0.8 Baso % (Auto) 0.2 Neut # (Auto) 4.20 Lymph # (Auto) 0.67 L Butler # (Auto) 0.35 Eos # (Auto) 0.04 Baso # (Auto) 0.01 Immature Gran # (Auto) 0.01 Sodium 140 Potassium 2.9 L Chloride 108 H Carbon Dioxide 24 Anion Gap 8.0 BUN 6 L Creatinine 0.62 Est Cr Clr Drug Dosing 105.8 Est GFR ( Amer) 136.4 Est GFR (Non-Af Amer) 117.6 BUN/Creatinine Ratio 8.8 L Glucose 104 H Lactate Calcium 8.6 Magnesium 1.4 L Total Bilirubin 0.8 AST 76 H ALT 26 Alkaline Phosphatase 100 Total Protein 6.6 Albumin 3.2 L Globulin 3.4 Albumin/Globulin Ratio 0.9 Amylase 138 H Lipase 1480 H Ethyl Alcohol mg/dL < 3.0 COVID-19 Eval Order SARS-CoV-2 (PCR) 03/26/21 03/26/21 03/26/21 06:06 07:37 07:37 WBC RBC Hgb Hct MCV MCH MCHC RDW Std Deviation RDW Coeff of Praful Plt Count MPV Immature Gran % (Auto) Neut % (Auto) Lymph % (Auto) Butler % (Auto) Eos % (Auto) Baso % (Auto) Neut # (Auto) Lymph # (Auto) Butler # (Auto) Eos # (Auto) Baso # (Auto) Immature Gran # (Auto) Sodium Potassium Chloride Carbon Dioxide Anion Gap BUN Creatinine Est Cr Clr Drug Dosing Est GFR ( Amer) Est GFR (Non-Af Amer) BUN/Creatinine Ratio Glucose Lactate 1.5 Calcium Magnesium Total Bilirubin AST ALT Alkaline Phosphatase Total Protein Albumin Globulin Albumin/Globulin Ratio Amylase Lipase Ethyl Alcohol mg/dL COVID-19 Eval Order Covid19 at [facility] SARS-CoV-2 (PCR) NEGATIVE Diagnostic Findings CT Abd/Pel 03/26/21 - IMPRESSION: 1. Peripancreatic edema/inflammatory change consistent with acute pancreatitis. 2. Severe hepatic steatosis. 3. Trace pelvic fluid. 4. Additional findings as described above. Medications Administered Potassium Chloride (K Les / Wtr) 10 meq in 100 mls @ 100 mls/hr IV Q1H MIKHAIL Stop: 03/26/21 13:44 Last Admin: 03/26/21 11:15 Dose: 100 mls/hr Documented by: [id number] Tramadol HCl (Tramadol Hcl 50 Mg Tablet) 50 mg PO Q6H PRN PRN Reason: Pain Stop: 04/25/21 09:52 Last Admin: 03/26/21 10:54 Dose: 50 mg Documented by: [id number] Discontinued Medications Al Hydrox/Mg Hydrox/Simethicone (Gi Cocktail Ed Use) 1 dose PO ONE ONE Stop: 03/26/21 05:58 Last Admin: 03/26/21 06:17 Dose: 1 dose Documented by: [id number] Diphenhydramine HCl (Diphenhydramine 50 Mg/Ml Vial) 50 mg IV NOW STA Stop: 03/26/21 05:56 Last Admin: 03/26/21 06:17 Dose: 50 mg Documented by: [id number] Sodium Chloride (Nss 1000ml) 1,000 mls @ 999 mls/hr IV .Q1H1M MIKHAIL Stop: 03/26/21 07:00 Last Infusion: 03/26/21 07:21 Dose: 0 mls/hr Documented by: [id number] Admin: 03/26/21 06:19 Dose: 999 mls/hr Documented by: [id number] Prochlorperazine (Compazine) 1 mls @ 1 mls/min IV ONE ONE Stop: 03/26/21 05:56 Last Admin: 03/26/21 06:17 Dose: 1 mls/min Documented by: [id number] Famotidine (Pepcid 20mg Iv Push) 20 mg in 5 mls @ 2.5 mls/min IV NOW STA Stop: 03/26/21 05:58 Last Admin: 03/26/21 06:17 Dose: 2.5 mls/min Documented by: [id number] Magnesium Sulfate/Dextrose (Magnesium Sulfate / D5w) 1 gm in 100 mls @ 100 mls/hr IV NOW STA Stop: 03/26/21 08:00 Last Infusion: 03/26/21 08:25 Dose: 0 mls/hr Documented by: [id number] Admin: 03/26/21 07:24 Dose: 100 mls/hr Documented by: [id number] Potassium Chloride (K Les / Wtr) 10 meq in 100 mls @ 100 mls/hr IV ONE ONE Stop: 03/26/21 08:01 Last Infusion: 03/26/21 08:25 Dose: 0 mls/hr Documented by: [id number] Admin: 03/26/21 07:24 Dose: 100 mls/hr Documented by: [id number] Magnesium Sulfate/Dextrose (Magnesium Sulfate / D5w) 1 gm in 100 mls @ 50 mls/hr IV ONE ONE Stop: 03/26/21 11:52 Last Admin: 03/26/21 11:15 Dose: 50 mls/hr Documented by: [id number] Ketorolac Tromethamine (Ketorolac Tromethamine 15 Mg/Ml Vial) 15 mg IV NOW STA Stop: 03/26/21 05:58 Last Admin: 03/26/21 06:17 Dose: 15 mg Documented by: [id number] Potassium Chloride (Potassium Chloride Crtab 20 Meq Tabcr) 40 meq PO NOW STA Stop: 03/26/21 09:54 Last Admin: 03/26/21 10:54 Dose: 40 meq Documented by: [id number] Code Status & VTE Plan VTE Prophylaxis Plan VTE Prophylaxis will be ordered: Yes Supervising Physician Co-Signing Physician Notes Attending Addendum: care coordinated with AJIT Grubbs please refer to her notes for full details, I agree with her notes patient seen and examined, records reviewed by myself as well on exam, patient seen resting in bed, uncomfortable secondary to abdominal pain no chest pain, dyspnea, palpitations, dizziness no nausea reports she has stopped taking Suboxone last month no other symptoms VS noted and reviewed oriented x3, not in distress, speaks in sentences with no effort nor accessory muscle use normal rate, regular rhythm, no murmurs clear breath sounds bilaterally non distended, soft, (+) moderate tenderness on central abdomen no RUQ tenderness, Noland's sign no bipedal edema, erythema, warmth no neuro deficits WBC 5.2 [address] ABD: FINDINGS: The lung bases are clear. No pneumoperitoneum. No pneumatosis. No fractures within the visualized osseous structures. Severe hepatic steatosis is again noted. The spleen, gallbladder, adrenal glands, and kidneys are unremarkable. No hydronephrosis. No retroperitoneal lymphadenopathy. Peripancreatic edema/inflammatory change consistent with acute pancreatitis. No loculated peripancreatic fluid collections identified. An intrauterine device appears in good position. Trace pelvic free fluid. The bladder is unremarkable. No bowel wall thickening or obstruction. Normal appendix. ASSESSMENT AND PLAN> ACUTE PANCREATITIS, RECURRENT denies alcohol intake x 1.5 month now possible GB stone/sludge? GB US NPO IV LR at 200cc/hr add PRN Morphine as Toradol, Tramadol not controlling pain PDMP queried HYPOKALEMIA HYPOMAGNESEMIA replace other diagnoses and plan of care as per AJIT Grubbs's notes Mehul Campo MD
[2021-03-26] MEDS ORDERED: ONDANSETRON INJ 2 MG/ML 2 ML VIAL ONE (12:55)
[2021-03-26] MEDS ORDERED: KETOROLAC TROMETHAMINE 15 MG/ML VIAL ONE (13:15)
[2021-03-26] MEDS ORDERED: ACETAMINOPHEN 325 MG TAB PO PRN (15:34)
[2021-03-26] MEDS ORDERED: DICYCLOMINE HCL 10 MG CAP PO PRN (15:34)
[2021-03-26] MEDS: LACTATED RINGER'S 1,000 ML IV SCH ×2 (15:41→21:26)
[2021-03-26] MEDS: ONDANSETRON INJ 2 MG/ML 2 ML VIAL IV PRN ×2 (15:45→23:54)
[2021-03-26] MEDS: KETOROLAC TROMETHAMINE 15 MG/ML VIAL IV PRN ×2 (15:52→22:06)
[2021-03-26 16:11] LABS: BUN Creatinine Ratio 8.9 (10-20); Calcium 7.6 mg/dl (8.5-10.1); Creatinine Clr Calc Pharmacy 117.1 ml/min; Est GFR (Non-African American) 121.7 ml/min; Magnesium 2.3 mg/dl (1.8-2.4); Potassium 3.2 mmol/L (3.5-5.1)
[2021-03-26] MEDS: MoRPHine SULFATE 4 MG/ML 1 ML CARP\\VIAL IV PRN ×2 (17:00→20:35)
--- NOTE | 2021-03-26 17:58 | Ultrasound Report ---
US gallbladder CLINICAL HISTORY: acute pancreatitis, r/o cholelithiasis, sludge COMPARISON STUDY: Right upper quadrant ultrasound March 15, 2021. CT of the abdomen and pelvis Octo 2020. FINDINGS: Hepatic echogenicity is increased. No hepatic lesions are identified. There are no gallston es. The gallbladder is normal. Mild dilatation of the common bile duct, measuring 8 mm, similar to pr ior ultrasound. Pancreas is heterogeneous. Findings consistent with acute pancreatitis are better dep icted on CT performed earlier today. There is no right hydronephrosis. No peripancreatic fluid collec tion is present. IMPRESSION: 1. No gallstones. 2. Hepatic steatosis. 3. Heterogeneous pancreas. Findings consistent with acute pancreatitis are better depicted on CT perf ormed earlier today. ACT 112: Negative or not required by law. Electronically signed by: Troy Murphy M.D. 03/26/2021 5:56 PM
[2021-03-26] MEDS ORDERED: PROMETHAZINE HCL 12.5 MG in SODIUM CHLORIDE 0.9% 50 ML IV STA (19:31)
[2021-03-26] MEDS ORDERED: PANTOprazole 40 MG TAB PO SCH (21:00)
[2021-03-26] MEDS: PANTOprazole 40 MG in SYRINGE 0 ML IV SCH (21:27)
[2021-03-26] MEDS: HYDROmorphone INJ 0.5 MG/0.5 ML SYR IV PRN (22:34)
[2021-03-26 23:22] LABS: Appearance Urine Clear (Clear); Bilirubin Urine Negative (Negative); Blood Urine Negative (Negative); Color Urine Orange; Glucose Urine UA Negative (Negative); Ketones Urine 2+ (Negative); Leukocyte Esterase Urine Negative (Negative); Nitrite Urine Negative (Negative); Protein Urine Negative (Negative); Specific Gravity Urine 1.014 (1.000-1.030); Urobilinogen Urine Negative (Negative); pH Urine 6.5 (4.5-7.5)
[2021-03-26 23:51] LABS: Amphetamines+Metham, Urine Neg (Neg); Barbiturates, Urine Neg (Neg); Benzodiazepine, Urine Neg (Neg); Cocaine, Urine Neg (Neg); MDMA (Ecstacy), Urine Neg (Neg); Methadone, Urine Neg (Neg); Opiate, Urine Pos (Neg); Phencyclidine, Urine Neg (Neg)
[2021-03-27] MEDS: HYDROmorphone INJ 0.5 MG/0.5 ML SYR IV PRN ×3 (01:26→07:50)
[2021-03-27] MEDS ORDERED: KETOROLAC TROMETHAMINE 15 MG/ML VIAL IV ONE (02:34)
[2021-03-27] MEDS: LACTATED RINGER'S 1,000 ML IV SCH ×5 (02:46→23:06)
[2021-03-27] MEDS ORDERED: PROMETHAZINE HCL 12.5 MG in SODIUM CHLORIDE 0.9% 50 ML IV STA (03:36)
[2021-03-27] MEDS: NICOTINE 14 MG/24 HR PATCH TD SCH ×2 (03:49→07:52)
[2021-03-27 06:07] LABS: Hematocrit (blood only) 33.3 % (37-47); Hemoglobin 11.2 g/dL (12.0-16.0); Mean Corpuscular Hemoglobin 33.2 pg (25-34); Mean Corpuscular Hgb Conc 33.6 g/dL (32-36); Mean Corpuscular Volume 98.8 fL (80-100); RDW Coefficient of Variation 18.1 % (11.5-14.5); RDW Standard Deviation 65.9 fL (36.4-46.3); Red Blood Count 3.37 M/uL (4.2-5.4); White Blood Count 3.47 K/uL (4.8-10.8)
[2021-03-27] MEDS: KETOROLAC TROMETHAMINE 15 MG/ML VIAL IV PRN (06:13)
[2021-03-27] MEDS: LEVOTHYROXINE SODIUM 200 MCG TABLET PO SCH (06:16)
[2021-03-27 06:47] LABS: Alanine Aminotransferase 18 U/L (12-78); Albumin Level 2.5 gm/dl (3.4-5.0); Aspartate Aminotransferase 34 U/L (15-37); BUN Creatinine Ratio 9.9 (10-20); Blood Urea Nitrogen 4 mg/dl (7-18); Calcium 7.9 mg/dl (8.5-10.1); Carbon Dioxide 23 mmol/L (21-32); Chloride 106 mmol/L (98-107); Creatinine Clr Calc Pharmacy 168.1 ml/min; Est GFR (African American) > 150.0 ml/min; Glucose 83 mg/dl (70-99); Potassium 3.3 mmol/L (3.5-5.1); Sodium 137 mmol/L (136-145)
[2021-03-27 06:50] LABS: Mean Platelet Volume 10.5 fL (7.4-10.4); Platelet Count 94 K/uL (130-400)
[2021-03-27 06:51] LABS: Basophils # (auto) 0.01 K/uL (0-0.2); Basophils % (auto) 0.3 %; Eosinophils # (auto) 0.03 K/uL (0-0.5); Eosinophils % (auto) 0.9 %; Hypochromasia Present; Lymphocytes # (auto) 0.61 K/uL (1.2-3.4); Lymphocytes % (auto) 17.6 %; Monocytes # (auto) 0.31 K/uL (0.11-0.59); Monocytes % (auto) 8.9 %; Neutrophils # (auto) 2.51 K/uL (1.4-6.5); Neutrophils % (auto) 72.3 %; Platelet Estimate Decreased (Normal)
[2021-03-27 06:58] LABS: Albumin Globulin Ratio 0.9 (0.9-2); Alkaline Phosphatase 84 U/L (45-117); Globulin 2.9 gm/dl (2.5-4.0); Lipase 2752 U/L (73-393); Total Protein 5.4 gm/dl (6.4-8.2)
[2021-03-27] MEDS ORDERED: POTASSIUM CHLORIDE CRTAB 20 MEQ TABCR PO STA (08:55)
[2021-03-27] MEDS: HYDROmorphone INJ 1 MG/ML SYRINGE IV PRN ×4 (09:08→23:07)
[2021-03-27] MEDS: THIAMINE HCL 100 MG TAB PO SCH (09:12)
[2021-03-27] MEDS: POTASSIUM CHLORIDE / WTR 10 MEQ/100 ML PLCT IV SCH ×4 (09:27→12:26)
--- NOTE | 2021-03-27 10:04 | Hospitalist Progress Note ---
Date of Service March 27, 2021 Assessment & Plan (1) Acute pancreatitis: (2) Hypothyroidism: (3) Von Willebrand disease: Plan: Recurrent pancreatitis of unclear etiology at present - pt reports no EtOH x 1 month. GB US: unremarkable abdominal pain increased lipase also increased to 2,700 discussed with GI DrPradeep Pa recommend Gen Surg evaluation for possible GB stone/sludge as etiology of recurrent acute pancreatitis increase Dilaudid Ofirmev IV q8h NPO IV fluids monitor closely Code Status: Full code DVT Prophylaxis: SCDs. plan of care discussed with patient in detail and at length all questions answered she is understanding, agreeable, comfortable with the plan of care Admission and Anticipated Discharge Date Admission Date: March 26, 2021 Subjective ff up for acute pancreatitis, etc seen resting in bed, not in distress RICHAR Daniels at bedside throughout whole encounter reports increased pain today radiating to the back no nausea, dyspnea, chest pain, palpitations, dizziness, fever/chills no other symptoms Review of Systems Review of Systems: all noted and negative except for above Physical Exam Physical Exam: General- oriented x 3, not in distress, speaks in sentences with no effort or accessory muscle use Eyes- anicteric Neck- no JVD Lungs- clear breath sounds bilaterally, no rales/wheezes Heart- normal rate, regular rhythm; no murmurs Abdomen- normal bowel sounds, nondistended, soft, (+) moderate tenderness to the epigastric region Extremities- no pretibial edema, no calf tenderness Neuro- alert, oriented x 3; no gross focal neurologic deficits Skin- warm & dry Results & Data Results & Data ([facility]) Vital Signs (Past 12 Hours) Vital Signs Temp Pulse Pulse Resp BP Pulse Ox 03/27/21 09:20 80 03/27/21 07:36 36.8 C 76 16 162/89 H 99 03/27/21 04:10 36.9 C 75 20 158/91 H 99 03/26/21 23:04 36.2 C L 80 18 158/90 H 96 03/26/21 22:27 90 all noted and reviewed including below
[2021-03-27] MEDS: ONDANSETRON INJ 2 MG/ML 2 ML VIAL IV PRN ×2 (10:19→18:02)
[2021-03-27] MEDS: PANTOprazole 40 MG in SYRINGE 0 ML IV SCH ×2 (10:47→20:37)
--- NOTE | 2021-03-27 11:25 | Gastroenterology Progress Note ---
Date of Service March 27, 2021 Assessment & Plan (1) Acute upper abdominal pain: (2) Acute pancreatitis: Plan: Continue supportive care and current management Despite negative imaging for stones/sludge, due to recurrent pancreatitis, I would recommend surgical evaluation for cholecystectomy She states she has not drank alcohol in "months" and I encouraged her to continue to abstain from this as it is a known pancreatic toxin Advance to clear liquids as tolerated Admission and Anticipated Discharge Date Admission Date: March 26, 2021 Subjective Still with Left Upper quadrant abdominal pain, radiating to the back. No fevers, chills, nausea, vomiting or diarrhea. She states that pain is "pretty well controlled with pain meds." She denies any hematemesis, melena or hematochezia. No further complaints. Review of Systems Constitutional: as per Subjective / HPI Eyes: as per Subjective / HPI Ear, Nose, Mouth, Throat: as per Subjective / HPI Respiratory: as per Subjective / HPI Cardiovascular: as per Subjective / HPI Gastrointestinal: as per Subjective / HPI Musculoskeletal: as per Subjective / HPI Integumentary: as per Subjective / HPI Neurologic: as per Subjective / HPI Psychiatric: as per Subjective / HPI Endocrine: as per Subjective / HPI Hematologic / Lymphatic: as per Subjective / HPI Allergy / Immunological: as per Subjective / HPI Physical Exam Constitutional: WD/WN, vitals as above Respiratory: normal respiratory effort, lungs clear to auscultation Cardiovascular: RRR, no murmur, no edema Gastrointestinal (Abdomen): Inspection/Auscultation: abdomen normal to inspection and normal bowel sounds; abdomen not distended Percussion/Palpation: + abdomen tender and abdomen soft; no guarding and abdomen not rigid Results & Data Results & Data ([facility]) Vital Signs (Past 12 Hours) Vital Signs Temp Pulse Pulse Resp BP Pulse Ox 03/27/21 10:58 36.8 C 78 16 174/90 H 98 03/27/21 09:20 80 03/27/21 07:36 36.8 C 76 16 162/89 H 99 03/27/21 04:10 36.9 C 75 20 158/91 H 99 PG Care Time/CCT Total # of Minutes Spent Total Time Spent with Patient: Total time spent is greater than 50% in coordination of care (as documented) at patient's floor/unit and/or counseling patient: Coding Level of Care Code 44316 Subseq Hosp Care Lvl 3 Diagnoses Acute upper abdominal pain R10.10 Acute pancreatitis K85.90
[2021-03-27] MEDS: ACETAMINOPHEN 1,000 MG/100 ML VIAL IV SCH ×2 (12:46→20:37)
--- NOTE | 2021-03-27 19:30 | Surgery Consultation ---
Date of Consultation March 27, 2021 Assessment & Plan (1) Acute pancreatitis: 35-year-old female with several episodes of acute pancreatitis. Previously these were attributed to alcohol, and no biliary etiology has been demonstrated at this time. I believe she would benefit from outpatient valuation with an endoscopic ultrasound and neurologic work-up for other sources of pancreatitis prior to cholecystectomy. Also she has pancytopenia and questionable von Willebrand's and should continue her evaluation for this as this will affect her perioperative care. Currently her platelets are below 100,000 and if they are poorly functioning she would be at increased risk of bleeding. No surgical intervention at this time. Patient can follow-up as an outpatient after completed evaluation. Please call with questions or concerns. No surgical intervention at this time Follow-up with GI as an outpatient for endoscopic ultrasound and further testing Continue outpatient evaluation for pancytopenia and von Willebrand's (2) Pancytopenia: (3) Von Willebrand disease: History of Present Illness Reason for Consultation: Pancreatitis Attending Physician: Mehul Campo MD History of Present Illness 35-year-old female admitted for recurrent acute pancreatitis. She has had multiple gallbladder ultrasounds and MRCP is that of show no evidence of biliary sludge or cholelithiasis. She had been using alcohol, but she states that she has abstained for the past month and still has an episode of pancreatitis. She also has been undergoing evaluation for generalized pancytopenia as well as poor platelet function. They are evaluating her for von Willebrand's. She has had upper and lower endoscopies which showed some gastric ulcers with no bleeding and a hyperplastic polyp. She did start some sucralfate last week. She was seen by GI yesterday and there was mention of pursuing endoscopic ultrasound as an outpatient. She is still having epigastric pain that radiates to her back. This feels about the same as when she came in yesterday. She also had a HIDA scan in the past which showed delayed filling of the gallbladder, but no evidence of acute cholecystitis or obstruction. She does state that there was a study performed at [facility] that did demonstrate gallstones though I do not have access to these records. Allergies Allergy/AdvReac Type Severity Reaction Status Date / Time valacyclovir Allergy Severe Dyspnea Verified 03/26/21 08:28 Home Medications Medication Instructions Recorded Confirmed Type levothyroxine 200 mcg tablet 200 mcg PO DAILYBB 07/18/19 03/26/21 History (Synthroid) ondansetron 8 mg disintegrating 8 mg PO Q8H PRN 09/27/19 03/26/21 History tablet albuterol sulfate 90 mcg/actuation 1 inh INHALATION DIRECTED PRN 12/28/20 03/26/21 History aerosol inhaler (Ventolin HFA) acetaminophen 500 mg tablet 1,000 mg PO Q6H PRN 01/08/21 03/26/21 History (Tylenol Extra Strength) dicyclomine 10 mg capsule 10 mg PO QID PRN 01/08/21 03/26/21 History folic acid 1 mg tablet 1 mg PO QAM #30 tab 01/14/21 03/26/21 Rx pantoprazole 40 mg tablet,delayed 40 mg PO BID 03/26/21 03/26/21 History release (Protonix) sucralfate 100 mg/mL oral 10 ml PO QID 03/26/21 03/26/21 History suspension thiamine HCl (vitamin B1) 100 mg 100 mg PO DAILY 03/26/21 03/26/21 History tablet Patient History Medical History (Updated 03/26/21 @ 12:25 by Mikala Grubbs PA-C) Alcohol abuse Elevated AST (SGOT) Hepatic steatosis History of pancreatitis Hypothyroidism IBS (irritable bowel syndrome) Migraines Pancreatitis Peptic ulcer Seasonal asthma Tobacco use Upper gastrointestinal bleed Von Willebrand disease "Mild" Class 1 per [facility] records, under surveillance [facility] hematology, surgeon aware Surgical History History of colonoscopy History of esophagogastroduodenoscopy (EGD) History of loop electrical excision procedure (LEEP) History of wisdom tooth extraction Family History Mother Von Willebrand disease Other No family history of adverse response to anesthesia Social History (Updated 03/26/21 @ 12:25 by Mikala Grubbs PA-C) Smoking Status: Current every day smoker Tobacco Type: Cigarettes Cigarettes Per Day: 10; Second Hand Exposure: No; Do You Dip or Chew Tobacco: No; Tobacco Cessation Education Requested by Patient: No Hx Alcohol Use: No Hx Substance Use: No Preferred Language: Chinese Communication Ability: Effective 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 Beliefs That Will Affect Care: None marital status: Current Living Situation: Spouse and Family Other Information That Helps Us Care for You: No Feels Safe at Home: Yes Safety Concerns: Feels Safe At This Time Assistive Devices: None Review of Systems Review of Systems: All systems reviewed & are unremarkable except as noted in HPI & below Physical Exam Constitutional: WD/WN, vitals as above Respiratory: normal respiratory effort, lungs clear to auscultation Cardiovascular: RRR, no murmur, no edema Gastrointestinal (Abdomen): Percussion/Palpation: + abdomen tender (Epigastric) and abdomen soft; no guarding, abdomen not rigid, no hepatosplenomegaly and no hernia Results & Data ([facility]) Vital Signs (Past 12 Hours) Vital Signs Temp Pulse Pulse Resp BP Pulse Ox 03/27/21 16:13 36.9 C 78 16 173/91 H 98 03/27/21 15:41 85 03/27/21 10:58 36.8 C 78 16 174/90 H 98 03/27/21 09:20 80 03/27/21 07:36 36.8 C 76 16 162/89 H 99 Diagnostic Findings US gallbladder CLINICAL HISTORY: acute pancreatitis, r/o cholelithiasis, sludge COMPARISON STUDY: Right upper quadrant ultrasound March 15, 2021. CT of the abdomen and pelvis March 26, 2021. FINDINGS: Hepatic echogenicity is increased. No hepatic lesions are identified. There are no gallstones. The gallbladder is normal. Mild dilatation of the common bile duct, measuring 8 mm, similar to prior ultrasound. Pancreas is heterogeneous. Findings consistent with acute pancreatitis are better depicted on CT performed earlier today. There is no right hydronephrosis. No peripancreatic fluid collection is present. IMPRESSION: 1. No gallstones. 2. Hepatic steatosis. 3. Heterogeneous pancreas. Findings consistent with acute pancreatitis are better depicted on CT performed earlier today. PG Care Time/CCT Total # of Minutes Spent Total Time Spent with Patient: Total time spent is greater than 50% in coordination of care (as documented) at patient's floor/unit and/or counseling patient: Coding Level of Care Code 79628 Inpt Consult Level 3 Diagnoses Acute pancreatitis K85.90 Pancytopenia D61.818 Von Willebrand disease D68.0
[2021-03-27] MEDS: PROMETHAZINE HCL 12.5 MG in SODIUM CHLORIDE 0.9% 50 ML IV PRN (21:07)
[2021-03-28] MEDS: ONDANSETRON INJ 2 MG/ML 2 ML VIAL IV PRN ×3 (01:52→22:39)
[2021-03-28] MEDS: LACTATED RINGER'S 1,000 ML IV SCH ×5 (03:24→22:49)
[2021-03-28] MEDS: HYDROmorphone INJ 1 MG/ML SYRINGE IV PRN ×4 (03:24→22:39)
[2021-03-28] MEDS: ACETAMINOPHEN 1,000 MG/100 ML VIAL IV SCH ×3 (05:48→20:26)
[2021-03-28] MEDS: LEVOTHYROXINE SODIUM 200 MCG TABLET PO SCH (05:49)
[2021-03-28] MEDS: NICOTINE 14 MG/24 HR PATCH TD SCH (08:14)
[2021-03-28] MEDS: THIAMINE HCL 100 MG TAB PO SCH (08:16)
[2021-03-28] MEDS: PANTOprazole 40 MG in SYRINGE 0 ML IV SCH ×2 (08:16→20:26)
--- NOTE | 2021-03-28 09:54 | Gastroenterology Progress Note ---
Date of Service March 28, 2021 Assessment & Plan (1) Acute pancreatitis: (2) Acute upper abdominal pain: Plan: Seen by Surgery who recommended EUS, will need to have this arranged as outpatient with Dr. Boone/Dr. Villagomez Continue supportive care Advance to clear liquid diet as tolerated F/U with Hematology secondary to VWD [facility] to resume care on 03/29/2021 Admission and Anticipated Discharge Date Admission Date: March 26, 2021 Subjective Feeling much better today. Sitting up at bedside. Denies fevers, chills, nausea, vomiting. States that she does have intermittent LUQ abdominal pain radiating to back, but not constant like before. It is relieved with narcotic analgesics. She states she is hungry. Review of Systems Constitutional: as per Subjective / HPI Eyes: as per Subjective / HPI Ear, Nose, Mouth, Throat: as per Subjective / HPI Respiratory: as per Subjective / HPI Cardiovascular: as per Subjective / HPI Gastrointestinal: as per Subjective / HPI Musculoskeletal: as per Subjective / HPI Integumentary: as per Subjective / HPI Neurologic: as per Subjective / HPI Psychiatric: as per Subjective / HPI Endocrine: as per Subjective / HPI Hematologic / Lymphatic: as per Subjective / HPI Allergy / Immunological: as per Subjective / HPI Physical Exam Constitutional: WD/WN, vitals as above Respiratory: normal respiratory effort, lungs clear to auscultation Cardiovascular: RRR, no murmur, no edema Gastrointestinal (Abdomen): normal bowel sounds, soft, nontender, no hepatosplenomegaly Psychiatric: A+Ox3, euthymic affect Results & Data Results & Data ([facility]) Vital Signs (Past 12 Hours) Vital Signs Temp Pulse Pulse Resp BP Pulse Ox 03/28/21 07:32 36.8 C 74 75 16 166/90 H 98 03/28/21 04:00 36.7 C 79 20 164/92 H 99 03/28/21 00:37 80 03/27/21 23:20 37.0 C 75 20 167/90 H 99 PG Care Time/CCT Total # of Minutes Spent Total Time Spent with Patient: Total time spent is greater than 50% in coordination of care (as documented) at patient's floor/unit and/or counseling patient: Coding Level of Care Code 52414 Subseq Hosp Care Lvl 3 Diagnoses Acute pancreatitis K85.90 Acute upper abdominal pain R10.10
[2021-03-28] MEDS ORDERED: amLODIPine BESYLATE 5 MG TAB PO ONE (12:20)
[2021-03-28 12:42] LABS: Hematocrit (blood only) 33.4 % (37-47); Mean Corpuscular Hemoglobin 32.8 pg (25-34); Mean Corpuscular Hgb Conc 32.9 g/dL (32-36); Mean Corpuscular Volume 99.7 fL (80-100); RDW Coefficient of Variation 18.4 % (11.5-14.5); RDW Standard Deviation 66.3 fL (36.4-46.3); Red Blood Count 3.35 M/uL (4.2-5.4); White Blood Count 3.99 K/uL (4.8-10.8)
[2021-03-28 12:48] LABS: Mean Platelet Volume 10.8 fL (7.4-10.4); Platelet Count 94 K/uL (130-400)
--- NOTE | 2021-03-28 12:48 | Nephrology Consultation ---
Date of Consultation March 28, 2021 Assessment & Plan (1) Hypertension: The differential for hypertension is broad as an inpatient. In this case could certainly relate to uncontrolled pain, situational anxiety related to her illness or to nicotine withdrawal, untreated hypothyroidism, or less likely alcohol withdrawal -- the pt has not needed mgt of withdrawal since arrival, denies alcohol use in the past 2 months, and had no alcohol in her blood on presentation. She has no proteinuria or other urinary sediment abnormalities. Her blood pressure is not routinely elevated as an outpatient. She is receiving crystalloid at 200 mL hourly due to her acute illness, which I would consider obligate until pancreatitis improves and she is taking oral nutrition reliably. -ensure adequate pain control -Check TSH and ensure she is taking Synthroid dailyuntreated hypothyroidism can cause diastolic hypertension >> has not had any synthroid since arrival Ensure nicotine withdrawal adequately treated -continue LR at current aggressive rate as indicated but wean when appropriate -consider enaliprilat prn 0.625 mg IV q8-12h provided that renal function labs remain at baseline -consider repeat ECG for completeness > no definite hx of LVH; no sx related to HTN but would do for completeness, to eval for strain related to HTN History of Present Illness Reason for Consultation: hypertension Requesting Physician: Dr Campo Attending Physician: Mehul Campo MD History of Present Illness 35-year-old female whom I am asked to evaluate for hypertension was admitted March 26 with acute pancreatitis. Past medical history includes hypothyroidism, migraines, active tobacco and alcohol abuse, bipolar disorder, phone Willebrand's disease, hepatic steatosis. She has been admitted here 2 other times for acute pancreatitis in January and February. She tells me she has not had EtOH for 2 mos. Her blood pressures during admissions generally run in the 140s to 150s systolic. In the past 24 hours though her pressures have been higher, more in the 160 to 170 mm mercury range. No tachycardia. For the acute pancreatitis, she is receiving supportive care. GI will perform an outpatient endoscopic ultrasound. Not a surgical candidate. Her blood pressures as an outpatient are generally in the 1 teens to 120s systolic with several readings in the past year. Denies hx of HTN during her or as OP. She had a one-time dose of amlodipine 2.5 mg today. She has not had any thyroid medication since arrival. Endorses LUQ and epigastric pain w/ po intake; states she notes HTN worsens w/ pain. No sob, no chest pain, no gross hematuria, no edema, no focal numbness or weakness. has lost 20 lb since pancreatitis issues started this summer. no n/v currently. Allergies Allergy/AdvReac Type Severity Reaction Status Date / Time valacyclovir Allergy Severe Dyspnea Verified 03/26/21 08:28 Home Medications Medication Instructions Recorded Confirmed Type levothyroxine 200 mcg tablet 200 mcg PO DAILYBB 07/18/19 03/26/21 History (Synthroid) ondansetron 8 mg disintegrating 8 mg PO Q8H PRN 09/27/19 03/26/21 History tablet albuterol sulfate 90 mcg/actuation 1 inh INHALATION DIRECTED PRN 12/28/20 03/26/21 History aerosol inhaler (Ventolin HFA) acetaminophen 500 mg tablet 1,000 mg PO Q6H PRN 01/08/21 03/26/21 History (Tylenol Extra Strength) dicyclomine 10 mg capsule 10 mg PO QID PRN 01/08/21 03/26/21 History folic acid 1 mg tablet 1 mg PO QAM #30 tab 01/14/21 03/26/21 Rx pantoprazole 40 mg tablet,delayed 40 mg PO BID 03/26/21 03/26/21 History release (Protonix) sucralfate 100 mg/mL oral 10 ml PO QID 03/26/21 03/26/21 History suspension thiamine HCl (vitamin B1) 100 mg 100 mg PO DAILY 03/26/21 03/26/21 History tablet Patient History Medical History Alcohol abuse Elevated AST (SGOT) Hepatic steatosis History of pancreatitis Hypothyroidism IBS (irritable bowel syndrome) Migraines Pancreatitis Peptic ulcer Seasonal asthma Tobacco use Upper gastrointestinal bleed Von Willebrand disease "Mild" Class 1 per [facility] [place] records, under surveillance [facility] hematology, surgeon aware Surgical History History of colonoscopy History of esophagogastroduodenoscopy (EGD) History of loop electrical excision procedure (LEEP) History of wisdom tooth extraction Family History Mother Von Willebrand disease Other No family history of adverse response to anesthesia Social History Smoking Status: Current every day smoker Tobacco Type: Cigarettes Cigarettes Per Day: 10; Second Hand Exposure: No; Do You Dip or Chew Tobacco: No; Tobacco Cessation Education Requested by Patient: No Hx Alcohol Use: No Hx Substance Use: No Preferred Language: Greek Communication Ability: Effective 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 Beliefs That Will Affect Care: None marital status: Current Living Situation: Spouse and Family Other Information That Helps Us Care for You: No Feels Safe at Home: Yes Safety Concerns: Feels Safe At This Time Assistive Devices: None Review of Systems Review of Systems: All systems reviewed & are unremarkable except as noted in HPI & below Physical Exam Constitutional: well developed and well nourished Nontoxic-appearing and maneuvers readily for exam Eyes: EOM intact bilaterally ENMT: Ears: no external ear abnormality Nose: no external nose abnormality Mouth: + dry oral mucous membranes Neck: no nuchal rigidity Respiratory: normal respiratory effort Auscultation: + diminished lung sounds Cardiovascular: RRR, no murmur, no edema Gastrointestinal (Abdomen): Inspection/Auscultation: normal bowel sounds Percussion/Palpation: + abdomen tender (Left upper quadrant) and abdomen soft Musculoskeletal: Extremities: strength 5/5 throughout Skin: no rashes, warm and dry Neurologic: castor, fluent speech, no tremor Psychiatric: Orientation: oriented x 3 Eye Contact: good eye contact Motor Behavior: no abnormal motor movements Results & Data ([facility]) Vital Signs (Past 12 Hours) Vital Signs Temp Pulse Pulse Resp BP Pulse Ox 03/28/21 11:32 36.8 C 75 18 174/92 H 99 03/28/21 07:32 36.8 C 74 75 16 166/90 H 98 03/28/21 04:00 36.7 C 79 20 164/92 H 99 Laboratory Results 03/28/21 12:34 Chemistry panel from today is pending Chemistry panel from yesterday: Sodium 137, potassium 3.3, chloride 106, bicarb 23, BUN 4, creatinine 0.4, calcium 7.9, lipase 2752 Admission UA: Clear orange urine with a pH of 6.5 and a specific gravity of 1014. 2+ ketones. The rest of a dipstick is otherwise negative. No microscopy done. Diagnostic Findings CT abdomen pelvis on admission noncontrast FINDINGS: The lung bases are clear. No pneumoperitoneum. No pneumatosis. No fractures within the visualized osseous structures. Severe hepatic steatosis is again noted. The spleen, gallbladder, adrenal glands, and kidneys are unremarkable. No hydronephrosis. No retroperitoneal lymphadenopathy. Peripancreatic edema/inflammatory change consistent with acute pancreatitis. No loculated peripancreatic fluid collections identified. An intrauterine device appears in good position. Trace pelvic free fluid. The bladder is unremarkable. No bowel wall thickening or obstruction. Normal appendix. IMPRESSION: 1. Peripancreatic edema/inflammatory change consistent with acute pancreatitis. 2. Severe hepatic steatosis. 3. Trace pelvic fluid. 4. Additional findings as described above.
[2021-03-28 13:00] LABS: Alanine Aminotransferase 16 U/L (12-78); Albumin Level 2.8 gm/dl (3.4-5.0); Aspartate Aminotransferase 33 U/L (15-37); BUN Creatinine Ratio 6.7 (10-20); Blood Urea Nitrogen 3 mg/dl (7-18); Calcium 8.3 mg/dl (8.5-10.1); Carbon Dioxide 20 mmol/L (21-32); Chloride 100 mmol/L (98-107); Creatinine Clr Calc Pharmacy 152.5 ml/min; Est GFR (African American) > 150.0 ml/min; Est GFR (Non-African American) 132.7 ml/min; Glucose 104 mg/dl (70-99); Lipase 1293 U/L (73-393); Potassium 3.4 mmol/L (3.5-5.1); Sodium 133 mmol/L (136-145)
[2021-03-28 13:03] LABS: Albumin Globulin Ratio 0.8 (0.9-2); Alkaline Phosphatase 85 U/L (45-117); Bilirubin,Total 0.8 mg/dl (0.2-1); Globulin 3.5 gm/dl (2.5-4.0); Total Protein 6.3 gm/dl (6.4-8.2)
[2021-03-28 13:19] LABS: Basophils # (auto) 0.01 K/uL (0-0.2); Basophils % (auto) 0.3 %; Eosinophils # (auto) 0.03 K/uL (0-0.5); Eosinophils % (auto) 0.8 %; Immature Granulocytes # (auto) 0.01 K/uL (0.00-0.02); Immature Granulocytes % (auto) 0.3 %; Lymphocytes # (auto) 0.62 K/uL (1.2-3.4); Lymphocytes % (auto) 15.5 %; Monocytes # (auto) 0.48 K/uL (0.11-0.59); Neutrophils # (auto) 2.84 K/uL (1.4-6.5); Neutrophils % (auto) 71.1 %
--- NOTE | 2021-03-28 13:41 | Hospitalist Progress Note ---
Date of Service March 28, 2021 Assessment & Plan (1) Acute pancreatitis: (2) Hypothyroidism: (3) Von Willebrand disease: Plan: Recurrent pancreatitis of unclear etiology at present - pt reports no EtOH x 1 month. GB US: unremarkable Abdominal pain improved this morning but worsened after trial of clear liquids Lipase improved from [id number] For now, keep n.p.o. except ice chips NT Continue LR at 200 cc/h Continue pain control with as needed Dilaudid, Ofirmev IV every 8 hours Appreciate GI service recommendations Continue to monitor closely General surgery consulted due to possible gallstone etiology Gallbladder ultrasound unremarkable General surgeon Dr. Portillo evaluated patient, would like to check for other etiology of pancreatitis, including endoscopic ultrasound as an outpatient prior to considering cholecystectomy Patient needs to follow-up with GI as an outpatient for endoscopic ultrasound, and also general surgery for evaluation of cholecystectomy Hypertension Blood pressure persistently elevated since yesterday, despite pain not that severe yesterday and this morning No headache, chest pain, shortness of breath Amlodipine 2.5 mg p.o. 1 dose given now Nephrology service consulted Continue to monitor Code Status: Full code DVT Prophylaxis: SCDs. plan of care discussed with patient in detail and at length all questions answered she is understanding, agreeable, comfortable with the plan of care Admission and Anticipated Discharge Date Admission Date: March 26, 2021 Subjective Follow-up for acute pancreatitis, etc. Seen with RICHAR Shoemaker at the bedside throughout whole encounter Seen resting in bed, sitting up, uncomfortable secondary to abdominal pain but still pleasant Was having mild to moderate pain this morning, but abdominal pain intensified after having lunch with clear liquid diet Pain mostly at the left side of the abdomen :No nausea or vomiting, fever chills, shortness of breath, chest pain, palpitations, dizziness, headache Denies other symptoms Review of Systems Review of Systems: all noted and negative except for above Physical Exam Physical Exam: General- oriented x 3, not in distress, speaks in sentences with no effort or accessory muscle use Eyes- anicteric Neck- no JVD Lungs- clear breath sounds bilaterally, no rales/wheezes Heart- normal rate, regular rhythm; no murmurs Abdomen- normal bowel sounds, nondistended, soft, positive tenderness to left upper and lower quadrants Extremities- no pretibial edema, no calf tenderness Neuro- alert, oriented x 3; no gross focal neurologic deficits Skin- warm & dry Results & Data Results & Data ([facility]) Vital Signs (Past 12 Hours) Vital Signs Temp Pulse Pulse Resp BP Pulse Ox 03/28/21 12:52 76 179/97 H 03/28/21 11:32 36.8 C 75 18 174/92 H 99 03/28/21 07:32 36.8 C 74 75 16 166/90 H 98 03/28/21 04:00 36.7 C 79 20 164/92 H 99 all noted and reviewed including below
[2021-03-28] MEDS: PROMETHAZINE HCL 12.5 MG in SODIUM CHLORIDE 0.9% 50 ML IV PRN (15:48)
[2021-03-28] MEDS ORDERED: HYDROmorphone INJ 0.5 MG/0.5 ML SYR IV PRN (18:32)
[2021-03-28] MEDS: ENALAPRILAT 0.625 MG in SYRINGE 9.5 ML IV PRN (21:03)
[2021-03-28] MEDS ORDERED: cloNIDine HCL 0.1 MG TAB PO ONE (21:59)
[2021-03-29] MEDS: HYDROmorphone INJ 1 MG/ML SYRINGE IV PRN (03:38)
[2021-03-29] MEDS: LACTATED RINGER'S 1,000 ML IV SCH ×4 (04:01→23:27)
[2021-03-29] MEDS: ACETAMINOPHEN 1,000 MG/100 ML VIAL IV SCH ×3 (05:15→21:35)
[2021-03-29] MEDS: LEVOTHYROXINE SODIUM 200 MCG TABLET PO SCH (06:25)
[2021-03-29 08:35] LABS: Basophils # (auto) 0.01 K/uL (0-0.2); Basophils % (auto) 0.3 %; Eosinophils # (auto) 0.04 K/uL (0-0.5); Eosinophils % (auto) 1.2 %; Hematocrit (blood only) 31.3 % (37-47); Hemoglobin 10.7 g/dL (12.0-16.0); Immature Granulocytes # (auto) 0.01 K/uL (0.00-0.02); Immature Granulocytes % (auto) 0.3 %; Lymphocytes # (auto) 0.81 K/uL (1.2-3.4); Mean Corpuscular Hemoglobin 33.2 pg (25-34); Mean Corpuscular Hgb Conc 34.2 g/dL (32-36); Mean Corpuscular Volume 97.2 fL (80-100); Mean Platelet Volume 10.3 fL (7.4-10.4); Monocytes # (auto) 0.59 K/uL (0.11-0.59); Monocytes % (auto) 17.5 %; Neutrophils # (auto) 1.92 K/uL (1.4-6.5); Neutrophils % (auto) 56.7 %; Platelet Count 103 K/uL (130-400); RDW Coefficient of Variation 18.2 % (11.5-14.5); RDW Standard Deviation 65.2 fL (36.4-46.3); Red Blood Count 3.22 M/uL (4.2-5.4); White Blood Count 3.38 K/uL (4.8-10.8)
[2021-03-29 08:55] LABS: Alanine Aminotransferase 17 U/L (12-78); Albumin Level 2.7 gm/dl (3.4-5.0); Aspartate Aminotransferase 31 U/L (15-37); BUN Creatinine Ratio 2.9 (10-20); Blood Urea Nitrogen 1 mg/dl (7-18); Calcium 8.3 mg/dl (8.5-10.1); Carbon Dioxide 24 mmol/L (21-32); Chloride 100 mmol/L (98-107); Creatinine Clr Calc Pharmacy 156.1 ml/min; Est GFR (African American) > 150.0 ml/min; Est GFR (Non-African American) 133.7 ml/min; Glucose 72 mg/dl (70-99); Lipase 1216 U/L (73-393); Potassium 3.1 mmol/L (3.5-5.1); Sodium 135 mmol/L (136-145)
[2021-03-29 08:58] LABS: Albumin Globulin Ratio 0.8 (0.9-2); Alkaline Phosphatase 77 U/L (45-117); Bilirubin,Total 0.9 mg/dl (0.2-1); Globulin 3.4 gm/dl (2.5-4.0); Total Protein 6.1 gm/dl (6.4-8.2)
[2021-03-29] MEDS: NICOTINE 14 MG/24 HR PATCH TD SCH (09:10)
[2021-03-29] MEDS: THIAMINE HCL 100 MG TAB PO SCH (09:10)
[2021-03-29 09:13] LABS: RBC Morphology Unremarkable
--- NOTE | 2021-03-29 10:15 | Gastroenterology Progress Note ---
Date of Service March 29, 2021 Assessment & Plan (1) Acute pancreatitis: Plan: 35 year old female currently followed for pancreatitis. Hx of ETOH uses up to 2 months ago, no signs of biliary obstruction though she still has her gallbladder. She smokes cigs daily - LR @140ml/hr; if she tolerates PO intake well can DC IVF - CL diet, advance to low fat diet as tolerated - PPI coverage - Outpt EUS to be scheduled 4-6 weeks after pancreatitis episode - ETOH and tobacco cessation advised - Symptomatic management with analgesics and antiemetics prn otherwise - GI to sign off; pls recall prn Admission and Anticipated Discharge Date Admission Date: March 26, 2021 Supervising Physician Co-Signing Physician Notes Consult for pancreatitis - slowly improving. PE - benign Agree with further plan of care as below. Outpt EUS. Subjective Pt reports less abd pain. Tried CL diet last night but only able to ingest small amt. Denies n/v. Is passing flatus but no BM x 2 days Review of Systems Review of Systems: All systems reviewed & are unremarkable except as noted in HPI & below Physical Exam Constitutional: WD/WN, vitals as above well groomed, cooperative and comfortable Eyes: PERRL, conjunctivae normal, anicteric sclerae ENMT: external ear and nose normal, oropharynx normal Respiratory: normal respiratory effort, lungs clear to auscultation Cardiovascular: RRR, no murmur, no edema Gastrointestinal (Abdomen): TTP upper abd, BS present, soft Skin: no rashes, warm and dry no jaundice Psychiatric: A+Ox3, euthymic affect Lymphatic: no lymphedema Results & Data ([facility]) Vital Signs (Past 12 Hours) Vital Signs Temp Pulse Pulse Resp BP Pulse Ox 03/29/21 07:42 36.8 C 64 16 147/90 H 99 03/29/21 07:40 66 03/29/21 05:12 178/93 H 03/29/21 03:40 180/93 H 03/29/21 03:23 36.7 C 73 18 181/101 H 99 03/28/21 23:53 88 03/28/21 22:52 36.7 C 77 20 168/93 H 100
[2021-03-29] MEDS: traMADol HCL 50 MG TABLET PO PRN ×2 (11:03→20:37)
[2021-03-29] MEDS: ONDANSETRON INJ 2 MG/ML 2 ML VIAL IV PRN ×2 (11:08→20:36)
[2021-03-29 11:41] LABS: Codeine Urine NEGATIVE ng/mL (<50); Hydrocodone Urine NEGATIVE ng/mL (<50); Hydromor Urine NEGATIVE ng/mL (<50); Morphine Urine 2600 ng/mL (<50); Norhydrocodone Conf Ur NEGATIVE ng/mL (<50); Noroxycodone Urine NEGATIVE ng/mL (<50); Oxycodone Urine NEGATIVE ng/mL (<50); Oxymorph Urine NEGATIVE ng/mL (<50)
--- NOTE | 2021-03-29 11:53 | Nephrology Progress Note ---
Date of Service March 29, 2021 Assessment & Plan Admission and Anticipated Discharge Date Admission Date: March 26, 2021 Subjective Assessment & Plan (1) Hypertension: The differential for hypertension is broad as an inpatient. In this case could certainly relate to uncontrolled pain, situational anxiety related to her illness or to nicotine withdrawal, untreated hypothyroidism, or less likely a lcohol withdrawal -- the pt has not needed mgt of withdrawal since arrival, denies alcohol use in the past 2 months, and had no alcohol in her blood on presentation. She has no proteinuria or other urinary sediment abnormalities. Her blood pressure is not routinely elevated as an outpatient. BP can be high because of Aggressive fluid, pain, withdrawal etc. Ensure adequate pain control -Check TSH and ensure she is taking Synthroid dailyuntreated hypothyroidism can cause diastolic hypertension >> has not had any synthroid since arrival Ensure nicotine withdrawal adequately treated -continue LR at current aggressive rate as indicated but wean when appropriate. low k and will give k riders x 4. -enaliprilat prn 0.625 mg IV q8-12h provided that renal function labs remain at baseline--give only when BP > 160/100 in acute setting S----Abd pain less and labs somewhat better. On iv fluids for now Physical Exam Constitutional: well developed and well nourished Nontoxic-appearing and maneuvers readily for exam Eyes: EOM intact bilaterally ENMT: Ears: no external ear abnormality Nose: no external nose abnormality Mouth: + dry oral mucous membranes Neck: no nuchal rigidity Respiratory: normal respiratory effort Auscultation: + diminished lung sounds Cardiovascular: RRR, no murmur, no edema Gastrointestinal (Abdomen): Inspection/Auscultation: normal bowel sounds Percussion/Palpation: + abdomen tender (Left upper quadrant) and abdomen soft Musculoskeletal: Extremities: strength 5/5 throughout Skin: no rashes, warm and dry Neurologic: castro, fluent speech, no tremor Psychiatric: Orientation: oriented x 3 Eye Contact: good eye contact Motor Behavior: no abnormal motor movements Labs getting better. very low BUN and Creat. K is low na is low. Results & Data ([facility]) Vital Signs (Past 12 Hours) Vital Signs Temp Pulse Pulse Resp BP Pulse Ox 03/29/21 11:09 37.1 C 79 16 154/88 H 96 03/29/21 07:42 36.8 C 64 16 147/90 H 99 10/18/21 07:40 66 03/29/21 05:12 178/93 H 03/29/21 03:40 180/93 H 03/29/21 03:23 36.7 C 73 18 181/101 H 99 03/28/21 23:53 88
[2021-03-29] MEDS: POTASSIUM CHLORIDE / WTR 10 MEQ/100 ML PLCT IV SCH ×4 (13:49→18:39)
[2021-03-29] MEDS ORDERED: POLYETHYLENE (MIRALAX) 17 GM PACK PO PRN (15:10)
--- NOTE | 2021-03-29 15:10 | Hospitalist Progress Note ---
Date of Service March 29, 2021 Assessment & Plan (1) Acute pancreatitis: (2) Hypothyroidism: (3) Von Willebrand disease: Plan: Recurrent pancreatitis of unclear etiology at present - pt reports no EtOH x 1 month. GB US: unremarkable Abdominal pain improved this morning but worsened after trial of clear liquids Lipase improved from 2164-9532 For now, keep n.p.o. except ice chips NT Continue LR at 200 cc/h Continue pain control with as needed Dilaudid, Ofirmev IV every 8 hours Appreciate GI service recommendations Continue to monitor closely General surgery consulted due to possible gallstone etiology Gallbladder ultrasound unremarkable General surgeon Dr. Portillo evaluated patient, would like to check for other etiology of pancreatitis, including endoscopic ultrasound as an outpatient prior to considering cholecystectomy Patient needs to follow-up with GI as an outpatient for endoscopic ultrasound, and also general surgery for evaluation of cholecystectomy 03/29 Lipase 1216 abdominal pain improving clear liquids today slow down IV LR pain control add Senokot s daily and Milk of mg Hypertension Blood pressure persistently elevated since yesterday, despite pain not that severe yesterday and this morning No headache, chest pain, shortness of breath Amlodipine 2.5 mg p.o. 1 dose given now Nephrology service consulted Continue to monitor 03/29 improving with abdominal pain improvement Enalaprilat PRN appreciate Nephro recommendations Code Status: Full code DVT Prophylaxis: SCDs. plan of care discussed with patient in detail and at length all questions answered she is understanding, agreeable, comfortable with the plan of care Admission and Anticipated Discharge Date Admission Date: March 26, 2021 Subjective ff up for acute pancreatitis, etc seen resting in bed, comfortable sitting up, having breakfast - clear liquids states abdominal pain is better today 4/10 no nausea, chills no chest pain, dyspnea, palpitations, dizziness no headache no BM yet no other symptoms Review of Systems Review of Systems: all noted and negative except for above Physical Exam Physical Exam: General- oriented x 3, not in distress, speaks in sentences with no effort or accessory muscle use Eyes- anicteric Neck- no JVD Lungs- clear breath sounds bilaterally, no rales/wheezes Heart- normal rate, regular rhythm; no murmurs Abdomen- normal bowel sounds, nondistended, soft, mild tenderness on the epigastric area Extremities- no pretibial edema, no calf tenderness Neuro- alert, oriented x 3; no gross focal neurologic deficits Skin- warm & dry Results & Data Results & Data ([facility]) Vital Signs (Past 12 Hours) Vital Signs Temp Pulse Pulse Resp BP Pulse Ox 03/29/21 11:09 37.1 C 79 16 154/88 H 96 03/29/21 07:42 36.8 C 64 16 147/90 H 99 03/29/21 07:40 66 03/29/21 05:12 178/93 H 03/29/21 03:40 180/93 H 03/29/21 03:23 36.7 C 73 18 181/101 H 99 all noted and reviewed including below
[2021-03-29] MEDS: PROMETHAZINE HCL 12.5 MG in SODIUM CHLORIDE 0.9% 50 ML IV PRN (17:08)
[2021-03-29] MEDS: DOCUSATE SODIUM/SENNA 50/8.6MG TAB PO SCH (17:09)
[2021-03-29] MEDS: ENALAPRILAT 0.625 MG in SYRINGE 9.5 ML IV PRN (20:16)
--- NOTE | 2021-03-30 00:08 | Communication Note ---
Date of Service: March 30, 2021 1206AM Patient with auditory and visual hallucinations as per RN. AP Possible alcohol withdrawal hx alcohol abuse as per January 2021 confinement records GIBSON S, DT precautions Will relay to AM provider.
[2021-03-30] MEDS ORDERED: GABAPENTIN 600 MG TAB PO ONE (00:28)
[2021-03-30] MEDS ORDERED: LORazepam 3 MG/6 ML VIAL IV PRN (00:28)
[2021-03-30] MEDS ORDERED: ATIVAN IV ALCOHOL WITHDRAWL IV PRN (00:28)
[2021-03-30] MEDS ORDERED: LORazepam 2 MG/4 ML VIAL IV PRN (00:28)
[2021-03-30] MEDS ORDERED: LORazepam 1 MG/2 ML VIAL IV PRN (00:28)
[2021-03-30] MEDS ORDERED: GABAPENTIN 1200MG ALCOHOL WITHDRAWAL LOAD PO STA (00:28)
[2021-03-30] MEDS: HYDROmorphone INJ 1 MG/ML SYRINGE IV PRN (01:28)
[2021-03-30] MEDS ORDERED: oxyCODONE HCL IR 5 MG TAB (IMMEDIATE RELEASE) PO PRN (04:36)
[2021-03-30] MEDS ORDERED: HYDROmorphone INJ 0.5 MG/0.5 ML SYR IV PRN (04:39)
[2021-03-30] MEDS: LEVOTHYROXINE SODIUM 200 MCG TABLET PO SCH (06:06)
[2021-03-30] MEDS: ACETAMINOPHEN 1,000 MG/100 ML VIAL IV SCH (06:06)
[2021-03-30] MEDS: GABAPENTIN 600 MG TAB PO SCH ×2 (06:06→13:31)
[2021-03-30] MEDS: LACTATED RINGER'S 1,000 ML IV SCH ×3 (06:49→15:27)
[2021-03-30] MEDS: FOLIC ACID 1 MG TAB PO SCH (08:12)
[2021-03-30] MEDS: MULTIVITAMIN TAB PO SCH (08:16)
[2021-03-30] MEDS: DOCUSATE SODIUM/SENNA 50/8.6MG TAB PO SCH (08:16)
[2021-03-30] MEDS: THIAMINE HCL 100 MG TAB PO SCH (08:17)
[2021-03-30] MEDS: NICOTINE 14 MG/24 HR PATCH TD SCH (08:18)
[2021-03-30 08:41] LABS: Basophils # (auto) 0.01 K/uL (0-0.2); Basophils % (auto) 0.3 %; Eosinophils # (auto) 0.06 K/uL (0-0.5); Eosinophils % (auto) 1.8 %; Hematocrit (blood only) 34.9 % (37-47); Hemoglobin 12.1 g/dL (12.0-16.0); Immature Granulocytes # (auto) 0.01 K/uL (0.00-0.02); Immature Granulocytes % (auto) 0.3 %; Lymphocytes # (auto) 0.86 K/uL (1.2-3.4); Lymphocytes % (auto) 25.4 %; Mean Corpuscular Hemoglobin 33.8 pg (25-34); Mean Corpuscular Hgb Conc 34.7 g/dL (32-36); Mean Corpuscular Volume 97.5 fL (80-100); Mean Platelet Volume 9.9 fL (7.4-10.4); Monocytes # (auto) 0.68 K/uL (0.11-0.59); Monocytes % (auto) 20.1 %; Neutrophils # (auto) 1.76 K/uL (1.4-6.5); Neutrophils % (auto) 52.1 %; Platelet Count 150 K/uL (130-400); RDW Coefficient of Variation 18.5 % (11.5-14.5); RDW Standard Deviation 65.6 fL (36.4-46.3); Red Blood Count 3.58 M/uL (4.2-5.4); White Blood Count 3.38 K/uL (4.8-10.8)
[2021-03-30 09:06] LABS: Alanine Aminotransferase 25 U/L (12-78); Albumin Level 3.3 gm/dl (3.4-5.0); Aspartate Aminotransferase 36 U/L (15-37); BUN Creatinine Ratio 3.5 (10-20); Blood Urea Nitrogen 2 mg/dl (7-18); Calcium 9.2 mg/dl (8.5-10.1); Carbon Dioxide 25 mmol/L (21-32); Chloride 98 mmol/L (98-107); Creatinine Clr Calc Pharmacy 142.5 ml/min; Est GFR (African American) > 150.0 ml/min; Est GFR (Non-African American) 129.8 ml/min; Glucose 89 mg/dl (70-99); Potassium 2.8 mmol/L (3.5-5.1); Sodium 134 mmol/L (136-145)
[2021-03-30 09:09] LABS: Albumin Globulin Ratio 0.9 (0.9-2); Alkaline Phosphatase 85 U/L (45-117); Bilirubin,Total 0.8 mg/dl (0.2-1); Globulin 3.8 gm/dl (2.5-4.0); Lipase 1675 U/L (73-393); Total Protein 7.1 gm/dl (6.4-8.2)
--- NOTE | 2021-03-30 09:29 | Nephrology Progress Note ---
Date of Service March 30, 2021 Assessment & Plan Admission and Anticipated Discharge Date Admission Date: March 26, 2021 Subjective Subjective Assessment & Plan (1) Hypertension: The differential for hypertension is broad as an inpatient. In this case could certainly relate to uncontrolled pain, situational anxiety related to her illness or to nicotine withdrawal, untreated hypothyroidism, or less likely alcohol withdrawal -- the pt has not needed mgt of withdrawal since arrival, denies alcohol use in the past 2 months, and had no alcohol in her blood on presentation. She has no proteinuria or other urinary sediment abnormalities. Her blood pressure is not routinely elevated as an outpatient. BP can be high because of Aggressive fluid, pain, withdrawal etc. Ensure adequate pain control -Check TSH and ensure she is taking Synthroid dailyuntreated hypothyroidism can cause diastolic hypertension >> has not had any synthroid since arrival Ensure nicotine withdrawal adequately treated low k and will give k riders x + Po kcl 40 bid. And 1gm iv mag Also check Phos in Am. -enaliprilat prn 0.625 mg IV q8-12h provided that renal function labs remain at baseline--give only when BP > 160/100 in acute setting. Stop iv fluid when PO intake is good. -if K is low then may benefit on being on Aldactone for BP and K control. start 25 daily maybe tomorrow S----Abd pain less and labs somewhat better. On iv fluids for now Physical Exam Constitutional: well developed and well nourished Nontoxic-appearing and maneuvers readily for exam Eyes: EOM intact bilaterally ENMT: Ears: no external ear abnormality Nose: no external nose abnormality Mouth: + dry oral mucous membranes Neck: no nuchal rigidity Respiratory: normal respiratory effort Auscultation: + diminished lung sounds Cardiovascular: RRR, no murmur, no edema Gastrointestinal (Abdomen): Inspection/Auscultation: normal bowel sounds Percussion/Palpation: + abdomen tender (Left upper quadrant) and abdomen soft Musculoskeletal: Extremities: strength 5/5 throughout Skin: no rashes, warm and dry Neurologic: castro, fluent speech, no tremor Psychiatric: Orientation: oriented x 3 Eye Contact: good eye contact Motor Behavior: no abnormal motor movements Labs getting better. very low BUN and Creat. K is low na is low. Results & Data ([facility]) Vital Signs (Past 12 Hours) Vital Signs Temp Pulse Pulse Resp BP BP Pulse Ox 10/19/21 04:00 36.7 C 79 18 157/98 H 98 03/29/21 23:36 36.6 C 73 18 168/104 H 95 03/29/21 23:00 71 03/29/21 21:40 164/84 H
[2021-03-30] MEDS ORDERED: MAGNESIUM SULFATE / D5W 1 GM/100 ML BAG IV ONE (09:30)
[2021-03-30] MEDS: POTASSIUM CHLORIDE 20 MEQ/15 ML UDC PO SCH ×2 (11:22→20:21)
[2021-03-30] MEDS: POTASSIUM CHLORIDE / WTR 10 MEQ/100 ML PLCT IV SCH ×4 (11:26→15:22)
[2021-03-30] MEDS: ACETAMINOPHEN 1,000 MG/100 ML VIAL IV PRN (18:42)
--- NOTE | 2021-03-30 20:14 | Hospitalist Progress Note ---
Date of Service March 30, 2021 Assessment & Plan (1) Acute pancreatitis: (2) Hypothyroidism: (3) Von Willebrand disease: Plan: RECURRENT PANCREATITIS unclear etiology at present - pt reports no EtOH x 1 month. Alcohol level: Negative GB US: unremarkable Patient placed on aggressive lactated Ringer's, n.p.o., pain control Abdominal pain gradually improved Lipase improved from 2700, now 1600 Tolerating soft diet today DC IV LR Dilaudid reduced to prevent confusion, hallucination General surgery consulted due to possible gallstone etiology Gallbladder ultrasound unremarkable General surgeon Dr. Portillo evaluated patient, would like to check for other etiology of pancreatitis, including endoscopic ultrasound as an outpatient prior to considering cholecystectomy Patient needs to follow-up with GI as an outpatient for endoscopic ultrasound, and also general surgery for evaluation of cholecystectomy ALTERED MENTAL STATUS LIKELY SECONDARY TO DILAUDID Dosing reduced HYPERTENSION Likely secondary to IV fluids, pain No headache, chest pain, shortness of breath On enalaprilat IV as needed Nephrology service on board Code Status: Full code DVT Prophylaxis: SCDs. Disposition Anticipate discharge to home medically stable plan of care discussed with patient in detail and at length all questions answered she is understanding, agreeable, comfortable with the plan of care Admission and Anticipated Discharge Date Admission Date: March 26, 2021 Subjective ff up for acute pancreatitis, etc Seen with RICHAR Recinos at the bedside throughout whole encounter Events overnight noted Patient noted to have confusion hallucination Gabapentin for alcohol withdrawal started overnight This morning, RN reporting patient was having hallucinations On exam, the patient is sleeping but easily awakened Oriented x3, answers all questions appropriately Denies any more hallucinations Abdominal pain continues to improve, no nausea Tolerating solid diet better, minimal pain with p.o. intake Positive BM No headache, chest pain, shortness of breath, palpitations, dizziness Denies other symptoms Review of Systems Review of Systems: all noted and negative except for above Physical Exam Physical Exam: General- oriented x 3, not in distress, speaks in sentences with no effort or accessory muscle use Eyes- anicteric Neck- no JVD Lungs- clear breath sounds bilaterally, no rales/wheezes Heart- normal rate, regular rhythm; no murmurs Abdomen- normal bowel sounds, nondistended, soft, nontender Extremities- no pretibial edema, no calf tenderness Neuro- alert, oriented x 3; no gross focal neurologic deficits Skin- warm & dry Results & Data Results & Data ([place]) Vital Signs (Past 12 Hours) Vital Signs Temp Pulse Resp BP Pulse Ox 03/30/21 19:23 37.0 C 82 16 150/92 H 99 03/30/21 16:00 36.9 C 87 20 169/99 H 98 03/30/21 11:23 158/98 H
[2021-03-30] MEDS ORDERED: GABAPENTIN 600 MG TAB PO SCH (20:30)
[2021-03-30] MEDS: ONDANSETRON INJ 2 MG/ML 2 ML VIAL IV PRN (22:32)
[2021-03-30] MEDS ORDERED: MELATONIN 3 MG TAB PO PRN (22:52)
[2021-03-30] MEDS ORDERED: cloNIDine HCL 0.1 MG TAB PO ONE (23:33)
[2021-03-31] MEDS: LEVOTHYROXINE SODIUM 200 MCG TABLET PO SCH (06:20)
[2021-03-31 07:12] LABS: Basophils # (auto) 0.02 K/uL (0-0.2); Basophils % (auto) 0.5 %; Eosinophils # (auto) 0.11 K/uL (0-0.5); Eosinophils % (auto) 2.7 %; Hematocrit (blood only) 34.9 % (37-47); Immature Granulocytes # (auto) 0.02 K/uL (0.00-0.02); Immature Granulocytes % (auto) 0.5 %; Lymphocytes # (auto) 1.23 K/uL (1.2-3.4); Lymphocytes % (auto) 30.5 %; Mean Corpuscular Hemoglobin 33.3 pg (25-34); Mean Corpuscular Hgb Conc 34.4 g/dL (32-36); Mean Corpuscular Volume 96.9 fL (80-100); Mean Platelet Volume 9.5 fL (7.4-10.4); Monocytes # (auto) 0.72 K/uL (0.11-0.59); Monocytes % (auto) 17.9 %; Neutrophils # (auto) 1.93 K/uL (1.4-6.5); Neutrophils % (auto) 47.9 %; Platelet Count 175 K/uL (130-400); RDW Coefficient of Variation 18.4 % (11.5-14.5); RDW Standard Deviation 65.2 fL (36.4-46.3); White Blood Count 4.03 K/uL (4.8-10.8)
[2021-03-31] MEDS: FOLIC ACID 1 MG TAB PO SCH (07:38)
[2021-03-31] MEDS: DOCUSATE SODIUM/SENNA 50/8.6MG TAB PO SCH (07:38)
[2021-03-31] MEDS: MULTIVITAMIN TAB PO SCH (07:39)
[2021-03-31] MEDS: THIAMINE HCL 100 MG TAB PO SCH (07:39)
[2021-03-31] MEDS: NICOTINE 14 MG/24 HR PATCH TD SCH (07:39)
[2021-03-31] MEDS: ACETAMINOPHEN 1,000 MG/100 ML VIAL IV PRN (07:42)
[2021-03-31 07:45] LABS: Albumin Level 2.9 gm/dl (3.4-5.0); BUN Creatinine Ratio 4.5 (10-20); Calcium 8.7 mg/dl (8.5-10.1); Creatinine Clr Calc Pharmacy 123.7 ml/min; Est GFR (African American) 143.6 ml/min; Est GFR (Non-African American) 123.9 ml/min; Potassium 2.9 mmol/L (3.5-5.1)
[2021-03-31 07:50] LABS: Albumin Globulin Ratio 0.8 (0.9-2); Bilirubin,Total 0.8 mg/dl (0.2-1); Globulin 3.7 gm/dl (2.5-4.0); Phosphorus 4.1 mg/dl (2.5-4.9); Total Protein 6.6 gm/dl (6.4-8.2)
[2021-03-31] MEDS: POTASSIUM CHLORIDE 20 MEQ/15 ML UDC PO SCH (09:03)
[2021-03-31] MEDS ORDERED: POTASSIUM CHLORIDE CRTAB 20 MEQ TABCR PO STA (10:43)
[2021-03-31] MEDS ORDERED: SPIRONOLACTONE 25 MG TAB PO SCH ×2 (10:45→11:00)
--- NOTE | 2021-03-31 10:45 | Nephrology Progress Note ---
Date of Service March 31, 2021 Assessment & Plan Admission and Anticipated Discharge Date Admission Date: March 26, 2021 Subjective Subjective Subjective Assessment & Plan (1) Hypertension: The differential for hypertension is broad as an inpatient. In this case could certainly relate to uncontrolled pain, situational anxiety related to her illness or to nicotine withdrawal, untreated hypothyroidism, or less likely alcohol withdrawal -- the pt has not needed mgt of withdrawal since arrival, denies alcohol use in the past 2 months, and had no alcohol in her blood on presentation. She has no proteinuria or other urinary sediment abnormalities. Her blood pressure is not routinely elevated as an outpatient. Currently having Severe Hypokalemia with HTN. Conitnue Po kcl 40 bid. -enaliprilat prn 0.625 mg IV q8-12h provided that renal function labs remain at baseline--give only when BP > 160/100 in acute setting. Stop iv fluid when PO intake is good. Add Aldactone 25 bid for HTN and Severe Hypokalemia also check Renal Duplex given HTN with low K in young patient to evaluate for fibromuscular dysplasia S----Abd pain less and labs somewhat better. On iv fluids for now Physical Exam Constitutional: well developed and well nourished Nontoxic-appearing and maneuvers readily for exam Eyes: EOM intact bilaterally ENMT: Ears: no external ear abnormality Nose: no external nose abnormality Mouth: + dry oral mucous membranes Neck: no nuchal rigidity Respiratory: normal respiratory effort Auscultation: + diminished lung sounds Cardiovascular: RRR, no murmur, no edema Gastrointestinal (Abdomen): Inspection/Auscultation: normal bowel sounds Percussion/Palpation: + abdomen tender (Left upper quadrant) and abdomen soft Musculoskeletal: Extremities: strength 5/5 throughout Skin: no rashes, warm and dry Neurologic: castro, fluent speech, no tremor Psychiatric: Orientation: oriented x 3 Eye Contact: good eye contact Motor Behavior: no abnormal motor movements Labs getting better. very low BUN and Creat. K is low na is low. Results & Data ([facility]) Vital Signs (Past 12 Hours) Vital Signs Temp Pulse Pulse Resp BP BP Pulse Ox 03/31/21 07:16 36.9 C 73 18 165/93 H 97 03/31/21 03:28 138/87 03/31/21 03:23 36.9 C 64 16 164/96 H 97 03/30/21 23:57 73 03/30/21 23:08 176/106 H 03/30/21 22:52 36.9 C 70 16 181/104 H 100
--- NOTE | 2021-03-31 14:51 | Ultrasound Report ---
US duplex renal artery CLINICAL HISTORY: Severe HTN with Severe Hypokalemia. COMPARISON STUDY: CT of the abdomen and pelvis February 08, [address] of the abdomen and pelvis Aug2020. TECHNIQUE: Color and duplex Doppler sonography of the abdominal aorta and bilateral renal arteries wa s performed. FINDINGS: Incidental note is made of increased hepatic echogenicity consistent with hepatic steatosis . Right kidney measures 12.1 cm in maximal dimension and the left measures 11.8 cm. Renal echogenicit y, size and cortical thickness are normal. The bilateral renal arteries and veins are patent. Segment al waveforms within each kidney are normal. Peak systolic velocity within the right renal artery was 141 cm/s. Peak systolic velocity within the abdominal aorta was 102 cm/s. Peak systolic velocity with in the left renal artery was 75 cm/s. IMPRESSION: No sonographic evidence of renal artery stenosis. ACT 112: Negative or not required by law. Electronically signed by: Troy Murphy M.D. 03/31/2021 2:49 PM
--- NOTE | 2021-03-31 17:13 | Discharge Summary ---
Date of Service March 31, 2021 Admission HPI Per Admitting Provider Chief Complaint: Abdominal Pain and Vomiting Primary Care Provider: Gypsy Lubin PA-C This is a 35 y/o female with a PMH of hypothyroidism, migraine, tobacco abuse, alcohol use, history of bipolar disorder, hepatic steatosis, von Willebrand's disease who presents ED secondary acute worsening on ongoing abdominal pain with associated chills, sweats, nausea and vomiting. Admitted 01/08-01/14 secondary to abdominal pain. Diagnosed with acute pancreatitis. Underwent MRCP which was negative for choledocholithiasis and revealed pancreatitis. EGD showed nonbleeding gastric ulcers and Z-line irregularity. Pathology consistent with GERD, negative for Sylvester's, dysplasia or H. pylori. Imaging consistent with hepatic steatosis. Seen and evaluated by GI and general surgery. ERCP and elective cholecystectomy was declined secondary to relative pancytopenia, pending further hematology evaluation. She has not yet seen hematology as outpatient. This is scheduled for later this month. Readmitted 02/08-02/11 due to recurrent abdominal thought secondary to recurrent acute pancreatitis, likely caused by EtOH. Managed with IV pain meds, fluids, and anti-emetics with improvement. Since discharge, she reports ongoing intermittent abdominal pain, mostly in the epigastric and LUQ area. Overall, it has been tolerable. However, last night at 2 am, she was awoken from sleep with severe epigastric and LUQ pain that radiated through to her back along with chills and sweats. She did not check her temperature so she is unsure if she had a fever. She describes the abdominal pain as squeezing and stabbing but the pain in her back is a burning sensation. She has constant nausea but this morning developed vomiting of yellow liquid with black flecks. No hematemesis. Last emesis was just before arrival in the ED. Decreased appetite with a reported 28 lb wt loss over the past 6 months. Admission Exam Per Admitting Provider oriented x3, not in distress, speaks in sentences with no effort nor accessory muscle use normal rate, regular rhythm, no murmurs clear breath sounds bilaterally non distended, soft, (+) moderate tenderness on central abdomen no RUQ tenderness, Noland's sign no bipedal edema, erythema, warmth no neuro deficits Principal Diagnosis Recurrent pancreatitis Hypokalemia Hypertension Discharge Exam GENERAL: Alert and oriented x3. NAD, on RA. HEENT: No pallor, no icterus. Pupils equal, round and reactive to light. Oral mucosa moist. NECK: No JVD, no neck masses. HEART: S1 and S2 heard. Regular rate and rhythm. No murmur, no gallop. RESPIRATORY SYSTEM: Normal AP diameter. No accessory muscle use. No wheezing, no crackles. ABDOMEN: Soft, bowel sounds present, minimal epigastric tenderness on deep palpation, no distention. CENTRAL NERVOUS SYSTEM: Alert and oriented x3. No facial droop. Speech is clear. Obeys simple commands. Moves extremities. EXTREMITIES: No edema, no erythema seen. Discharge Data Allergies Allergy/AdvReac Type Severity Reaction Status Date / Time valacyclovir Allergy Severe Dyspnea Verified 03/26/21 08:28 enalaprilat Allergy Mild itch Verified 03/30/21 23:34 Consultations 03/26/21 07:29 ED Decision to Admit Stat 03/26/21 09:53 Consult Gastroenterology Routine 03/27/21 12:14 Consult General Surgery Routine 03/28/21 12:21 Consult Nephrology Routine Ordered Studies 03/26/21 07:01 CT abd pelvis wo con Stat 03/26/21 16:43 US gallbladder Stat 03/31/21 10:42 US duplex renal artery Routine Hospital Course (1) Acute pancreatitis: (2) Hypokalemia: (3) Hypertension: 35 y/o female with a PMH of hypothyroidism, migraine, tobacco abuse, alcohol use, history of bipolar disorder, hepatic steatosis, von Willebrand's disease who presents ED 03/26 secondary to acute worsening on ongoing abdominal pain with associated chills, sweats, nausea and vomiting. She was found to have acute pancreatitis. This is her third episode of pancreatitis. She was recently admitted 01/08-01/14 secondary to abdomen pain and was diagnosed with acute pancreatitis when she underwent MRCP which was negative for choledocholithiasis and revealed pancreatitis. At that time, she was seen and evaluated by GI and general surgery. ERCP and elective cholecystectomy was declined secondary to relative pancytopenia, pending further hematology evaluation which patient had not seen hematology as an outpatient up to the time of this admission. Patient aware of the situation. Readmitted and found to have acute pancreatitis likely caused by alcohol. Since discharge after second pancreatitis episode, patient had ongoing intermittent abdominal pain, mostly in the epigastric region. The pain was mostly tolerable but just prior to arrival, the pain became unbearable and hence patient presented to the ED. In the hospital: She was managed for acute pancreatitis with n.p.o. and pain management with IV fluids, slow advancement of diet, patient tolerated diet fairly well with resolution of her nausea and belly pain. General surgery evaluated her for possible gallstone etiology but gallstone ultrasound was unremarkable. General surgery would like her to have endoscopic ultrasound as an outpatient for which she needs to follow-up with GI which patient is aware of, and then evaluate her for cholecystectomy. She is aware of that she needs to follow-up with general surgery after outpatient endoscopic ultrasound. For her hypertension and hyperkalemia, nephrology was on board. Her hypokalemia was very slow to respond to maximum doses of potassium, she is started on Aldactone and potassium supplementation per nephrology with follow-up BMP in 3 days upon discharge and follow-up with PCP within a week time for close monitoring of her Aldactone/KCl supplementation and readjustment of the doses as appropriate. Patient was advised to stay 1 more day per nephrology to assess the effect of Aldactone and potassium supplementation 1 more day, patient was insistent on going home. Patient discharged to home with following instruction at time of discharge: Follow-up with your primary care physician within a week time. Get blood work [BMP and magnesium level] done on 04/02/2021. It is very important that you do the test on Monday and have the results forwarded to your primary care physician. Follow-up with GI doctor for outpatient endoscopic ultrasound. After ultrasound, follow-up with general surgery for evaluation of cholecystectomy. Take medications as prescribed. You have been started on new medications Aldactone and potassium chloride supplementation, you will need a close follow- up with your primary care physician as an outpatient for evaluation and dose readjustment as appropriate. Maintain follow-up with your primary care physician within a week time and thereafter as scheduled by your PCP. Total Time Total Time Spent Total Time Spent (In Minutes): 45 Discharge Plan Discharge Items Patient Disposition: Home - Self-Care Reason For Visit: ACUTE PANCREATITIS Discharge Diagnosis: Recurrent pancreatitis Hypokalemia Hypertension Activity: Resume your previous activity Non-emergency contact: Primary Care Provider Call non-emergency contact if: you have any medication questions, your pain is worsening and your temperature is above 101 Follow-up/Referrals: Gypsy Lubin PA-C [Primary Care Provider] - Diet: Heart Healthy and Low Fat Addtl Attending Provider Instructions: Follow-up with your primary care physician within a week time. Get blood work [BMP and magnesium level] done on 04/02/2021. It is very important that you do the test on Monday and have the results forwarded to your primary care physician. Follow-up with GI doctor for outpatient endoscopic ultrasound. After ultrasound, follow-up with general surgery for evaluation of cholecystectomy. Take medications as prescribed. You have been started on new medications Aldactone and potassium chloride supplementation, you will need a close follow- up with your primary care physician as an outpatient for evaluation and dose readjustment as appropriate. Maintain follow-up with your primary care physician within a week time and thereafter as scheduled by your PCP. Pending Studies at Discharge: No Stand-Alone Forms: My [facility] Physical Therapy, Smoking Cessation Medications and DC Order Prescriptions: New spironolactone 25 mg Tablet 25 mg PO BID Qty: 60 RF: 0 potassium chloride 20 mEq tablet,ER particles/crystals 40 meq PO BID Qty: 60 RF: 0 Continued levothyroxine [Synthroid] 200 mcg tablet 200 mcg PO DAILYBB RF: 0 ondansetron 8 mg Tablet,Disintegrating 8 mg PO Q8H PRN (Reason: Nausea) RF: 0 albuterol sulfate [Ventolin HFA] 90 mcg/actuation Hfa Aerosol Inhaler 1 inh INHALATION DIRECTED PRN (Reason: Shortness Of Breath) RF: 0 dicyclomine 10 mg capsule 10 mg PO QID PRN (Reason: abd pain) RF: 0 acetaminophen [Tylenol Extra Strength] 500 mg Tablet 1,000 mg PO Q6H PRN (Reason: Pain) RF: 0 folic acid 1 mg Tablet 1 mg PO QAM Qty: 30 RF: 0 pantoprazole [Protonix] 40 mg tablet,delayed release (DR/EC) 40 mg PO BID RF: 0 sucralfate 100 mg/mL suspension 10 ml PO QID RF: 0 thiamine HCl (vitamin B1) 100 mg Tablet 100 mg PO DAILY RF: 0 Discharge Orders: Discharge Order (Routine); Ordered 03/31/21 Ordered By: Nate Montoya Admission Data Admit Date/Time: 03/26/21 07:51 Attending Provider: Nate Montoya Admit Provider: Mehul Campo Primary Care Provider: Gypsy Lubin Other Providers: Mehul Campo ; Kellie Lambert ; Arnoldo Portillo ; Earline Ordaz Other Interventions: Discharge Summary Assessment (RN) Last Done: 03/31/21 16:05
[2021-04-01] MEDS ORDERED: GABAPENTIN 600 MG TAB PO SCH (00:30)
[2021-04-02] MEDS ORDERED: GABAPENTIN 600 MG TAB PO SCH (12:30)
== END 2021-03-31 16:27 | disposition home or self-care (01) | DRG 439 ==
LOC: ED 05:28 → SUATTDRO 07:51 → EDINP 07:51 → 2N 15:00

== ENCOUNTER 2021-06-25 13:45 | Observation (INO) ==
[2021-06-25] MEDS ORDERED: diphenhydrAMINE 50 MG/ML VIAL IV STA (14:25)
[2021-06-25] MEDS ORDERED: METOCLOPRAMIDE HCL INJ 5 MG/ML 2 ML VIAL IV ONE (14:25)
[2021-06-25] MEDS ORDERED: SODIUM CHLORIDE 0.9% 1000ML 1,000 ML IV ONE (14:25)
--- NOTE | 2021-06-25 14:42 | Emergency Department Note ---
History of Present Illness General Chief complaint: Headache Stated complaint: chills, head fuzzy, r side pain, vomit, no appteti Time Seen by Provider: 06/25/21 14:25 History of Present Illness Provider complaint: Headache abdominal pain vomiting Onset (ago): day(s) 5 Location: head and abdomen Maximum Pain Intensity: 8 Current Pain Intensity: 8 Quality: + aching Relieved By: + none Exacerbated By: + none Associated symptoms: + fever/chills, + headaches and + nausea/vomiting; no chest pain, no cough, no shortness of breath or no weakness 36-year-old female presents to the emergency department for headache and abdominal pain. Patient reports 5 days ago she began having a headache. She s tates then she also started developing epigastric and right-sided abdominal pain 5 days ago. She states she has been vomiting for the last 5 days. She denies any hematemesis coffee-ground emesis or bilious vomiting. She reports chills but no fevers. Patient states she is not vaccinated against COVID-19. Patient states she had a splenectomy done and has chosen not to get vaccinated COVID-19 because she is tired of getting shots. Patient denies any chance of . No diarrhea. No melena or hematochezia. No vaginal bleeding or discharge. No chest pain or difficulty breathing. Home Medications Medication Instructions Recorded Confirmed Type levothyroxine 200 mcg tablet 200 mcg PO DAILYBB 07/18/19 03/26/21 History (Synthroid) ondansetron 8 mg disintegrating 8 mg PO Q8H PRN 09/27/19 03/26/21 History tablet albuterol sulfate 90 mcg/actuation 1 inh INHALATION DIRECTED PRN 12/28/20 03/26/21 History aerosol inhaler (Ventolin HFA) acetaminophen 500 mg tablet 1,000 mg PO Q6H PRN 01/08/21 03/26/21 History (Tylenol Extra Strength) dicyclomine 10 mg capsule 10 mg PO QID PRN 01/08/21 03/26/21 History folic acid 1 mg tablet 1 mg PO QAM #30 tab 01/14/21 03/26/21 Rx pantoprazole 40 mg tablet,delayed 40 mg PO BID 03/26/21 03/26/21 History release (Protonix) sucralfate 100 mg/mL oral 10 ml PO QID 03/26/21 03/26/21 History suspension thiamine HCl (vitamin B1) 100 mg 100 mg PO DAILY 03/26/21 03/26/21 History tablet potassium chloride 20 mEq 40 meq PO BID #60 tab 03/31/21 Rx tablet,extended release(part/cryst) spironolactone 25 mg tablet 25 mg PO BID #60 tab 03/31/21 Rx Allergies Allergy/AdvReac Type Severity Reaction Status Date / Time valacyclovir Allergy Severe Dyspnea Verified 03/26/21 08:28 enalaprilat Allergy Mild itch Verified 03/30/21 23:34 Past Med/Surg History Medical History (Updated 06/25/21 @ 18:07 by Storm Goncalves) Alcohol abuse Elevated AST (SGOT) Hepatic steatosis History of pancreatitis Hypothyroidism IBS (irritable bowel syndrome) Migraines Pancreatitis Peptic ulcer Seasonal asthma Tobacco use Upper gastrointestinal bleed Von Willebrand disease "Mild" Class 1 per [facility] records, under surveillance [facility] hematology, surgeon aware Surgical History (Updated 06/25/21 @ 15:50 by Storm Goncalves) H/O splenectomy History of colonoscopy History of esophagogastroduodenoscopy (EGD) History of loop electrical excision procedure (LEEP) History of wisdom tooth extraction Family History Mother Von Willebrand disease Other No family history of adverse response to anesthesia Social History Smoking Status: Never smoker Tobacco Type: Cigarettes Cigarettes Per Day: 10; Second Hand Exposure: No; Hx Alcohol Use: No Hx Substance Use: No Preferred Language: Kittitian Communication Ability: Effective Rolled Gold Plater Required: No Beliefs That Will Affect Care: None marital status: Current Living Situation: Spouse and Family Feels Safe at Home: Yes Assistive Devices: None Review of Systems A total of 10 systems reviewed and were otherwise negative Physical Exam Vital Signs Vital Signs - 24 hr 06/25/21 13:53 06/25/21 15:05 06/25/21 15:46 Temperature 36.9 C Temperature Source Temporal Artery Scan Pulse Rate 107 H Pulse Rate [Apical] 102 H Respiratory Rate 18 18 Respiratory Effort / Characteristics Non-Labored Respiratory Depth Normal Blood Pressure 137/85 Blood Pressure [Left Arm] 130/86 Blood Pressure Mean 102 Blood Pressure Mean [Left Arm] 100 Pulse Oximetry 96 96 Oxygen Delivery Method Room Air Room Air Room Air Sepsis Recent Fever Within 48 Hours No Sepsis New/Unexplained Change in Mental Status N/A Sepsis Action Taken by Nursing No Action Required Physical Exam HENT: Exam performed. -Head: Normocephalic and atraumatic. -Right Ear: External ear normal. No mastoid tenderness. -Left Ear: External ear normal. No mastoid tenderness. -Mouth/Throat: The oropharynx is clear and moist. No trismus in the jaw. No dental abscesses or uvula swelling. No oropharyngeal exudate or tonsillar abscesses. EYES: Conjunctivae and EOM are normal. Pupils are equal, round, and reactive to light. Right eye exhibits no discharge. Left eye exhibits no discharge. No scleral icterus. NECK: Normal range of motion. Neck supple. No JVD present. No spinous process tenderness present. No carotid bruit present. No rigidity. No tracheal deviation and normal range of motion present. No Brudzinski's sign and no Kernig's sign noted. CV: tahcycardric rate, regular rhythm, normal heart sounds and intact distal pulses. There is no peripheral edema. Palpable radial pulses bue. PULM/CHEST: Effort normal and breath sounds normal. No respiratory distress. No stridor. She has no wheezes. She has no rales. -Chest Wall: She exhibits no tenderness. ABD: The abdomen is soft. Bowel sounds are normal. She has no distension. No mass is present. There is no tenderness. There is no rebound, no guarding, no Noland's sign and no tenderness at McBurney's point. Rovsig negative MUSC/SKEL: Normal range of motion. There is no peripheral edema, tenderness or deformity. LYMPH: No cervical adenopathy. NEURO: She is alert and oriented to person, place, and time. She has normal strength. No cranial nerve deficit or sensory deficit. Coordination and gait normal. GCS eye subscore is 4. GCS verbal subscore is 5. GCS motor subscore is 6. Cerebellar tests wnl. SKIN: Skin is warm and dry. She is not diaphoretic. PSYCH: Patient appears agitated and anxious Course Course 1425: The patient was evaluated in room [facility]. A complete history and physical exam was performed Cardiac monitoring: An order was placed for continuous cardiac monitoring. The monitor shows a rate of 100 with sinus rhythm 1739: Vital signs stable. On repeat assessment patient has no meningeal signs. Patient is asking for more pain and nausea medication. Patient states she is still having abdominal pain. Labs show leukocytosis of 16. Potassium 2.9. Lipase 151. CT of the head within normal limits. CT of the abdomen shows pancreatitis with pseudocyst. Bio fire negative. Potassium repletion started in the emergency department. Patient will be admitted to the [facility] team spoke with Ce who states admit to Dr. Mars Administered Medications Sodium Chloride (Nss 1000ml) 1,000 mls @ 125 mls/hr IV .Q8H MIKHAIL Stop: 07/25/21 17:14 Last Admin: 06/25/21 17:26 Dose: 125 mls/hr Documented by: [id number] Discontinued Medications Diphenhydramine HCl (Diphenhydramine 50 Mg/Ml Vial) 25 mg IV NOW STA Stop: 06/25/21 14:26 Last Admin: 06/25/21 15:11 Dose: 25 mg Documented by: [id number] Sodium Chloride (Nss 1000ml) 1,000 mls @ 999 mls/hr IV .Q1H1M ONE Stop: 06/25/21 15:25 Last Infusion: 06/25/21 16:43 Dose: 0 mls/hr Documented by: [id number] Infusion: 06/25/21 15:30 Dose: 0 mls/hr Documented by: [id number] Admin: 06/25/21 15:11 Dose: 999 mls/hr Documented by: [id number] Lorazepam (Ativan) 0.5 mg in 1 mls @ 1 mls/min IV NOW STA Stop: 06/25/21 15:43 Last Admin: 06/25/21 16:31 Dose: 1 mls/min Documented by: [id number] Ioversol (Optiray 320 100ml) 94 ml IV ONCE ONE Stop: 06/25/21 16:53 Last Admin: 06/25/21 16:54 Dose: 94 ml Documented by: [id number] Ketorolac Tromethamine (Ketorolac Tromethamine 15 Mg/Ml Vial) 15 mg IV NOW STA Stop: 06/25/21 16:27 Last Admin: 06/25/21 16:31 Dose: 15 mg Documented by: [id number] Ketorolac Tromethamine (Ketorolac Tromethamine 15 Mg/Ml Vial) 15 mg IV NOW STA Stop: 06/25/21 17:11 Last Admin: 06/25/21 17:27 Dose: 15 mg Documented by: [id number] Metoclopramide HCl (Metoclopramide Hcl Inj 5 Mg/Ml 2 Ml Vial) 5 mg IV ONE ONE Stop: 06/25/21 14:26 Last Admin: 06/25/21 15:11 Dose: 5 mg Documented by: [id number] Ondansetron HCl (Ondansetron Inj 2 Mg/Ml 2 Ml Vial) 4 mg IV NOW STA Stop: 06/25/21 17:11 Last Admin: 06/25/21 17:28 Dose: 4 mg Documented by: [id number] Medical Decision Making Laboratory Data Result diagrams: 06/25/21 15:00 06/25/21 15:00 Lab Results 06/25/21 06/25/21 06/25/21 Range/Units 15:00 15:00 15:20 WBC 16.32 H (4.8-10.8) K/uL RBC 3.79 L (4.2-5.4) M/uL Hgb 12.3 (12.0-16.0) g/dL Hct 37.7 (37-47) % MCV 99.5 (80-100) fL MCH 32.5 (25-34) pg MCHC 32.6 (32-36) g/dL RDW Std Deviation 67.9 H (36.4-46.3) fL RDW Coeff of Praful 19.0 H (11.5-14.5) % Plt Count 308 (130-400) K/uL MPV 11.3 H (7.4-10.4) fL Immature Gran % (Auto) 0.2 % Neut % (Auto) 83.0 % Lymph % (Auto) 8.3 % [place] % (Auto) 7.5 % Eos % (Auto) 0.7 % Baso % (Auto) 0.3 % Neut # (Auto) 13.54 H (1.4-6.5) K/uL Lymph # (Auto) 1.36 (1.2-3.4) K/uL [place] # (Auto) 1.22 H (0.11-0.59) K/uL Eos # (Auto) 0.12 (0-0.5) K/uL Baso # (Auto) 0.05 (0-0.2) K/uL Immature Gran # (Auto) 0.03 H (0.00-0.02) K/uL Absolute Nucleated RBC 0.10 H (0-0) K/uL Nucleated RBC % (auto) 0.6 % Sodium 138 (136-145) mmol/L Potassium 2.9 L (3.5-5.1) mmol/L Chloride 98 (98-107) mmol/L Carbon Dioxide 28 (21-32) mmol/L Anion Gap 12 H (3-11) BUN 8 (6-23) mg/dl Creatinine 0.47 L (0.6-1.2) mg/dl Est Cr Clr Drug Dosing 138.2 ml/min Est GFR ( Amer) 148.3 ml/min Est GFR (Non-Af Amer) 128.0 ml/min BUN/Creatinine Ratio 17.0 (10-20) Glucose 108 H (70-99) mg/dl Calcium 9.5 (8.5-10.1) mg/dl Total Bilirubin 0.7 (0.2-1.0) mg/dl Direct Bilirubin 0.1 (0-0.2) mg/dl AST 33 (13-39) U/L ALT 16 (7-52) U/L Alkaline Phosphatase 122 H (34-104) U/L Total Protein 8.0 (6.0-8.3) gm/dl Albumin 4.1 (3.4-5.0) gm/dl Lipase 151 H (11-82) U/L Urine Color Urine Appearance (Clear) Urine pH (4.5-7.5) Ur Specific [place] (1.000-1.030) Urine Protein (Negative) Urine Glucose (UA) (Negative) Urine Ketones (Negative) Urine Blood (Negative) Urine Nitrite (Negative) Urine Bilirubin (Negative) Urine Urobilinogen (Negative) Ur Leukocyte Esterase (Negative) Urine WBC (Auto) (0-5) /hpf Urine RBC (Auto) (0-4) /hpf U Hyaline Cast (Auto) (0-5) /lpf U Epithel Cells (Auto) (0-5) /lpf Urine Bacteria (Auto) (Negative) Adenovirus (PCR) Not Detected (NotDetected) B. pertussis DNA (PCR) Not Detected (NotDetected) B.parapertussis DNA PCR Not Detected (NotDetected) C. pneumoniae DNA (PCR) Not Detected (NotDetected) Coronavirus OC43 (PCR) Not Detected (NotDetected) Coronavirus HKU1 (PCR) Not Detected (NotDetected) Coronavirus 229E (PCR) Not Detected (NotDetected) SARS-CoV-2 (PCR) Not Detected (NotDetected) Coronavirus NL63 (PCR) Not Detected (NotDetected) Human Metapneumovir PCR Not Detected (NotDetected) Influenza Type A (PCR) Not Detected (NotDetected) Influenza Type B (PCR) Not Detected (NotDetected) M. pneumoniae (PCR) Not Detected (NotDetected) Parainfluenza 1 (PCR) Not Detected (NotDetected) Parainfluenza 2 (PCR) Not Detected (NotDetected) Parainfluenza 3 (PCR) Not Detected (NotDetected) Parainfluenza 4 (PCR) Not Detected (NotDetected) RSV (PCR) Not Detected (NotDetected) Entero/Rhino (PCR) Not Detected (NotDetected) 06/25/21 Range/Units 16:42 WBC (4.8-10.8) K/uL RBC (4.2-5.4) M/uL Hgb (12.0-16.0) g/dL Hct (37-47) % MCV (80-100) fL MCH (25-34) pg MCHC (32-36) g/dL RDW Std Deviation (36.4-46.3) fL RDW Coeff of Praful (11.5-14.5) % Plt Count (130-400) K/uL MPV (7.4-10.4) fL Immature Gran % (Auto) % Neut % (Auto) % Lymph % (Auto) % [place] % (Auto) % Eos % (Auto) % Baso % (Auto) % Neut # (Auto) (1.4-6.5) K/uL Lymph # (Auto) (1.2-3.4) K/uL [place] # (Auto) (0.11-0.59) K/uL Eos # (Auto) (0-0.5) K/uL Baso # (Auto) (0-0.2) K/uL Immature Gran # (Auto) (0.00-0.02) K/uL Absolute Nucleated RBC (0-0) K/uL Nucleated RBC % (auto) % Sodium (136-145) mmol/L Potassium (3.5-5.1) mmol/L Chloride (98-107) mmol/L Carbon Dioxide (21-32) mmol/L Anion Gap (3-11) BUN (6-23) mg/dl Creatinine (0.6-1.2) mg/dl Est Cr Clr Drug Dosing ml/min Est GFR ( Amer) ml/min Est GFR (Non-Af Amer) ml/min BUN/Creatinine Ratio (10-20) Glucose (70-99) mg/dl Calcium (8.5-10.1) mg/dl Total Bilirubin (0.2-1.0) mg/dl Direct Bilirubin (0-0.2) mg/dl AST (13-39) U/L ALT (7-52) U/L Alkaline Phosphatase (34-104) U/L Total Protein (6.0-8.3) gm/dl Albumin (3.4-5.0) gm/dl Lipase (11-82) U/L Urine Color Yellow Urine Appearance Clear (Clear) Urine pH 6.0 (4.5-7.5) Ur Specific [place] 1.026 (1.000-1.030) Urine Protein 1+ H (Negative) Urine Glucose (UA) Negative (Negative) Urine Ketones 4+ H (Negative) Urine Blood Negative (Negative) Urine Nitrite Negative (Negative) Urine Bilirubin Negative (Negative) Urine Urobilinogen Negative (Negative) Ur Leukocyte Esterase Negative (Negative) Urine WBC (Auto) 0 (0-5) /hpf Urine RBC (Auto) 0-4 (0-4) /hpf U Hyaline Cast (Auto) 1-5 (0-5) /lpf U Epithel Cells (Auto) >30 H (0-5) /lpf Urine Bacteria (Auto) Negative (Negative) Adenovirus (PCR) (NotDetected) B. pertussis DNA (PCR) (NotDetected) B.parapertussis DNA PCR (NotDetected) C. pneumoniae DNA (PCR) (NotDetected) Coronavirus OC43 (PCR) (NotDetected) Coronavirus HKU1 (PCR) (NotDetected) Coronavirus 229E (PCR) (NotDetected) SARS-CoV-2 (PCR) (NotDetected) Coronavirus NL63 (PCR) (NotDetected) Human Metapneumovir PCR (NotDetected) Influenza Type A (PCR) (NotDetected) Influenza Type B (PCR) (NotDetected) M. pneumoniae (PCR) (NotDetected) Parainfluenza 1 (PCR) (NotDetected) Parainfluenza 2 (PCR) (NotDetected) Parainfluenza 3 (PCR) (NotDetected) Parainfluenza 4 (PCR) (NotDetected) RSV (PCR) (NotDetected) Entero/Rhino (PCR) (NotDetected) Imaging Data Radiologist's Impression: Head CT 06/25/21 14:29 CT head/brain wo con CLINICAL HISTORY: Headache COMPARISON STUDY: No previous studies for comparison. CT DOSE: 537.48 mGy.cm TECHNIQUE: Standard CT of the Brain was performed without IV contrast. A dose lowering technique was utilized adhering to the principles of ALARA. FINDINGS: Extraaxial space: There is no evidence for subdural hematoma. There are no extra-axial fluid collections. Ventricles and cisterns: The ventricles are normal in size and configuration. There is no evidence for midline shift or mass effect. Parenchyma: There is no subarachnoid or intraparenchymal hemorrhage. There is no evidence for an acute infarct or cerebral edema. There is homogeneous attenuation of the brain parenchyma. There are no gross mass lesions. Osseous structures: There is no evidence for an acute fracture. The visualized paranasal sinuses are clear. The mastoid air cells are clear bilaterally. Soft tissues: There is no evidence for focal soft tissue swelling. IMPRESSION: No acute intracerebral pathology. ACT 112: Negative or not required by law. Electronically signed by: Carlos Collado M.D. 06/25/2021 4:59 PM Abdomen/Pelvis CT 06/25/21 14:36 CT abd pelvis IV con only CLINICAL HISTORY: Right upper quadrant and epigastric pain. Previous splenectomy. COMPARISON STUDY: 03/26/2021 CT DOSE: 269.64 mGy.cm TECHNIQUE: Standard CT of the Abdomen and Pelvis was performed with IV contrast. A dose lowering technique was utilized adhering to the principles of ALARA. Contrast Volume: Optiray 320, 94 ml. The patient did not receive oral contrast. FINDINGS: Lung base: The lung bases are clear. Abdominal cavity: There is no evidence for abdominal mass, adenopathy or ascites. Liver: There is again diffuse decreased attenuation of the liver representing fatty infiltration. There is no evidence for enhancing mass lesion. Spleen: The patient is status post interval splenectomy with a sharply defined fluid collections seen in the splenic fossa. It measures 2.8 x 2.0 cm is characteristic of a postoperative seroma. Pancreas: There has been interval development of a fluid collection in the tail of pancreas is well. This measures 1.8 x 1.6 cm and is most characteristic of a pseudocyst. Mild edematous changes are present involving the distal body and tail of pancreas as well. The head and proximal body of pancreas are within normal limits. Mild peripancreatic edema is seen involving the distal body and the tail and the findings are characteristic of mild pancreatitis. Correlation with lipase is recommended. Gall Bladder: The gallbladder is well distended with no evidence for intraluminal calculi, wall thickening or pericholecystic edema. Adrenal glands: The adrenal glands are normal in size and attenuation. There is no evidence for enhancing mass lesion. Kidneys: There is homogeneous attenuation of the renal parenchyma bilaterally. There is no evidence for renal calculus or hydronephrosis. There is no evidence for enhancing mass. Bowel: The bowel loops are normally placed within the abdomen and pelvis without evidence for dilatation or obstruction. There is no evidence for mass lesion. There are no inflammatory changes present. There is no evidence for free air. There is a normal appendix in the right lower quadrant. Bladder: The bladder is within normal limits with no evidence for focal mass, calculus or diverticulum. : There is no evidence for pelvic mass or adenopathy. There is no evidence for pelvic ascites. An IUD is again in place. Vasculature: There is no evidence for aneurysmal dilatation of the abdominal aorta. Osseous structures: There is no acute osseous pathology. IMPRESSION: 1. Status post interval splenectomy with a small postoperative seroma present in the splenic branch. 2. Evidence for mild acute pancreatitis involving the distal body and tail the pancreas with pseudocyst formation present as well. 3. Fatty infiltration of liver. 4. Additional nonacute findings are delineated above. ACT 112: Negative or not required by law. Electronically signed by: Carlos Collado M.D. 06/25/2021 5:09 PM Chest X-Ray 06/25/21 15:50 XR chest 1V portable CLINICAL HISTORY: Cough and fever. COMPARISON STUDY: Chest radiograph March 15, 2021. FINDINGS: Lung volumes are normal. Lungs are clear. There is no pneumothorax or pleural effusion. Cardiac size is normal. Mediastinal contours are normal. There is no evidence for pulmonary edema. IMPRESSION: No acute cardiopulmonary findings. ACT 112: Negative or not required by law. Electronically signed by: rToy Murphy M.D. 06/25/2021 4:14 PM MDM Narrative Vital signs stable. On repeat assessment patient has no meningeal signs. Patient is asking for more pain and nausea medication. Patient states she is still having abdominal pain. Labs show leukocytosis of 16. Potassium 2.9. Lipase 151. CT of the head within normal limits. CT of the abdomen shows pancreatitis with pseudocyst. Bio fire negative. Potassium repletion started in the emergency department. Patient will be admitted to the [facility] hospitalist team spoke with Ce who states admit to Dr. Mars Impression & Plan Acute pancreatitis, Hypokalemia Discharge Plan Visit Data Chief Complaint: Headache Stated Complaint: chills, head fuzzy, r side pain, vomit, no appteti ED Provider: Storm Goncalves Discharge Problem: Acute pancreatitis, Hypokalemia Patient Disposition: Being Evaluated by Hospitalist Forms Stand Alone Forms: [facility] Tout Prescriptions Prescriptions: No Action levothyroxine [Synthroid] 200 mcg tablet 200 mcg PO DAILYBB RF: 0 ondansetron 8 mg Tablet,Disintegrating 8 mg PO Q8H PRN (Reason: Nausea) RF: 0 albuterol sulfate [Ventolin HFA] 90 mcg/actuation Hfa Aerosol Inhaler 1 inh INHALATION DIRECTED PRN (Reason: Shortness Of Breath) RF: 0 dicyclomine 10 mg capsule 10 mg PO QID PRN (Reason: abd pain) RF: 0 acetaminophen [Tylenol Extra Strength] 500 mg Tablet 1,000 mg PO Q6H PRN (Reason: Pain) RF: 0 folic acid 1 mg Tablet 1 mg PO QAM Qty: 30 RF: 0 pantoprazole [Protonix] 40 mg tablet,delayed release (/EC) 40 mg PO BID RF: 0 sucralfate 100 mg/mL suspension 10 ml PO QID RF: 0 thiamine HCl (vitamin B1) 100 mg Tablet 100 mg PO DAILY RF: 0 spironolactone 25 mg Tablet 25 mg PO BID Qty: 60 RF: 0 potassium chloride 20 mEq tablet,ER particles/crystals 40 meq PO BID Qty: 60 RF: 0 Referrals Referrals: Gypsy Lubin PA-C [Primary Care Provider] -
[2021-06-25 15:16] LABS: Basophils # (auto) 0.05 K/uL (0-0.2); Basophils % (auto) 0.3 %; Eosinophils # (auto) 0.12 K/uL (0-0.5); Eosinophils % (auto) 0.7 %; Hematocrit (blood only) 37.7 % (37-47); Hemoglobin 12.3 g/dL (12.0-16.0); Immature Granulocytes # (auto) 0.03 K/uL (0.00-0.02); Immature Granulocytes % (auto) 0.2 %; Lymphocytes # (auto) 1.36 K/uL (1.2-3.4); Lymphocytes % (auto) 8.3 %; Mean Corpuscular Hemoglobin 32.5 pg (25-34); Mean Corpuscular Hgb Conc 32.6 g/dL (32-36); Mean Corpuscular Volume 99.5 fL (80-100); Mean Platelet Volume 11.3 fL (7.4-10.4); Monocytes # (auto) 1.22 K/uL (0.11-0.59); Monocytes % (auto) 7.5 %; Neutrophils # (auto) 13.54 K/uL (1.4-6.5); Nucleated RBC % (auto) 0.6 %; Platelet Count 308 K/uL (130-400); RDW Standard Deviation 67.9 fL (36.4-46.3); Red Blood Count 3.79 M/uL (4.2-5.4); White Blood Count 16.32 K/uL (4.8-10.8)
[2021-06-25] MEDS ORDERED: LORazepam 0.5 MG/1 ML VIAL IV STA (15:42)
[2021-06-25 15:48] LABS: Albumin Level 4.1 gm/dl (3.4-5.0); Bilirubin Direct 0.1 mg/dl (0-0.2); Bilirubin,Total 0.7 mg/dl (0.2-1.0); Calcium 9.5 mg/dl (8.5-10.1); Creatinine Clr Calc Pharmacy 138.2 ml/min; Est GFR (African American) 148.3 ml/min; Potassium 2.9 mmol/L (3.5-5.1)
--- NOTE | 2021-06-25 16:15 | XRay Report ---
XR chest 1V portable CLINICAL HISTORY: Cough and fever. COMPARISON STUDY: Chest radiograph March 15, 2021. FINDINGS: Lung volumes are normal. Lungs are clear. There is no pneumothorax or pleural effusion. Car diac size is normal. Mediastinal contours are normal. There is no evidence for pulmonary edema. IMPRESSION: No acute cardiopulmonary findings. ACT 112: Negative or not required by law. Electronically signed by: Troy Murphy M.D. 06/25/2021 4:14 PM
[2021-06-25 16:20] LABS: Adenovirus PCR Not Detected (NotDetected); Bordetella parapertussis PCR Not Detected (NotDetected); Bordetella pertussis PCR Not Detected (NotDetected); Chlamydia pneumoniae PCR Not Detected (NotDetected); Coronavirus 229E PCR Not Detected (NotDetected); Coronavirus CoV-2 (COVID19)PCR Not Detected (NotDetected); Coronavirus HKU1 PCR Not Detected (NotDetected); Coronavirus NL63 PCR Not Detected (NotDetected); Coronavirus OC43PCR Not Detected (NotDetected); Human Metapneumovirus PCR Not Detected (NotDetected); Influenza A PCR Not Detected (NotDetected); Influenza B PCR Not Detected (NotDetected); Mycoplasma pneumoniae PCR Not Detected (NotDetected); Parainfluenza Virus 1 PCR Not Detected (NotDetected); Parainfluenza Virus 2 PCR Not Detected (NotDetected); Parainfluenza Virus 3 PCR Not Detected (NotDetected); Parainfluenza Virus 4 PCR Not Detected (NotDetected); Respiratory Syncytial VirusPCR Not Detected (NotDetected); Rhinovirus/Enterovirus PCR Not Detected (NotDetected)
[2021-06-25] MEDS ORDERED: KETOROLAC TROMETHAMINE 15 MG/ML VIAL IV STA ×2 (16:26→17:10)
[2021-06-25] MEDS ORDERED: OPTIRAY 320 100ml IV ONE (16:52)
[2021-06-25 16:58] LABS: Appearance Urine Clear (Clear); Bacteria Urine Automated Negative (Negative); Bilirubin Urine Negative (Negative); Blood Urine Negative (Negative); Color Urine Yellow; Epithelial Cell Urine Auto >30 /lpf (0-5); Glucose Urine UA Negative (Negative); Ketones Urine 4+ (Negative); Leukocyte Esterase Urine Negative (Negative); Nitrite Urine Negative (Negative); Protein Urine 1+ (Negative); RBC Urine Automated 0-4 /hpf (0-4); Specific Gravity Urine 1.026 (1.000-1.030); Urobilinogen Urine Negative (Negative); WBC Urine Automated 0 /hpf (0-5)
--- NOTE | 2021-06-25 17:00 | CT Scan Report ---
CT head/brain wo con CLINICAL HISTORY: Headache COMPARISON STUDY: No previous studies for comparison. CT DOSE: 537.48 mGy.cm TECHNIQUE: Standard CT of the Brain was performed without IV contrast. A dose lowering technique was utilized adhering to the principles of ALARA. FINDINGS: Extraaxial space: There is no evidence for subdural hematoma. There are no extra-axial fluid collecti ons. Ventricles and cisterns: The ventricles are normal in size and configuration. There is no evidence f or midline shift or mass effect. Parenchyma: There is no subarachnoid or intraparenchymal hemorrhage. There is no evidence for an acu te infarct or cerebral edema. There is homogeneous attenuation of the brain parenchyma. There are no gross mass lesions. Osseous structures: There is no evidence for an acute fracture. The visualized paranasal sinuses are clear. The mastoid air cells are clear bilaterally. Soft tissues: There is no evidence for focal soft tissue swelling. IMPRESSION: No acute intracerebral pathology. ACT 112: Negative or not required by law. Electronically signed by: Carlos Collado M.D. 06/25/2021 4:59 PM
[2021-06-25] MEDS ORDERED: ONDANSETRON INJ 2 MG/ML 2 ML VIAL IV STA (17:10)
--- NOTE | 2021-06-25 17:10 | CT Scan Report ---
CT abd pelvis IV con only CLINICAL HISTORY: Right upper quadrant and epigastric pain. Previous splenectomy. COMPARISON STUDY: 03/26/2021 CT DOSE: 269.64 mGy.cm TECHNIQUE: Standard CT of the Abdomen and Pelvis was performed with IV contrast. A dose lowering valerie hnique was utilized adhering to the principles of ALARA. Contrast Volume: Optiray 320, 94 ml. The patient did not receive oral contrast. FINDINGS: Lung base: The lung bases are clear. Abdominal cavity: There is no evidence for abdominal mass, adenopathy or ascites. Liver: There is again diffuse decreased attenuation of the liver representing fatty infiltration. The re is no evidence for enhancing mass lesion. Spleen: The patient is status post interval splenectomy with a sharply defined fluid collections seen in the splenic fossa. It measures 2.8 x 2.0 cm is characteristic of a postoperative seroma. Pancreas: There has been interval development of a fluid collection in the tail of pancreas is well. This measures 1.8 x 1.6 cm and is most characteristic of a pseudocyst. Mild edematous changes are pre sent involving the distal body and tail of pancreas as well. The head and proximal body of pancreas a re within normal limits. Mild peripancreatic edema is seen involving the distal body and the tail and the findings are characteristic of mild pancreatitis. Correlation with lipase is recommended. Gall Bladder: The gallbladder is well distended with no evidence for intraluminal calculi, wall thick ening or pericholecystic edema. Adrenal glands: The adrenal glands are normal in size and attenuation. There is no evidence for enhan cing mass lesion. Kidneys: There is homogeneous attenuation of the renal parenchyma bilaterally. There is no evidence f or renal calculus or hydronephrosis. There is no evidence for enhancing mass. Bowel: The bowel loops are normally placed within the abdomen and pelvis without evidence for dilatat ion or obstruction. There is no evidence for mass lesion. There are no inflammatory changes present. There is no evidence for free air. There is a normal appendix in the right lower quadrant. Bladder: The bladder is within normal limits with no evidence for focal mass, calculus or diverticulu m. : There is no evidence for pelvic mass or adenopathy. There is no evidence for pelvic ascites. An I UD is again in place. Vasculature: There is no evidence for aneurysmal dilatation of the abdominal aorta. Osseous structures: There is no acute osseous pathology. IMPRESSION: 1. Status post interval splenectomy with a small postoperative seroma present in the splenic branch. 2. Evidence for mild acute pancreatitis involving the distal body and tail the pancreas with pseudocy st formation present as well. 3. Fatty infiltration of liver. 4. Additional nonacute findings are delineated above. ACT 112: Negative or not required by law. Electronically signed by: Carlos Collado M.D. 06/25/2021 5:09 PM
[2021-06-25] MEDS ORDERED: SODIUM CHLORIDE 0.9% 1000ML 1,000 ML IV SCH (17:15)
[2021-06-25] MEDS ORDERED: POTASSIUM CHLORIDE 40 MEQ in SODIUM CHLORIDE 0.9% 1000ML 1,000 ML IV ONE (18:00)
[2021-06-25] MEDS ORDERED: NSS + 20MEQ KCL 20 MEQ/1,000 ML BAG IV SCH (18:00)
--- NOTE | 2021-06-25 18:01 | History & Physical Report ---
Date of Service June 25, 2021 Assessment & Plan (1) Acute pancreatitis: Plan: Patient is a 36-year-old female with PMH recurrent pancreatitis, migraine, tobacco use, alcohol use, history of bipolar disorder, hepatic steatosis, von Willebrand's disease, history of spontaneous splenic hemorrhage s/p splenectomy presented to ER with complaint epigastric, RUQ abdominal pain, nausea, vomiting x 1 day. Most recent hospitalization at [facility] 05/12/2021-05/17/2021 for acute pancreatitis. Today in ER patient afebrile, WBC: 16, alk phos: 122, other LFTs WNL, T bili WNL. Lipase: 151 CT abdomen pelvis: Status post interval splenectomy with a small postoperative seroma present in the splenic branch. Evidence for mild acute pancreatitis involving the distal body and tail the pancreas with pseudocyst formation present as well. Fatty infiltration of liver. History of recurrent pancreatitis. Patient reports last drink several weeks ago N.p.o. LR at 200 ml/hr Continue BID PPI Pain control Hold spironolactone for now GI consult CBC, CMP, lipase in a.m. (2) Headache: Plan: Reported intermittent chills, myalgias for the past week. Past 3 days with frontal headache, photophobia, phonophobia with blurry vision CT head: No acute intracranial abnormality. CXR: No acute findings. Negative COVID-19 PCR, negative influenza PCR, negative RSV PCR, negative respiratory panel Blood cultures pending No meningitis signs or neuro deficits on exam Monitor, may need to consider further work-up (3) Hypokalemia: Plan: K: 2.9 Patient with chronic hypokalemia. Recent vomiting In ER given 40 MEQ potassium IV Resume oral potassium if can tolerate Monitor BMP, magnesium level (4) H/O splenectomy: Plan: History of spontaneous splenic hemorrhage 04/10/2021. Had emergent splenectomy at [facility] Continue amoxicillin (5) Von Willebrand disease: Plan: Monitor CBC (6) Hypothyroidism: Plan: Continue levothyroxine (7) Tobacco use: Plan: Nicotine patch Smoking cessation encouraged (8) History of alcohol use: Plan: Reported last drink several weeks ago Alcohol cessation encouraged Monitor for alcohol withdrawal, Ativan as needed DVT Prophylaxis SCDs Full Code as per discussion with pt Follows with Gypsy Lubin PA-C for routine care Pt was seen and care coordinated with Dr Mars. See addendum History of Present Illness Chief Complaint: Abdominal pain Primary Care Provider: Gypsy Lubin PA-C Patient is a 36-year-old female with PMH recurrent pancreatitis, migraine, tobacco use, alcohol use, history of bipolar disorder, hepatic steatosis, von Willebrand's disease, history of spontaneous splenic hemorrhage s/p splenectomy presented to ER with complaint epigastric, RUQ abdominal pain, nausea, abdominal pain x 1 day. Patient with history hospitalization at [facility] 03/26/2021- 03/31/2021 for acute pancreatitis. Had MRCP 2020 that did not show any choledocholithiasis. History of hospitalization at [facility] 04/10/2021-04/16/2021 for LUQ abdominal pain and found to have spontaneous splenic hemorrhage s/p splenectomy. Hospitalization 05/12/2021-05/17/2021 at [facility] for acute pancreatitis. Patient states yesterday started with epigastric and right upper quadrant discomfort described as stabbing sensation with associated nausea. She reports vomiting x6 episodes. Denies diarrhea. Patient reports past week has been having intermittent chills, body aches, nasal congestion. Reports past several days has had productive cough. Also reports past 3 days has had headache located to frontal and top of head with associated photophobia, phonophobia, reported blurry vision. Patient reports history of migraines as a teenager however she is unsure what her migraine symptoms were previously. Has been taking temperature and highest recorded was 99F. Patient reports last alcoholic drink couple weeks ago. Denies hematemesis, hematochezia, melena, dizziness, syncope, loss of vision, neck pain, neck stiffness CP, SOB, orthopnea, palpitations, hemoptysis, sore throat, choking, otalgia, paresthesias, weakness, extremity weakness, extremity edema, rashes, urinary symptoms. Denies ill contacts. Allergies Allergy/AdvReac Type Severity Reaction Status Date / Time valacyclovir Allergy Severe Dyspnea Verified 06/25/21 18:29 enalaprilat Allergy Mild itch Verified 06/25/21 18:29 Home Medications Medication Instructions Recorded Confirmed Type levothyroxine 200 mcg tablet 200 mcg PO DAILYBB 07/18/19 06/25/21 History (Synthroid) ondansetron 8 mg disintegrating 8 mg PO Q8H PRN 09/27/19 06/25/21 History tablet albuterol sulfate 90 mcg/actuation 1 inh INHALATION DIRECTED PRN 12/28/20 06/25/21 History aerosol inhaler (Ventolin HFA) acetaminophen 500 mg tablet 1,000 mg PO Q6H PRN 01/08/21 06/25/21 History (Tylenol Extra Strength) dicyclomine 10 mg capsule 10 mg PO QID PRN 01/08/21 06/25/21 History pantoprazole 40 mg tablet,delayed 40 mg PO BID 03/26/21 06/25/21 History release (Protonix) thiamine HCl (vitamin B1) 100 mg 100 mg PO QAM 03/26/21 06/25/21 History tablet potassium chloride 20 mEq 40 meq PO BID #60 tab 03/31/21 06/25/21 Rx tablet,extended release(part/cryst) spironolactone 25 mg tablet 25 mg PO BID #60 tab 03/31/21 06/25/21 Rx amoxicillin 500 mg capsule 500 mg PO BID 06/25/21 06/25/21 History folic acid 1 mg tablet 1 mg PO DAILY 06/25/21 06/25/21 History Past Med/Surg History Medical History (Updated 06/25/21 @ 19:12 by Mary Payne PA-C) Alcohol abuse Elevated AST (SGOT) Hepatic steatosis History of pancreatitis Hypothyroidism IBS (irritable bowel syndrome) Migraines Pancreatitis Peptic ulcer Seasonal asthma Tobacco use Upper gastrointestinal bleed Von Willebrand disease "Mild" Class 1 per [facility] records, under surveillance [facility] hematology, surgeon aware Surgical History (Updated 06/25/21 @ 19:12 by aMry Payne PA-C) H/O splenectomy 04/10/21 - spontaneous splenic rupture. splenectomy at [facility] History of colonoscopy History of esophagogastroduodenoscopy (EGD) History of loop electrical excision procedure (LEEP) History of wisdom tooth extraction Family History Mother Von Willebrand disease Other No family history of adverse response to anesthesia Social History (Updated 06/25/21 @ 19:06 by Mary Payne PA-C) Smoking Status: Current every day smoker Tobacco Type: Cigarettes Cigarettes Per Day: 10; Second Hand Exposure: No; Hx Alcohol Use: No Hx Substance Use: No Preferred Language: Citizen Of [place] Communication Ability: Effective Sprigger Required: No Beliefs That Will Affect Care: None marital status: Current Living Situation: Spouse and Family Feels Safe at Home: Yes Assistive Devices: None Review of Systems Review of Systems: All systems reviewed & are unremarkable except as noted in HPI & below Physical Exam Physical Exam: General: no acute distress, WDWN Head: normocephalic, atraumatic Eyes: PERRL, EOM's intact, conjunctiva non-injected, anicteric ENT: normal inspection external ears, TM's michael and shiny, turbinates without significant erythema or edema, mucous membranes mildly dry Neck: supple, trachea midline, non-tender, ROM intact Lungs: clear, no respiratory distress, no wheezing/rhonchi/rales CV: RRR, no murmur, no pretibial edema Abd: +healed surgical scar mid abdomen, normal BS, soft, +tenderness to palpation epigastric and RUQ without rebound or guarding Ext: no cyanosis, no calf tenderness Neuro: A&O x 3, no focal deficits noted, normal affect, negative Kernig's and Brudzinski Skin: warm, dry Results & Data Results & Data ([facility]) Vital Signs (Past 12 Hours) Vital Signs Temp Pulse Pulse Resp BP BP Pulse Ox 06/25/21 15:46 102 H 18 130/86 96 06/25/21 13:53 36.9 C 107 H 18 137/85 96 Laboratory Results Short CBC 06/25/21 Range/Units 15:00 WBC 16.32 H (4.8-10.8) K/uL Hgb 12.3 (12.0-16.0) g/dL Hct 37.7 (37-47) % Plt Count 308 (130-400) K/uL BMP 06/25/21 15:00 Sodium 138 Potassium 2.9 L Chloride 98 Carbon Dioxide 28 BUN 8 Creatinine 0.47 L Glucose 108 H Calcium 9.5 Liver Function 06/25/21 Range/Units 15:00 Total Bilirubin 0.7 (0.2-1.0) mg/dl Direct Bilirubin 0.1 (0-0.2) mg/dl AST 33 (13-39) U/L ALT 16 (7-52) U/L Alkaline Phosphatase 122 H (34-104) U/L Albumin 4.1 (3.4-5.0) gm/dl Urine 06/25/21 Range/Units 16:42 Urine Color Yellow Urine Appearance Clear (Clear) Urine pH 6.0 (4.5-7.5) Ur Specific [place] 1.026 (1.000-1.030) Urine Protein 1+ H (Negative) Urine Glucose (UA) Negative (Negative) Diagnostic Findings Head CT 06/25/21 14:29 CT head/brain wo con CLINICAL HISTORY: Headache COMPARISON STUDY: No previous studies for comparison. CT DOSE: 537.48 mGy.cm TECHNIQUE: Standard CT of the Brain was performed without IV contrast. A dose lowering technique was utilized adhering to the principles of ALARA. FINDINGS: Extraaxial space: There is no evidence for subdural hematoma. There are no extra-axial fluid collections. Ventricles and cisterns: The ventricles are normal in size and configuration. There is no evidence for midline shift or mass effect. Parenchyma: There is no subarachnoid or intraparenchymal hemorrhage. There is no evidence for an acute infarct or cerebral edema. There is homogeneous attenuation of the brain parenchyma. There are no gross mass lesions. Osseous structures: There is no evidence for an acute fracture. The visualized paranasal sinuses are clear. The mastoid air cells are clear bilaterally. Soft tissues: There is no evidence for focal soft tissue swelling. IMPRESSION: No acute intracerebral pathology. ACT 112: Negative or not required by law. Electronically signed by: Carlos Collado M.D. 06/25/2021 4:59 PM Abdomen/Pelvis CT 06/25/21 14:36 CT abd pelvis IV con only CLINICAL HISTORY: Right upper quadrant and epigastric pain. Previous splenectomy. COMPARISON STUDY: 03/26/2021 CT DOSE: 269.64 mGy.cm TECHNIQUE: Standard CT of the Abdomen and Pelvis was performed with IV contrast. A dose lowering technique was utilized adhering to the principles of ALARA. Contrast Volume: Optiray 320, 94 ml. The patient did not receive oral contrast. FINDINGS: Lung base: The lung bases are clear. Abdominal cavity: There is no evidence for abdominal mass, adenopathy or ascites. Liver: There is again diffuse decreased attenuation of the liver representing fatty infiltration. There is no evidence for enhancing mass lesion. Spleen: The patient is status post interval splenectomy with a sharply defined fluid collections seen in the splenic fossa. It measures 2.8 x 2.0 cm is characteristic of a postoperative seroma. Pancreas: There has been interval development of a fluid collection in the tail of pancreas is well. This measures 1.8 x 1.6 cm and is most characteristic of a pseudocyst. Mild edematous changes are present involving the distal body and tail of pancreas as well. The head and proximal body of pancreas are within normal limits. Mild peripancreatic edema is seen involving the distal body and the tail and the findings are characteristic of mild pancreatitis. Correlation with lipase is recommended. Gall Bladder: The gallbladder is well distended with no evidence for intraluminal calculi, wall thickening or pericholecystic edema. Adrenal glands: The adrenal glands are normal in size and attenuation. There is no evidence for enhancing mass lesion. Kidneys: There is homogeneous attenuation of the renal parenchyma bilaterally. There is no evidence for renal calculus or hydronephrosis. There is no evidence for enhancing mass. Bowel: The bowel loops are normally placed within the abdomen and pelvis without evidence for dilatation or obstruction. There is no evidence for mass lesion. There are no inflammatory changes present. There is no evidence for free air. There is a normal appendix in the right lower quadrant. Bladder: The bladder is within normal limits with no evidence for focal mass, calculus or diverticulum. : There is no evidence for pelvic mass or adenopathy. There is no evidence for pelvic ascites. An IUD is again in place. Vasculature: There is no evidence for aneurysmal dilatation of the abdominal aorta. Osseous structures: There is no acute osseous pathology. IMPRESSION: 1. Status post interval splenectomy with a small postoperative seroma present in the splenic branch. 2. Evidence for mild acute pancreatitis involving the distal body and tail the pancreas with pseudocyst formation present as well. 3. Fatty infiltration of liver. 4. Additional nonacute findings are delineated above. ACT 112: Negative or not required by law. Electronically signed by: Carlos Collado M.D. 06/25/2021 5:09 PM Chest X-Ray 06/25/21 15:50 XR chest 1V portable CLINICAL HISTORY: Cough and fever. COMPARISON STUDY: Chest radiograph March 15, 2021. FINDINGS: Lung volumes are normal. Lungs are clear. There is no pneumothorax or pleural effusion. Cardiac size is normal. Mediastinal contours are normal. There is no evidence for pulmonary edema. IMPRESSION: No acute cardiopulmonary findings. ACT 112: Negative or not required by law. Electronically signed by: Troy Murphy M.D. 06/25/2021 4:14 PM Supervising Physician Co-Signing Physician Notes Care coordinated with Mary Payne PA-C. Agree with above note. Patient seen and examined. Please refer to her notes for full details. Vital signs reviewed. Physical exam: General exam: Alert and oriented. Not in acute distress. CVS: S1 and S2 heard, regular rate and rhythm, no murmurs. RS: Clear to auscultation, no wheezing or crackles. ABD: Soft, bowel sounds present, diffuse tenderness , no distention. KNOT BORER: Nonfocal. EXT: No edema, no erythema. Labs: Reviewed. Assessment and plan: 36F with PMH recurrent pancreatitis, migraine, tobacco use, alcohol use, history of bipolar disorder, hepatic steatosis, von Willebrand's disease, history of spontaneous splenic hemorrhage s/p splenectomy present with uppr abdominal pain radiating to back 10/10 in severity and found to have pancreatitis. recurrent Pancreatitis: Aggressive fluids iv pain meds prn, iv antiemetics GI consult in am' Madalyn says she stopped drinking several weeks ago. Hypokalemia will replace continue home KCL supplements will follow labs Other diagnosis and plan of care as per Mary Payne PA-C . Garrick scott MD. (1) Acute pancreatitis Acute pancreatitis complication: unspecified Pancreatitis type: unspecified pancreatitis type Qualified Code(s): K85.90 - Acute pancreatitis without necrosis or infection, unspecified
[2021-06-25] MEDS ORDERED: MAGNESIUM SULFATE / D5W 1 GM/100 ML BAG IV ONE (19:27)
[2021-06-25] MEDS ORDERED: POLYETHYLENE (MIRALAX) 17 GM PACK PO PRN (21:00)
[2021-06-25] MEDS ORDERED: ACETAMINOPHEN 325 MG TAB PO PRN (21:00)
[2021-06-25] MEDS ORDERED: ALBUTEROL HFA 8 GM INHALER INH PRN (21:00)
[2021-06-25] MEDS ORDERED: LORazepam 1 MG TAB PO PRN (21:00)
[2021-06-25] MEDS ORDERED: KETOROLAC TROMETHAMINE 15 MG/ML VIAL IV PRN (21:00)
[2021-06-25] MEDS ORDERED: MoRPHine SULFATE 4 MG/ML 1 ML CARP\\VIAL IV PRN (21:00)
[2021-06-25] MEDS: POTASSIUM CHLORIDE CRTAB 20 MEQ TABCR PO STA (23:06)
[2021-06-25] MEDS: POTASSIUM CHLORIDE / WTR 10 MEQ/100 ML PLCT IV SCH (23:06)
[2021-06-25] MEDS: LACTATED RINGER'S 1,000 ML IV SCH (23:08)
[2021-06-25] MEDS: ONDANSETRON INJ 2 MG/ML 2 ML VIAL IV PRN (23:42)
[2021-06-26] MEDS: POTASSIUM CHLORIDE / WTR 10 MEQ/100 ML PLCT IV SCH (01:01)
[2021-06-26] MEDS: NICOTINE 14 MG/24 HR PATCH TD SCH ×2 (01:02→08:24)
[2021-06-26] MEDS ORDERED: LORazepam 0.25 MG/0.5 ML VIAL IV STA (01:02)
[2021-06-26] MEDS: PANTOprazole 40 MG TAB PO SCH ×2 (01:03→08:24)
[2021-06-26] MEDS: POTASSIUM CHLORIDE CRTAB 20 MEQ TABCR PO STA (01:03)
[2021-06-26] MEDS: AMOXICILLIN 500 MG CAP PO SCH ×2 (01:03→08:24)
[2021-06-26] MEDS: LACTATED RINGER'S 1,000 ML IV SCH (03:04)
[2021-06-26] MEDS ORDERED: LEVOTHYROXINE SODIUM 200 MCG TABLET PO SCH (06:30)
[2021-06-26] MEDS ORDERED: POTASSIUM CHLORIDE CRTAB 20 MEQ TABCR PO SCH (09:00)
[2021-06-26] MEDS ORDERED: THIAMINE HCL 100 MG TAB PO SCH (09:00)
[2021-06-26] MEDS ORDERED: FOLIC ACID 1 MG TAB PO SCH (09:00)
[2021-06-26 10:06] LABS: Basophils # (auto) 0.07 K/uL (0-0.2); Basophils % (auto) 0.6 %; Eosinophils # (auto) 0.22 K/uL (0-0.5); Eosinophils % (auto) 1.9 %; Hematocrit (blood only) 34.8 % (37-47); Hemoglobin 11.3 g/dL (12.0-16.0); Immature Granulocytes # (auto) 0.05 K/uL (0.00-0.02); Immature Granulocytes % (auto) 0.4 %; Lymphocytes # (auto) 1.67 K/uL (1.2-3.4); Lymphocytes % (auto) 14.4 %; Mean Corpuscular Hemoglobin 32.3 pg (25-34); Mean Corpuscular Hgb Conc 32.5 g/dL (32-36); Mean Corpuscular Volume 99.4 fL (80-100); Monocytes % (auto) 9.5 %; Neutrophils # (auto) 8.49 K/uL (1.4-6.5); Neutrophils % (auto) 73.2 %; Nucleated RBC # (auto) 0.08 K/uL (0-0); Nucleated RBC % (auto) 0.7 %; Platelet Count 264 K/uL (130-400); RDW Coefficient of Variation 19.2 % (11.5-14.5); RDW Standard Deviation 68.1 fL (36.4-46.3)
[2021-06-26 10:38] LABS: Alanine Aminotransferase 13 U/L (7-52); Albumin Globulin Ratio 1.2 (0.9-2); Albumin Level 3.6 gm/dl (3.4-5.0); Alkaline Phosphatase 102 U/L (34-104); Anion Gap 10 (3-11); Aspartate Aminotransferase 32 U/L (13-39); BUN Creatinine Ratio 15.8 (10-20); Bilirubin,Total 0.4 mg/dl (0.2-1.0); Blood Urea Nitrogen 6 mg/dl (6-23); Calcium 8.5 mg/dl (8.5-10.1); Carbon Dioxide 22 mmol/L (21-32); Chloride 103 mmol/L (98-107); Creatinine Clr Calc Pharmacy 170.9 ml/min; Est GFR (African American) > 150.0 ml/min; Est GFR (Non-African American) 137.2 ml/min; Globulin 2.9 gm/dl (2.5-4.0); Glucose 120 mg/dl (70-99); Lipase 124 U/L (11-82); Magnesium 1.6 mg/dl (1.7-2.4); Potassium 3.7 mmol/L (3.5-5.1); Sodium 135 mmol/L (136-145); Total Protein 6.5 gm/dl (6.0-8.3)
[2021-06-26] MEDS ORDERED: LACTATED RINGER'S 1,000 ML IV SCH (11:00)
[2021-06-26] MEDS ORDERED: MAGNESIUM SULFATE / D5W 1 GM/100 ML BAG IV ONE (11:06)
--- NOTE | 2021-06-26 11:06 | Gastrointestinal Consultation ---
Date of Consultation June 26, 2021 Assessment & Plan (1) Acute pancreatitis: Acute recurrent pancreatitis etiology is likely alcohol, possibly biliary etiology. She is resolving without complication. Continue with supportive care, continue with liquid diet and can tolerate diet without pain and can be discharged to home. We will need to contact our office at [phone] to follow- up on scheduling outpatient EUS to be scheduled soon. Sign off All questions. History of Present Illness Reason for Consultation: Pancreatitis Attending Physician: Carlitos Siddiqui MD History of Present Illness Moriah Ryan is a 36 year old female w/ history of hypothyroidism, migraine, tobacco abuse, alcohol use, history of bipolar disorder, hepatic steatosis, von Willebrand's disease, history of recent splenectomy 04/10/21, recurrent pancreatitis She presents with a plaints of right upper quadrant and epigastric abdominal pain that began 2 days ago. It is similar but somewhat unique in presentation in the past most recently 1 month ago at [facility]. She states that this was insidiously ramping up but then acutely got worse Nausea without vomiting, no fevers or chills, on presentation she was noted to have a white count of 16, LFTs were unremarkable lipase was 151.Mild pancreatitis was noted on CT scan of the distal body and tail with fluid collection in the bed of the pancreas. She did have a drain placed postsplenectomy at which time in May this area was noted to be 4 cm in size, this was removed but I am not sure when she does not recall she has not followed up to my knowledge with Dr. Dukes in our office is attempted contact her on multiple occasions and she has not responded for an anticipated outpatient EUS Today she feels better, she states her pain is more controlled, she has had Jell-O with no change in her symptoms. Labs reviewed include white count has decreased from 16-11, hematocrit 37 on admission down to 34, she is not currently on IV fluids. Potassium improved to 3.7 creatinine normal, magnesium level 1.6, LFTs remain normal. Allergies Allergy/AdvReac Type Severity Reaction Status Date / Time valacyclovir Allergy Severe Dyspnea Verified 06/25/21 18:29 enalaprilat Allergy Mild itch Verified 06/25/21 18:29 Home Medications Medication Instructions Recorded Confirmed Type levothyroxine 200 mcg tablet 200 mcg PO DAILYBB 07/18/19 06/25/21 History (Synthroid) ondansetron 8 mg disintegrating 8 mg PO Q8H PRN 09/27/19 06/25/21 History tablet albuterol sulfate 90 mcg/actuation 1 inh INHALATION DIRECTED PRN 12/28/20 06/25/21 History aerosol inhaler (Ventolin HFA) acetaminophen 500 mg tablet 1,000 mg PO Q6H PRN 01/08/21 06/25/21 History (Tylenol Extra Strength) dicyclomine 10 mg capsule 10 mg PO QID PRN 01/08/21 06/25/21 History pantoprazole 40 mg tablet,delayed 40 mg PO BID 03/26/21 06/25/21 History release (Protonix) thiamine HCl (vitamin B1) 100 mg 100 mg PO QAM 03/26/21 06/25/21 History tablet potassium chloride 20 mEq 40 meq PO BID #60 tab 03/31/21 06/25/21 Rx tablet,extended release(part/cryst) spironolactone 25 mg tablet 25 mg PO BID #60 tab 03/31/21 06/25/21 Rx amoxicillin 500 mg capsule 500 mg PO BID 06/25/21 06/25/21 History folic acid 1 mg tablet 1 mg PO DAILY 06/25/21 06/25/21 History Patient History Medical History Alcohol abuse Elevated AST (SGOT) Hepatic steatosis History of pancreatitis Hypothyroidism IBS (irritable bowel syndrome) Migraines Pancreatitis Peptic ulcer Seasonal asthma Tobacco use Upper gastrointestinal bleed Von Willebrand disease "Mild" Class 1 per [facility] records, under surveillance [facility] hematology, surgeon aware Surgical History (Updated 06/25/21 @ 19:12 by Mary Payne PA-C) H/O splenectomy 04/10/21 - spontaneous splenic rupture. splenectomy at [facility] History of colonoscopy History of esophagogastroduodenoscopy (EGD) History of loop electrical excision procedure (LEEP) History of wisdom tooth extraction Family History Mother Von Willebrand disease Other No family history of adverse response to anesthesia Social History (Updated 06/25/21 @ 19:06 by Mary Payne PA-C) Smoking Status: Current every day smoker Tobacco Type: Cigarettes Cigarettes Per Day: 10; Second Hand Exposure: No; Do You Dip or Chew Tobacco: No; Tobacco Cessation Education Requested by Patient: No Hx Alcohol Use: No Hx Substance Use: No Preferred Language: [place] Communication Ability: Effective Fueler Required: No Beliefs That Will Affect Care: None marital status: Current Living Situation: Spouse and Family Other Information That Helps Us Care for You: No Feels Safe at Home: Yes Assistive Devices: None Physical Exam Constitutional: WD/WN, vitals as above Cardiovascular: RRR, no murmur, no edema Gastrointestinal (Abdomen): normal bowel sounds, soft, nontender, no hepatosplenomegaly Results & Data ([facility]) Vital Signs (Past 12 Hours) Vital Signs Temp Pulse Pulse Resp BP BP Pulse Ox 06/26/21 07:31 80 06/26/21 07:00 37.2 C 74 16 145/87 H 97 06/26/21 02:41 37.1 C 76 16 133/79 98
[2021-06-26 11:07] VITALS: O2SAT 99
[2021-06-26] MEDS: MoRPHine SULFATE 4 MG/ML 1 ML CARP\\VIAL IV PRN ×2 (11:49→15:08)
[2021-06-26 14:52] VITALS: TEMP 98.4
--- NOTE | 2021-06-26 15:24 | Hospitalist Progress Note ---
Date of Service June 26, 2021 Assessment & Plan (1) Acute pancreatitis: Plan: Patient is a 36-year-old female with PMH recurrent pancreatitis, migraine, tobacco use, alcohol use, history of bipolar disorder, hepatic steatosis, von Willebrand's disease, history of spontaneous splenic hemorrhage s/p splenectomy presented to ER with complaint epigastric, RUQ abdominal pain, nausea, vomiting x 1 day. Most recent hospitalization at [facility] 05/12/2021-05/17/2021 for acute pancreatitis. Acute pancreatitis H/O Recurrent pancreatitis Reports last drink several weeks ago CT ABD reviewed Received IV fluids Continue PPI Appreciate GI input Needs outpatient endoscopic ultrasound Advance diet as tolerated Advised to follow-up with GI as outpatient (2) Headache: Plan: Migraine CT head: No acute intracranial abnormality. CXR: No acute findings. Negative COVID-19 PCR, negative influenza PCR, negative RSV PCR, negative respiratory panel Blood cultures pending Pain control Follows with pain clinic, on Suboxone chronically (3) Hypokalemia: Plan: Replace and monitor (4) H/O splenectomy: Plan: History of spontaneous splenic hemorrhage 04/10/2021. Had emergent splenectomy at [facility] Continue amoxicillin (5) Von Willebrand disease: Plan: Monitor CBC (6) Hypothyroidism: Plan: Continue levothyroxine (7) Tobacco use: Plan: Nicotine patch Smoking cessation encouraged (8) History of alcohol use: Plan: Reported last drink several weeks ago Alcohol cessation encouraged Monitor for alcohol withdrawal, Ativan as needed DVT Prophylaxis SCDs Code Status Full Code Admission and Anticipated Discharge Date Admission Date: June 25, 2021 Subjective Seen and examined at bedside States having headache and abdominal discomfort Denies any nausea, vomiting, dizziness, chest pain, shortness of breath Tolerated diet today Offers no other complaints Review of Systems Review of Systems: All systems reviewed & are unremarkable except as noted in Subjective Physical Exam Physical Exam: Physical Exam: Vitals signs as noted above General Appearance:Moderately built and nourished, no apparent distress Head: normocephalic, Atraumatic Eyes: normal inspection, EOMI Neck: supple, Trachea midline Respiratory/Chest: Normal breath sounds, CTA Cardiovascular: S1, S2, No murmur Abdomen/GI:Soft, mild tender, no guarding/rigidity, Bowel sounds present Extremities/Musculoskeletal:normal inspection, no edema Neurologic/Psych:AAOX3, grossly no focal neurological deficits Skin: normal color, warm Results & Data Results & Data ([facility]) Vital Signs (Past 12 Hours) Vital Signs Temp Pulse Pulse Resp BP Pulse Ox 06/26/21 14:52 36.9 C 76 16 154/91 H 99 06/26/21 11:00 37.1 C 86 16 140/92 99 06/26/21 07:31 80 06/26/21 07:00 37.2 C 74 16 145/87 H 97 Laboratory Results Short CBC 06/26/21 Range/Units 09:47 WBC 11.60 H (4.8-10.8) K/uL Hgb 11.3 L (12.0-16.0) g/dL Hct 34.8 L (37-47) % Plt Count 264 (130-400) K/uL BMP 06/26/21 09:47 Sodium 135 L Potassium 3.7 D Chloride 103 Carbon Dioxide 22 BUN 6 Creatinine 0.38 L Glucose 120 H Calcium 8.5 Liver Function 06/26/21 Range/Units 09:47 Total Bilirubin 0.4 (0.2-1.0) mg/dl AST 32 (13-39) U/L ALT 13 (7-52) U/L Alkaline Phosphatase 102 (34-104) U/L Albumin 3.6 (3.4-5.0) gm/dl (1) Acute pancreatitis Acute pancreatitis complication: unspecified Pancreatitis type: unspecified pancreatitis type Qualified Code(s): K85.90 - Acute pancreatitis without necrosis or infection, unspecified
[2021-06-26 16:08] VITALS: BP 133/79; PULSE 76
[2021-06-26] MEDS: ONDANSETRON INJ 2 MG/ML 2 ML VIAL IV PRN (16:46)
--- NOTE | 2021-06-26 17:45 | Discharge Summary ---
Date of Service June 26, 2021 Admission HPI Per Admitting Provider Patient is a 36-year-old female with PMH recurrent pancreatitis, migraine, tobacco use, alcohol use, history of bipolar disorder, hepatic steatosis, von Willebrand's disease, history of spontaneous splenic hemorrhage s/p splenectomy presented to ER with complaint epigastric, RUQ abdominal pain, nausea, abdominal pain x 1 day. Patient with history hospitalization at [facility] 03/26/2021- 03/31/2021 for acute pancreatitis. Had MRCP 2020 that did not show any choledocholithiasis. History of hospitalization at [facility] 04/10/2021-04/16/2021 for LUQ abdominal pain and found to have spontaneous splenic hemorrhage s/p splene ctomy. Hospitalization 05/12/2021-05/17/2021 at [facility] for acute pancreatitis. Patient states yesterday started with epigastric and right upper quadrant discomfort described as stabbing sensation with associated nausea. She reports vomiting x6 episodes. Denies diarrhea. Patient reports past week has been having intermittent chills, body aches, nasal congestion. Reports past several days has had productive cough. Also reports past 3 days has had headache located to frontal and top of head with associated photophobia, phonophobia, reported blurry vision. Patient reports history of migraines as a teenager however she is unsure what her migraine symptoms were previously. Has been taking temperature and highest recorded was 99F. Patient reports last alcoholic drink couple weeks ago. Denies hematemesis, hematochezia, melena, dizziness, syncope, loss of vision, neck pain, neck stiffness CP, SOB, orthopnea, palpitations, hemoptysis, sore throat, choking, otalgia, paresthesias, weakness, extremity weakness, extremity edema, rashes, urinary symptoms. Denies ill contacts. Admission Exam Per Admitting Provider Physical Exam Physical Exam: General: no acute distress, WDWN Head: normocephalic, atraumatic Eyes: PERRL, EOM's intact, conjunctiva non-injected, anicteric ENT: normal inspection external ears, TM's michael and shiny, turbinates without significant erythema or edema, mucous membranes mildly dry Neck: supple, trachea midline, non-tender, ROM intact Lungs: clear, no respiratory distress, no wheezing/rhonchi/rales CV: RRR, no murmur, no pretibial edema Abd: +healed surgical scar mid abdomen, normal BS, soft, +tenderness to palpation epigastric and RUQ without rebound or guarding Ext: no cyanosis, no calf tenderness Neuro: A&O x 3, no focal deficits noted, normal affect, negative Kernig's and Brudzinski Skin: warm, dry Principal Diagnosis Acute pancreatitis Migraine Hypokalemia Tobacco use disorder Discharge Data Allergies Allergy/AdvReac Type Severity Reaction Status Date / Time valacyclovir Allergy Severe Dyspnea Verified 06/25/21 18:29 enalaprilat Allergy Mild itch Verified 06/25/21 18:29 Consultations 06/25/21 17:16 ED Decision to Admit Stat 06/25/21 18:09 Consult Gastroenterology Routine Ordered Studies 06/25/21 14:29 CT head/brain wo con Stat 06/25/21 14:36 CT abd pelvis IV con only Stat Hospital Course (1) Acute pancreatitis: Patient is a 36-year-old female with PMH recurrent pancreatitis, migraine, tobacco use, alcohol use, history of bipolar disorder, hepatic steatosis, von Willebrand's disease, history of spontaneous splenic hemorrhage s/p splenectomy presented to ER with complaint epigastric, RUQ abdominal pain, nausea, vomiting x 1 day. Most recent hospitalization at [facility] 05/12/2021-05/17/2021 for acute pancreatitis. Acute pancreatitis H/O Recurrent pancreatitis Reports last drink several weeks ago CT ABD reviewed Received IV fluids Continue PPI Appreciate GI input Needs outpatient endoscopic ultrasound Advance diet as tolerated Advised to follow-up with GI as outpatient (2) Headache: Migraine CT head: No acute intracranial abnormality. CXR: No acute findings. Negative COVID-19 PCR, negative influenza PCR, negative RSV PCR, negative respiratory panel Blood cultures pending Pain control Follows with pain clinic, on Suboxone chronically (3) Hypokalemia: Replace and monitor (4) H/O splenectomy: History of spontaneous splenic hemorrhage 04/10/2021. Had emergent splenectomy at [facility] Continue amoxicillin (5) Von Willebrand disease: Monitor CBC (6) Hypothyroidism: Continue levothyroxine (7) Tobacco use: Nicotine patch Smoking cessation encouraged (8) History of alcohol use: Reported last drink several weeks ago Alcohol cessation encouraged Monitor for alcohol withdrawal, Ativan as needed DVT Prophylaxis SCDs Code Status Full Code Total Time Total Time Spent Total Time Spent (In Minutes): 42 minutes Discharge Plan Discharge Items Patient Disposition: Home - Self-Care Reason For Visit: PANCREATITIS Discharge Diagnosis: Acute pancreatitis Migraine Hypokalemia Tobacco use disorder Activity: Per Instructions section Exercise/Sports: Wait until after follow-up appointment Non-emergency contact: Primary Care Provider and Railroad Signal Operator Call non-emergency contact if: you have any medication questions, your symptoms worsen, your pain is concerning for you and you have a fever Follow-up/Referrals: Gypsy Lubin PA-C [Primary Care Provider] - Diet: Heart Healthy and Low Fat Addtl Attending Provider Instructions: Follow-up with your primary care physician on Jun 30, 2021 at 2:45 PM Follow up with your Railroad Signal Operator for outpatient EUS as advised. Please call [phone] for appointent Seek immediate medical attention if your symptoms reoccur or worsen Please take all medications as instructed on discharge list below. Please call if you have any questions or problems. You can reach a [facility] hospitalist on duty at [facility] 24 hours a day by calling [phone] Pending Studies at Discharge: No Stand-Alone Forms: My [facility] [employer] Smoking Cessation Medications and DC Order Prescriptions: Continued levothyroxine [Synthroid] 200 mcg tablet 200 mcg PO DAILYBB RF: 0 ondansetron 8 mg Tablet,Disintegrating 8 mg PO Q8H PRN (Reason: Nausea) RF: 0 albuterol sulfate [Ventolin HFA] 90 mcg/actuation Hfa Aerosol Inhaler 1 inh INHALATION DIRECTED PRN (Reason: Shortness Of Breath) RF: 0 dicyclomine 10 mg capsule 10 mg PO QID PRN (Reason: abd pain) RF: 0 acetaminophen [Tylenol Extra Strength] 500 mg Tablet 1,000 mg PO Q6H PRN (Reason: Pain) RF: 0 pantoprazole [Protonix] 40 mg tablet,delayed release (DR/EC) 40 mg PO BID RF: 0 thiamine HCl (vitamin B1) 100 mg Tablet 100 mg PO QAM RF: 0 spironolactone 25 mg Tablet 25 mg PO BID Qty: 60 RF: 0 potassium chloride 20 mEq tablet,ER particles/crystals 40 meq PO BID Qty: 60 RF: 0 amoxicillin 500 mg capsule 500 mg PO BID RF: 0 folic acid 1 mg tablet 1 mg PO DAILY RF: 0 Discharge Orders: Discharge Order (Routine); Ordered 06/26/21 Ordered By: Carlitos Siddiqui Admission Data Admit Date/Time: 06/25/21 18:09 Attending Provider: Carlitos Siddiqui Admit Provider: Garrick Mars Primary Care Provider: Gypsy Lubin Other Providers: Garrick Mars ; Hugh Burns Other Interventions: Discharge Summary Assessment (RN) Last Done: 06/26/21 16:06
== END 2021-06-26 17:10 | disposition home or self-care (01) ==
LOC: ED 13:45 → EDINP 18:09 → INTOOBSV 18:09 → SUATTDRO 18:09 → 2N 21:41
DX: Z79.899 Other long term (current) drug therapy; Z90.81 Acquired absence of spleen; K85.90 Acute pancreatitis without necrosis or infection, unspecified; Z20.822 Contact with and (suspected) exposure to COVID-19; Z79.1 Long term (current) use of non-steroidal anti-inflammatories (NSAID); Z88.8 Allergy status to other drugs, medicaments and biological substances; D68.0 Von Willebrand disease; E03.9 Hypothyroidism, unspecified; R51.9 Headache, unspecified; Z79.890 Hormone replacement therapy; F17.210 Nicotine dependence, cigarettes, uncomplicated; Z87.898 Personal history of other specified conditions

== ENCOUNTER 2022-04-03 14:28 | Observation (INO) ==
[2022-04-03 15:52] LABS: Basophils # (auto) 0.15 K/uL (0-0.2); Basophils % (auto) 1.9 %; Eosinophils # (auto) 0.02 K/uL (0-0.50); Eosinophils % (auto) 0.3 %; Hematocrit (blood only) 38.3 % (34.1-44.9); Immature Granulocytes # (auto) 0.03 K/uL (0.00-0.02); Immature Granulocytes % (auto) 0.4 %; Lymphocytes # (auto) 0.59 K/uL (1.2-3.4); Lymphocytes % (auto) 7.4 %; Mean Corpuscular Hemoglobin 30.7 pg (25.0-34.0); Mean Corpuscular Hgb Conc 33.9 g/dL (32.0-36.0); Mean Corpuscular Volume 90.3 fL (80.0-100.0); Mean Platelet Volume 11.8 fL (9.4-12.3); Monocytes # (auto) 0.66 K/uL (0.24-0.82); Monocytes % (auto) 8.3 %; Neutrophils # (auto) 6.53 K/uL (1.4-6.5); Neutrophils % (auto) 81.7 %; Platelet Count 225 K/uL (130-400); RDW Coefficient of Variation 17.9 % (11.5-14.5); RDW Standard Deviation 58.8 fL (36.4-46.3); Red Blood Count 4.24 M/uL (3.93-5.22); White Blood Count 7.98 K/ul (4.8-10.8)
[2022-04-03] MEDS ORDERED: METOCLOPRAMIDE HCL INJ 5 MG/ML 2 ML VIAL IV STA (16:01)
[2022-04-03] MEDS ORDERED: MoRPHine SULFATE 4 MG/ML 1 ML CARP\\VIAL IV STA ×2 (16:01→17:43)
[2022-04-03] MEDS ORDERED: SODIUM CHLORIDE 0.9% 1000ML 1,000 ML IV ONE (16:01)
[2022-04-03] MEDS ORDERED: FAMOTIDINE 20MG IV PUSH 20 MG/5 ML SYR IV STA (16:02)
--- NOTE | 2022-04-03 16:02 | Emergency Department Note ---
Impression & Plan Acute pancreatitis, Nausea ED Provider Note Provider: Josh Cuenca MD DATE OF SERVICE: 04/03/2022 CHIEF COMPLAINT: Abdominal pain and nausea HISTORY OF PRESENT ILLNESS: Patient is a 36-year-old female history of recurrent pancreatitis, migraines, alcohol use, bipolar disorder, PACs ptosis, bundle branch disease, spontaneous splenic hemorrhage status postsplenectomy presenting here today complaining of some diffuse abdominal pain and nausea without vomiting developing overnight. Patient states he feels a bit shaky but denies chest pain or shortness of breath. Denies any trauma. States in the past she had have her spleen removed had some fluid collections and had to be drained se veral month ago at [place] via needles through her back. Denies pain was similar to this. States she again did have some alcohol yesterday. Denies diarrhea. Has not been able to eat very much due to her nausea and Zofran tablets at home but been ineffective for nausea. Tylenol ineffective for pain. REVIEW OF SYSTEMS: A total of 10 review of systems was obtained and negative except as stated above in the HPI. PAST MEDICAL HISTORY: As noted above MEDICATIONS: Reviewed home medication list SOCIAL HISTORY: Occasional alcohol use, smoker PHYSICAL EXAM: GENERAL: alert and oriented in no acute distress on stretcher slightly tremulous Head: normocephalic and atraumatic EYES: No injection, discharge or icterus. NECK: Trachea midline. LUNGS: Airway patent. No retractions. Breath sounds clear with good air entry bilaterally. HEART: Regular rate and rhythm. No chest wall tenderness ABDOMEN: Soft prior healed surgical scars with some mild diffuse tenderness. BACK: Some very slight bilateral flank tenderness. No overlying rashes or wounds noted. SKIN: Acyanotic, warm, dry, without rashes EXTREMITIES: Without swelling, tenderness or deformity NEUROLOGICAL: No focal deficits. No aphasia. No facial droop or slurred speech. Ambulatory. CONTINUOUS CARDIAC MONITORING: was ordered and showed a heart rate of 80s-90s bpm in normal sinus rhythm Patient's laboratory studies and imaging reviewed. Differential includes Appendicitis, ovarian cyst, ovarian torsion, ectopic , TOA, PID, infections, diverticulitis, UTI, obstruction, mesenteric ischemia, aortic pathology, inflammatory bowel disease, renal colic, PUD, pancreatitis, biliary pathology, hernia, volvulus, constipation, as well as other pathologies. IMPRESSION/MEDICAL DECISION MAKING: Diffuse abdominal pain with associated nausea. Some mild diffuse tenderness. Recent alcohol use. Given some Pepcid as well as IV Zofran and morphine to help with pain symptoms as well as IV fluids. Basic labs were sent and a CT scan abdomen pelvis to be completed especially in light of her prior history of spleen issues and pancreatitis. Blood work without significant anemia or leukocytosis. Mild hyponatremia of 132. Renal function stable. Slight ALT elevation of 86. Lipase however significantly to 547 unfortunately this seems consistent probably with acute pancreatitis. CT scan consistent with acute pancreatitis and probably a pseudocyst present back in August as well. Doubt any infectious etiology given her lack of white count or fever. Patient requiring multiple doses of pain medication and nausea medication and as such we will asked the hospitalist to observe. Several doses of morphine were minimally effective and we will trial some Dilaudid. Question if the recent alcohol use provoked this flare. DIAGNOSIS: Acute pancreatitis, nausea DISPOSITION: Hospitalist will evaluate Patient was agreeable with this plan. Past Med/Surg History Medical History Alcohol abuse Elevated AST (SGOT) Hepatic steatosis History of pancreatitis Hypothyroidism IBS (irritable bowel syndrome) Migraines Pancreatitis Peptic ulcer Seasonal asthma Tobacco use Upper gastrointestinal bleed Von Willebrand disease "Mild" Class 1 per [facility] records, under surveillance [facility] hematology, surgeon aware Surgical History H/O splenectomy 04/10/21 - spontaneous splenic rupture. splenectomy at [facility] History of colonoscopy History of esophagogastroduodenoscopy (EGD) History of loop electrical excision procedure (LEEP) History of wisdom tooth extraction Family History Mother Von Willebrand disease Other No family history of adverse response to anesthesia Social History Smoking Status: Current every day smoker Tobacco Type: Cigarettes Cigarettes Per Day: 10; Second Hand Exposure: No; Hx Alcohol Use: No Hx Substance Use: No Preferred Language: Mongolian Communication Ability: Effective Sports Internship Required: No Beliefs That Will Affect Care: None marital status: Current Living Situation: Spouse and Family Feels Safe at Home: Yes Assistive Devices: None Allergies Allergies Allergy/AdvReac Type Severity Reaction Status Date / Time valacyclovir Allergy Severe Dyspnea Verified 06/25/21 18:29 enalaprilat Allergy Mild itch Verified 06/25/21 18:29 Home Meds Home Medications Medication Instructions Recorded Confirmed ondansetron 8 mg disintegrating 8 mg PO Q8H PRN Nausea 09/27/19 08/25/21 tablet albuterol sulfate 90 mcg/actuation 1 inh inhalation DIRECTED PRN 12/28/20 08/25/21 aerosol inhaler (Ventolin HFA) Shortness Of Breath acetaminophen 500 mg tablet 1,000 mg PO Q6H PRN Pain 01/08/21 08/25/21 (Tylenol Extra Strength) dicyclomine 10 mg capsule 10 mg PO QID PRN abd pain 01/08/21 08/25/21 pantoprazole 40 mg tablet,delayed 40 mg PO BID 03/26/21 08/25/21 release (Protonix) amoxicillin 500 mg capsule 500 mg PO BID 06/25/21 08/25/21 folic acid 1 mg tablet 1 mg PO DAILY 06/25/21 08/25/21 amitriptyline 25 mg tablet 25 mg PO BID PRN sleep/pain,severe 08/25/21 08/25/21 gabapentin 300 mg capsule 300 mg PO TID 08/25/21 08/25/21 levothyroxine 150 mcg tablet 150 mcg PO DAILYBB 08/25/21 08/25/21 Results & Data (ED) Vital Signs Vital Signs - 24 hr 04/03/22 14:35 04/03/22 16:19 04/03/22 17:23 Temperature 36.5 C Temperature Source Temporal Artery Scan Pulse Rate 95 H Pulse Rate [Left Finger] 86 97 H Pulse Rhythm [Left Finger] Regular Pulse Strength [Left Finger] Normal Respiratory Rate 16 16 16 Respiratory Effort / Characteristics Non-Labored Respiratory Depth Normal Blood Pressure 163/91 H Blood Pressure [Right Arm] 151/90 H 157/95 H Blood Pressure Mean 115 Blood Pressure Mean [Right Arm] 110 115 Pulse Oximetry 98 98 97 Oxygen Delivery Method Room Air Room Air Room Air Sepsis Recent Fever Within 48 Hours No Sepsis New/Unexplained Change in Mental Status N/A Sepsis Action Taken by Nursing No Action Required Laboratory Data Result diagrams: 04/03/22 15:30 04/03/22 16:41 Lab Results 04/03/22 04/03/22 04/03/22 Range/Units 15:30 15:30 15:30 WBC 7.98 (4.8-10.8) K/ul RBC 4.24 (3.93-5.22) M/uL Hgb 13.0 (12.0-16.0) g/dl Hct 38.3 (34.1-44.9) % MCV 90.3 (80.0-100.0) fL MCH 30.7 (25.0-34.0) pg MCHC 33.9 (32.0-36.0) g/dL RDW Std Deviation 58.8 H (36.4-46.3) fL RDW Coeff of Praful 17.9 H (11.5-14.5) % Plt Count 225 (130-400) K/uL MPV 11.8 (9.4-12.3) fL Immature Gran % (Auto) 0.4 % Neut % (Auto) 81.7 % Lymph % (Auto) 7.4 % Spalding % (Auto) 8.3 % Eos % (Auto) 0.3 % Baso % (Auto) 1.9 % Neut # (Auto) 6.53 H (1.4-6.5) K/uL Lymph # (Auto) 0.59 L (1.2-3.4) K/uL Sp[place]ding # (Auto) 0.66 (0.24-0.82) K/uL Eos # (Auto) 0.02 (0-0.50) K/uL Baso # (Auto) 0.15 (0-0.2) K/uL Immature Gran # (Auto) 0.03 H (0.00-0.02) K/uL Sodium 132 L (136-145) mmol/L Potassium TNP Chloride 97 L (98-107) mmol/L Carbon Dioxide 22 (21-32) mmol/L Anion Gap 13 H (3-11) BUN 8 (6-23) mg/dl Creatinine 0.49 L (0.6-1.2) mg/dl Est Cr Clr Drug Dosing 143.5 ml/min Est GFR ( Amer) 146.3 ml/min Est GFR (Non-Af Amer) 126.2 ml/min BUN/Creatinine Ratio 16.3 (10-20) Glucose 83 (70-99(Fasting)) mg/dl Calcium 9.7 (8.5-10.1) mg/dl Total Bilirubin 1.1 H (0.2-1.0) mg/dl AST TNP ALT 86 H (7-52) U/L Alkaline Phosphatase 100 (34-104) U/L Total Protein 8.3 (6.0-8.3) gm/dl Albumin 4.5 (3.4-5.0) gm/dl Globulin 3.8 (2.5-4.0) gm/dl Albumin/Globulin Ratio 1.2 (0.9-2) Lipase 547 H (11-82) U/L HCG, Qual Negative (Negative) SARS-CoV-2, RNA, NAAT (NEGATIVE) 04/03/22 04/03/22 Range/Units 16:41 17:20 WBC (4.8-10.8) K/ul RBC (3.93-5.22) M/uL Hgb (12.0-16.0) g/dl Hct (34.1-44.9) % MCV (80.0-100.0) fL MCH (25.0-34.0) pg MCHC (32.0-36.0) g/dL RDW Std Deviation (36.4-46.3) fL RDW Coeff of Praful (11.5-14.5) % Plt Count (130-400) K/uL MPV (9.4-12.3) fL Immature Gran % (Auto) % Neut % (Auto) % Lymph % (Auto) % Sp[place] % (Auto) % Eos % (Auto) % Baso % (Auto) % Neut # (Auto) (1.4-6.5) K/uL Lymph # (Auto) (1.2-3.4) K/uL Sp[place] # (Auto) (0.24-0.82) K/uL Eos # (Auto) (0-0.50) K/uL Baso # (Auto) (0-0.2) K/uL Immature Gran # (Auto) (0.00-0.02) K/uL Sodium (136-145) mmol/L Potassium 4.0 Chloride (98-107) mmol/L Carbon Dioxide (21-32) mmol/L Anion Gap (3-11) BUN (6-23) mg/dl Creatinine (0.6-1.2) mg/dl Est Cr Clr Drug Dosing ml/min Est GFR ( Amer) ml/min Est GFR (Non-Af Amer) ml/min BUN/Creatinine Ratio (10-20) Glucose (70-99(Fasting)) mg/dl Calcium (8.5-10.1) mg/dl Total Bilirubin (0.2-1.0) mg/dl AST 76 H ALT (7-52) U/L Alkaline Phosphatase (34-104) U/L Total Protein (6.0-8.3) gm/dl Albumin (3.4-5.0) gm/dl Globulin (2.5-4.0) gm/dl Albumin/Globulin Ratio (0.9-2) Lipase (11-82) U/L HCG, Qual (Negative) SARS-CoV-2, RNA, NAAT NEGATIVE (NEGATIVE) Administered Medications Discontinued Medications Sodium Chloride (Nss 1000ml) 1,000 mls @ 999 mls/hr IV .Q1H1M ONE Stop: 04/03/22 17:01 Last Infusion: 04/03/22 17:43 Dose: 0 mls/hr Documented By: Admin: 04/03/22 16:16 Dose: 999 mls/hr Documented By: LEILA Famotidine (Pepcid 20mg Iv Push) 20 mg in 5 mls @ 2.5 mls/min IV NOW STA Stop: 04/03/22 16:03 Last Admin: 04/03/22 16:17 Dose: 2.5 mls/min Documented By: LEILA Ioversol (Optiray 350 100ml) 86 ml IV ONCE ONE Stop: 04/03/22 17:08 Last Admin: 04/03/22 17:07 Dose: 86 ml Documented By: PONCHO Metoclopramide HCl (Metoclopramide Hcl Inj 5 Mg/Ml 2 Ml Vial) 10 mg IV NOW STA Stop: 04/03/22 16:02 Last Admin: 04/03/22 16:16 Dose: 10 mg Documented By: LEILA Morphine Sulfate (Morphine Sulfate 4 Mg/Ml 1 Ml Carp\\Vial) 4 mg IV NOW STA Stop: 04/03/22 16:02 Last Admin: 04/03/22 16:17 Dose: 4 mg Documented By: LEILA Morphine Sulfate (Morphine Sulfate 4 Mg/Ml 1 Ml Carp\\Vial) 4 mg IV NOW STA Stop: 04/03/22 17:44 Last Admin: 04/03/22 17:52 Dose: 4 mg Documented By: TW Imaging Data Radiologist's Impression: Abdomen/Pelvis CT 04/03/22 16:00 CT SCAN OF THE ABDOMEN AND PELVIS WITH IV CONTRAST CLINICAL HISTORY: Nausea. Generalized abdominal pain. COMPARISON STUDY: Abdominal CT dated 08/25/2021. TECHNIQUE: Following the IV administration of 86 cc of Optiray 350, CT scan of the abdomen and pelvis is performed from the lung bases to the proximal femora. Images are reviewed in the axial, sagittal, and coronal planes. IV contrast was administered without complication. A dose lowering technique was utilized adhering to the principles of ALARA. CT DOSE: 275.11 mGy.cm FINDINGS: Lung bases: The heart is normal in size and without pericardial effusion. The lung bases are clear. Liver: The contrast-enhanced liver is normal in size and demonstrates diffusely diminished attenuation consistent with severe chronic stenosis. There is no intrahepatic biliary ductal dilatation. The hepatic veins and portal veins are patent. Gallbladder: Unremarkable. Spleen: The spleen is surgically absent and the splenic vein is attenuated. Pancreas: The pancreas is heterogeneous. There is peripancreatic inflammation and fluid consistent with acute pancreatitis. A thick-walled peripherally enhancing fluid collection adjacent to the pancreatic tail measures 4.8 x 4.3 cm. There are adjacent surgical clips and this is typical for a pancreatic pseudocyst. The magnetic duct is normal in caliber. The gland enhances throughout. Adrenal glands: Unremarkable. Kidneys: The contrast enhanced kidneys are normal in size and without hydronephrosis. The kidneys enhance symmetrically. Abdominal vasculature: The abdominal aorta is normal in course and caliber noting scattered foci of atherosclerotic calcification. Bowel: Moderate fecal retention is seen throughout the colon. No bowel obstruction is identified. The appendix is well-visualized and normal. Peritoneum: There is no intraperitoneal free air or abdominal ascites. Lymphadenopathy: None. Pelvic viscera: The bladder is distended but otherwise normal as visualized. The uterus is normal as imaged noting an intrauterine device in place. There are bilateral ovarian follicles. Free fluid is seen in the cul-de-sac. Skeletal structures: No lytic or blastic lesions are seen. IMPRESSION: 1. Findings are consistent with acute pancreatitis. 2. A 4.8 cm enhancing fluid collection closely approximating the pancreatic tail is typical for a pseudocyst. This was also present on 08/25/2021. The sterility of this fluid cannot be assessed by imaging. 3. The pancreas enhances throughout. 4. Status post splenectomy. 5. Severe hepatic steatosis. 6. Nonspecific free fluid is seen in the cul-de-sac ACT 112: Negative or not required by law. Electronically signed by: Jaime Genao M.D. 04/03/2022 6:38 PM Discharge Plan Visit Data Chief Complaint: Abdominal Pain Stated Complaint: ABD PAIN, BACK PAIN ED Provider: Josh Cuenca Discharge Problem: Acute pancreatitis, Nausea Patient Disposition: Being Evaluated by Hospitalist Forms Stand Alone Forms: [facility] Prescriptions Prescriptions: No Action ondansetron 8 mg Tablet,Disintegrating 8 mg PO Q8H PRN (Reason: Nausea) albuterol sulfate [Ventolin HFA] 90 mcg/actuation Hfa Aerosol Inhaler 1 inh INHALATION DIRECTED PRN (Reason: Shortness Of Breath) dicyclomine 10 mg capsule 10 mg PO QID PRN (Reason: abd pain) acetaminophen [Tylenol Extra Strength] 500 mg Tablet 1,000 mg PO Q6H PRN (Reason: Pain) pantoprazole [Protonix] 40 mg tablet,delayed release (DR/EC) 40 mg PO BID amitriptyline 25 mg tablet 25 mg PO BID PRN (Reason: sleep/pain,severe) levothyroxine 150 mcg tablet 150 mcg PO DAILYBB gabapentin 300 mg capsule 300 mg PO TID amoxicillin 500 mg capsule 500 mg PO BID Rx Instructions: take for 360 days ordered 08/17/21 folic acid 1 mg tablet 1 mg PO DAILY Referrals Referrals: Gypsy Lubin PA-C [Primary Care Provider] - : Acute pancreatitis Qualifiers: Pancreatitis type: alcohol induced Acute pancreatitis complication: no infection or necrosis Qualified Code(s): K85.20 - Alcohol induced acute pancreatitis without necrosis or infection
[2022-04-03 16:27] LABS: Alanine Aminotransferase 86 U/L (7-52); Albumin Globulin Ratio 1.2 (0.9-2); Albumin Level 4.5 gm/dl (3.4-5.0); Alkaline Phosphatase 100 U/L (34-104); Anion Gap 13 (3-11); BUN Creatinine Ratio 16.3 (10-20); Bilirubin,Total 1.1 mg/dl (0.2-1.0); Blood Urea Nitrogen 8 mg/dl (6-23); Calcium 9.7 mg/dl (8.5-10.1); Carbon Dioxide 22 mmol/L (21-32); Chloride 97 mmol/L (98-107); Creatinine Clr Calc Pharmacy 143.5 ml/min; Est GFR (African American) 146.3 ml/min; Est GFR (Non-African American) 126.2 ml/min; Globulin 3.8 gm/dl (2.5-4.0); Glucose 83 mg/dl (70-99(Fasting)); Lipase 547 U/L (11-82); Sodium 132 mmol/L (136-145); Total Protein 8.3 gm/dl (6.0-8.3)
[2022-04-03] MEDS ORDERED: OPTIRAY 350 100ml IV ONE (17:07)
[2022-04-03 18:09] LABS: Pregnancy Test, Serum Negative (Negative)
--- NOTE | 2022-04-03 18:39 | CT Scan Report ---
CT SCAN OF THE ABDOMEN AND PELVIS WITH IV CONTRAST CLINICAL HISTORY: Nausea. Generalized abdominal pain. COMPARISON STUDY: Abdominal CT dated 08/25/2021. TECHNIQUE: Following the IV administration of 86 cc of Optiray 350, CT scan of the abdomen and pelvi s is performed from the lung bases to the proximal femora. Images are reviewed in the axial, sagittal , and coronal planes. IV contrast was administered without complication. A dose lowering technique wa s utilized adhering to the principles of ALARA. CT DOSE: 275.11 mGy.cm FINDINGS: Lung bases: The heart is normal in size and without pericardial effusion. The lung bases are clear. Liver: The contrast-enhanced liver is normal in size and demonstrates diffusely diminished attenuatio n consistent with severe chronic stenosis. There is no intrahepatic biliary ductal dilatation. The he patic veins and portal veins are patent. Gallbladder: Unremarkable. Spleen: The spleen is surgically absent and the splenic vein is attenuated. Pancreas: The pancreas is heterogeneous. There is peripancreatic inflammation and fluid consistent wi th acute pancreatitis. A thick-walled peripherally enhancing fluid collection adjacent to the pancrea tic tail measures 4.8 x 4.3 cm. There are adjacent surgical clips and this is typical for a pancreati c pseudocyst. The magnetic duct is normal in caliber. The gland enhances throughout. Adrenal glands: Unremarkable. Kidneys: The contrast enhanced kidneys are normal in size and without hydronephrosis. The kidneys enh ance symmetrically. Abdominal vasculature: The abdominal aorta is normal in course and caliber noting scattered foci of a therosclerotic calcification. Bowel: Moderate fecal retention is seen throughout the colon. No bowel obstruction is identified. The appendix is well-visualized and normal. Peritoneum: There is no intraperitoneal free air or abdominal ascites. Lymphadenopathy: None. Pelvic viscera: The bladder is distended but otherwise normal as visualized. The uterus is normal as imaged noting an intrauterine device in place. There are bilateral ovarian follicles. Free fluid is s een in the cul-de-sac. Skeletal structures: No lytic or blastic lesions are seen. IMPRESSION: 1. Findings are consistent with acute pancreatitis. 2. A 4.8 cm enhancing fluid collection closely approximating the pancreatic tail is typical for a pse udocyst. This was also present on 08/25/2021. The sterility of this fluid cannot be assessed by jamir madera. 3. The pancreas enhances throughout. 4. Status post splenectomy. 5. Severe hepatic steatosis. 6. Nonspecific free fluid is seen in the cul-de-sac ACT 112: Negative or not required by law. Electronically signed by: Jaime Genao M.D. 04/03/2022 6:38 PM
[2022-04-03] MEDS ORDERED: ONDANSETRON INJ 2 MG/ML 2 ML VIAL IV STA (18:51)
[2022-04-03] MEDS ORDERED: HYDROmorphone INJ 0.5 MG/0.5 ML SYR IV STA (18:51)
[2022-04-03] MEDS ORDERED: LACTATED RINGER'S 1,000 ML IV ONE (19:10)
[2022-04-03] MEDS ORDERED: THIAMINE HCL 100 MG in SYRINGE 9 ML IV STA (19:17)
[2022-04-03] MEDS ORDERED: KETOROLAC TROMETHAMINE 15 MG/ML VIAL IV ONE (19:52)
[2022-04-03] MEDS ORDERED: LORazepam 2 MG/2 ML SYR IV STA (19:52)
[2022-04-03] MEDS ORDERED: GABAPENTIN 600 MG TAB PO STA (19:52)
--- NOTE | 2022-04-03 19:52 | History & Physical Report ---
Date of Service April 03, 2022 Assessment & Plan (1) Acute pancreatitis: Plan: Recurrent alcoholic pancreatitis Chronic pancreatic pseudocyst/leak Alcohol withdrawal hx splenic hemorrhage status post splenectomy History of von Willebrand's disease chronic anemia, hemoglobin better to baseline likely secondary hemoconcentration Hypothyroidism, TSH from a few months back noted to be low. ongoing tobacco abuse Medical telemetry IVF, analgesia, bowel rest GI consult Re: Pancreatitis, pancreatic pseudocyst GIBSON S, DT precautions Recheck TSH Nicotine patch as needed DVT prophylaxis per Lovenox subcu Full code Text document was generated using [employer] voice recognition software. It may contain grammatical or spelling errors. Kindly contact undersigned for clarification of any documentation item in question. History of Present Illness Chief Complaint: Abdominal pain Primary Care Provider: Dr. Myles History obtained from patient and records. Medical history significant for recurrent pancreatitis, pancreatic pseudocyst, history splenic hemorrhage status post splenectomy, mood disorder, von W illebrand's disease, chronic anemia (baseline hemoglobin of 11), migraine, ongoing tobacco/alcohol abuse. Last confinement June 2021 recurrent pancreatitis. Pancreatic pseudocyst with on imaging. Outpatient endoscopic ultrasound recommended by GI. Patient [facility] general surgeon recommended repeat IR drainage of pancreatic pancreatic fluid collection on follow-up visit last August 2021. Left upper quadrant fluid collection aspirated by IR during [facility] confinement for splenic hemorrhage last May 2021. Elevated amylase denoting pancreatic leak as per documentation. Patient noted diffuse achy abdominal pain with nausea symptoms since last night. No chest pain, no shortness of breath. Admits to alcohol abuse. Fever, no chills. Patient consulted ER for evaluation. 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 Allergies Allergy/AdvReac Type Severity Reaction Status Date / Time valacyclovir Allergy Severe Dyspnea Verified 04/03/22 20:17 enalaprilat Allergy Mild itch Verified 04/03/22 20:17 Home Medications Medication Instructions Recorded Confirmed Type acetaminophen 500 mg tablet 1,000 mg PO Q6H PRN Pain 04/03/22 04/03/22 History (Tylenol Extra Strength) albuterol sulfate 90 mcg/actuation 2 puff inhalation QID 04/03/22 04/03/22 History aerosol inhaler amitriptyline 25 mg tablet 25 mg PO BID PRN Sleep 04/03/22 04/03/22 History dicyclomine 10 mg capsule 10 mg PO QID PRN .abd pain 04/03/22 04/03/22 History furosemide 20 mg tablet 20 mg PO DAILY PRN wt gain 04/03/22 04/03/22 History gabapentin 300 mg capsule 300 mg PO TID 04/03/22 04/03/22 History levothyroxine 150 mcg tablet 150 mcg PO DAILY 04/03/22 04/03/22 History lidocaine 5 % topical patch 1 patch topical DAILY 04/03/22 04/03/22 History ondansetron 8 mg disintegrating 8 mg PO Q8 PRN Nausea 04/03/22 04/03/22 History tablet pantoprazole 40 mg tablet,delayed 40 mg PO BID 04/03/22 04/03/22 History release potassium chloride 20 mEq/15 mL 40 meq PO BID 04/03/22 04/03/22 History oral liquid spironolactone 25 mg tablet 25 mg PO BID 04/03/22 04/03/22 History Past Med/Surg History Medical History Alcohol abuse Elevated AST (SGOT) Hepatic steatosis History of pancreatitis Hypothyroidism IBS (irritable bowel syndrome) Migraines Pancreatitis Peptic ulcer Seasonal asthma Tobacco use Upper gastrointestinal bleed Von Willebrand disease "Mild" Class 1 per [facility] records, under surveillance [facility] hematology, surgeon aware Surgical History H/O splenectomy 04/10/21 - spontaneous splenic rupture. splenectomy at [facility] History of colonoscopy History of esophagogastroduodenoscopy (EGD) History of loop electrical excision procedure (LEEP) History of wisdom tooth extraction Family History Mother Von Willebrand disease Other No family history of adverse response to anesthesia Social History Smoking Status: Current every day smoker Tobacco Type: Cigarettes Cigarettes Per Day: 10; Second Hand Exposure: No; Do You Dip or Chew Tobacco: No; Hx Alcohol Use: Yes Alcohol type: hard liquor Hx Substance Use: No Preferred Language: Canadian Communication Ability: Effective 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 Mechanical Officer Required: No Beliefs That Will Affect Care: None marital status: Current Living Situation: Spouse Other Information That Helps Us Care for You: No Feels Safe at Home: Yes Safety Concerns: Feels Safe At This Time Assistive Devices: None Review of Systems Review of Systems: As per HPI, all other systems reviewed and negative Physical Exam Physical Exam: GENERAL: uncomfortable, tremulous, no respiratory distress SKIN: Normal color, warm HEENT: [place] palpebral conjunctivae, no ptosis, dry buccal mucosa NECK : Supple, no tenderness CHEST : CTA, no tenderness HEART : RRR, no obvious murmurs ABDOMEN: Some distention, left-sided abdominal tenderness EXTREMITIES : No LE swelling/tenderness, no other conspicuous deformities noted NEUROLOGIC : Coherent, no facial asymmetry, tremulous, no other gross focality Results & Data Results & Data ([facility]) Vital Signs (Past 12 Hours) Vital Signs Temp Pulse Pulse Resp BP BP Pulse Ox 04/03/22 19:19 93 H 16 98 04/03/22 17:23 97 H 16 157/95 H 97 04/03/22 16:19 86 16 151/90 H 98 04/03/22 14:35 36.5 C 95 H 16 163/91 H 98 O2 Del Method 04/03/22 19:19 Room Air 04/03/22 17:23 Room Air 04/03/22 16:19 Room Air 04/03/22 14:35 Room Air Laboratory Results Laboratory Results WBC 7.98 K/ul (4.8-10.8) 04/03/22 15:30 RBC 4.24 M/uL (3.93-5.22) 04/03/22 15:30 Hgb 13.0 g/dl (12.0-16.0) 04/03/22 15:30 Hct 38.3 % (34.1-44.9) 04/03/22 15:30 MCV 90.3 fL (80.0-100.0) 04/03/22 15:30 MCH 30.7 pg (25.0-34.0) 04/03/22 15:30 MCHC 33.9 g/dL (32.0-36.0) 04/03/22 15:30 RDW Std Deviation 58.8 fL (36.4-46.3) H 04/03/22 15:30 RDW Coeff of Praful 17.9 % (11.5-14.5) H 04/03/22 15:30 Plt Count 225 K/uL (130-400) 04/03/22 15:30 MPV 11.8 fL (9.4-12.3) 04/03/22 15:30 Immature Gran % (Auto) 0.4 % 04/03/22 15:30 Neut % (Auto) 81.7 % 04/03/22 15:30 Lymph % (Auto) 7.4 % 04/03/22 15:30 Spencer % (Auto) 8.3 % 04/03/22 15:30 Eos % (Auto) 0.3 % 04/03/22 15:30 Baso % (Auto) 1.9 % 04/03/22 15:30 Neut # (Auto) 6.53 K/uL (1.4-6.5) H 04/03/22 15:30 Lymph # (Auto) 0.59 K/uL (1.2-3.4) L 04/03/22 15:30 Spencer # (Auto) 0.66 K/uL (0.24-0.82) 04/03/22 15:30 Eos # (Auto) 0.02 K/uL (0-0.50) 04/03/22 15:30 Baso # (Auto) 0.15 K/uL (0-0.2) 04/03/22 15:30 Immature Gran # (Auto) 0.03 K/uL (0.00-0.02) H 04/03/22 15:30 Sodium 132 mmol/L (136-145) L 04/03/22 15:30 Potassium 4.0 mmol/L (3.5-5.1) 04/03/22 16:41 Chloride 97 mmol/L (98-107) L 04/03/22 15:30 Carbon Dioxide 22 mmol/L (21-32) 04/03/22 15:30 Anion Gap 13 (3-11) H 04/03/22 15:30 BUN 8 mg/dl (6-23) 04/03/22 15:30 Creatinine 0.49 mg/dl (0.6-1.2) L 04/03/22 15:30 Est Cr Clr Drug Dosing 143.5 ml/min 04/03/22 15:30 Est GFR ( Amer) 146.3 ml/min 04/03/22 15:30 Est GFR (Non-Af Amer) 126.2 ml/min 04/03/22 15:30 BUN/Creatinine Ratio 16.3 (10-20) 04/03/22 15:30 Glucose 83 mg/dl (70-99(Fasting)) 04/03/22 15:30 Calcium 9.7 mg/dl (8.5-10.1) 04/03/22 15:30 Magnesium 1.5 mg/dl (1.7-2.4) L 04/03/22 16:41 Total Bilirubin 1.1 mg/dl (0.2-1.0) H 04/03/22 15:30 AST 76 U/L (13-39) H 04/03/22 16:41 ALT 86 U/L (7-52) H 04/03/22 15:30 Alkaline Phosphatase 100 U/L (34-104) 04/03/22 15:30 Total Protein 8.3 gm/dl (6.0-8.3) 04/03/22 15:30 Albumin 4.5 gm/dl (3.4-5.0) 04/03/22 15:30 Globulin 3.8 gm/dl (2.5-4.0) 04/03/22 15:30 Albumin/Globulin Ratio 1.2 (0.9-2) 04/03/22 15:30 Lipase 547 U/L (11-82) H 04/03/22 15:30 HCG, Qual Negative (Negative) 04/03/22 15:30 SARS-CoV-2, RNA, NAAT NEGATIVE (NEGATIVE) 04/03/22 17:20 Impressions Abdomen/Pelvis CT 04/03/22 16:00 CT SCAN OF THE ABDOMEN AND PELVIS WITH IV CONTRAST CLINICAL HISTORY: Nausea. Generalized abdominal pain. COMPARISON STUDY: Abdominal CT dated 08/25/2021. TECHNIQUE: Following the IV administration of 86 cc of Optiray 350, CT scan of the abdomen and pelvis is performed from the lung bases to the proximal femora. Images are reviewed in the axial, sagittal, and coronal planes. IV contrast was administered without complication. A dose lowering technique was utilized adhering to the principles of ALARA. CT DOSE: 275.11 mGy.cm FINDINGS: Lung bases: The heart is normal in size and without pericardial effusion. The lung bases are clear. Liver: The contrast-enhanced liver is normal in size and demonstrates diffusely diminished attenuation consistent with severe chronic stenosis. There is no intrahepatic biliary ductal dilatation. The hepatic veins and portal veins are patent. Gallbladder: Unremarkable. Spleen: The spleen is surgically absent and the splenic vein is attenuated. Pancreas: The pancreas is heterogeneous. There is peripancreatic inflammation and fluid consistent with acute pancreatitis. A thick-walled peripherally e nhancing fluid collection adjacent to the pancreatic tail measures 4.8 x 4.3 cm. There are adjacent surgical clips and this is typical for a pancreatic pseudocyst. The magnetic duct is normal in caliber. The gland enhances throughout. Adrenal glands: Unremarkable. Kidneys: The contrast enhanced kidneys are normal in size and without hydronephrosis. The kidneys enhance symmetrically. Abdominal vasculature: The abdominal aorta is normal in course and caliber noting scattered foci of atherosclerotic calcification. Bowel: Moderate fecal retention is seen throughout the colon. No bowel obst ruction is identified. The appendix is well-visualized and normal. Peritoneum: There is no intraperitoneal free air or abdominal ascites. Lymphadenopathy: None. Pelvic viscera: The bladder is distended but otherwise normal as visualized. The uterus is normal as imaged noting an intrauterine device in place. There are bilateral ovarian follicles. Free fluid is seen in the cul-de-sac. Skeletal structures: No lytic or blastic lesions are seen. IMPRESSION: 1. Findings are consistent with acute pancreatitis. 2. A 4.8 cm enhancing fluid collection closely approximating the pancreatic tail is typical for a pseudocyst. This was also present on 08/25/2021. The sterility of this fluid cannot be assessed by imaging. 3. The pancreas enhances throughout. 4. Status post splenectomy. 5. Severe hepatic steatosis. 6. Nonspecific free fluid is seen in the cul-de-sac ACT 112: Negative or not required by law. Electronically signed by: Jaime Genao M.D. 04/03/2022 6:38 PM (1) Acute pancreatitis Acute pancreatitis complication: no infection or necrosis Pancreatitis type: alcohol induced Qualified Code(s): K85.20 - Alcohol induced acute pancreatitis without necrosis or infection
[2022-04-03] MEDS ORDERED: PROMETHAZINE HCL 12.5 MG in SODIUM CHLORIDE 0.9% 50 ML IV PRN (19:59)
[2022-04-03] MEDS ORDERED: NICOTINE 14 MG/24 HR PATCH TD STA (20:59)
[2022-04-03 21:16] LABS: Prothrombin Time 10.9 Seconds (9.0-12.0)
[2022-04-03] MEDS ORDERED: LORazepam 3 MG in SYRINGE 0 ML IV PRN (23:08)
[2022-04-03] MEDS ORDERED: LORazepam 2 MG in SYRINGE 0 ML IV PRN (23:08)
[2022-04-03] MEDS ORDERED: GABAPENTIN 1200MG ALCOHOL WITHDRAWAL LOAD PO STA (23:08)
[2022-04-03] MEDS ORDERED: GABAPENTIN 600 MG TAB PO ONE (23:08)
[2022-04-03] MEDS ORDERED: Ativan IV Alcohol Withdrawal--Active Protocol IV PRN (23:08)
[2022-04-03] MEDS ORDERED: AMITRIPTYLINE HCL 25 MG TAB PO PRN (23:14)
[2022-04-04] MEDS: oxyCODONE HCL IR 5 MG TAB (IMMEDIATE RELEASE) PO PRN ×5 (00:03→17:38)
[2022-04-04] MEDS: LACTATED RINGER'S 1,000 ML IV SCH ×5 (00:11→20:05)
[2022-04-04] MEDS: KETOROLAC TROMETHAMINE 15 MG/ML VIAL IV PRN (01:28)
[2022-04-04] MEDS ORDERED: GABAPENTIN 600 MG TAB PO SCH ×2 (02:00→16:00)
[2022-04-04] MEDS: ACETAMINOPHEN 500 MG TAB PO PRN ×3 (04:01→14:47)
[2022-04-04] MEDS ORDERED: ONDANSETRON INJ 2 MG/ML 2 ML VIAL IV STA (04:48)
[2022-04-04] MEDS: LEVOTHYROXINE SODIUM 150 MCG TABLET PO SCH (06:29)
[2022-04-04 06:33] LABS: Appearance Urine Clear (Clear); Bilirubin Urine Negative (Negative); Blood Urine Negative (Negative); Color Urine Yellow; Glucose Urine UA Negative (Negative); Ketones Urine 3+ (Negative); Leukocyte Esterase Urine Negative (Negative); Nitrite Urine Negative (Negative); Protein Urine Negative (Negative); Specific Gravity Urine 1.013 (1.000-1.030); Urobilinogen Urine Negative (Negative)
[2022-04-04 06:47] LABS: Basophils # (auto) 0.09 K/uL (0-0.2); Basophils % (auto) 0.8 %; Eosinophils # (auto) 0.22 K/uL (0-0.50); Eosinophils % (auto) 1.9 %; Hematocrit (blood only) 31.9 % (34.1-44.9); Hemoglobin 11.2 g/dl (12.0-16.0); Immature Granulocytes # (auto) 0.03 K/uL (0.00-0.02); Immature Granulocytes % (auto) 0.3 %; Lymphocytes # (auto) 1.24 K/uL (1.2-3.4); Lymphocytes % (auto) 10.6 %; Mean Corpuscular Hemoglobin 30.9 pg (25.0-34.0); Mean Corpuscular Hgb Conc 35.1 g/dL (32.0-36.0); Mean Corpuscular Volume 87.9 fL (80.0-100.0); Monocytes % (auto) 14.5 %; Neutrophils # (auto) 8.41 K/uL (1.4-6.5); Neutrophils % (auto) 71.9 %; Platelet Count 222 K/uL (130-400); RDW Coefficient of Variation 17.9 % (11.5-14.5); RDW Standard Deviation 57.1 fL (36.4-46.3); Red Blood Count 3.63 M/uL (3.93-5.22); White Blood Count 11.69 K/ul (4.8-10.8)
[2022-04-04 07:26] LABS: Thyroid Stimulating Hormone 0.061 uIu/ml (0.300-4.500)
[2022-04-04 07:42] LABS: Alanine Aminotransferase 58 U/L (7-52); Albumin Globulin Ratio 1.5 (0.9-2); Alkaline Phosphatase 85 U/L (34-104); Anion Gap 12 (3-11); Aspartate Aminotransferase 47 U/L (13-39); BUN Creatinine Ratio 11.9 (10-20); Blood Urea Nitrogen 5 mg/dl (6-23); Calcium 9.1 mg/dl (8.5-10.1); Carbon Dioxide 21 mmol/L (21-32); Chloride 100 mmol/L (98-107); Creatinine Clr Calc Pharmacy 168.3 ml/min; Est GFR (African American) > 150.0 ml/min; Est GFR (Non-African American) 132.8 ml/min; Globulin 2.7 gm/dl (2.5-4.0); Glucose 83 mg/dl (70-99(Fasting)); Potassium 4.1 mmol/L (3.5-5.1); Sodium 133 mmol/L (136-145); Total Protein 6.7 gm/dl (6.0-8.3)
[2022-04-04] MEDS: ENOXAPARIN INJ 40 MG/0.4 ML SYR SQ SCH (08:21)
[2022-04-04] MEDS: NICOTINE 14 MG/24 HR PATCH TD SCH (08:22)
[2022-04-04] MEDS: THIAMINE HCL 100 MG TAB PO SCH ×2 (08:22)
[2022-04-04] MEDS: MULTIVITAMIN TAB PO SCH (08:22)
[2022-04-04] MEDS: PANTOprazole 40 MG TAB PO SCH ×3 (08:23→19:47)
[2022-04-04] MEDS: FOLIC ACID 1 MG TAB PO SCH ×2 (08:23)
--- NOTE | 2022-04-04 09:38 | Gastrointestinal Consultation ---
Date of Consultation April 04, 2022 Assessment & Plan (1) Acute pancreatitis: 36 year old female with history of recurrent ETOH induced pancreatitis presenting with abd pain after ETOH consumption, imaging concerning for acute pancreatitis w/ a 4.8 cm enhancing fluid collection closely approximating the pancreatic tail is typical for a pseudocyst ETOH withdrawal protocol Complete ETOH cessation as stressed to patient NPO Can advance ot liquids once pain/nausea better controlled LR 150/200 mL/hr Antiemetics PRN Analgesia PRN Regarding her pancreatitis, will need OP GI clininc follow in 1 month, to arrange OP CT scan for about 3 months times Thank you for allowing us to participate in the care of this patient. Please call with any acute changes, questions or concerns. Please see addendum below with additional recommendation from my supervising physician. Supervising Physician Co-Signing Physician Notes I have seen and examined the patient and discussed the management with recurrent etoh induced pancreatitis, now admitted with abdominal pain and imaging c/w pancreatitis with a 4.8 cm fluid collection. Complaining of abdominal pain 11/19. PE as above Agree with further plan of care as above. History of Present Illness Reason for Consultation: acute panc Requesting Physician: iDane Attending Physician: Salome Contreras MD History of Present Illness 36 year old female withhistory of hypothyroidism, migraine, tobacco abuse, alcohol use, history of bipolar disorder, hepatic steatosis, von Willebrand's disease, history of recent splenectomy 04/10/21, recurrent pancreatitis who presents with abdominal pain after ETOH consumption, admitted with pancreatitis. Pt was seen and evaluated, chart reviewed. Notes that she was ETOH free. Decided to have 3/4 drinks on Monday, immediately developed pain. Presented to ED. This AM, persistent pain. No nausea, vomiting. No fevers. CTAP 2021: . Findings are consistent with acute pancreatitis. 2. A 4.8 cm enhancing fluid collection closely approximating the pancreatic tail is typical for a pseudocyst. This was also present on 08/25/2021. The sterility of this fluid cannot be assessed by imaging. 3. The pancreas enhances throughout. 4. Status post splenectomy. 5. Severe hepatic steatosis. 6. Nonspecific free fluid is seen in the cul-de-sac Allergies Allergy/AdvReac Type Severity Reaction Status Date / Time valacyclovir Allergy Severe Dyspnea Verified 04/03/22 20:17 enalaprilat Allergy Mild itch Verified 04/03/22 20:17 Home Medications Medication Instructions Recorded Confirmed Type acetaminophen 500 mg tablet 1,000 mg PO Q6H PRN Pain 04/03/22 04/03/22 History (Tylenol Extra Strength) albuterol sulfate 90 mcg/actuation 2 puff inhalation QID 04/03/22 04/03/22 History aerosol inhaler amitriptyline 25 mg tablet 25 mg PO BID PRN Sleep 04/03/22 04/03/22 History dicyclomine 10 mg capsule 10 mg PO QID PRN .abd pain 04/03/22 04/03/22 History furosemide 20 mg tablet 20 mg PO DAILY PRN wt gain 04/03/22 04/03/22 History gabapentin 300 mg capsule 300 mg PO TID 04/03/22 04/03/22 History levothyroxine 150 mcg tablet 150 mcg PO DAILY 04/03/22 04/03/22 History lidocaine 5 % topical patch 1 patch topical DAILY 04/03/22 04/03/22 History ondansetron 8 mg disintegrating 8 mg PO Q8 PRN Nausea 04/03/22 04/03/22 History tablet pantoprazole 40 mg tablet,delayed 40 mg PO BID 04/03/22 04/03/22 History release potassium chloride 20 mEq/15 mL 40 meq PO BID 04/03/22 04/03/22 History oral liquid spironolactone 25 mg tablet 25 mg PO BID 04/03/22 04/03/22 History Patient History Medical History Alcohol abuse Elevated AST (SGOT) Hepatic steatosis History of pancreatitis Hypothyroidism IBS (irritable bowel syndrome) Migraines Pancreatitis Peptic ulcer Seasonal asthma Tobacco use Upper gastrointestinal bleed Von Willebrand disease "Mild" Class 1 per [facility] records, under surveillance [facility] hematology, surgeon aware Surgical History H/O splenectomy 04/10/21 - spontaneous splenic rupture. splenectomy at [facility] History of colonoscopy History of esophagogastroduodenoscopy (EGD) History of loop electrical excision procedure (LEEP) History of wisdom tooth extraction Family History Mother Von Willebrand disease Other No family history of adverse response to anesthesia Social History Smoking Status: Current every day smoker Tobacco Type: Cigarettes Cigarettes Per Day: 10; Second Hand Exposure: No; Do You Dip or Chew Tobacco: No; Hx Alcohol Use: Yes Alcohol type: hard liquor Hx Substance Use: No Preferred Language: Spanish Communication Ability: Effective Organic Preparation Technician Required: No Beliefs That Will Affect Care: None marital status: Current Living Situation: Spouse Other Information That Helps Us Care for You: No Feels Safe at Home: Yes Safety Concerns: Feels Safe At This Time Assistive Devices: None Review of Systems Review of Systems: All systems reviewed & are unremarkable except as noted in HPI & below Physical Exam Constitutional: well developed and well nourished; no acute distress Neck: trachea midline, no thyromegaly Respiratory: normal respiratory effort; no respiratory distress and no labored breathing Cardiovascular: Rate/Rhythm: + tachycardic Gastrointestinal (Abdomen): Inspection/Auscultation: abdomen normal to inspection and normal bowel sounds; abdomen not distended Percussion/Palpation: + abdomen tender and abdomen soft; no guarding and abdomen not rigid Skin: no rashes, warm and dry Results & Data ([facility]) Vital Signs (Past 12 Hours) Vital Signs Temp Pulse Pulse Resp BP Pulse Ox O2 Del Method 04/04/22 07:17 36.8 C 90 18 157/88 H 97 Room Air 04/04/22 03:19 36.3 C L 101 H 16 158/82 H 97 Room Air 04/04/22 01:37 109 H 04/03/22 23:13 36.9 C 93 H 18 155/84 H 99 Room Air 04/03/22 21:56 93 H 18 145/96 H 96 Room Air Laboratory Results 04/04/22 04/04/22 04/04/22 Range/Units Unknown 06:07 06:07 WBC (4.8-10.8) K/ul RBC (3.93-5.22) M/uL Hgb (12.0-16.0) g/dl Hct (34.1-44.9) % MCV (80.0-100.0) fL MCH (25.0-34.0) pg MCHC (32.0-36.0) g/dL RDW Std Deviation (36.4-46.3) fL RDW Coeff of Praful (11.5-14.5) % Plt Count (130-400) K/uL MPV (9.4-12.3) fL Immature Gran % (Auto) % Neut % (Auto) % Lymph % (Auto) % [place] % (Auto) % Eos % (Auto) % Baso % (Auto) % Neut # (Auto) (1.4-6.5) K/uL Lymph # (Auto) (1.2-3.4) K/uL [place] # (Auto) (0.24-0.82) K/uL Eos # (Auto) (0-0.50) K/uL Baso # (Auto) (0-0.2) K/uL Immature Gran # (Auto) (0.00-0.02) K/uL PT INR Sodium 133 L (136-145) mmol/L Potassium 4.1 Chloride 100 (98-107) mmol/L Carbon Dioxide 21 (21-32) mmol/L Anion Gap 12 H (3-11) BUN 5 L (6-23) mg/dl Creatinine 0.42 L (0.6-1.2) mg/dl Est Cr Clr Drug Dosing 168.3 ml/min Est GFR ( Amer) > 150.0 ml/min Est GFR (Non-Af Amer) 132.8 ml/min BUN/Creatinine Ratio 11.9 (10-20) Glucose 83 (70-99(Fasting)) mg/dl Calcium 9.1 (8.5-10.1) mg/dl Magnesium (1.7-2.4) mg/dl Total Bilirubin 1.0 (0.2-1.0) mg/dl AST 47 H ALT 58 H (7-52) U/L Alkaline Phosphatase 85 (34-104) U/L Total Protein 6.7 (6.0-8.3) gm/dl Albumin 4.0 (3.4-5.0) gm/dl Globulin 2.7 (2.5-4.0) gm/dl Albumin/Globulin Ratio 1.5 (0.9-2) Lipase (11-82) U/L TSH 0.061 L (0.300-4.500) uIu/ml Free T4 Pending HCG, Qual (Negative) Urine Color Yellow Urine Appearance Clear (Clear) Urine pH 6.0 (4.5-7.5) Ur Specific [place] 1.013 (1.000-1.030) Urine Protein Negative (Negative) Urine Glucose (UA) Negative (Negative) Urine Ketones 3+ H (Negative) Urine Blood Negative (Negative) Urine Nitrite Negative (Negative) Urine Bilirubin Negative (Negative) Urine Urobilinogen Negative (Negative) Ur Leukocyte Esterase Negative (Negative) SARS-CoV-2, RNA, NAAT (NEGATIVE) 04/04/22 04/03/22 04/03/22 Range/Units 06:07 20:45 17:20 WBC 11.69 H (4.8-10.8) K/ul RBC 3.63 L (3.93-5.22) M/uL Hgb 11.2 L (12.0-16.0) g/dl Hct 31.9 L (34.1-44.9) % MCV 87.9 (80.0-100.0) fL MCH 30.9 (25.0-34.0) pg MCHC 35.1 (32.0-36.0) g/dL RDW Std Deviation 57.1 H (36.4-46.3) fL RDW Coeff of Praful 17.9 H (11.5-14.5) % Plt Count 222 (130-400) K/uL MPV 12.0 (9.4-12.3) fL Immature Gran % (Auto) 0.3 % Neut % (Auto) 71.9 % Lymph % (Auto) 10.6 % [place] % (Auto) 14.5 % Eos % (Auto) 1.9 % Baso % (Auto) 0.8 % Neut # (Auto) 8.41 H (1.4-6.5) K/uL Lymph # (Auto) 1.24 (1.2-3.4) K/uL [place] # (Auto) 1.70 H (0.24-0.82) K/uL Eos # (Auto) 0.22 (0-0.50) K/uL Baso # (Auto) 0.09 (0-0.2) K/uL Immature Gran # (Auto) 0.03 H (0.00-0.02) K/uL PT 10.9 INR 1.0 Sodium (136-145) mmol/L Potassium Chloride (98-107) mmol/L Carbon Dioxide (21-32) mmol/L Anion Gap (3-11) BUN (6-23) mg/dl Creatinine (0.6-1.2) mg/dl Est Cr Clr Drug Dosing ml/min Est GFR ( Amer) ml/min Est GFR (Non-Af Amer) ml/min BUN/Creatinine Ratio (10-20) Glucose (70-99(Fasting)) mg/dl Calcium (8.5-10.1) mg/dl Magnesium (1.7-2.4) mg/dl Total Bilirubin (0.2-1.0) mg/dl AST ALT (7-52) U/L Alkaline Phosphatase (34-104) U/L Total Protein (6.0-8.3) gm/dl Albumin (3.4-5.0) gm/dl Globulin (2.5-4.0) gm/dl Albumin/Globulin Ratio (0.9-2) Lipase (11-82) U/L TSH (0.300-4.500) uIu/ml Free T4 HCG, Qual (Negative) Urine Color Urine Appearance (Clear) Urine pH (4.5-7.5) Ur Specific [place] (1.000-1.030) Urine Protein (Negative) Urine Glucose (UA) (Negative) Urine Ketones (Negative) Urine Blood (Negative) Urine Nitrite (Negative) Urine Bilirubin (Negative) Urine Urobilinogen (Negative) Ur Leukocyte Esterase (Negative) SARS-CoV-2, RNA, NAAT NEGATIVE (NEGATIVE) 04/03/22 04/03/22 04/03/22 Range/Units 16:41 16:41 15:30 WBC (4.8-10.8) K/ul RBC (3.93-5.22) M/uL Hgb (12.0-16.0) g/dl Hct (34.1-44.9) % MCV (80.0-100.0) fL MCH (25.0-34.0) pg MCHC (32.0-36.0) g/dL RDW Std Deviation (36.4-46.3) fL RDW Coeff of Praful (11.5-14.5) % Plt Count (130-400) K/uL MPV (9.4-12.3) fL Immature Gran % (Auto) % Neut % (Auto) % Lymph % (Auto) % [place] % (Auto) % Eos % (Auto) % Baso % (Auto) % Neut # (Auto) (1.4-6.5) K/uL Lymph # (Auto) (1.2-3.4) K/uL [place] # (Auto) (0.24-0.82) K/uL Eos # (Auto) (0-0.50) K/uL Baso # (Auto) (0-0.2) K/uL Immature Gran # (Auto) (0.00-0.02) K/uL PT Cancelled INR Cancelled Sodium (136-145) mmol/L Potassium 4.0 Chloride (98-107) mmol/L Carbon Dioxide (21-32) mmol/L Anion Gap (3-11) BUN (6-23) mg/dl Creatinine (0.6-1.2) mg/dl Est Cr Clr Drug Dosing ml/min Est GFR ( Amer) ml/min Est GFR (Non-Af Amer) ml/min BUN/Creatinine Ratio (10-20) Glucose (70-99(Fasting)) mg/dl Calcium (8.5-10.1) mg/dl Magnesium 1.5 L (1.7-2.4) mg/dl Total Bilirubin (0.2-1.0) mg/dl AST 76 H ALT (7-52) U/L Alkaline Phosphatase (34-104) U/L Total Protein (6.0-8.3) gm/dl Albumin (3.4-5.0) gm/dl Globulin (2.5-4.0) gm/dl Albumin/Globulin Ratio (0.9-2) Lipase (11-82) U/L TSH (0.300-4.500) uIu/ml Free T4 HCG, Qual (Negative) Urine Color Urine Appearance (Clear) Urine pH (4.5-7.5) Ur Specific [place] (1.000-1.030) Urine Protein (Negative) Urine Glucose (UA) (Negative) Urine Ketones (Negative) Urine Blood (Negative) Urine Nitrite (Negative) Urine Bilirubin (Negative) Urine Urobilinogen (Negative) Ur Leukocyte Esterase (Negative) SARS-CoV-2, RNA, NAAT (NEGATIVE) 04/03/22 04/03/22 04/03/22 Range/Units 15:30 15:30 15:30 WBC 7.98 (4.8-10.8) K/ul RBC 4.24 (3.93-5.22) M/uL Hgb 13.0 (12.0-16.0) g/dl Hct 38.3 (34.1-44.9) % MCV 90.3 (80.0-100.0) fL MCH 30.7 (25.0-34.0) pg MCHC 33.9 (32.0-36.0) g/dL RDW Std Deviation 58.8 H (36.4-46.3) fL RDW Coeff of Praful 17.9 H (11.5-14.5) % Plt Count 225 (130-400) K/uL MPV 11.8 (9.4-12.3) fL Immature Gran % (Auto) 0.4 % Neut % (Auto) 81.7 % Lymph % (Auto) 7.4 % Wilkin % (Auto) 8.3 % Eos % (Auto) 0.3 % Baso % (Auto) 1.9 % Neut # (Auto) 6.53 H (1.4-6.5) K/uL Lymph # (Auto) 0.59 L (1.2-3.4) K/uL Wilkin # (Auto) 0.66 (0.24-0.82) K/uL Eos # (Auto) 0.02 (0-0.50) K/uL Baso # (Auto) 0.15 (0-0.2) K/uL Immature Gran # (Auto) 0.03 H (0.00-0.02) K/uL PT INR Sodium 132 L (136-145) mmol/L Potassium TNP Chloride 97 L (98-107) mmol/L Carbon Dioxide 22 (21-32) mmol/L Anion Gap 13 H (3-11) BUN 8 (6-23) mg/dl Creatinine 0.49 L (0.6-1.2) mg/dl Est Cr Clr Drug Dosing 143.5 ml/min Est GFR ( Amer) 146.3 ml/min Est GFR (Non-Af Amer) 126.2 ml/min BUN/Creatinine Ratio 16.3 (10-20) Glucose 83 (70-99(Fasting)) mg/dl Calcium 9.7 (8.5-10.1) mg/dl Magnesium (1.7-2.4) mg/dl Total Bilirubin 1.1 H (0.2-1.0) mg/dl AST TNP ALT 86 H (7-52) U/L Alkaline Phosphatase 100 (34-104) U/L Total Protein 8.3 (6.0-8.3) gm/dl Albumin 4.5 (3.4-5.0) gm/dl Globulin 3.8 (2.5-4.0) gm/dl Albumin/Globulin Ratio 1.2 (0.9-2) Lipase 547 H (11-82) U/L TSH (0.300-4.500) uIu/ml Free T4 HCG, Qual Negative (Negative) Urine Color Urine Appearance (Clear) Urine pH (4.5-7.5) Ur Specific [place] (1.000-1.030) Urine Protein (Negative) Urine Glucose (UA) (Negative) Urine Ketones (Negative) Urine Blood (Negative) Urine Nitrite (Negative) Urine Bilirubin (Negative) Urine Urobilinogen (Negative) Ur Leukocyte Esterase (Negative) SARS-CoV-2, RNA, NAAT (NEGATIVE) (1) Acute pancreatitis Acute pancreatitis complication: no infection or necrosis Pancreatitis type: alcohol induced Qualified Code(s): K85.20 - Alcohol induced acute pancreatitis without necrosis or infection
[2022-04-04] MEDS: MoRPHine SULFATE 4 MG/ML 1 ML CARP\\VIAL IV PRN ×3 (10:50→22:20)
--- NOTE | 2022-04-04 12:22 | Hospitalist Progress Note ---
Date of Service April 04, 2022 Assessment & Plan (1) Acute pancreatitis: Plan: Recurrent alcoholic pancreatitis Chronic pancreatic pseudocyst/leak Continues to have abdominal pain with nausea and vomiting Symptomatic management with pain medications, antiemetics and fluid Appreciate GI input and recommendation We will continue supportive care for now Alcohol withdrawal Has tremors of the outstretched hands Has been on withdrawal protocol GIBSON S, DT precautions H/O Splenic hemorrhage status post splenectomy History of von Willebrand's disease Chronic anemia, hemoglobin better to baseline likely secondary hemoconcentration Hypothyroidism, TSH from a few months back noted to be low. Await free T4 Ongoing tobacco abuse Nicotine patch as needed DVT prophylaxis per Lovenox subcu Full code Admission and Anticipated Discharge Date Admission Date: April 03, 2022 Subjective 04/04/2022 The patient was seen and examined in medical telemetry unit She has been complaining of more abdominal pain which radiates to the back and is associated with nausea and vomiting without any diarrhea Denies any fever and or chills Has tremors involving the hands Review of Systems Review of Systems: All systems reviewed and are unremarkable except as noted below Physical Exam Physical Exam: Lying in bed with anxiety and distress due to abdominal pain Constitutional: + ill appearing and average body habitus Eyes: PERRL, conjunctivae normal, anicteric sclerae ENMT: external ear and nose normal, oropharynx normal Neck: trachea midline, no thyromegaly Respiratory: no respiratory distress Auscultation: lungs clear to auscultation bilaterally Cardiovascular: Rate/Rhythm: regular rate, regular rhythm and + tachycardic Heart Sounds: normal S1 and normal S2; no murmur Extremities: no edema Gastrointestinal (Abdomen): Inspection/Auscultation: normal bowel sounds; abdomen not distended Percussion/Palpation: + abdomen tender (Epigastrium and at the left renal angle) and abdomen soft Musculoskeletal: No acute arthritis in any joint Neurologic: Alert, awake and oriented x3. No focal sensory and motor deficit appreciated Psychiatric: A+Ox3, euthymic affect Lymphatic: no cervical or axillary lymphadenopathy Results & Data Results & Data ([facility]) Vital Signs (Past 12 Hours) Vital Signs Temp Pulse Pulse Resp BP Pulse Ox O2 Del Method 04/04/22 08:00 108 H 04/04/22 07:17 36.8 C 90 18 157/88 H 97 Room Air 04/04/22 03:19 36.3 C L 101 H 16 158/82 H 97 Room Air 04/04/22 01:37 109 H Laboratory Results Short CBC 04/03/22 04/04/22 Range/Units 15:30 06:07 WBC 7.98 11.69 H (4.8-10.8) K/ul Hgb 13.0 11.2 L (12.0-16.0) g/dl Hct 38.3 31.9 L (34.1-44.9) % Plt Count 225 222 (130-400) K/uL BMP 04/03/22 04/03/22 04/04/22 15:30 16:41 06:07 Sodium 132 L 133 L Potassium TNP 4.0 4.1 Chloride 97 L 100 Carbon Dioxide 22 21 BUN 8 5 L Creatinine 0.49 L 0.42 L Glucose 83 83 Calcium 9.7 9.1 Liver Function 04/03/22 04/03/22 04/04/22 Range/Units 15:30 16:41 06:07 Total Bilirubin 1.1 H 1.0 (0.2-1.0) mg/dl AST TNP 76 H 47 H ALT 86 H 58 H (7-52) U/L Alkaline Phosphatase 100 85 (34-104) U/L Albumin 4.5 4.0 (3.4-5.0) gm/dl Urine 04/04/22 Range/Units Unknown Urine Color Yellow Urine Appearance Clear (Clear) Urine pH 6.0 (4.5-7.5) Ur Specific [place] 1.013 (1.000-1.030) Urine Protein Negative (Negative) Urine Glucose (UA) Negative (Negative) Medications Administered Current Inpatient Medications Acetaminophen (Acetaminophen 500 Mg Tab) 500 mg PO Q6H PRN PRN Reason: pain/fever Stop: 05/03/22 19:58 Last Admin: 04/04/22 08:21 Dose: 500 mg Amitriptyline HCl (Amitriptyline Hcl 25 Mg Tab) 25 mg PO HS PRN PRN Reason: Sleep Stop: 05/03/22 23:13 Enoxaparin Sodium (Enoxaparin Inj 40 Mg/0.4 Ml Syr) 40 mg SQ QAM [facility] Stop: 05/04/22 08:59 Last Admin: 04/04/22 08:21 Dose: 40 mg Folic Acid (Folic Acid 1 Mg Tab) 1 mg PO QAM [facility] Stop: 05/03/22 23:07 Last Admin: 04/04/22 08:23 Dose: 1 mg Gabapentin (Gabapentin 300 Mg Cap) 300 mg PO TID [facility] Stop: 05/07/22 13:59 Promethazine HCl 12.5 mg/ (Sodium Chloride) 50.5 mls @ 202 mls/hr IV Q6H PRN PRN Reason: Nausea And Vomiting Stop: 05/03/22 19:58 Last Infusion: 04/04/22 01:54 Dose: Infused Lorazepam 1 mg/ Syringe 1 mls @ 2 mls/min IV UD PRN; Protocol PRN Reason: EtOH Withdrawal AWSS Score 6,7 Stop: 05/03/22 23:07 Lorazepam 2 mg/ Syringe 2 mls @ 2 mls/min IV UD PRN; Protocol PRN Reason: EtOH Withdrawal AWSS Score 8,9 Stop: 05/03/22 23:07 Lorazepam 3 mg/ Syringe 3 mls @ 2 mls/min IV ONCE PRN; Protocol PRN Reason: EtOH Withdrawal AWSS Score 10 & above Lactated Ringer's (Lr) 1,000 mls @ 200 mls/hr IV .Q5H [facility] Stop: 04/05/22 00:59 Last Admin: 04/04/22 10:51 Dose: 200 mls/hr Ketorolac Tromethamine (Ketorolac Tromethamine 15 Mg/Ml Vial) 15 mg IV Q6H PRN PRN Reason: Pain Stop: 04/08/22 19:59 Last Admin: 04/04/22 01:28 Dose: 15 mg Levothyroxine Sodium (Levothyroxine Sodium 150 Mcg Tablet) 150 mcg PO DAILYBB [facility] Stop: 05/04/22 06:29 Last Admin: 04/04/22 06:29 Dose: 150 mcg Miscellaneous (Remove Nicoderm Patch) 1 each N/A DAILY@0859 [facility] Stop: 05/04/22 08:58 Last Admin: 04/04/22 08:20 Dose: Not Given Morphine Sulfate (Morphine Sulfate 4 Mg/Ml 1 Ml Carp\Vial) 4 mg IV Q4H PRN PRN Reason: Pain Stop: 04/18/22 09:16 Last Admin: 04/04/22 10:50 Dose: 4 mg Multivitamins (Multivitamin Tab) 1 tab PO QAM [facility] Stop: 05/04/22 08:59 Last Admin: 04/04/22 08:22 Dose: 1 tab Nicotine (Nicotine 14 Mg/24 Hr Patch) 14 mg TD QAM [facility] Stop: 05/04/22 08:59 Last Admin: 04/04/22 08:22 Dose: 14 mg Oxycodone HCl (Oxycodone Hcl Ir 5 Mg Tab (Immediate Release)) 5 mg PO Q4H PRN PRN Reason: Pain Stop: 04/17/22 19:58 Last Admin: 04/04/22 08:21 Dose: 5 mg Pantoprazole Sodium (Pantoprazole 40 Mg Tab) 40 mg PO BID [facility] Stop: 05/03/22 23:14 Last Admin: 04/04/22 08:23 Dose: Not Given Thiamine HCl (Thiamine Hcl 100 Mg Tab) 100 mg PO QAM [facility] Stop: 05/03/22 23:07 Last Admin: 04/04/22 08:22 Dose: 100 mg (1) Acute pancreatitis Acute pancreatitis complication: no infection or necrosis Pancreatitis type: alcohol induced Qualified Code(s): K85.20 - Alcohol induced acute pancreatitis without necrosis or infection
[2022-04-04] MEDS: ONDANSETRON INJ 2 MG/ML 2 ML VIAL IV PRN (14:47)
[2022-04-04 15:20] LABS: T4 Free Thyroxine 0.7 ng/dl (0.61-1.60)
[2022-04-04] MEDS: LORazepam 1 MG in SYRINGE 0 ML IV PRN (19:46)
[2022-04-04] MEDS: GABAPENTIN 300 MG CAP PO SCH (20:54)
[2022-04-05] MEDS ORDERED: cloNIDine HCL 0.1 MG TAB PO ONE (01:36)
--- NOTE | 2022-04-05 01:36 | Communication Note ---
Date of Service: April 05, 2022 Patient requesting for home amoxicillin twice daily Rx to be prescribed. Patient on her last week of twice daily amoxicillin initiated last year followin g splenectomy. (Medication not found on initial medication reconciliation done during current admission.)
[2022-04-05] MEDS: KETOROLAC TROMETHAMINE 15 MG/ML VIAL IV PRN ×2 (01:49→09:06)
[2022-04-05] MEDS: LEVOTHYROXINE SODIUM 150 MCG TABLET PO SCH (06:45)
[2022-04-05 07:55] LABS: Basophils # (auto) 0.09 K/uL (0-0.2); Basophils % (auto) 0.8 %; Eosinophils # (auto) 0.41 K/uL (0-0.50); Eosinophils % (auto) 3.8 %; Hematocrit (blood only) 32.3 % (34.1-44.9); Hemoglobin 11.3 g/dl (12.0-16.0); Immature Granulocytes # (auto) 0.05 K/uL (0.00-0.02); Immature Granulocytes % (auto) 0.5 %; Lymphocytes # (auto) 1.64 K/uL (1.2-3.4); Lymphocytes % (auto) 15.3 %; Mean Corpuscular Hemoglobin 30.9 pg (25.0-34.0); Mean Corpuscular Volume 88.3 fL (80.0-100.0); Mean Platelet Volume 11.4 fL (9.4-12.3); Neutrophils % (auto) 65.6 %; Platelet Count 240 K/uL (130-400); RDW Coefficient of Variation 17.4 % (11.5-14.5); RDW Standard Deviation 56.1 fL (36.4-46.3); Red Blood Count 3.66 M/uL (3.93-5.22); White Blood Count 10.69 K/ul (4.8-10.8)
[2022-04-05 08:32] LABS: Albumin Globulin Ratio 1.3 (0.9-2); Albumin Level 3.9 gm/dl (3.4-5.0); BUN Creatinine Ratio 14.9 (10-20); Bilirubin,Total 0.8 mg/dl (0.2-1.0); Calcium 9.4 mg/dl (8.5-10.1); Creatinine Clr Calc Pharmacy 150.4 ml/min; Est GFR (African American) 148.3 ml/min; Globulin 2.9 gm/dl (2.5-4.0); Magnesium 1.7 mg/dl (1.7-2.4); Phosphorus 2.4 mg/dl (2.5-4.9); Potassium 3.6 mmol/L (3.5-5.1); Total Protein 6.8 gm/dl (6.0-8.3)
[2022-04-05] MEDS ORDERED: AMOXICILLIN 500 MG CAP PO SCH (09:00)
[2022-04-05] MEDS: ONDANSETRON INJ 2 MG/ML 2 ML VIAL IV PRN ×2 (09:06→16:02)
[2022-04-05] MEDS: ENOXAPARIN INJ 40 MG/0.4 ML SYR SQ SCH ×2 (09:06→09:18)
[2022-04-05] MEDS: THIAMINE HCL 100 MG TAB PO SCH (09:07)
[2022-04-05] MEDS: PANTOprazole 40 MG TAB PO SCH (09:07)
[2022-04-05] MEDS: MULTIVITAMIN TAB PO SCH (09:07)
[2022-04-05] MEDS: FOLIC ACID 1 MG TAB PO SCH (09:07)
[2022-04-05] MEDS: GABAPENTIN 300 MG CAP PO SCH ×2 (09:07→13:59)
[2022-04-05] MEDS: NICOTINE 14 MG/24 HR PATCH TD SCH (09:07)
[2022-04-05] MEDS: LORazepam 1 MG in SYRINGE 0 ML IV PRN ×2 (11:16→16:55)
--- NOTE | 2022-04-05 13:00 | Hospitalist Progress Note ---
Date of Service April 05, 2022 Assessment & Plan (1) Acute pancreatitis: Plan: Recurrent alcoholic pancreatitis Chronic pancreatic pseudocyst/leak Continues to have abdominal pain with nausea and vomiting Symptomatic management with pain medications, antiemetics and fluid Appreciate GI input and recommendation Remains asymptomatic and restart full liquid orally if tolerated she may be discharged home this afternoon Alcohol withdrawal Has tremors of the outstretched hands Has been on withdrawal protocol GIBSON S, DT precautions No signs and or symptoms of withdrawal except mild tachycardia at 105 at rest Strongly advised to quit drinking H/O Splenic hemorrhage status post splenectomy History of von Willebrand's disease Chronic anemia, hemoglobin better to baseline likely secondary hemoconcentration Hypothyroidism, TSH from a few months back noted to be low. Await free T4 Ongoing tobacco abuse Nicotine patch as needed DVT prophylaxis per Lovenox subcu Full code She wants to go home and she has been ambulating in the room without any diffi culties He will advance diet as tolerated without any symptoms she will be discharged home this afternoon Admission and Anticipated Discharge Date Admission Date: April 03, 2022 Subjective 04/04/2022 The patient was seen and examined in medical telemetry unit She has been complaining of more abdominal pain which radiates to the back and is associated with nausea and vomiting without any diarrhea Denies any fever and or chills Has tremors involving the hands 04/05/2022 The patient was seen and examined in medical telemetry unit She has been much better and denies any significant symptoms Minimal or no tremor at rest and no nausea and or vomiting Has been ambulating in the room without any difficulties and she wants to go home Review of Systems Review of Systems: All systems reviewed and are unremarkable except as noted below Physical Exam Physical Exam: Lying in bed with anxiety and distress due to abdominal pain Constitutional: + ill appearing and average body habitus Eyes: PERRL, conjunctivae normal, anicteric sclerae ENMT: external ear and nose normal, oropharynx normal Neck: trachea midline, no thyromegaly Respiratory: no respiratory distress Auscultation: lungs clear to auscultation bilaterally Cardiovascular: Rate/Rhythm: regular rate, regular rhythm and + tachycardic Heart Sounds: normal S1 and normal S2; no murmur Extremities: no edema Gastrointestinal (Abdomen): Inspection/Auscultation: normal bowel sounds; abdomen not distended Percussion/Palpation: abdomen soft; abdomen nontender (Epigastrium and at the left renal angle) Musculoskeletal: No acute arthritis in any joint Neurologic: Alert, awake and oriented x3. No focal sensory or no motor deficit appreciated Psychiatric: A+Ox3, euthymic affect Lymphatic: no cervical or axillary lymphadenopathy Results & Data Results & Data ([facility]) Vital Signs (Past 12 Hours) Vital Signs Temp Pulse Pulse Resp BP BP Pulse Ox 04/05/22 11:41 36.8 C 105 H 18 137/82 98 04/05/22 08:25 37.0 C 93 H 20 119/78 97 04/05/22 07:26 97 H 04/05/22 02:58 36.6 C 99 H 18 132/75 97 O2 Del Method 04/05/22 11:41 Room Air 04/05/22 08:25 Room Air 04/05/22 07:26 04/05/22 02:58 Room Air Laboratory Results Short CBC 04/05/22 Range/Units 07:35 WBC 10.69 (4.8-10.8) K/ul Hgb 11.3 L (12.0-16.0) g/dl Hct 32.3 L (34.1-44.9) % Plt Count 240 (130-400) K/uL BMP 04/05/22 07:35 Sodium 133 L Potassium 3.6 Chloride 99 Carbon Dioxide 22 BUN 7 Creatinine 0.47 L Glucose 74 Calcium 9.4 Liver Function 04/05/22 Range/Units 07:35 Total Bilirubin 0.8 (0.2-1.0) mg/dl AST 43 H (13-39) U/L ALT 49 (7-52) U/L Alkaline Phosphatase 84 (34-104) U/L Albumin 3.9 (3.4-5.0) gm/dl Medications Administered Current Inpatient Medications Acetaminophen (Acetaminophen 500 Mg Tab) 500 mg PO Q6H PRN PRN Reason: pain/fever Stop: 05/03/22 19:58 Last Admin: 04/04/22 14:47 Dose: 500 mg Amitriptyline HCl (Amitriptyline Hcl 25 Mg Tab) 25 mg PO HS PRN PRN Reason: Sleep Stop: 05/03/22 23:13 Amoxicillin (Amoxicillin 500 Mg Cap) 500 mg PO BID [facility] Stop: 04/11/22 23:59 Last Admin: 04/05/22 09:07 Dose: 500 mg Enoxaparin Sodium (Enoxaparin Inj 40 Mg/0.4 Ml Syr) 40 mg SQ QAM [facility] Stop: 05/04/22 08:59 Last Admin: 04/05/22 09:18 Dose: Not Given Folic Acid (Folic Acid 1 Mg Tab) 1 mg PO QAM [facility] Stop: 05/03/22 23:07 Last Admin: 04/05/22 09:07 Dose: 1 mg Gabapentin (Gabapentin 300 Mg Cap) 300 mg PO TID [facility] Stop: 05/04/22 20:19 Last Admin: 04/05/22 09:07 Dose: 300 mg Promethazine HCl 12.5 mg/ (Sodium Chloride) 50.5 mls @ 202 mls/hr IV Q6H PRN PRN Reason: Nausea And Vomiting Stop: 05/03/22 19:58 Last Infusion: 04/04/22 01:54 Dose: Infused Lorazepam 1 mg/ Syringe 1 mls @ 2 mls/min IV UD PRN; Protocol PRN Reason: EtOH Withdrawal AWSS Score 6,7 Stop: 05/03/22 23:07 Last Admin: 04/05/22 11:16 Dose: 2 mls/min Lorazepam 2 mg/ Syringe 2 mls @ 2 mls/min IV UD PRN; Protocol PRN Reason: EtOH Withdrawal AWSS Score 8,9 Stop: 05/03/22 23:07 Lorazepam 3 mg/ Syringe 3 mls @ 2 mls/min IV ONCE PRN; Protocol PRN Reason: EtOH Withdrawal AWSS Score 10 & above Ketorolac Tromethamine (Ketorolac Tromethamine 15 Mg/Ml Vial) 15 mg IV Q6H PRN PRN Reason: Pain Stop: 04/08/22 19:59 Last Admin: 04/05/22 09:06 Dose: 15 mg Levothyroxine Sodium (Levothyroxine Sodium 150 Mcg Tablet) 150 mcg PO DAILYBB [facility] Stop: 05/04/22 06:29 Last Admin: 04/05/22 06:45 Dose: 150 mcg Miscellaneous (Remove Nicoderm Patch) 1 each N/A DAILY@0859 [facility] Stop: 05/04/22 08:58 Last Admin: 04/05/22 09:07 Dose: 1 each Morphine Sulfate (Morphine Sulfate 4 Mg/Ml 1 Ml Carp\Vial) 4 mg IV Q4H PRN PRN Reason: Pain Stop: 04/18/22 09:16 Last Admin: 04/04/22 22:20 Dose: 4 mg Multivitamins (Multivitamin Tab) 1 tab PO QAM [facility] Stop: 05/04/22 08:59 Last Admin: 04/05/22 09:07 Dose: 1 tab Nicotine (Nicotine 14 Mg/24 Hr Patch) 14 mg TD QAM [facility] Stop: 05/04/22 08:59 Last Admin: 04/05/22 09:07 Dose: 14 mg Ondansetron HCl (Ondansetron Inj 2 Mg/Ml 2 Ml Vial) 4 mg IV Q6H PRN PRN Reason: Nausea And Vomiting Stop: 05/04/22 14:32 Last Admin: 04/05/22 09:06 Dose: 4 mg Oxycodone HCl (Oxycodone Hcl Ir 5 Mg Tab (Immediate Release)) 5 mg PO Q4H PRN PRN Reason: Pain Stop: 04/17/22 19:58 Last Admin: 04/04/22 17:38 Dose: 5 mg Pantoprazole Sodium (Pantoprazole 40 Mg Tab) 40 mg PO BID [facility] Stop: 05/03/22 23:14 Last Admin: 04/05/22 09:07 Dose: 40 mg Thiamine HCl (Thiamine Hcl 100 Mg Tab) 100 mg PO QAM [facility] Stop: 05/03/22 23:07 Last Admin: 04/05/22 09:07 Dose: 100 mg (1) Acute pancreatitis Acute pancreatitis complication: no infection or necrosis Pancreatitis type: alcohol induced Qualified Code(s): K85.20 - Alcohol induced acute pancreatitis without necrosis or infection
[2022-04-05] MEDS ORDERED: GABAPENTIN 600 MG TAB PO SCH (20:00)
--- NOTE | 2022-04-06 08:39 | Discharge Summary ---
Date of Service April 05, 2022 Admission HPI Per Admitting Provider History obtained from patient and records. Medical history significant for recurrent pancreatitis, pancreatic pseudocyst, history splenic hemorrhage status post splenectomy, mood disorder, von Willebrand's disease, chronic anemia (baseline hemoglobin of 11), migraine, ongoing tobacco/alcohol abuse. Last confinement June 2021 recurrent pancreatitis. Pancreatic pseudocyst with on imaging. Outpatient endoscopic ultrasound recommended by GI. Patient [facility] general surgeon recommended repeat IR drainage of pancreatic pancreatic fluid collection on follow-up visit last August 2021. Left upper quadrant fluid collection aspirated by IR during [facility] confinement for splenic hemorrhage last May 2021. Elevated amylase denoting pancreatic leak as per documentation. Patient noted diffuse achy abdominal pain with nausea symptoms since last night. No chest pain, no shortness of breath. Admits to alcohol abuse. Fever, no chills. Patient consulted ER for evaluation. 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 Admission Exam Per Admitting Provider Physical Exam:K GENERAL: uncomfortable, tremulous, no respiratory distress SKIN: Normal color, warm HEENT: [place] palpebral conjunctivae, no ptosis, dry buccal mucosa NECK : Supple, no tenderness CHEST : CTA, no tenderness HEART : RRR, no obvious murmurs ABDOMEN: Some distention, left-sided abdominal tenderness EXTREMITIES : No LE swelling/tenderness, no other conspicuous deformities noted NEUROLOGIC : Coherent, no facial asymmetry, tremulous, no other gross focality Principal Diagnosis Acute pancreatitis, chronic alcoholism Discharge Exam Lying in bed with anxiety and distress due to abdominal pain Constitutional + ill appearing and average body habitus Eyes PERRL, conjunctivae normal, anicteric sclerae ENMT external ear and nose normal, oropharynx normal Neck trachea midline, no thyromegaly Respiratory no respiratory distress Auscultation: lungs clear to auscultation bilaterally Cardiovascular Rate/Rhythm: regular rate, regular rhythm and + tachycardic Heart Sounds: normal S1 and normal S2; no murmur Extremities: no edema Gastrointestinal (Abdomen) Inspection/Auscultation: normal bowel sounds; abdomen not distended Percussion/Palpation: abdomen soft; abdomen nontender (Epigastrium and at the left renal angle) Psychiatric A+Ox3, euthymic affect Lymphatic no cervical or axillary lymphadenopathy Discharge Data Allergies Allergy/AdvReac Type Severity Reaction Status Date / Time valacyclovir Allergy Severe Dyspnea Verified 04/03/22 20:17 enalaprilat Allergy Mild itch Verified 04/03/22 20:17 Consultations 04/03/22 19:08 ED Decision to Admit Stat 04/03/22 23:08 Consult Gastroenterology Routine Ordered Studies 04/03/22 16:00 CT abd pelvis IV con only Stat Hospital Course (1) Acute pancreatitis: Recurrent alcoholic pancreatitis Chronic pancreatic pseudocyst/leak Continues to have abdominal pain with nausea and vomiting Symptomatic management with pain medications, antiemetics and fluid Appreciate GI input and recommendation Remains asymptomatic and restart full liquid orally if tolerated she may be discharged home this afternoon Alcohol withdrawal Has tremors of the outstretched hands Has been on withdrawal protocol GIBSON S, DT precautions No signs and or symptoms of withdrawal except mild tachycardia at 105 at rest Strongly advised to quit drinking H/O Splenic hemorrhage status post splenectomy History of von Willebrand's disease Chronic anemia, hemoglobin better to baseline likely secondary hemoconcentration Hypothyroidism, TSH from a few months back noted to be low. Await free T4 Ongoing tobacco abuse Nicotine patch as needed DVT prophylaxis per Lovenox subcu Full code She wants to go home and she has been ambulating in the room without any difficulties He will advance diet as tolerated without any symptoms she will be discharged home this afternoon Total Time Total Time Spent Total Time Spent (In Minutes): 35 minutes Discharge Plan Discharge Items Patient Disposition: Home - Self-Care Reason For Visit: ETOH WITHDRAWAL, PANCREATITIS Discharge Diagnosis: Acute pancreatitis, chronic alcoholism Condition on Discharge: Good Activity: Resume your previous activity Non-emergency contact: Primary Care Provider Call non-emergency contact if: you have any medication questions and your symptoms worsen Follow-up/Referrals: Gypsy Lubin PA-C [Primary Care Provider] - (Please make an appointment with your PCP within 1 week) Diet: Low Fat Addtl Attending Provider Instructions: Please take precautions to avoid falls Strongly advised to quit drinking alcohol and join alcohol Anonymous suicide Please keep appointment with your health care provider Pending Studies at Discharge: No Stand-Alone Forms: [facility], Smoking Cessation Medications and DC Order Prescriptions: New thiamine HCl (vitamin B1) 100 mg Tablet 100 mg PO QAM Qty: 30 0RF folic acid 1 mg Tablet 1 mg PO QAM 30 Days Qty: 30 0RF multivitamin with folic acid [Daily-James (with folic acid)] 400 mcg Tablet 1 tab PO QAM Qty: 30 0RF Continued acetaminophen [Tylenol Extra Strength] 500 mg Tablet 1,000 mg PO Q6H PRN (Reason: Pain) spironolactone 25 mg Tablet 25 mg PO BID ondansetron 8 mg tablet,disintegrating 8 mg PO Q8 PRN (Reason: Nausea) potassium chloride 20 mEq/15 mL liquid 40 meq PO BID amitriptyline 25 mg tablet 25 mg PO BID PRN (Reason: Sleep) pantoprazole 40 mg tablet,delayed release (DR/EC) 40 mg PO BID lidocaine 5 % adhesive patch,medicated 1 patch topical DAILY levothyroxine 150 mcg tablet 150 mcg PO DAILY gabapentin 300 mg capsule 300 mg PO TID furosemide 20 mg tablet 20 mg PO DAILY PRN (Reason: wt gain) albuterol sulfate 90 mcg/actuation HFA aerosol inhaler 2 puff INHALATION QID Rx Instructions: Inhale 2 puffs in am, 2 puffs @ noon, 2 puffs in evening and 2 puffs before hs. dicyclomine 10 mg capsule 10 mg PO QID PRN (Reason: .abd pain) amoxicillin 500 mg capsule 500 mg PO BID Rx Instructions: last day 04/11/22 Discharge Orders: Discharge Order (Routine); Ordered 04/05/22 Ordered By: Salome Contreras Admission Data Admit Date/Time: 04/03/22 19:55 Attending Provider: Salome Contreras Admit Provider: Nate Montoya Primary Care Provider: Gypsy Lubin Other Providers: Andi Tenorio ; Janelle Giron ; Presley Pa ; Sallie Victoria ; Chloé Sumner ; Gela Duke ; Giuliana Persaud ; Federico Smith ; Kenia Mitchell ; Hugh Burns ; Katy Villagomez ; Alycia Forbes ; Kashmir Mcghee ; Chelsea Cuevas ; Kellie Lambert ; Cecilia Wahl ; Jailene Rodrigues ; Christiano Boone ; Bart Membreno ; Vince Alexander ; Falguni Dias Other Interventions: Discharge Summary Assessment (RN) Last Done: 04/05/22 17:41
[2022-04-07] MEDS ORDERED: GABAPENTIN 600 MG TAB PO SCH (08:00)
[2022-04-07] MEDS ORDERED: GABAPENTIN 300 MG CAP PO SCH (14:00)
== END 2022-04-05 18:04 | disposition home or self-care (01) ==
LOC: ED 14:28 → INTOOBSV 19:55 → 2N 19:55 → SUATTDRO 19:55 → 2N 22:49

== ENCOUNTER 2022-07-26 13:47 | Inpatient (IN) ==
[2022-07-26 15:12] LABS: Basophils # (auto) 0.12 K/uL (0-0.2); Basophils % (auto) 1.3 %; Eosinophils # (auto) 0.06 K/uL (0-0.50); Eosinophils % (auto) 0.7 %; Hematocrit (blood only) 31.7 % (37.0-47.0); Hemoglobin 11.8 g/dl (12.0-16.0); Immature Granulocytes # (auto) 0.06 K/uL (0.01-0.20); Immature Granulocytes % (auto) 0.7 %; Lymphocytes # (auto) 0.97 K/uL (1.2-3.4); Lymphocytes % (auto) 10.6 %; Mean Corpuscular Hgb Conc 37.2 g/dL (32.0-36.0); Mean Corpuscular Volume 94.1 fL (80.0-100.0); Mean Platelet Volume 12.4 fL (9.4-12.4); Monocytes # (auto) 0.77 K/uL (0.11-0.59); Monocytes % (auto) 8.4 %; Neutrophils # (auto) 7.18 K/uL (1.40-6.50); Neutrophils % (auto) 78.3 %; Nucleated RBC # (auto) 0.15 K/uL (0-0.12); Nucleated RBC % (auto) 1.6 %; Platelet Count 214 K/uL (130-400); RDW Coefficient of Variation 22.5 % (11.5-14.5); RDW Standard Deviation 73.5 fL (36.4-46.3); Red Blood Count 3.37 M/uL (4.20-5.40); White Blood Count 9.16 K/ul (4.8-10.8)
[2022-07-26] MEDS ORDERED: MoRPHine SULFATE 4 MG/ML 1 ML CARP\\VIAL IV STA (15:31)
[2022-07-26] MEDS ORDERED: SODIUM CHLORIDE 0.9% 1000ML 1,000 ML IV ONE (15:31)
[2022-07-26 15:39] LABS: Anisocytosis Present; Pappenheimer Bodies 2+; Polychromasia 1+; Target Cells 2+
--- NOTE | 2022-07-26 15:43 | Emergency Department Note ---
Impression & Plan Acute alcoholic pancreatitis ADMIT ED Provider Note HPI: The patient is a 37-year-old female with history of pancreatitis, alcohol abuse, presents emergency department with chief complaint of mid abdominal pain as well as vomiting is been ongoing for the past 2 days. Patient states she was drinking alcohol on Monday. Patient states that she has had some vomiting over each of the past 2 days as well as mid abdominal pain. Patient is also noted that she has had some scleral icterus bilaterally over this time period. On arrival to the ED the patient is hemodynamically stable, she is in no acute distress on my initial assessment. ROS: - Per HPI *Outpatient medications and allergy history reviewed. *Pertinent external medical records reviewed. PE: General: Alert HEENT: Normocephalic, trachea midline Eyes: Extraocular eye movement is intact, no scleral erythema, there is scleral icterus noted bilaterally Pulmonary: Clear to auscultation bilaterally, no wheezing Cardio: Regular rate and rhythm GI: Abdomen is tender to palpation in the mid abdomen, Noland sign is negative : No suprapubic tenderness MSK: No evidence of trauma or malformation of the extremities, no edema Skin: No evidence of rash Neuro: Alert, no focal deficits, mild resting tremor bilateral upper extremities Psychiatric: Cooperative security monitor: (As interpreted by myself): - An order was placed for continuous cardiac monitoring - Patient was noted to be in sinus rhythm with rate of 80 Interventions provided in ED: -IV morphine, IV fluid bolus x3, IV Ativan Medical Decision Making: Patient presented to the emergency department the chief complaint of abdominal pain as well as nausea and vomiting over the past 2 days. Patient does have a history of alcohol abuse, history of pancreatitis, states she was drinking alcohol over the weekend. On arrival here to the ED the patient is hemodynamically stable, IV was established, lab work obtained, CT imaging of the abdomen pelvis was ordered. Lab work shows multiple abnormalities including elevated bilirubin at 7.5 with direct component of 4.0, AST is elevated at 255, ALT at 97. Patient was given IV fluids as well as pain medication, CT imaging of the abdomen pelvis is suggestive of acute pancreatitis, slight decrease in size of known pancreatic pseudocyst compared to previous imaging in March 2022. There is some gallbladder dilatation noted on CT imaging, recommendation was made by radiology for ultrasound to be obtained to assess for possible cholecystitis, ultrasound imaging was therefore obtained and is not suggestive of acute cholecystitis, sonographic Noland sign is negative, no biliary stones are noted, there is mild dilation of the common bile duct. On my reassessment patient is hemodynamically stable, she did exhibit some mild tremulousness on my examination although she states she has not had alcohol in several days I do feel she may be going through some mild withdrawal and therefore was given Ativan. Case was discussed with the on-call auto air conditioning installer, Dr. Burns, recommend the patient obtain an MRCP in the morning, she can be covered with cefepime tonight, admit to the hospitalist service for further management given her tremulousness and history of alcohol abuse for possible withdrawal, gastroenterology will evaluate the patient in the morning for further management. Patient is in agreement to this plan as is her family member at the bedside. Case was discussed with the on-call hospitalist, Dr. Fernandes, and the patient was placed for admission in improved condition. Consultants: Gastroenterology, Dr. Burns Hospitalist service, Dr. Gentile Disposition discussion held by myself with: Patient and family member at the bedside * CRITICAL CARE TIME: (45) minutes -Management of acute alcohol induced pancreatitis with IV pain medication and fluid resuscitation, management of acute alcohol withdrawal requiring IV benzodiazepine administration, time spent at the bedside, discussion with the patient and family, discussion with subspecialty physician including gastroenterology in regards to inpatient management, discussion with hospitalist service and arrangement of admission Diagnosis: 1. Acute pancreatitis 2. Nausea and vomiting 3. Elevated bilirubin 4. Transaminitis 5. Alcohol withdrawal, mild 6. Abdominal pain, acute Disposition: Admission Finn Mcgraw DO Emergency Medicine Past Med/Surg History Medical History Alcohol abuse Elevated AST (SGOT) Hepatic steatosis History of pancreatitis Hypothyroidism IBS (irritable bowel syndrome) Migraines Pancreatitis Peptic ulcer Seasonal asthma Tobacco use Upper gastrointestinal bleed Von Willebrand disease "Mild" Class [address] [facility] records, under surveillance 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 splenectomy at [facility] History of colonoscopy History of esophagogastroduodenoscopy (EGD) History of loop electrical excision procedure (LEEP) History of wisdom tooth extraction Family History Mother Von Willebrand disease Other No family history of adverse response to anesthesia Social History Smoking Status: Current every day smoker Tobacco Type: Cigarettes Cigarettes Per Day: 10; Second Hand Exposure: No; Hx Alcohol Use: Yes Alcohol type: hard liquor Hx Substance Use: No Preferred Language: Estonian Communication Ability: Effective Landcare Officer Required: No Beliefs That Will Affect Care: None marital status: Current Living Situation: Spouse Feels Safe at Home: Yes Assistive Devices: None Allergies Allergies Allergy/AdvReac Type Severity Reaction Status Date / Time valacyclovir Allergy Severe Dyspnea Verified 04/03/22 20:17 enalaprilat Allergy Mild itch Verified 04/03/22 20:17 Home Meds Home Medications Medication Instructions Recorded Confirmed acetaminophen 500 mg tablet 1,000 mg PO Q6H PRN Pain 04/03/22 07/26/22 (Tylenol Extra Strength) albuterol sulfate 90 mcg/actuation 2 puff inhalation QID 04/03/22 07/26/22 aerosol inhaler amitriptyline 25 mg tablet 25 mg PO BID PRN Sleep or 04/03/22 07/26/22 pain,severe dicyclomine 10 mg capsule 10 mg PO QID PRN .abd pain 04/03/22 07/26/22 furosemide 20 mg tablet 20 mg PO DAILY PRN edema or wt gain 04/03/22 07/26/22 gabapentin 300 mg capsule 300 mg PO TID 04/03/22 07/26/22 levothyroxine 150 mcg tablet 150 mcg PO DAILYBB 04/03/22 07/26/22 lidocaine 5 % topical patch 1 patch topical DAILY 04/03/22 07/26/22 ondansetron 8 mg disintegrating 8 mg PO Q8 PRN Nausea 04/03/22 07/26/22 tablet pantoprazole 40 mg tablet,delayed 40 mg PO BID 04/03/22 07/26/22 release potassium chloride 20 mEq/15 mL 30 meq PO AMHS 04/03/22 07/26/22 oral liquid spironolactone 25 mg tablet 25 mg PO BID 04/03/22 07/26/22 multivitamin with iron (Daily 1 tab PO QAM 07/26/22 07/26/22 Vites/Iron tablet) Results & Data (ED) Vital Signs Vital Signs - 24 hr 07/26/22 14:04 07/26/22 15:44 07/26/22 16:22 Temperature 36.3 C L Temperature Source Temporal Artery Scan Pulse Rate 80 75 Pulse Rate [Right Finger] 86 Pulse Rate from SpO2 Sensor Pulse Rhythm [Right Finger] Regular Respiratory Rate 16 18 Respiratory Effort / Characteristics Non-Labored Spontaneous Respiratory Depth Normal Normal Respiratory Pattern Blood Pressure 160/103 H Blood Pressure [Right Arm] 132/99 Blood Pressure Mean 122 Blood Pressure Mean [Right Arm] 110 Blood Pressure Position Sitting Blood Pressure Position [Right Arm] Lying Pulse Oximetry 97 98 Oxygen Delivery Method Room Air Room Air Sepsis Recent Fever Within 48 Hours No Sepsis New/Unexplained Change in Mental Status No Sepsis Action Taken by Nursing No Action Required 07/26/22 17:23 07/26/22 15:38 07/26/22 15:46 Temperature Temperature Source Pulse Rate 81 Pulse Rate [Right Finger] 85 Pulse Rate from SpO2 Sensor 81 Pulse Rhythm [Right Finger] Regular Respiratory Rate 18 18 Respiratory Effort / Characteristics Non-Labored Spontaneous Respiratory Depth Normal Respiratory Pattern Regular Blood Pressure 132/99 Blood Pressure [Right Arm] 134/96 Blood Pressure Mean 110 Blood Pressure Mean [Right Arm] 108 Blood Pressure Position Blood Pressure Position [Right Arm] Lying Pulse Oximetry 97 97 Oxygen Delivery Method Room Air Sepsis Recent Fever Within 48 Hours Sepsis New/Unexplained Change in Mental Status Sepsis Action Taken by Nursing 07/26/22 15:46 07/26/22 16:00 07/26/22 16:00 Temperature Temperature Source Pulse Rate 81 82 Pulse Rate [Right Finger] Pulse Rate from SpO2 Sensor 81 96 H Pulse Rhythm [Right Finger] Respiratory Rate 17 30 H Respiratory Effort / Characteristics Respiratory Depth Respiratory Pattern Blood Pressure 145/98 H Blood Pressure [Right Arm] Blood Pressure Mean 113 Blood Pressure Mean [Right Arm] Blood Pressure Position Blood Pressure Position [Right Arm] Pulse Oximetry 98 95 Oxygen Delivery Method Sepsis Recent Fever Within 48 Hours Sepsis New/Unexplained Change in Mental Status Sepsis Action Taken by Nursing 07/26/22 16:30 07/26/22 17:23 07/26/22 17:23 Temperature Temperature Source Pulse Rate 77 Pulse Rate [Right Finger] Pulse Rate from SpO2 Sensor 78 81 Pulse Rhythm [Right Finger] Respiratory Rate 13 Respiratory Effort / Characteristics Respiratory Depth Respiratory Pattern Blood Pressure 134/96 Blood Pressure [Right Arm] Blood Pressure Mean 108 Blood Pressure Mean [Right Arm] Blood Pressure Position Blood Pressure Position [Right Arm] Pulse Oximetry 99 94 Oxygen Delivery Method Sepsis Recent Fever Within 48 Hours Sepsis New/Unexplained Change in Mental Status Sepsis Action Taken by Nursing 07/26/22 17:30 07/26/22 17:30 07/26/22 18:00 Temperature Temperature Source Pulse Rate 86 79 Pulse Rate [Right Finger] Pulse Rate from SpO2 Sensor 89 83 Pulse Rhythm [Right Finger] Respiratory Rate 16 15 Respiratory Effort / Characteristics Respiratory Depth Respiratory Pattern Blood Pressure 150/106 H Blood Pressure [Right Arm] Blood Pressure Mean 120 Blood Pressure Mean [Right Arm] Blood Pressure Position Blood Pressure Position [Right Arm] Pulse Oximetry 97 97 Oxygen Delivery Method Sepsis Recent Fever Within 48 Hours Sepsis New/Unexplained Change in Mental Status Sepsis Action Taken by Nursing 07/26/22 18:30 07/26/22 18:30 07/26/22 19:00 Temperature Temperature Source Pulse Rate 80 79 Pulse Rate [Right Finger] Pulse Rate from SpO2 Sensor 73 Pulse Rhythm [Right Finger] Respiratory Rate 17 15 Respiratory Effort / Characteristics Respiratory Depth Respiratory Pattern Blood Pressure 150/99 H 149/97 H Blood Pressure [Right Arm] Blood Pressure Mean 116 114 Blood Pressure Mean [Right Arm] Blood Pressure Position Blood Pressure Position [Right Arm] Pulse Oximetry 97 98 Oxygen Delivery Method Room Air Sepsis Recent Fever Within 48 Hours Sepsis New/Unexplained Change in Mental Status Sepsis Action Taken by Nursing Laboratory Data 07/26/22 14:36 07/26/22 14:36 Lab Results 07/26/22 07/26/22 07/26/22 Range/Units 14:36 14:36 15:40 WBC 9.16 (4.8-10.8) K/ul RBC 3.37 L (4.20-5.40) M/uL Hgb 11.8 L (12.0-16.0) g/dl Hct 31.7 L (37.0-47.0) % MCV 94.1 (80.0-100.0) fL MCH 35.0 H (25.0-34.0) pg MCHC 37.2 H (32.0-36.0) g/dL RDW Std Deviation 73.5 H (36.4-46.3) fL RDW Coeff of Praful 22.5 H (11.5-14.5) % Plt Count 214 (130-400) K/uL MPV 12.4 (9.4-12.4) fL Immature Gran % (Auto) 0.7 % Neut % (Auto) 78.3 % Lymph % (Auto) 10.6 % [place] % (Auto) 8.4 % Eos % (Auto) 0.7 % Baso % (Auto) 1.3 % Neut # (Auto) 7.18 H (1.40-6.50) K/uL Lymph # (Auto) 0.97 L (1.2-3.4) K/uL [place] # (Auto) 0.77 H (0.11-0.59) K/uL Eos # (Auto) 0.06 (0-0.50) K/uL Baso # (Auto) 0.12 (0-0.2) K/uL Immature Gran # (Auto) 0.06 (0.01-0.20) K/uL Absolute Nucleated RBC 0.15 H (0-0.12) K/uL Nucleated RBC % (auto) 1.6 % Polychromasia 1+ Anisocytosis Present Pappenheimer Bodies 2+ Target Cells 2+ Sodium 137 (136-145) mmol/L Potassium 3.1 L (3.5-5.1) mmol/L Chloride 96 L (98-107) mmol/L Carbon Dioxide 31 (21-32) mmol/L Anion Gap 10 (3-11) BUN 8 (6-23) mg/dl Creatinine 0.66 (0.6-1.2) mg/dl Est Cr Clr Drug Dosing 97.5 ml/min Est GFR ( Amer) 131.7 ml/min Est GFR (Non-Af Amer) 113.6 ml/min BUN/Creatinine Ratio 12.1 (10-20) Glucose 132 H (70-99(Fasting)) mg/dl Calcium 9.5 (8.5-10.1) mg/dl Total Bilirubin 7.5 H (0.2-1.0) mg/dl Direct Bilirubin 4.0 H (0-0.2) mg/dl AST 255 H (13-39) U/L ALT 97 H (7-52) U/L Alkaline Phosphatase 206 H (34-104) U/L Total Protein 7.8 (6.0-8.3) gm/dl Albumin 4.7 (3.4-5.0) gm/dl Globulin 3.1 (2.5-4.0) gm/dl Albumin/Globulin Ratio 1.5 (0.9-2) Lipase 306 H (11-82) U/L Urine Color [place] Urine Appearance Clear (Clear) Urine pH 6.5 (4.5-7.5) Ur Specific [place] 1.012 (1.000-1.030) Urine Protein Negative (Negative) Urine Glucose (UA) Negative (Negative) Urine Ketones 1+ H (Negative) Urine Blood Negative (Negative) Urine Nitrite Negative (Negative) Urine Bilirubin 1+ H (Negative) Urine Urobilinogen Positive H (Negative) Ur Leukocyte Esterase Negative (Negative) POC Ur Test (NEG) 07/26/22 Range/Units 15:47 WBC (4.8-10.8) K/ul RBC (4.20-5.40) M/uL Hgb (12.0-16.0) g/dl Hct (37.0-47.0) % MCV (80.0-100.0) fL MCH (25.0-34.0) pg MCHC (32.0-36.0) g/dL RDW Std Deviation (36.4-46.3) fL RDW Coeff of Praful (11.5-14.5) % Plt Count (130-400) K/uL MPV (9.4-12.4) fL Immature Gran % (Auto) % Neut % (Auto) % Lymph % (Auto) % [place] % (Auto) % Eos % (Auto) % Baso % (Auto) % Neut # (Auto) (1.40-6.50) K/uL Lymph # (Auto) (1.2-3.4) K/uL [place] # (Auto) (0.11-0.59) K/uL Eos # (Auto) (0-0.50) K/uL Baso # (Auto) (0-0.2) K/uL Immature Gran # (Auto) (0.01-0.20) K/uL Absolute Nucleated RBC (0-0.12) K/uL Nucleated RBC % (auto) % Polychromasia Anisocytosis Pappenheimer Bodies Target Cells Sodium (136-145) mmol/L Potassium (3.5-5.1) mmol/L Chloride (98-107) mmol/L Carbon Dioxide (21-32) mmol/L Anion Gap (3-11) BUN (6-23) mg/dl Creatinine (0.6-1.2) mg/dl Est Cr Clr Drug Dosing ml/min Est GFR ( Amer) ml/min Est GFR (Non-Af Amer) ml/min BUN/Creatinine Ratio (10-20) Glucose (70-99(Fasting)) mg/dl Calcium (8.5-10.1) mg/dl Total Bilirubin (0.2-1.0) mg/dl Direct Bilirubin (0-0.2) mg/dl AST (13-39) U/L ALT (7-52) U/L Alkaline Phosphatase (34-104) U/L Total Protein (6.0-8.3) gm/dl Albumin (3.4-5.0) gm/dl Globulin (2.5-4.0) gm/dl Albumin/Globulin Ratio (0.9-2) Lipase (11-82) U/L Urine Color Urine Appearance (Clear) Urine pH (4.5-7.5) Ur Specific [place] (1.000-1.030) Urine Protein (Negative) Urine Glucose (UA) (Negative) Urine Ketones (Negative) Urine Blood (Negative) Urine Nitrite (Negative) Urine Bilirubin (Negative) Urine Urobilinogen (Negative) Ur Leukocyte Esterase (Negative) POC Ur Test NEG (NEG) Administered Medications Sodium Chloride (Nss 1000ml) 2,000 mls @ 999 mls/hr IV .Q2H1M ONE Stop: 07/26/22 20:54 Last Admin: 07/26/22 19:03 Dose: 999 mls/hr Documented By: LYNN Potassium Chloride (K Les / Wtr) 10 meq in 100 mls @ 100 mls/hr IV Q1H MIKHAIL; Protocol Stop: 07/26/22 21:14 Last Admin: 07/26/22 19:42 Dose: 100 mls/hr Documented By: LYNN Discontinued Medications Sodium Chloride (Nss 1000ml) 1,000 mls @ 999 mls/hr IV .Q1H1M ONE Stop: 07/26/22 16:31 Last Infusion: 07/26/22 18:24 Dose: 0 mls/hr Documented By: Admin: 07/26/22 17:22 Dose: 999 mls/hr Documented By: DEZ Ioversol (Optiray 350 100ml) 88 ml IV ONCE ONE Stop: 07/26/22 16:43 Last Admin: 07/26/22 16:47 Dose: 88 ml Documented By: HERMANN Lorazepam (Lorazepam 2 Mg/1 Ml Vial) 1 mg IV NOW STA Stop: 07/26/22 18:55 Last Admin: 07/26/22 19:03 Dose: 1 mg Documented By: LYNN Morphine Sulfate (Morphine Sulfate 4 Mg/Ml 1 Ml Carp\\Vial) 4 mg IV NOW STA Stop: 07/26/22 15:32 Last Admin: 07/26/22 16:28 Dose: 4 mg Documented By: BABAK Ondansetron HCl (Ondansetron Inj 2 Mg/Ml 2 Ml Vial) 4 mg IV NOW STA Stop: 07/26/22 16:32 Last Admin: 07/26/22 16:36 Dose: 4 mg Documented By: DEZ Imaging Data Radiologist's Impression: Abdomen/Pelvis CT 07/26/22 15:30 CT SCAN OF THE ABDOMEN AND PELVIS WITH IV CONTRAST CLINICAL HISTORY: Mid abdominal pain. COMPARISON STUDY: Abdominal CT dated 04/03/2022. TECHNIQUE: Following the IV administration of 88 cc of Optiray 350, CT scan of the abdomen and pelvis is performed from the lung bases to the proximal femora. Images are reviewed in the axial, sagittal, and coronal planes. IV contrast was administered without complication. A dose lowering technique was utilized adhering to the principles of ALARA. CT DOSE: 263.65 mGy.cm FINDINGS: Lung bases: The heart is normal in size and without pericardial effusion. A calcified granuloma is seen in the right lower lobe. The lung bases are otherwise clear. Liver: The contrast-enhanced liver is enlarged, measuring 22 cm in length. The liver demonstrates diffusely decreased attenuation indicating severe steatosis. There is no intrahepatic biliary ductal dilatation. The hepatic veins and portal veins are patent. Gallbladder: The gallbladder is mildly distended and there is pericholecystic infiltration. Spleen: The spleen is surgically absent. Pancreas: The pancreas is mildly atrophic and heterogeneous. Infiltration and fluid is seen around the pancreatic body and tail suggesting acute pancreatitis. A fluid collection with surrounding surgical clips adjacent to the pancreatic tail on image #[id number] measures 4.0 x 3.4 cm. This has modestly decreased in size as compared to 04/03/2022 and likely represent a pseudocyst. The pancreas enhances throughout. Adrenal glands: Unremarkable. Kidneys: The contrast enhanced kidneys are normal in size and without hydronephrosis. The kidneys enhance symmetrically. Abdominal vasculature: The abdominal aorta is normal in course and caliber noting mild atherosclerotic calcification. Bowel: There is no bowel obstruction. [id number] fecal retention is seen throughout the colon. The appendix is well-visualized and normal. Peritoneum: There is no intraperitoneal free air or abdominal ascites. There is a fat-containing umbilical hernia. Lymphadenopathy: None. Pelvic viscera: The bladder wall is circumferentially thickened. The uterus is normal as visualized noting an intrauterine device in place. There are bilateral ovarian follicles. Trace free fluid is seen in the cul-de-sac. Skeletal structures: No lytic or blastic lesions are seen. IMPRESSION: 1. Findings suggest acute on chronic pancreatitis. Correlate with clinical and laboratory findings. 2. A fluid collection adjacent to the pancreatic tail is typical for a pseudocyst. This has modestly decreased in size as compared to 04/03/2022. 3. Status post splenectomy. 4. The pancreas enhances throughout. 5. The gallbladder is distended and there is pericholecystic infiltration. Correlate with clinical and laboratory findings. This is likely related to adjacent pancreatitis. If there is concern for concomitant cholecystitis a right upper quadrant ultrasound should be considered. 6. Hepatomegaly and severe hepatic steatosis. 7. The bladder wall appears circumferentially thickened. Correlate with clinical findings and urinalysis. 8. There is trace free fluid in the cul-de-sac. 9. Additional findings as above. ACT 112: Negative or not required by law. Electronically signed by: Jaime Genao M.D. 07/26/2022 5:04 PM Gallbladder Ultrasound 07/26/22 17:17 US gallbladder CLINICAL HISTORY: abnormal CT eval for cholecystitis COMPARISON STUDY: Right upper quadrant ultrasound March 26, 2021. CT of the abdomen and pelvis performed earlier today. FINDINGS: Severe hepatic steatosis is noted. The liver is enlarged, measuring 21 cm in maximal dimension. No hepatic lesions are identified. Mild dilatation of the common bile duct measuring 8 mm, is noted. Pancreas is largely obscured on this exam. The gallbladder is mildly distended. There is no gallbladder wall thickening. Trace pericholecystic fluid is noted. No gallstones are noted. No sonographic Noland sign was elicited. There is no right hydronephrosis. IMPRESSION: 1. Mildly distended gallbladder without gallbladder wall thickening. No sonographic Noland sign. No gallstones. No convincing evidence for acute cholecystitis. 2. Severe hepatic steatosis. 3. Mild dilatation of the common bile duct. 4. Obscured pancreas. ACT 112: Negative or not required by law. Electronically signed by: Troy Murphy M.D. 07/26/2022 7:44 PM Discharge Plan Visit Data Chief Complaint: Abdominal Pain Stated Complaint: ABD PAIN, HOT FLASHES ED Provider: Finn Mcgraw Discharge Problem: Acute alcoholic pancreatitis Patient Disposition: Admitted As Inpatient Forms Stand Alone Forms: My [facility] Prescriptions Prescriptions: No Action acetaminophen [Tylenol Extra Strength] 500 mg Tablet 1,000 mg PO Q6H PRN (Reason: Pain) spironolactone 25 mg Tablet 25 mg PO BID ondansetron 8 mg tablet,disintegrating 8 mg PO Q8 PRN (Reason: Nausea) potassium chloride 20 mEq/15 mL liquid 30 meq PO AMHS amitriptyline 25 mg tablet 25 mg PO BID PRN (Reason: Sleep or pain,severe) pantoprazole 40 mg tablet,delayed release (DR/EC) 40 mg PO BID lidocaine 5 % adhesive patch,medicated 1 patch topical DAILY levothyroxine 150 mcg tablet 150 mcg PO DAILYBB gabapentin 300 mg capsule 300 mg PO TID furosemide 20 mg tablet 20 mg PO DAILY MDD 3 days in a row,then hold PRN (Reason: edema or wt gain) albuterol sulfate 90 mcg/actuation HFA aerosol inhaler 2 puff INHALATION QID Rx Instructions: Inhale 2 puffs in am, 2 puffs @ noon, 2 puffs in evening and 2 puffs before hs. dicyclomine 10 mg capsule 10 mg PO QID PRN (Reason: .abd pain) multivitamin with iron [Daily Vites/Iron] Tablet 1 tab PO QAM Referrals Referrals: Gypsy Lubin PA-C [Primary Care Provider] -
[2022-07-26 15:48] LABS: Albumin Globulin Ratio 1.5 (0.9-2); Albumin Level 4.7 gm/dl (3.4-5.0); BUN Creatinine Ratio 12.1 (10-20); Bilirubin,Total 7.5 mg/dl (0.2-1.0); Calcium 9.5 mg/dl (8.5-10.1); Creatinine Clr Calc Pharmacy 97.5 ml/min; Est GFR (African American) 131.7 ml/min; Est GFR (Non-African American) 113.6 ml/min; Globulin 3.1 gm/dl (2.5-4.0); Potassium 3.1 mmol/L (3.5-5.1); Total Protein 7.8 gm/dl (6.0-8.3)
[2022-07-26 16:11] LABS: Appearance Urine Clear (Clear); Blood Urine Negative (Negative); Color Urine Orange; Glucose Urine UA Negative (Negative); Ketones Urine 1+ (Negative); Leukocyte Esterase Urine Negative (Negative); Nitrite Urine Negative (Negative); Protein Urine Negative (Negative); Specific Gravity Urine 1.012 (1.000-1.030); Urobilinogen Urine Positive (Negative); pH Urine 6.5 (4.5-7.5)
[2022-07-26 16:15] LABS: Bilirubin Urine 1+ (Negative)
[2022-07-26] MEDS ORDERED: ONDANSETRON INJ 2 MG/ML 2 ML VIAL IV STA (16:31)
[2022-07-26] MEDS ORDERED: OPTIRAY 350 100ml IV ONE (16:42)
--- NOTE | 2022-07-26 17:05 | CT Scan Report ---
CT SCAN OF THE ABDOMEN AND PELVIS WITH IV CONTRAST CLINICAL HISTORY: Mid abdominal pain. COMPARISON STUDY: Abdominal CT dated 04/03/2022. TECHNIQUE: Following the IV administration of 88 cc of Optiray 350, CT scan of the abdomen and pelvi s is performed from the lung bases to the proximal femora. Images are reviewed in the axial, sagittal , and coronal planes. IV contrast was administered without complication. A dose lowering technique wa s utilized adhering to the principles of ALARA. CT DOSE: 263.65 mGy.cm FINDINGS: Lung bases: The heart is normal in size and without pericardial effusion. A calcified granuloma is se en in the right lower lobe. The lung bases are otherwise clear. Liver: The contrast-enhanced liver is enlarged, measuring 22 cm in length. The liver demonstrates dif fusely decreased attenuation indicating severe steatosis. There is no intrahepatic biliary ductal dil atation. The hepatic veins and portal veins are patent. Gallbladder: The gallbladder is mildly distended and there is pericholecystic infiltration. Spleen: The spleen is surgically absent. Pancreas: The pancreas is mildly atrophic and heterogeneous. Infiltration and fluid is seen around th e pancreatic body and tail suggesting acute pancreatitis. A fluid collection with surrounding surgica l clips adjacent to the pancreatic tail on image #[id number] measures 4.0 x 3.4 cm. This has modestly decreas ed in size as compared to 04/03/2022 and likely represent a pseudocyst. The pancreas enhances through out. Adrenal glands: Unremarkable. Kidneys: The contrast enhanced kidneys are normal in size and without hydronephrosis. The kidneys enh ance symmetrically. Abdominal vasculature: The abdominal aorta is normal in course and caliber noting mild atheroscleroti c calcification. Bowel: There is no bowel obstruction. Rowh-iw-qiogtzxk fecal retention is seen throughout the colon. The appendix is well-visualized and normal. Peritoneum: There is no intraperitoneal free air or abdominal ascites. There is a fat-containing umbi lical hernia. Lymphadenopathy: None. Pelvic viscera: The bladder wall is circumferentially thickened. The uterus is normal as visualized n oting an intrauterine device in place. There are bilateral ovarian follicles. Trace free fluid is see n in the cul-de-sac. Skeletal structures: No lytic or blastic lesions are seen. IMPRESSION: 1. Findings suggest acute on chronic pancreatitis. Correlate with clinical and laboratory findings. 2. A fluid collection adjacent to the pancreatic tail is typical for a pseudocyst. This has modestly decreased in size as compared to 04/03/2022. 3. Status post splenectomy. 4. The pancreas enhances throughout. 5. The gallbladder is distended and there is pericholecystic infiltration. Correlate with clinical an d laboratory findings. This is likely related to adjacent pancreatitis. If there is concern for conco mitant cholecystitis a right upper quadrant ultrasound should be considered. 6. Hepatomegaly and severe hepatic steatosis. 7. The bladder wall appears circumferentially thickened. Correlate with clinical findings and urinaly sis. 8. There is trace free fluid in the cul-de-sac. 9. Additional findings as above. ACT 112: Negative or not required by law. Electronically signed by: Jaime Genao M.D. 07/26/2022 5:04 PM
[2022-07-26] MEDS ORDERED: SODIUM CHLORIDE 0.9% 1000ML 2,000 ML IV ONE (18:54)
[2022-07-26] MEDS ORDERED: LORazepam 2 MG/1 ML VIAL IV STA (18:54)
[2022-07-26] MEDS: POTASSIUM CHLORIDE / WTR 10 MEQ/100 ML PLCT IV SCH ×2 (19:42→22:01)
--- NOTE | 2022-07-26 19:46 | Ultrasound Report ---
US gallbladder CLINICAL HISTORY: abnormal CT eval for cholecystitis COMPARISON STUDY: Right upper quadrant ultrasound March 26, 2021. CT of the abdomen and pelvis per formed earlier today. FINDINGS: Severe hepatic steatosis is noted. The liver is enlarged, measuring 21 cm in maximal dimens ion. No hepatic lesions are identified. Mild dilatation of the common bile duct measuring 8 mm, is no chantel. Pancreas is largely obscured on this exam. The gallbladder is mildly distended. There is no gall bladder wall thickening. Trace pericholecystic fluid is noted. No gallstones are noted. No sonographi c Noland sign was elicited. There is no right hydronephrosis. IMPRESSION: 1. Mildly distended gallbladder without gallbladder wall thickening. No sonographic Noland sign. No g allstones. No convincing evidence for acute cholecystitis. 2. Severe hepatic steatosis. 3. Mild dilatation of the common bile duct. 4. Obscured pancreas. ACT 112: Negative or not required by law. Electronically signed by: Troy Murphy M.D. 07/26/2022 7:44 PM
[2022-07-26] MEDS ORDERED: CEFEPIME 2,000 MG/20 ML VIAL IV STA (20:21)
[2022-07-26] MEDS ORDERED: LACTATED RINGER'S 1,000 ML IV ONE (20:28)
[2022-07-26] MEDS ORDERED: POTASSIUM CHLORIDE PWD 20 MEQ PACK PO STA (20:33)
[2022-07-26] MEDS ORDERED: THIAMINE HCL 100 MG in SYRINGE 9 ML IV STA (20:34)
[2022-07-26] MEDS ORDERED: GABAPENTIN 600 MG TAB PO STA (20:35)
--- NOTE | 2022-07-26 20:46 | History & Physical Report ---
Date of Service July 26, 2022 Assessment & Plan (1) History of alcohol use: (2) Acute alcoholic pancreatitis: (3) Pseudocyst of pancreas: Plan: - Admit - NPO, continue LR for hydration to clear pancreatitis, lipase was 306 on admission - Alcohol cessation encouraged, patient reports last drink a few glasses of wine on [employer] Monday and prior week had suffered GI illness, daughter with similar GI like infection last week. - Abd CT shows 4.0 x 3.4 cm pancreatic tail pseudocyst which is smaller than it was previously during her last admission here (previously 4.8 cm) - US gallbladder is mildly distended without gallbladder wall thickening, negative Niru sign, no evidence for acute cholecystitis, Severe hepatic steatosis, mild dilation of CBD - Consider GI consultation - WBC 9.16, left shift with neut 7.18 - Continue IV antibiotics, started on cefepime in the ER - Hgb 11.8, Hct 31.7 appears to be around her baseline - Hypokalemia corrected with IV and PO K+ supplementation - LFTs elevated, trend with am labs to ensure improves (4) Tobacco use: Plan: - Cessation encouraged, nicotine patch (5) H/O splenectomy: (6) Hypokalemia: (7) Anemia: (8) Von Willebrand disease: Plan: DVT PPx: - teds, scds, ambulatory CODE: Full code Dispo: From home, likely to remain in the hospital x 1-2 days. A total of [] minutes were spent with greater than 50% of that time face to face with the patient, personally reviewing all current laboratories, imaging studies, past medication reconciliation, outpatient chart review, and discussion with specialists to collaborate care for the patient with attending. Please see Dr. Gentile's documentation for corrections and/or additions. History of Present Illness Chief Complaint: Abdominal Pain Primary Care Provider: Gypsy Lubin PA-C This is a 37-year-old female with PMHx of tobacco use disorder, alcohol use, recurrent alcoholic pancreatitis, chronic pseudocyst, s/p splenectomy in March 2021, hypothyroidism, migraines, history of von Willebrand's disease, bipolar disorder, chronic anemia. She was hospitalized from 04/03/2022-04/06/2022 for recurrent pancreatitis with pseudocyst where she was following with GI, was initially n.p.o. and advance her diet as tolerated once pancreatitis improved, was provided with hydration, and was treated with antibiotics for a 4.8 cm enhancing fluid collection near the near the pancreatic tail typical for pseudocyst. Patient presents today with worsening abdominal pain. States that this has been ongoing for the past 1 week. Her 7-year-old child had a GI-like illness last week and she feels that she had caught part of it with nausea, vomiting and decreased appetite. On Monday, she had a few glasses of wine, and then afterwards felt worsening abdominal pain. Patient notes this is similar to previous pancreatitis bouts, she has not been able to tolerate much p.o. intake at all. Patient has not found relief with kaos-gkp-[id number] medications for pain. She has not gotten much sleep in the past 24 hours secondary to pain. l she has been started on IV cefepime IV in the ER, given pain medication, antiemetics and fluids. Her pain is currently rated a 5/10. She is requesting a nicotine patch she smokes 3/4 pack cigarettes per day. Allergies Allergy/AdvReac Type Severity Reaction Status Date / Time valacyclovir Allergy Severe Dyspnea Verified 04/03/22 20:17 enalaprilat Allergy Mild itch Verified 04/03/22 20:17 Home Medications Medication Instructions Recorded Confirmed Type acetaminophen 500 mg tablet 1,000 mg PO Q6H PRN Pain 04/03/22 07/26/22 History (Tylenol Extra Strength) albuterol sulfate 90 mcg/actuation 2 puff inhalation QID 04/03/22 07/26/22 History aerosol inhaler amitriptyline 25 mg tablet 25 mg PO BID PRN Sleep or 04/03/22 07/26/22 History pain,severe dicyclomine 10 mg capsule 10 mg PO QID PRN .abd pain 04/03/22 07/26/22 History furosemide 20 mg tablet 20 mg PO DAILY PRN edema or wt gain 04/03/22 07/26/22 History gabapentin 300 mg capsule 300 mg PO TID 04/03/22 07/26/22 History levothyroxine 150 mcg tablet 150 mcg PO DAILYBB 04/03/22 07/26/22 History lidocaine 5 % topical patch 1 patch topical DAILY 04/03/22 07/26/22 History ondansetron 8 mg disintegrating 8 mg PO Q8 PRN Nausea 04/03/22 07/26/22 History tablet pantoprazole 40 mg tablet,delayed 40 mg PO BID 04/03/22 07/26/22 History release potassium chloride 20 mEq/15 mL 30 meq PO AMHS 04/03/22 07/26/22 History oral liquid spironolactone 25 mg tablet 25 mg PO BID 04/03/22 07/26/22 History multivitamin with iron (Daily 1 tab PO QAM 07/26/22 07/26/22 History Vites/Iron tablet) Past Med/Surg History Medical History Alcohol abuse Elevated AST (SGOT) Hepatic steatosis History of pancreatitis Hypothyroidism IBS (irritable bowel syndrome) Migraines Pancreatitis Peptic ulcer Seasonal asthma Tobacco use Upper gastrointestinal bleed Von Willebrand disease "Mild" Class 1 per [facility] records, under surveillance [facility] hematology, surgeon aware Surgical History H/O splenectomy 04/10/21 - spontaneous splenic rupture. splenectomy at [facility] History of colonoscopy History of esophagogastroduodenoscopy (EGD) History of loop electrical excision procedure (LEEP) History of wisdom tooth extraction Family History Mother Von Willebrand disease Other No family history of adverse response to anesthesia Social History Smoking Status: Current every day smoker Tobacco Type: Cigarettes Cigarettes Per Day: 1/2 pack; Second Hand Exposure: No; Do You Dip or Chew Tobacco: No; Tobacco Cessation Education Requested by Patient: Yes Hx Alcohol Use: Yes Alcohol type: hard liquor Hx Substance Use: No Preferred Language: Tajik Communication Ability: Effective International Relations Professor Required: No Beliefs That Will Affect Care: None marital status: Current Living Situation: Spouse Current Living Situation Comment: 2 story Other Information That Helps Us Care for You: No Feels Safe at Home: Yes Safety Concerns: Feels Safe At This Time Assistive Devices: None Review of Systems Review of Systems: Constitutional: No fever, sweats or chills, + fatigued Eyes: No diplopia, no worsening or blurred vision ENT: normal hearing, no trouble swallowing Respiratory: No cough, sputum, dyspnea at rest or on exertion Cardiovascular: No chest pain, tightness or palpitations Abdomen: + Epigastric pain, + nausea and vomiting, no diarrhea or constipation Musculoskeletal: No joint pain, calf pain, swelling Neurologic: No weakness, numbness/tingling, or balance problems Psychiatric: No anxiety or depression Skin: No rash or itch Physical Exam Physical Exam: General: awake, alert, no apparent distress, falls asleep easily during conversation with some twitching Head: Normocephalic, atraumatic ENT: PERRL, EOMI, no pharyngeal exudate, mucous membranes moist Chest: Clear to auscultation, on room air, no adventitious breath sounds Cardiac: Regular rate and rhythm, no murmur, no JVD, normal peripheral pulses, good capillary refill Abdominal: NABS x 4 quadrants, soft, nondistended, nontender to palpation, no rebound or guarding Extremities: Normal inspection, no peripheral edema or erythema, calfs nontender to palpation Psych: Normal mood and affect Neuro: AAO x 3, strength intact bilaterally and rated 5/5, no motor deficits, speech is clear, no peripheral sensory deficits Results & Data Results & Data ([facility]) Vital Signs (Past 12 Hours) Vital Signs Temp Pulse Pulse Resp BP BP Pulse Ox 07/26/22 19:00 79 15 149/97 H 98 07/26/22 18:30 80 17 97 07/26/22 18:30 150/99 H 07/26/22 18:00 79 15 97 07/26/22 17:30 86 16 97 07/26/22 17:30 150/106 H 07/26/22 17:23 94 07/26/22 17:23 134/96 07/26/22 16:30 77 13 99 07/26/22 16:00 82 30 H 95 07/26/22 16:00 145/98 H 07/26/22 15:46 81 17 98 07/26/22 15:46 132/99 07/26/22 15:38 81 18 97 07/26/22 17:23 85 18 134/96 97 07/26/22 16:22 75 07/26/22 15:44 86 18 132/99 98 07/26/22 14:04 36.3 C L 80 16 160/103 H 97 O2 Del Method 07/26/22 19:00 Room Air 07/26/22 18:30 07/26/22 18:30 07/26/22 18:00 07/26/22 17:30 07/26/22 17:30 07/26/22 17:23 07/26/22 17:23 07/26/22 16:30 07/26/22 16:00 07/26/22 16:00 07/26/22 15:46 07/26/22 15:46 07/26/22 15:38 07/26/22 17:23 Room Air 07/26/22 16:22 07/26/22 15:44 Room Air 07/26/22 14:04 Room Air Laboratory Results 07/26/22 07/26/22 07/26/22 15:47 15:40 14:36 WBC RBC Hgb Hct MCV MCH MCHC RDW Std Deviation RDW Coeff of Praful Plt Count MPV Immature Gran % (Auto) Neut % (Auto) Lymph % (Auto) Dolores % (Auto) Eos % (Auto) Baso % (Auto) Neut # (Auto) Lymph # (Auto) Dolores # (Auto) Eos # (Auto) Baso # (Auto) Immature Gran # (Auto) Absolute Nucleated RBC Nucleated RBC % (auto) Polychromasia Anisocytosis Pappenheimer Bodies Target Cells Sodium 137 Potassium 3.1 L Chloride 96 L Carbon Dioxide 31 Anion Gap 10 BUN 8 Creatinine 0.66 Est Cr Clr Drug Dosing 97.5 Est GFR ( Amer) 131.7 Est GFR (Non-Af Amer) 113.6 BUN/Creatinine Ratio 12.1 Glucose 132 H Calcium 9.5 Total Bilirubin 7.5 H Direct Bilirubin 4.0 H AST 255 H ALT 97 H Alkaline Phosphatase 206 H Total Protein 7.8 Albumin 4.7 Globulin 3.1 Albumin/Globulin Ratio 1.5 Lipase 306 H Urine Color [place] Urine Appearance Clear Urine pH 6.5 Ur Specific [place] 1.012 Urine Protein Negative Urine Glucose (UA) Negative Urine Ketones 1+ H Urine Blood Negative Urine Nitrite Negative Urine Bilirubin 1+ H Urine Urobilinogen Positive H Ur Leukocyte Esterase Negative POC Ur Test NEG 07/26/22 14:36 WBC 9.16 RBC 3.37 L Hgb 11.8 L Hct 31.7 L MCV 94.1 MCH 35.0 H MCHC 37.2 H RDW Std Deviation 73.5 H RDW Coeff of Praful 22.5 H Plt Count 214 MPV 12.4 Immature Gran % (Auto) 0.7 Neut % (Auto) 78.3 Lymph % (Auto) 10.6 Dolores % (Auto) 8.4 Eos % (Auto) 0.7 Baso % (Auto) 1.3 Neut # (Auto) 7.18 H Lymph # (Auto) 0.97 L Dolores # (Auto) 0.77 H Eos # (Auto) 0.06 Baso # (Auto) 0.12 Immature Gran # (Auto) 0.06 Absolute Nucleated RBC 0.15 H Nucleated RBC % (auto) 1.6 Polychromasia 1+ Anisocytosis Present Pappenheimer Bodies 2+ Target Cells 2+ Sodium Potassium Chloride Carbon Dioxide Anion Gap BUN Creatinine Est Cr Clr Drug Dosing Est GFR ( Amer) Est GFR (Non-Af Amer) BUN/Creatinine Ratio Glucose Calcium Total Bilirubin Direct Bilirubin AST ALT Alkaline Phosphatase Total Protein Albumin Globulin Albumin/Globulin Ratio Lipase Urine Color Urine Appearance Urine pH Ur Specific [place] Urine Protein Urine Glucose (UA) Urine Ketones Urine Blood Urine Nitrite Urine Bilirubin Urine Urobilinogen Ur Leukocyte Esterase POC Ur Test Diagnostic Findings Abdomen/Pelvis CT 07/26/22 15:30 CT SCAN OF THE ABDOMEN AND PELVIS WITH IV CONTRAST CLINICAL HISTORY: Mid abdominal pain. COMPARISON STUDY: Abdominal CT dated 04/03/2022. TECHNIQUE: Following the IV administration of 88 cc of Optiray 350, CT scan of the abdomen and pelvis is performed from the lung bases to the proximal femora. Images are reviewed in the axial, sagittal, and coronal planes. IV contrast was administered without complication. A dose lowering technique was utilized adhering to the principles of ALARA. CT DOSE: 263.65 mGy.cm FINDINGS: Lung bases: The heart is normal in size and without pericardial effusion. A calcified granuloma is seen in the right lower lobe. The lung bases are otherwise clear. Liver: The contrast-enhanced liver is enlarged, measuring 22 cm in length. The liver demonstrates diffusely decreased attenuation indicating severe steatosis. There is no intrahepatic biliary ductal dilatation. The hepatic veins and portal veins are patent. Gallbladder: The gallbladder is mildly distended and there is pericholecystic infiltration. Spleen: The spleen is surgically absent. Pancreas: The pancreas is mildly atrophic and heterogeneous. Infiltration and fluid is seen around the pancreatic body and tail suggesting acute pancreatitis. A fluid collection with surrounding surgical clips adjacent to the pancreatic tail on image #78 measures 4.0 x 3.4 cm. This has modestly decreased in size as compared to 04/03/2022 and likely represent a pseudocyst. The pancreas enhances throughout. Adrenal glands: Unremarkable. Kidneys: The contrast enhanced kidneys are normal in size and without hydro nephrosis. The kidneys enhance symmetrically. Abdominal vasculature: The abdominal aorta is normal in course and caliber noting mild atherosclerotic calcification. Bowel: There is no bowel obstruction. Dzor-ff-tupzzdjw fecal retention is seen throughout the colon. The appendix is well-visualized and normal. Peritoneum: There is no intraperitoneal free air or abdominal ascites. There is a fat-containing umbilical hernia. Lymphadenopathy: None. Pelvic viscera: The bladder wall is circumferentially thickened. The uterus is normal as visualized noting an intrauterine device in place. There are bilateral ovarian follicles. Trace free fluid is seen in the cul-de-sac. Skeletal structures: No lytic or blastic lesions are seen. IMPRESSION: 1. Findings suggest acute on chronic pancreatitis. Correlate with clinical and laboratory findings. 2. A fluid collection adjacent to the pancreatic tail is typical for a pseudocyst. This has modestly decreased in size as compared to 04/03/2022. 3. Status post splenectomy. 4. The pancreas enhances throughout. 5. The gallbladder is distended and there is pericholecystic infiltration. Correlate with clinical and laboratory findings. This is likely related to adjacent pancreatitis. If there is concern for concomitant cholecystitis a right upper quadrant ultrasound should be considered. 6. Hepatomegaly and severe hepatic steatosis. 7. The bladder wall appears circumferentially thickened. Correlate with clinical findings and urinalysis. 8. There is trace free fluid in the cul-de-sac. 9. Additional findings as above. ACT 112: Negative or not required by law. Electronically signed by: Jaime Genao M.D. 07/26/2022 5:04 PM Gallbladder Ultrasound 07/26/22 17:17 US gallbladder CLINICAL HISTORY: abnormal CT eval for cholecystitis COMPARISON STUDY: Right upper quadrant ultrasound March 26, 2021. CT of the abdomen and pelvis performed earlier today. FINDINGS: Severe hepatic steatosis is noted. The liver is enlarged, measuring 21 cm in maximal dimension. No hepatic lesions are identified. Mild dilatation of the common bile duct measuring 8 mm, is noted. Pancreas is largely obscured on this exam. The gallbladder is mildly distended. There is no gallbladder wall thickening. Trace pericholecystic fluid is noted. No gallstones are noted. No sonographic Noland sign was elicited. There is no right hydronephrosis. IMPRESSION: 1. Mildly distended gallbladder without gallbladder wall thickening. No sonographic Noland sign. No gallstones. No convincing evidence for acute cholecystitis. 2. Severe hepatic steatosis. 3. Mild dilatation of the common bile duct. 4. Obscured pancreas. ACT 112: Negative or not required by law. Electronically signed by: Troy Murphy M.D. 07/26/2022 7:44 PM Code Status & VTE Plan Code Status Full code-discussed with the patient at bedside Supervising Physician Co-Signing Physician Notes IM ATTENDING : Patient seen and examined. History obtained from patient and records. Preceding documentation by Ms. Aileen Ng PA-C reviewed. FINAL ASSESSMENT AND PLAN as follows : Recurrent alcoholic pancreatitis Chronic pancreatic pseudocyst, history pseudocyst leak Alcohol withdrawal hx splenic hemorrhage status post splenectomy History of von Willebrand's disease chronic anemia, stable Hypothyroidism, recent outpatient TSH noted to be low Hypokalemia secondary to emesis ongoing tobacco abuse Medical telemetry IVF, analgesia, bowel rest GI consult Re: Pancreatitis, pancreatic pseudocyst (ER provider already in touch with Dr. Burns who recommends MRCP and antibiotic coverage for now.) GIBSON S, DT precautions Recheck TSH Nicotine patch Replace electrolytes DVT prophylaxis per Lovenox subcu Full code Text document was generated using [employer] voice recognition software. It may contain grammatical or spelling errors. Kindly contact undersigned for clarification of any documentation item in question. (2) Acute alcoholic pancreatitis Acute pancreatitis complication: unspecified Qualified Code(s): K85.20 - Alcohol induced acute pancreatitis without necrosis or infection (7) Anemia Anemia type: unspecified type Qualified Code(s): D64.9 - Anemia, unspecified
[2022-07-26 21:13] LABS: Magnesium 1.6 mg/dl (1.7-2.4)
[2022-07-26 21:20] LABS: INR 1.5 (0.9-1.1); Prothrombin Time 15.4 Seconds (9.0-12.0)
[2022-07-26] MEDS: NICOTINE 21 MG/24 HR TDSY TD SCH (22:07)
[2022-07-26 22:21] LABS: Thyroid Stimulating Hormone 26.325 uIu/ml (0.300-4.500)
[2022-07-26 23:06] LABS: T4 Free Thyroxine 1.22 ng/dl (0.61-1.60)
[2022-07-26] MEDS ORDERED: KETOROLAC TROMETHAMINE 15 MG/ML VIAL IV ONE (23:07)
[2022-07-26] MEDS ORDERED: Ativan IV Alcohol Withdrawal--Active Protocol IV PRN (23:13)
[2022-07-26] MEDS ORDERED: MAGNESIUM SULFATE / D5W 1 GM/100 ML BAG IV ONE (23:13)
[2022-07-26] MEDS ORDERED: LORazepam 2 MG/1 ML VIAL IV PRN ×3 (23:13)
[2022-07-27] MEDS: LEVOTHYROXINE SODIUM 150 MCG TABLET PO SCH (05:22)
[2022-07-27] MEDS: cefTRIAXone SODIUM 2,000 MG in DEXTROSE 5% 50 ML IV SCH (07:54)
[2022-07-27] MEDS: NICOTINE 21 MG/24 HR TDSY TD SCH (07:54)
[2022-07-27] MEDS: LIDOCAINE 5% 1 PATCH TD SCH (07:54)
[2022-07-27] MEDS: oxyCODONE HCL IR 5 MG TAB (IMMEDIATE RELEASE) PO PRN ×2 (07:55→16:17)
[2022-07-27] MEDS: PANTOprazole 40 MG TAB PO SCH ×2 (07:55→19:56)
[2022-07-27] MEDS: GABAPENTIN 300 MG CAP PO SCH ×3 (07:56→19:56)
[2022-07-27] MEDS: FOLIC ACID 1 MG TAB PO SCH (07:56)
[2022-07-27] MEDS: MULTIVITAMIN TAB PO SCH (07:56)
[2022-07-27] MEDS: MULTIVITAMIN CHEWABLE TAB PO SCH (07:57)
[2022-07-27] MEDS: ENOXAPARIN INJ 40 MG/0.4 ML SYR SQ SCH (07:58)
[2022-07-27 08:49] LABS: Basophils # (auto) 0.07 K/uL (0-0.2); Basophils % (auto) 0.7 %; Eosinophils # (auto) 0.07 K/uL (0-0.50); Eosinophils % (auto) 0.7 %; Hematocrit (blood only) 28.2 % (37.0-47.0); Hemoglobin 10.6 g/dl (12.0-16.0); Immature Granulocytes # (auto) 0.12 K/uL (0.01-0.20); Immature Granulocytes % (auto) 1.1 %; Lymphocytes # (auto) 1.46 K/uL (1.2-3.4); Lymphocytes % (auto) 13.9 %; Mean Corpuscular Hemoglobin 34.9 pg (25.0-34.0); Mean Corpuscular Hgb Conc 37.6 g/dL (32.0-36.0); Mean Corpuscular Volume 92.8 fL (80.0-100.0); Mean Platelet Volume 12.5 fL (9.4-12.4); Monocytes # (auto) 1.05 K/uL (0.11-0.59); Neutrophils # (auto) 7.72 K/uL (1.40-6.50); Neutrophils % (auto) 73.6 %; Nucleated RBC # (auto) 0.11 K/uL (0-0.12); Platelet Count 188 K/uL (130-400); RDW Coefficient of Variation 23.4 % (11.5-14.5); RDW Standard Deviation 74.2 fL (36.4-46.3); Red Blood Count 3.04 M/uL (4.20-5.40); White Blood Count 10.49 K/ul (4.8-10.8)
[2022-07-27 09:07] LABS: Estimated Average Glucose 131 mg/dl; Hemoglobin A1C 6.2 % (4.5-5.6)
[2022-07-27 09:34] LABS: Anisocytosis Present; Pappenheimer Bodies 2+; Polychromasia 1+; Target Cells 3+
--- NOTE | 2022-07-27 10:30 | Gastrointestinal Consultation ---
Date of Consultation July 27, 2022 Assessment & Plan (1) Acute pancreatitis: Plan 1. Complete, permanent alcohol cessation. 2. IV fluids at 250/hr. 3. Analgesics. 4. Once pt is having less pain and not needing analgesics, will start a clear liq diet then will adv as tolerated. 5. Some concern for gallbladder dx in light of GB distention on imaging and hx of hypofunctioning GB and plans for cholecystectomy. Recommend OP surgical eval after resolution of pancreatitis. 6. Would repeat OP EUS,also after resolution of the acute pancreatitis, in 6-8 wks. Our office will contact the pt to arrange. 7. Labs suggest a component of ETOH hepatitis, w DF calculated at 21, so no steroids are needed. Pt, however, denies much alcohol intake. Supervising Physician Co-Signing Physician Notes Admitted with abdominal pain PE as noted above. Recurrent pancreatitis in the setting of continued ethanol use, prior pseudocyst that appears to be slightly smaller. Also with elevated lft's - ? from ethanol versus ? biliary as mild cbd dilation and was to have her gb removed in the past but never done. Would consider MRCP if rise in lft's. Can consider trental for alcoholic hepatitis. She ideally needs to abstain from ethanol but appears this has been a challenge for her given recurrent admission for alcoholic pancreatitis flares hepatitis flares. Observe for ethanol withdrawal. Also adequate treatment of her high tsh may also help some of her other type of symptoms. History of Present Illness Reason for Consultation: acute pancreatitis Requesting Physician: Dr. Amanda Attending Physician: Carlitos Siddiqui MD History of Present Illness Ms. Moriah Ryan is a 37 yr old female pt of Dr. Myles w a hx of Von Willebrand's (mild, type I), bipolar dx, gastric ulcers (multiple, shallow, on 2020 EGD), prior pancreatitis (w EUS in August 2021 w findings suggestive of early chronic pancreatitis and a 1.1mm pancreatic tail pseudocyst that was not sampled). She is also S/p Splenectomy for a spontaneous spleen rupture in [address] Dukes at [facility]). Additionally, there were OP encounters for a hypofunctioning gallbladder w plans for cholecystectomy in 2021 - but surgery di d not take place. She presented to the ED yesterday for pain of 3 days duration, during which she says she followed a clear liquid diet. CTAP w acute pancreatitis of the tail of the pancreas and mention of a 4cm pseudo cyst in that area, smaller than on prior CT. Though US suggested a mildly dilated CBD, CT documented normal bile ducts. Imaging does suggest a mildly dilated GB. Her lipase was elevated at 547->306 today. LFTs are also elevated: T Bili 7.5, DD Bili 4.0, AST 225, ALT 97, Alk Phos 206. She rates her pain on arrival as a 9 of 10 and tells me that when medicated here, she has improvement in the pain but not resolution. She rates the pain as a 9 of 10 at the end of each dosing interval. With the pain, she vomited twice in the past few days. She denies ever being a heavy drinker and tells me that she drinks only a small amt of alcohol occasionally, having had one drink 5 days ago. On interview/exam. She is alert, awake, oriented and hemodynamically stable. She does have a tremor of both hands which she attributes to anxiety - from being in the hospital. Allergies Allergy/AdvReac Type Severity Reaction Status Date / Time valacyclovir Allergy Severe Dyspnea Verified 04/03/22 20:17 enalaprilat Allergy Mild itch Verified 04/03/22 20:17 Home Medications Medication Instructions Recorded Confirmed Type acetaminophen 500 mg tablet 1,000 mg PO Q6H PRN Pain 04/03/22 07/26/22 History (Tylenol Extra Strength) albuterol sulfate 90 mcg/actuation 2 puff inhalation QID 04/03/22 07/26/22 History aerosol inhaler amitriptyline 25 mg tablet 25 mg PO BID PRN Sleep or 04/03/22 07/26/22 History pain,severe dicyclomine 10 mg capsule 10 mg PO QID PRN .abd pain 04/03/22 07/26/22 History furosemide 20 mg tablet 20 mg PO DAILY PRN edema or wt gain 04/03/22 07/26/22 History gabapentin 300 mg capsule 300 mg PO TID 04/03/22 07/26/22 History levothyroxine 150 mcg tablet 150 mcg PO DAILYBB 04/03/22 07/26/22 History lidocaine 5 % topical patch 1 patch topical DAILY 04/03/22 07/26/22 History ondansetron 8 mg disintegrating 8 mg PO Q8 PRN Nausea 04/03/22 07/26/22 History tablet pantoprazole 40 mg tablet,delayed 40 mg PO BID 04/03/22 07/26/22 History release potassium chloride 20 mEq/15 mL 30 meq PO AMHS 04/03/22 07/26/22 History oral liquid spironolactone 25 mg tablet 25 mg PO BID 04/03/22 07/26/22 History multivitamin with iron (Daily 1 tab PO QAM 07/26/22 07/26/22 History Vites/Iron tablet) Patient History Medical History Alcohol abuse Elevated AST (SGOT) Hepatic steatosis History of pancreatitis Hypothyroidism IBS (irritable bowel syndrome) Migraines Pancreatitis Peptic ulcer Seasonal asthma Tobacco use Upper gastrointestinal bleed Von Willebrand disease "Mild" Class 1 per [facility] records, under surveillance [facility] hematology, surgeon aware Surgical History H/O splenectomy 04/10/21 - spontaneous splenic rupture. splenectomy at [facility] History of colonoscopy History of esophagogastroduodenoscopy (EGD) History of loop electrical excision procedure (LEEP) History of wisdom tooth extraction Family History Mother Von Willebrand disease Other No family history of adverse response to anesthesia Social History Smoking Status: Current every day smoker Tobacco Type: Cigarettes Cigarettes Per Day: 1/2 pack; Second Hand Exposure: No; Do You Dip or Chew Tobacco: No; Tobacco Cessation Education Requested by Patient: Yes Hx Alcohol Use: Yes Alcohol type: hard liquor Hx Substance Use: No Preferred Language: Spanish Communication Ability: Effective 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 Physical Exam Constitutional: WD/WN, vitals as above appears anxious Eyes: + scleral abnormality (icterus) and PERRL ENMT: external ear and nose normal, oropharynx normal Neck: trachea midline, no thyromegaly Respiratory: normal respiratory effort, lungs clear to auscultation Cardiovascular: RRR, no murmur, no edema Gastrointestinal (Abdomen): Inspection/Auscultation: abdomen normal to inspection and normal bowel sounds; abdomen not distended Percussion/Palpation: + abdomen tender (moderate, upper abd) and abdomen soft Musculoskeletal: no cyanosis or clubbing, extremities motor strength 5/5 Skin: mild jaundice, no rashes Neurologic: Mild tremor of both hands; no other neuro abnormalities noted. Results & Data ([facility]) Vital Signs (Past 12 Hours) Vital Signs Temp Pulse Pulse Resp BP BP Pulse Ox 07/27/22 07:56 36.8 C 83 16 151/90 H 98 07/27/22 02:01 91 H 07/27/22 03:05 91 H 07/27/22 01:39 84 07/27/22 01:30 86 15 130/79 07/27/22 01:15 86 16 116/86 07/27/22 01:00 84 14 132/85 07/27/22 00:45 85 18 114/86 07/27/22 00:30 90 23 127/77 07/27/22 00:15 84 17 152/87 H 07/27/22 00:00 86 16 155/97 H 07/26/22 23:45 83 19 142/111 H 07/26/22 23:30 83 20 146/98 H 07/26/22 23:01 87 18 154/97 H 07/26/22 23:00 89 17 07/26/22 22:31 86 25 H 168/112 H 07/26/22 22:30 86 19 O2 Del Method 07/27/22 07:56 Room Air 07/27/22 02:01 07/27/22 03:05 07/27/22 01:39 07/27/22 01:30 07/27/22 01:15 07/27/22 01:00 07/27/22 00:45 07/27/22 00:30 07/27/22 00:15 07/27/22 00:00 07/26/22 23:45 07/26/22 23:30 07/26/22 23:01 07/26/22 23:00 07/26/22 22:31 07/26/22 22:30 Laboratory Results WBC 9, Hb 11.8, Hct 31.7, Plts 214, PT 15, INR 1.5, Na 137, K 3.1 Cl 96, CO2 31, BUN 8, Cr 0.66, glucose 132. T Bili 7.5, D BIli 4, AST 255, ALT 97, Alk Phos 206, lipase 306 Diagnostic Findings CTAP w IV on 07/27/22: 1. Findings suggest acute on chronic pancreatitis. Correlate with clinical and laboratory findings. 2. A fluid collection adjacent to the pancreatic tail is typical for a pseudocyst. This has modestly decreased in size as compared to 04/03/2022. 3. Status post splenectomy. 4. The pancreas enhances throughout. 5. The gallbladder is distended and there is pericholecystic infiltration. Correlate with clinical and laboratory findings. This is likely related to adjacent pancreatitis. If there is concern for concomitant cholecystitis a right upper quadrant ultrasound should be considered. 6. Hepatomegaly and severe hepatic steatosis. 7. The bladder wall appears circumferentially thickened. Correlate with clinical findings and urinalysis. 8. There is trace free fluid in the cul-de-sac. 9. Additional findings as above. RUQ US 07/26/22: 1. Mildly distended gallbladder without gallbladder wall thickening. No sonographic Noland sign. No gallstones. No convincing evidence for acute cholecystitis. 2. Severe hepatic steatosis. 3. Mild dilatation of the common bile duct. 4. Obscured pancreas (1) Acute pancreatitis Acute pancreatitis complication: no infection or necrosis Pancreatitis type: alcohol induced Qualified Code(s): K85.20 - Alcohol induced acute pancreatitis without necrosis or infection
[2022-07-27] MEDS: LACTATED RINGER'S 1,000 ML IV SCH ×3 (10:49→22:12)
[2022-07-27 11:03] LABS: Albumin Level 3.7 gm/dl (3.4-5.0); Calcium 8.6 mg/dl (8.5-10.1); Magnesium 1.8 mg/dl (1.7-2.4); Potassium 3.3 mmol/L (3.5-5.1)
[2022-07-27 11:09] LABS: Albumin Globulin Ratio 1.4 (0.9-2); BUN Creatinine Ratio 13.8 (10-20); Creatinine Clr Calc Pharmacy 110.9 ml/min; Est GFR (African American) 137.4 ml/min; Est GFR (Non-African American) 118.6 ml/min; Globulin 2.6 gm/dl (2.5-4.0); Total Protein 6.3 gm/dl (6.0-8.3)
[2022-07-27] MEDS: PROMETHAZINE HCL 6.25 MG in SODIUM CHLORIDE 0.9% 50 ML IV PRN ×2 (11:28→16:47)
--- NOTE | 2022-07-27 13:31 | Hospitalist Progress Note ---
Date of Service July 27, 2022 Assessment & Plan (1) History of alcohol use: (2) Acute alcoholic pancreatitis: (3) Pseudocyst of pancreas: Plan: Recurrent pancreatitis Alcoholic hepatitis Chronic Pancreatic pseudocyst H/O pseudocyst to leak Hepatomegaly and severe hepatic steatosis --Patient admits to taking Tylenol regularly for chronic back pain --CT ABD:Findings suggest acute on chronic pancreatitis. Correlate with clinical and laboratory findings. A fluid collection adjacent to the pancreatic tail is typical for a pseudocyst. This has modestly decreased in size as compared to 04/03/2022. Status post splenectomy. The pancreas enhances th roughout. The gallbladder is distended and there is pericholecystic infiltration. Correlate with clinical and laboratory findings. This is likely related to adjacent pancreatitis. If there is concern for concomitant cholecystitis a right upper quadrant ultrasound should be considered. Hepatomegaly and severe hepatic steatosis. The bladder wall appears circumferentially thickened. Correlate with clinical findings and urinalysis. There is trace free fluid in the cul-de-sac. --Gall Bladder USD:Mildly distended gallbladder without gallbladder wall thickening. No sonographic Noland sign. No gallstones. No convincing evidence for acute cholecystitis. Severe hepatic steatosis. Mild dilatation of the common bile duct. Obscured pancreas. --MRCP pending -- Lipase 306 --Avoid hepatotoxic agents as able --Advised to quit alcohol, Tylenol use --Continue IV fluids, n.p.o. --Appreciate GI input If LFTs continue to trend upwards, will consider Trental On antibiotics empirically Further management based on MRCP results. Needs follow-up with GI upon discharge Alcohol use Continue thiamine, folic acid Monitor for withdrawal Drug screen pending Hypokalemia Replete electrolytes as needed Abnormal TSH H/O hypothyroidism Elevated TSH, normal free T4 We will repeat thyroid function test tomorrow We will adjust levothyroxine dose as needed Continue levothyroxine (4) Tobacco use: Plan: - Cessation encouraged, nicotine patch (5) H/O splenectomy: Plan: H/O spontaneous splenic rupture as per patient (6) Hypokalemia: (7) Anemia: (8) Von Willebrand disease: Plan: DVT Px: Lovenox SQ CODE STATUS: Full code Disposition Expect to discharge home when stable Admission and Anticipated Discharge Date Admission Date: July 26, 2022 Subjective Patient is seen and examined at bedside States having abdominal pain, nausea and dizziness No other complaints Denies any chest pain, vomiting, dyspnea Review of Systems Review of Systems: All systems reviewed & are unremarkable except as noted in Subjective Physical Exam Physical Exam: Physical Exam: Vitals signs as noted above General Appearance:Moderately built and nourished, no apparent distress Head: normocephalic, Atraumatic Eyes: normal inspection, EOMI, +Icteric Neck: supple, Trachea midline Respiratory/Chest: Normal breath sounds, CTA, No accessory muscle use Cardiovascular: S1, S2, No murmur Abdomen/GI:Soft, RLQ/LLQ and epigastric tender, Bowel sounds present Extremities/Musculoskeletal:normal inspection, no edema Neurologic/Psych:AAOX3, grossly no focal neurological deficits Skin: normal color, warm Results & Data Results & Data ([facility]) Vital Signs (Past 12 Hours) Vital Signs Temp Pulse Pulse Resp BP BP Pulse Ox 07/27/22 11:35 37.0 C 98 H 16 137/87 96 07/27/22 07:56 36.8 C 83 16 151/90 H 98 07/27/22 02:01 91 H 07/27/22 03:05 91 H 07/27/22 01:39 84 07/27/22 01:30 86 15 130/79 O2 Del Method 07/27/22 11:35 Room Air 07/27/22 07:56 Room Air 07/27/22 02:01 07/27/22 03:05 07/27/22 01:39 07/27/22 01:30 Laboratory Results Short CBC 07/26/22 07/27/22 Range/Units 14:36 08:27 WBC 9.16 10.49 (4.8-10.8) K/ul Hgb 11.8 L 10.6 L (12.0-16.0) g/dl Hct 31.7 L 28.2 L (37.0-47.0) % Plt Count 214 188 (130-400) K/uL BMP 07/26/22 07/27/22 14:36 08:27 Sodium 137 136 Potassium 3.1 L 3.3 L Chloride 96 L 95 L Carbon Dioxide 31 27 BUN 8 8 Creatinine 0.66 0.58 L Glucose 132 H 107 H Calcium 9.5 8.6 Liver Function 07/26/22 07/27/22 Range/Units 14:36 08:27 Total Bilirubin 7.5 H 5.0 H (0.2-1.0) mg/dl Direct Bilirubin 4.0 H (0-0.2) mg/dl AST 255 H 441 H (13-39) U/L ALT 97 H 96 H (7-52) U/L Alkaline Phosphatase 206 H 159 H (34-104) U/L Albumin 4.7 3.7 (3.4-5.0) gm/dl Urine 07/26/22 Range/Units 15:40 Urine Color [place] Urine Appearance Clear (Clear) Urine pH 6.5 (4.5-7.5) Ur Specific [place] 1.012 (1.000-1.030) Urine Protein Negative (Negative) Urine Glucose (UA) Negative (Negative) (2) Acute alcoholic pancreatitis Acute pancreatitis complication: unspecified Qualified Code(s): K85.20 - Alcohol induced acute pancreatitis without necrosis or infection (7) Anemia Anemia type: unspecified type Qualified Code(s): D64.9 - Anemia, unspecified
[2022-07-27] MEDS: POTASSIUM CHLORIDE / WTR 10 MEQ/100 ML PLCT IV SCH ×2 (13:58→15:00)
--- NOTE | 2022-07-27 14:01 | Magnetic Resonance Report ---
MR MRCP CLINICAL HISTORY: abd pain TECHNIQUE: Multiplanar multisequence MR images of the abdomen were obtained, as per MRCP protocol. . COMPARISON: Comparison is made to MRCP 01/10/[address] abdomen pelvis 07/26/2022 FINDINGS: Lower chest: No acute abnormality Liver: Unremarkable. No focal lesions are seen. Gallbladder and biliary tree: Layering sludge versus stones noted. No intra- or extrahepatic biliary ductal dilation. Pancreas: A cystic lesion at the tip of the pancreas is again noted measuring approximately 35 mm. Spleen: Patient is status post splenectomy. Adrenals: Unremarkable. Kidneys and ureters: Unremarkable. Bowel: Unremarkable. Lymph nodes Retroperitoneal: Unremarkable. Mesenteric: Unremarkable. Peritoneum: Normal Vessels: Unremarkable. Abdominal wall: Unremarkable. Bones: Unremarkable. IMPRESSION: 1. No acute abnormality. No cholecystitis or choledocholithiasis. Layering sludge versus stones are noted in the gallbladder. 2. Cystic lesion adjacent to the pancreatic tail measures 3.5 cm, likely representing a pseudocyst w hich has slightly decreased over time. ACT 112: Negative or not required by law. Electronically signed by: Baudilio Mcnamara M.D. 07/27/2022 2:00 PM
[2022-07-27] MEDS: ACETAMINOPHEN 500 MG TAB PO PRN ×2 (16:19→23:56)
[2022-07-28] MEDS: LACTATED RINGER'S 1,000 ML IV SCH ×5 (01:41→20:02)
[2022-07-28] MEDS: PROMETHAZINE HCL 6.25 MG in SODIUM CHLORIDE 0.9% 50 ML IV PRN (02:38)
[2022-07-28] MEDS: oxyCODONE HCL IR 5 MG TAB (IMMEDIATE RELEASE) PO PRN ×3 (02:39→20:01)
[2022-07-28] MEDS ORDERED: ONDANSETRON INJ 2 MG/ML 2 ML VIAL IV STA ×2 (04:30→21:18)
[2022-07-28] MEDS: LEVOTHYROXINE SODIUM 150 MCG TABLET PO SCH (06:14)
[2022-07-28] MEDS: FOLIC ACID 1 MG TAB PO SCH (07:30)
[2022-07-28] MEDS: MULTIVITAMIN CHEWABLE TAB PO SCH (07:30)
[2022-07-28] MEDS: PANTOprazole 40 MG TAB PO SCH ×2 (07:30→20:03)
[2022-07-28] MEDS: MULTIVITAMIN TAB PO SCH (07:30)
[2022-07-28] MEDS: GABAPENTIN 300 MG CAP PO SCH ×3 (07:31→20:03)
[2022-07-28] MEDS: cefTRIAXone SODIUM 2,000 MG in DEXTROSE 5% 50 ML IV SCH (07:31)
[2022-07-28] MEDS: NICOTINE 21 MG/24 HR TDSY TD SCH (07:31)
[2022-07-28] MEDS: ENOXAPARIN INJ 40 MG/0.4 ML SYR SQ SCH (07:32)
[2022-07-28] MEDS: LIDOCAINE 5% 1 PATCH TD SCH (07:32)
[2022-07-28 09:05] LABS: Thyroid Stimulating Hormone 24.765 uIu/ml (0.300-4.500)
[2022-07-28 09:07] LABS: Albumin Level 3.6 gm/dl (3.4-5.0); BUN Creatinine Ratio 7.8 (10-20); Bilirubin Direct 2.5 mg/dl (0-0.2); Bilirubin,Total 4.3 mg/dl (0.2-1.0); Calcium 8.5 mg/dl (8.5-10.1); Creatinine Clr Calc Pharmacy 126.1 ml/min; Est GFR (African American) 143.4 ml/min; Est GFR (Non-African American) 123.7 ml/min; Magnesium 1.4 mg/dl (1.7-2.4); Potassium 3.3 mmol/L (3.5-5.1); Total Protein 6.1 gm/dl (6.0-8.3)
[2022-07-28] MEDS ORDERED: POTASSIUM CHLORIDE CRTAB 20 MEQ TABCR PO ONE (09:31)
[2022-07-28 09:41] LABS: T4 Free Thyroxine 1.55 ng/dl (0.61-1.60)
[2022-07-28] MEDS: MAGNESIUM SULFATE / D5W 1 GM/100 ML BAG IV SCH ×2 (10:35→12:20)
--- NOTE | 2022-07-28 10:40 | Gastroenterology Progress Note ---
Date of Service July 28, 2022 Assessment & Plan (1) Acute pancreatitis: Plan: Pt w significant pain - discussed w pt/ that anxiety, scarring from splenectomy may be contributing. Plan 1. Complete, permanent alcohol cessation. 2. IV fluids at 200/hr. 3. Analgesics. 4. Negotiated pain med use and eating. If able to hold next oxycodone dose to 2pm then will try some solid low fat foods. 5. Imaging w stones/sludge so recommend OP surgery recheck. Pt seen previously by [facility] surgery for hypofunctioning gallbladder. Pt/ will make OP appt to reconsider cholecystectomy. 5. Will repeat OP EUS,also after resolution of the acute pancreatitis, in 6-8 wks. Our office will contact the pt to arrange. 6. Complete alcohol cessation is important in preventing pancreatitis in the future. 7. Please consider Trental 400mg TID for tx of ETOH hepatitis, if pt is willing (admits to some ETOH use and understands need for medication) and if able to DC the Toradol for pain as severe interaction noted when I had attempted to enter the order for Trental. 7. GI will sign off. Please notify us if new/worsening symptoms. Admission and Anticipated Discharge Date Admission Date: July 26, 2022 Supervising Physician Co-Signing Physician Notes Agree with PE as documented. Prior work-up was being done for her gallbladder. Agree with further plan of care as documented. Pseudocyst appears to be smaller in size. Subjective 37, female acute pancreatitis (mild panc tail), el LFTs. MRCP yesterday w sludge/layering stones in the GB but not bile duct abnormalities. This morning, crying w pain, says pain is slightly improved compared to admission also says pain meds not helping. On oxycodone 5mg ordered Q 4 prn. Took 2 doses yesterday, 2 doses thus far today (2AM, 7AM). Asks for solid foods. on the phone (speaker) during interview/exam - very supportive. Review of Systems Review of Systems: ROS: Gen: Denies weakness, fevers, weight loss Eyes: No eye redness, or pain, no recent vision changes Resp: No SOB, no cough Cardio: No palpitations/irregular beats, no chest pain GI: As per HPI, otherwise (-) : Denies pain on urination Skin: + yellow eyes/skin a few days ago. Physical Exam Constitutional: WD/WN, vitals as above Anxious. Tearful about her pain. Eyes: PERRL, conjunctivae normal, anicteric sclerae ENMT: external ear and nose normal, oropharynx normal Neck: trachea midline, no thyromegaly Respiratory: normal respiratory effort, lungs clear to auscultation Cardiovascular: RRR, no murmur, no edema Gastrointestinal (Abdomen): BS present, + flatus, soft, non distended. Pt is extremely tender to light touch over every area of the abdomen Skin: no rashes, warm and dry Neurologic: Very mild tremor of both hands, improved compared to yesterday. Otherwise no neuro abnormalities. Psychiatric: Orientation: alert, oriented x 3 and cooperative Apperance: appropriately groomed and appeared stated age Mood: + anxious mood Lymphatic: no cervical or axillary lymphadenopathy Results & Data ([facility]) Vital Signs (Past 12 Hours) Vital Signs Temp Pulse Pulse Resp BP Pulse Ox O2 Del Method 07/28/22 07:31 37.1 C 84 14 128/78 97 Room Air 07/28/22 07:14 91 H 07/28/22 03:00 37 C 80 16 131/77 96 Room Air 07/28/22 00:43 37 C 87 16 135/86 96 Room Air Diagnostic Findings MRCP 1. No acute abnormality. No cholecystitis or choledocholithiasis. Layering sludge versus stones are noted in the gallbladder. 2. Cystic lesion adjacent to the pancreatic tail measures 3.5 cm, likely representing a pseudocyst which has slightly decreased over time. (1) Acute pancreatitis Acute pancreatitis complication: no infection or necrosis Pancreatitis type: alcohol induced Qualified Code(s): K85.20 - Alcohol induced acute pancreatitis without necrosis or infection
[2022-07-28] MEDS ORDERED: KETOROLAC TROMETHAMINE 10 MG TABLET PO PRN (10:44)
[2022-07-28] MEDS ORDERED: DICLOFENAC SOD 1% GEL 100 GM TUBE EXT PRN (11:00)
--- NOTE | 2022-07-28 15:27 | Hospitalist Progress Note ---
Date of Service July 28, 2022 Assessment & Plan (1) History of alcohol use: (2) Acute alcoholic pancreatitis: (3) Pseudocyst of pancreas: Plan: Recurrent pancreatitis Alcoholic hepatitis Chronic Pancreatic pseudocyst H/O pseudocyst to leak Hepatomegaly and severe hepatic steatosis --Patient admits to taking Tylenol regularly for chronic back pain --CT ABD:Findings suggest acute on chronic pancreatitis. Correlate with clinical and laboratory findings. A fluid collection adjacent to the pancreatic tail is typical for a pseudocyst. This has modestly decreased in size as compared to 04/03/2022. Status post splenectomy. The pancreas enhances th roughout. The gallbladder is distended and there is pericholecystic infiltration. Correlate with clinical and laboratory findings. This is likely related to adjacent pancreatitis. If there is concern for concomitant cholecystitis a right upper quadrant ultrasound should be considered. Hepatomegaly and severe hepatic steatosis. The bladder wall appears circumferentially thickened. Correlate with clinical findings and urinalysis. There is trace free fluid in the cul-de-sac. --Gall Bladder USD:Mildly distended gallbladder without gallbladder wall thickening. No sonographic Noland sign. No gallstones. No convincing evidence for acute cholecystitis. Severe hepatic steatosis. Mild dilatation of the common bile duct. Obscured pancreas. --MRCP: No acute abnormality. No cholecystitis or choledocholithiasis. Layering sludge versus stones are noted in the gallbladder. Cystic lesion adjacent to the pancreatic tail measures 3.5 cm, likely representing a pseudocyst which has sl ightly decreased over time. -- Lipase 306 --Avoid hepatotoxic agents as able --Advised to quit alcohol, Tylenol use --Continue IV fluids --Appreciate GI input If LFTs continue to trend upwards, will consider Trental Discontinue empiric antibiotics Needs follow-up with GI upon discharge for outpatient EUS Advanced to low fat diet Monitor LFTs Alcohol use Continue thiamine, folic acid Monitor for withdrawal PDMP: on Buprenorphine Hypokalemia Hypomagnesemia Replete electrolytes as needed Abnormal TSH H/O hypothyroidism Elevated TSH, normal free T4 Increase levothyroxine dose 175 mcg daily Needs repeat thyroid function testing as outpatient (4) Tobacco use: Plan: - Cessation encouraged, nicotine patch (5) H/O splenectomy: Plan: H/O spontaneous splenic rupture as per patient (6) Hypokalemia: (7) Anemia: (8) Von Willebrand disease: Plan: DVT Px: Isabelnox SQ CODE STATUS: Full code Disposition Expect to discharge home when stable Admission and Anticipated Discharge Date Admission Date: July 26, 2022 Subjective Patient is seen and examined at bedside States having headache, chronic back pain Abdominal pain improved No other complaints Denies any chest pain, vomiting, dyspnea Tolerating diet Review of Systems Review of Systems: All systems reviewed & are unremarkable except as noted in Subjective Physical Exam Physical Exam: Physical Exam: Vitals signs as noted above General Appearance:Moderately built and nourished, no apparent distress Head: normocephalic, Atraumatic Eyes: normal inspection, EOMI, +Icteric Neck: supple, Trachea midline Respiratory/Chest: Normal breath sounds, CTA, No accessory muscle use Cardiovascular: S1, S2, No murmur Abdomen/GI:Soft, mild tender, Bowel sounds present Extremities/Musculoskeletal:normal inspection, no edema Neurologic/Psych:AAOX3, grossly no focal neurological deficits Skin: normal color, warm Results & Data Results & Data ([facility]) Vital Signs (Past 12 Hours) Vital Signs Temp Pulse Pulse Resp BP Pulse Ox O2 Del Method 07/28/22 11:00 36.9 C 93 H 14 151/88 H 97 Room Air 07/28/22 07:31 37.1 C 84 14 128/78 97 Room Air 07/28/22 07:14 91 H Laboratory Results [facility] 07/28/22 07:58 Sodium 138 Potassium 3.3 L Chloride 98 Carbon Dioxide 25 BUN 4 L Creatinine 0.51 L Glucose 124 H Calcium 8.5 Liver Function 07/28/22 Range/Units 07:58 Total Bilirubin 4.3 H (0.2-1.0) mg/dl Direct Bilirubin 2.5 H (0-0.2) mg/dl AST 606 H (13-39) U/L ALT 125 H (7-52) U/L Alkaline Phosphatase 150 H (34-104) U/L Albumin 3.6 (3.4-5.0) gm/dl (2) Acute alcoholic pancreatitis Acute pancreatitis complication: unspecified Qualified Code(s): K85.20 - Alcohol induced acute pancreatitis without necrosis or infection (7) Anemia Anemia type: unspecified type Qualified Code(s): D64.9 - Anemia, unspecified
[2022-07-29] MEDS: LACTATED RINGER'S 1,000 ML IV SCH ×2 (02:49→08:33)
[2022-07-29] MEDS ORDERED: ONDANSETRON INJ 2 MG/ML 2 ML VIAL IV STA ×2 (05:28→10:20)
[2022-07-29] MEDS: oxyCODONE HCL IR 5 MG TAB (IMMEDIATE RELEASE) PO PRN (05:55)
[2022-07-29] MEDS ORDERED: LEVOTHYROXINE SODIUM 175 MCG TABLET PO SCH (06:30)
[2022-07-29] MEDS: PANTOprazole 40 MG TAB PO SCH (08:23)
[2022-07-29] MEDS: ENOXAPARIN INJ 40 MG/0.4 ML SYR SQ SCH (08:23)
[2022-07-29] MEDS: GABAPENTIN 300 MG CAP PO SCH ×2 (08:23→13:36)
[2022-07-29] MEDS: FOLIC ACID 1 MG TAB PO SCH (08:24)
[2022-07-29] MEDS: MULTIVITAMIN CHEWABLE TAB PO SCH (08:24)
[2022-07-29] MEDS: NICOTINE 21 MG/24 HR TDSY TD SCH (08:24)
[2022-07-29] MEDS: MULTIVITAMIN TAB PO SCH (08:24)
[2022-07-29] MEDS: LIDOCAINE 5% 1 PATCH TD SCH (08:27)
[2022-07-29 08:49] LABS: Hematocrit (blood only) 29.2 % (37.0-47.0); Hemoglobin 10.8 g/dl (12.0-16.0); Mean Corpuscular Volume 97.3 fL (80.0-100.0); Mean Platelet Volume 12.7 fL (9.4-12.4); Nucleated RBC # (auto) 0.04 K/uL (0-0.12); Nucleated RBC % (auto) 0.4 %; Platelet Count 201 K/uL (130-400); RDW Coefficient of Variation 24.9 % (11.5-14.5); RDW Standard Deviation 83.4 fL (36.4-46.3); White Blood Count 10.84 K/ul (4.8-10.8)
[2022-07-29 09:03] LABS: Albumin Level 4.5 gm/dl (3.4-5.0); BUN Creatinine Ratio 8.2 (10-20); Bilirubin Direct 2.3 mg/dl (0-0.2); Bilirubin,Total 4.6 mg/dl (0.2-1.0); Calcium 9.4 mg/dl (8.5-10.1); Creatinine Clr Calc Pharmacy 131.3 ml/min; Est GFR (African American) 145.3 ml/min; Est GFR (Non-African American) 125.3 ml/min; Magnesium 1.6 mg/dl (1.7-2.4); Potassium 3.7 mmol/L (3.5-5.1); Total Protein 7.3 gm/dl (6.0-8.3)
[2022-07-29] MEDS ORDERED: MAGNESIUM SULFATE / D5W 1 GM/100 ML BAG IV ONE (09:45)
--- NOTE | 2022-07-29 16:35 | Discharge Summary ---
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 She was hospitalized from 04/03/2022-04/06/2022 for recurrent pancreatitis with pseudocyst where she was following with GI, was initially n.p.o. and advance her diet as tolerated once pancreatitis improved, was provided with hydration, and was treated with antibiotics for a 4.8 cm enhancing fluid collection near the near the pancreatic tail typical for pseudocyst. Patient presents today with worsening abdominal pain. States that this has been ongoing for the past 1 week. Her 7-year-old child had a GI-like illness last week and she feels that she had caught part of it with nausea, vomiting and decreased appetite. On Bowmonday, she had a few glasses of wine, and then afterwards felt worsening abdominal pain. Patient notes this is similar to previous pancreatitis bouts, she has not been able to tolerate much p.o. intake at all. Patient has not found relief with [id number] medications for pain. She has not gotten much sleep in the past 24 hours secondary to pain. l she has been started on IV cefepime IV in the ER, given pain medication, antiemetics and fluids. Her pain is currently rated a 5/10. She is requesting a nicotine patch she smokes 3/4 pack cigarettes per day. Admission Exam Per Admitting Provider General: awake, alert, no apparent distress, falls asleep easily during conversation with some twitching Head: Normocephalic, atraumatic ENT: PERRL, EOMI, no pharyngeal exudate, mucous membranes moist Chest: Clear to auscultation, on room air, no adventitious breath sounds Cardiac: Regular rate and rhythm, no murmur, no JVD, normal peripheral pulses, good capillary refill Abdominal: NABS x 4 quadrants, soft, nondistended, nontender to palpation, no rebound or guarding Extremities: Normal inspection, no peripheral edema or erythema, calfs nontender to palpation Psych: Normal mood and affect Neuro: AAO x 3, strength intact bilaterally and rated 5/5, no motor deficits, speech is clear, no peripheral sensory deficits Principal Diagnosis History of alcohol use: Acute alcoholic pancreatitis: Pseudocyst of pancreas: Recurrent pancreatitis Alcoholic hepatitis Alcohol use Hypokalemia Hypomagnesemia Hypothyroidism Tobacco use: H/O splenectomy: Anemia: Von Willebrand disease: Discharge Exam General Appearance:Moderately built and nourished, no apparent distress Head: normocephalic, Atraumatic Eyes: normal inspection, EOMI, +Icteric Neck: supple, Trachea midline Respiratory/Chest: Normal breath sounds, CTA, No accessory muscle use Cardiovascular: S1, S2, No murmur Abdomen/GI:Soft, mild tender, Bowel sounds present Extremities/Musculoskeletal:normal inspection, no edema Neurologic/Psych:AAOX3, grossly no focal neurological deficits Skin: normal color, warm Discharge Data Allergies Allergy/AdvReac Type Severity Reaction Status Date / Time valacyclovir Allergy Severe Dyspnea Verified 04/03/22 20:17 enalaprilat Allergy Mild itch Verified 04/03/22 20:17 Consultations 07/26/22 20:00 ED Decision to Admit Stat 07/26/22 20:22 Consult Gastroenterology Routine Ordered Studies 07/26/22 15:30 CT Abd and Pelvis [CT abd pelvis IV con only] Stat 07/26/22 17:17 US gallbladder Stat 07/27/22 13:30 MR MRCP Stat Laboratory Results WBC 10.84 K/ul (4.8-10.8) H 07/29/22 08:10 RBC 3.00 M/uL (4.20-5.40) L 07/29/22 08:10 Hgb 10.8 g/dl (12.0-16.0) L 07/29/22 08:10 Hct 29.2 % (37.0-47.0) L 07/29/22 08:10 MCV 97.3 fL (80.0-100.0) 07/29/22 08:10 MCH 36.0 pg (25.0-34.0) H 07/29/22 08:10 MCHC 37.0 g/dL (32.0-36.0) H 07/29/22 08:10 RDW Std Deviation 83.4 fL (36.4-46.3) H 07/29/22 08:10 RDW Coeff of Praful 24.9 % (11.5-14.5) H 07/29/22 08:10 Plt Count 201 K/uL (130-400) 07/29/22 08:10 MPV 12.7 fL (9.4-12.4) H 07/29/22 08:10 Immature Gran % (Auto) 1.1 % 07/27/22 08:27 Neut % (Auto) 73.6 % 07/27/22 08:27 Lymph % (Auto) 13.9 % 07/27/22 08:27 [place] % (Auto) 10.0 % 07/27/22 08:27 Eos % (Auto) 0.7 % 07/27/22 08:27 Baso % (Auto) 0.7 % 07/27/22 08:27 Neut # (Auto) 7.72 K/uL (1.40-6.50) H 07/27/22 08:27 Lymph # (Auto) 1.46 K/uL (1.2-3.4) 07/27/22 08:27 [place] # (Auto) 1.05 K/uL (0.11-0.59) H 07/27/22 08:27 Eos # (Auto) 0.07 K/uL (0-0.50) 07/27/22 08:27 Baso # (Auto) 0.07 K/uL (0-0.2) 07/27/22 08:27 Immature Gran # (Auto) 0.12 K/uL (0.01-0.20) 07/27/22 08:27 Absolute Nucleated RBC 0.04 K/uL (0-0.12) 07/29/22 08:10 Nucleated RBC % (auto) 0.4 % 07/29/22 08:10 Polychromasia 1+ 07/27/22 08:27 Anisocytosis Present 07/27/22 08:27 Pappenheimer Bodies 2+ 07/27/22 08:27 Target Cells 3+ 07/27/22 08:27 PT 15.4 Seconds (9.0-12.0) H 07/26/22 14:45 INR 1.5 (0.9-1.1) H 07/26/22 14:45 Sodium 137 mmol/L (136-145) 07/29/22 08:10 Potassium 3.7 mmol/L (3.5-5.1) 07/29/22 08:10 Chloride 98 mmol/L (98-107) 07/29/22 08:10 Carbon Dioxide 25 mmol/L (21-32) 07/29/22 08:10 Anion Gap 14 (3-11) H 07/29/22 08:10 BUN 4 mg/dl (6-23) L 07/29/22 08:10 Creatinine 0.49 mg/dl (0.6-1.2) L 07/29/22 08:10 Est Cr Clr Drug Dosing 131.3 ml/min 07/29/22 08:10 Est GFR ( Amer) 145.3 ml/min 07/29/22 08:10 Est GFR (Non-Af Amer) 125.3 ml/min 07/29/22 08:10 BUN/Creatinine Ratio 8.2 (10-20) L 07/29/22 08:10 Glucose 142 mg/dl (70-99(Fasting)) H 07/29/22 08:10 Estimat Average Glucose 131 mg/dl 07/26/22 14:36 Hemoglobin A1c 6.2 % (4.5-5.6) H 07/26/22 14:36 Calcium 9.4 mg/dl (8.5-10.1) 07/29/22 08:10 Magnesium 1.6 mg/dl (1.7-2.4) L 07/29/22 08:10 Total Bilirubin 4.6 mg/dl (0.2-1.0) H 07/29/22 08:10 Direct Bilirubin 2.3 mg/dl (0-0.2) H 07/29/22 08:10 AST 376 U/L (13-39) H 07/29/22 08:10 ALT 127 U/L (7-52) H 07/29/22 08:10 Alkaline Phosphatase 170 U/L (34-104) H 07/29/22 08:10 Ammonia 39.0 umol/L (18-72) 07/27/22 00:56 Total Protein 7.3 gm/dl (6.0-8.3) 07/29/22 08:10 Albumin 4.5 gm/dl (3.4-5.0) 07/29/22 08:10 Globulin 2.6 gm/dl (2.5-4.0) 07/27/22 08:27 Albumin/Globulin Ratio 1.4 (0.9-2) 07/27/22 08:27 Lipase 306 U/L (11-82) H 07/26/22 14:36 TSH 24.765 uIu/ml (0.300-4.500) H 07/28/22 07:58 Free T4 1.55 ng/dl (0.61-1.60) 07/28/22 07:58 Urine Color [place] 07/26/22 15:40 Urine Appearance Clear (Clear) 07/26/22 15:40 Urine pH 6.5 (4.5-7.5) 07/26/22 15:40 Ur Specific [place] 1.012 (1.000-1.030) 07/26/22 15:40 Urine Protein Negative (Negative) 07/26/22 15:40 Urine Glucose (UA) Negative (Negative) 07/26/22 15:40 Urine Ketones 1+ (Negative) H 07/26/22 15:40 Urine Blood Negative (Negative) 07/26/22 15:40 Urine Nitrite Negative (Negative) 07/26/22 15:40 Urine Bilirubin 1+ (Negative) H 07/26/22 15:40 Urine Urobilinogen Positive (Negative) H 07/26/22 15:40 Ur Leukocyte Esterase Negative (Negative) 07/26/22 15:40 POC Ur Test NEG (NEG) 07/26/22 15:47 SARS-CoV-2, RNA, NAAT NEGATIVE (NEGATIVE) 07/26/22 20:10 Impressions Abdomen/Pelvis CT 07/26/22 15:30 CT SCAN OF THE ABDOMEN AND PELVIS WITH IV CONTRAST CLINICAL HISTORY: Mid abdominal pain. COMPARISON STUDY: Abdominal CT dated 04/03/2022. TECHNIQUE: Following the IV administration of 88 cc of Optiray 350, CT scan of the abdomen and pelvis is performed from the lung bases to the proximal femora. Images are reviewed in the axial, sagittal, and coronal planes. IV contrast was administered without complication. A dose lowering technique was utilized adhering to the principles of ALARA. CT DOSE: 263.65 mGy.cm FINDINGS: Lung bases: The heart is normal in size and without pericardial effusion. A calcified granuloma is seen in the right lower lobe. The lung bases are otherwise clear. Liver: The contrast-enhanced liver is enlarged, measuring 22 cm in length. The liver demonstrates diffusely decreased attenuation indicating severe steatosis. There is no intrahepatic biliary ductal dilatation. The hepatic veins and portal veins are patent. Gallbladder: The gallbladder is mildly distended and there is pericholecystic infiltration. Spleen: The spleen is surgically absent. Pancreas: The pancreas is mildly atrophic and heterogeneous. Infiltration and fluid is seen around the pancreatic body and tail suggesting acute pancreatitis. A fluid collection with surrounding surgical clips adjacent to the pancreatic tail on image #[id number] measures 4.0 x 3.4 cm. This has modestly decreased in size as compared to 04/03/2022 and likely represent a pseudocyst. The pancreas enhances throughout. Adrenal glands: Unremarkable. Kidneys: The contrast enhanced kidneys are normal in size and without hydronephrosis. The kidneys enhance symmetrically. Abdominal vasculature: The abdominal aorta is normal in course and caliber noting mild atherosclerotic calcification. Bowel: There is no bowel obstruction. [id number] fecal retention is seen throughout the colon. The appendix is well-visualized and normal. Peritoneum: There is no intraperitoneal free air or abdominal ascites. There is a fat-containing umbilical hernia. Lymphadenopathy: None. Pelvic viscera: The bladder wall is circumferentially thickened. The uterus is normal as visualized noting an intrauterine device in place. There are bilateral ovarian follicles. Trace free fluid is seen in the cul-de-sac. Skeletal structures: No lytic or blastic lesions are seen. IMPRESSION: 1. Findings suggest acute on chronic pancreatitis. Correlate with clinical and laboratory findings. 2. A fluid collection adjacent to the pancreatic tail is typical for a pseudocyst. This has modestly decreased in size as compared to 04/03/2022. 3. Status post splenectomy. 4. The pancreas enhances throughout. 5. The gallbladder is distended and there is pericholecystic infiltration. Correlate with clinical and laboratory findings. This is likely related to adjacent pancreatitis. If there is concern for concomitant cholecystitis a right upper quadrant ultrasound should be considered. 6. Hepatomegaly and severe hepatic steatosis. 7. The bladder wall appears circumferentially thickened. Correlate with clinical findings and urinalysis. 8. There is trace free fluid in the cul-de-sac. 9. Additional findings as above. ACT 112: Negative or not required by law. Electronically signed by: Jaime Genao M.D. 07/26/2022 5:04 PM Gallbladder Ultrasound 07/26/22 17:17 US gallbladder CLINICAL HISTORY: abnormal CT eval for cholecystitis COMPARISON STUDY: Right upper quadrant ultrasound March 26, 2021. CT of the abdomen and pelvis performed earlier today. FINDINGS: Severe hepatic steatosis is noted. The liver is enlarged, measuring 21 cm in maximal dimension. No hepatic lesions are identified. Mild dilatation of the common bile duct measuring 8 mm, is noted. Pancreas is largely obscured on this exam. The gallbladder is mildly distended. There is no gallbladder wall thickening. Trace pericholecystic fluid is noted. No gallstones are noted. No sonographic Noland sign was elicited. There is no right hydronephrosis. IMPRESSION: 1. Mildly distended gallbladder without gallbladder wall thickening. No sonographic Noland sign. No gallstones. No convincing evidence for acute cholecystitis. 2. Severe hepatic steatosis. 3. Mild dilatation of the common bile duct. 4. Obscured pancreas. ACT 112: Negative or not required by law. Electronically signed by: Troy Murphy M.D. 07/26/2022 7:44 PM Cholangiopancreatography MRI 07/27/22 13:30 MR MRCP CLINICAL HISTORY: abd pain TECHNIQUE: Multiplanar multisequence MR images of the abdomen were obtained, as per MRCP protocol. . COMPARISON: Comparison is made to MRCP 01/10/[address] abdomen pelvis 07/26/2022 FINDINGS: Lower chest: No acute abnormality Liver: Unremarkable. No focal lesions are seen. Gallbladder and biliary tree: Layering sludge versus stones noted. No intra- or extrahepatic biliary ductal dilation. Pancreas: A cystic lesion at the tip of the pancreas is again noted measuring approximately 35 mm. Spleen: Patient is status post splenectomy. Adrenals: Unremarkable. Kidneys and ureters: Unremarkable. Bowel: Unremarkable. Lymph nodes Retroperitoneal: Unremarkable. Mesenteric: Unremarkable. Peritoneum: Normal Vessels: Unremarkable. Abdominal wall: Unremarkable. Bones: Unremarkable. IMPRESSION: 1. No acute abnormality. No cholecystitis or choledocholithiasis. Layering sludge versus stones are noted in the gallbladder. 2. Cystic lesion adjacent to the pancreatic tail measures 3.5 cm, likely representing a pseudocyst which has slightly decreased over time. ACT 112: Negative or not required by law. Electronically signed by: Baudilio Mcnamara M.D. 07/27/2022 2:00 PM Hospital Course (1) History of alcohol use: (2) Acute alcoholic pancreatitis: (3) Pseudocyst of pancreas: Recurrent pancreatitis Alcoholic hepatitis Chronic Pancreatic pseudocyst H/O pseudocyst to leak Hepatomegaly and severe hepatic steatosis --Patient admits to taking Tylenol regularly for chronic back pain --CT ABD:Findings suggest acute on chronic pancreatitis. Correlate with clinical and laboratory findings. A fluid collection adjacent to the pancreatic tail is typical for a pseudocyst. This has modestly decreased in size as compared to 04/03/2022. Status post splenectomy. The pancreas enhances throughout. The gallbladder is distended and there is pericholecystic infiltration. Correlate with clinical and laboratory findings. This is likely related to adjacent pancreatitis. If there is concern for concomitant cholecystitis a right upper quadrant ultrasound should be considered. Hepatomegaly and severe hepatic steatosis. The bladder wall appears circumferentially thickened. Correlate with clinical findings and urinalysis. There is trace free fluid in the cul-de-sac. --Gall Bladder USD:Mildly distended gallbladder without gallbladder wall thickening. No sonographic Noland sign. No gallstones. No convincing evidence for acute cholecystitis. Severe hepatic steatosis. Mild dilatation of the common bile duct. Obscured pancreas. --MRCP: No acute abnormality. No cholecystitis or choledocholithiasis. Layering sludge versus stones are noted in the gallbladder. Cystic lesion adjacent to the pancreatic tail measures 3.5 cm, likely representing a pseudocyst which has slightly decreased over time. -- Lipase 306 --Avoid hepatotoxic agents as able --Advised to quit alcohol, Tylenol use --Continue IV fluids --Appreciate GI input If LFTs continue to trend upwards, will consider Trental Discontinue empiric antibiotics Needs follow-up with GI upon discharge for outpatient EUS Advanced to low fat diet LFT are trending down Pt is very anxious to go because she had 4 kids at home Will check Liver enzymes in 1 week Follow up with hepatology at Alcohol use Continue thiamine, folic acid Monitor for withdrawal PDMP: on Buprenorphine Counseling on alcohol cessation Hypokalemia Hypomagnesemia Replete electrolytes as needed Abnormal TSH H/O hypothyroidism Elevated TSH, normal free T4 Increase levothyroxine dose 175 mcg daily Needs repeat thyroid function testing as outpatient (4) Tobacco use: - Cessation encouraged, nicotine patch (5) H/O splenectomy: H/O spontaneous splenic rupture as per patient (6) Hypokalemia: (7) Anemia: (8) Von Willebrand disease: DVT Px: Lovenox SQ CODE STATUS: Full code Disposition Expect to discharge home when stable Total Time Total Time Spent Total Time Spent (In Minutes): 35 minutes Discharge Plan Discharge Items Patient Disposition: Home - Self-Care Reason For Visit: PANCREATITIS, ETOH WITHDRAWAL Discharge Diagnosis: History of alcohol use: Acute alcoholic pancreatitis: Pseudocyst of pancreas: Recurrent pancreatitis Alcoholic hepatitis Alcohol use Hypokalemia Hypomagnesemia Hypothyroidism Tobacco use: H/O splenectomy: Anemia: Von Willebrand disease: Activity: Resume your previous activity Non-emergency contact: Primary Care Provider, Surgeon and Interventional Physician Call non-emergency contact if: you have any medication questions, your symptoms worsen and your temperature is above 101 Follow-up/Referrals: Gypsy Lubin PA-C [Primary Care Provider] - (Date & Time 08/05/2022 11:20 AM Provider Finn Myles MD [facility] ) Diet: Low Fat Addtl Attending Provider Instructions: Follow up with your primary care provider 08/05/2022 @ 11:20 AM Finn Myles MD [facility] Follow up with your hepatology outpatient Dr. Yee ( Please schedule follow up appointment) Your provider will refer you for surgical evaluation for gallbladder removal Check LFT in 1 week to monitor your liver enzymes ( your provider will order it) Check TSH in 4 weeks to monitor your thyroid function Counseling on alcohol cessation Counseling on tobacco cessation Seek medical attention if you symptoms worsening or persists Levothyroxine increased to 175mcg daily Pending Studies at Discharge: No Stand-Alone Forms: [facility] Cessation Medications and DC Order Prescriptions: New levothyroxine [Synthroid] 175 mcg Tablet 175 mcg PO DAILYBB 30 Days Qty: 30 0RF folic acid 1 mg Tablet 1 mg PO QAM 30 Days Qty: 30 0RF thiamine HCl (vitamin B1) 100 mg tablet 100 mg PO DAILY Qty: 30 0RF Continued acetaminophen [Tylenol Extra Strength] 500 mg Tablet 1,000 mg PO Q6H PRN (Reason: Pain) spironolactone 25 mg Tablet 25 mg PO BID ondansetron 8 mg tablet,disintegrating 8 mg PO Q8 PRN (Reason: Nausea) potassium chloride 20 mEq/15 mL liquid 30 meq PO AMHS amitriptyline 25 mg tablet 25 mg PO BID PRN (Reason: Sleep or pain,severe) pantoprazole 40 mg tablet,delayed release (DR/EC) 40 mg PO BID lidocaine 5 % adhesive patch,medicated 1 patch topical DAILY gabapentin 300 mg capsule 300 mg PO TID furosemide 20 mg tablet 20 mg PO DAILY MDD 3 days in a row,then hold PRN (Reason: edema or wt gain) albuterol sulfate 90 mcg/actuation HFA aerosol inhaler 2 puff INHALATION QID Rx Instructions: Inhale 2 puffs in am, 2 puffs @ noon, 2 puffs in evening and 2 puffs before hs. dicyclomine 10 mg capsule 10 mg PO QID PRN (Reason: .abd pain) multivitamin with iron [Daily Vites/Iron] Tablet 1 tab PO QAM Discontinued levothyroxine 150 mcg tablet 150 mcg PO DAILYBB Discharge Orders: Discharge Order (Routine); Ordered 07/29/22 Ordered By: Trell Saxena/Other Patient Handouts: Pancreatic Pseudocysts, Prediabetes, 5 Steps for Eating Healthier, Understanding Pancreatitis, ED Alcohol Abuse Admission Data Admit Date/Time: 07/26/22 23:11 Attending Provider: Trell Dinh Admit Provider: Andi Tenorio Primary Care Provider: Gypsy Lubin Other Providers: Andi Tenorio ; Hugh Burns ; Carlitos Siddiqui Other Interventions: Discharge Summary Assessment (RN) Last Done: 07/29/22 14:53
== END 2022-07-29 16:30 | disposition home or self-care (01) | DRG 439 ==
LOC: ED 13:47 → SUATTDRO 23:11 → 2N 07-27